=== PATIENT | female | born 1955 | race Caucasian/White ===

== ENCOUNTER → 2020-06-06 09:02 | Outpatient (BNVA) | payer MEDICAID, SELFPAY | PROVIDERS: PCP Internal Medicine; Referring Provider Internal Medicine; Visit Provider Physician Assistant | DX: Z76.89 Persons encountering health services in other specified circumstances (principal) ==

== ENCOUNTER 2020-06-24 12:29 | Outpatient (REF) | payer MEDICAID, SELFPAY | END 2020-06-24 12:30 | disposition home or self-care (01) | LOC: HO.LAB 12:29 | PROVIDERS: PCP Internal Medicine; Visit Provider Internal Medicine | DX: Z20.828 Contact with and (suspected) exposure to other viral communicable diseases (principal) | CPT/HCPCS: C9803; U0003 ==

== ENCOUNTER 2020-08-02 10:04 | Day surgery (SDC) | payer MEDICAID, SELFPAY ==
--- NOTE | 2020-08-01 10:48 | HO.ANESPROP2 ---
Documented by User: Asia Chacon 08/01/20 10:49 HPI - Anesthesia Eval Consult details Narrative: 65yo F for Colonoscopy [facility] Past Medical History Medical History Chronic back pain Dyslipidemia HTN (hypertension) Sleep apnea in adult Surgical History Surgical History H/O colonoscopy History of bunionectomy Social History Social History Alcohol intake: current Smoking Status: Never smoker Use of substances other than those prescribed or required for medical reasons: No Have you been hit, kicked, punched, or otherwise hurt by someone within the past year? If so, by whom?: No Advance Directives: No Advance Directives Information Provided: No Current occupational status: unemployed Meds Allergies Allergy/AdvReac Type Severity Reaction Status Date / Time tetanus immune globulin AdvReac Intermediate LOCALIZED Verified 08/02/20 10:30 [TETANUS IMMUNE GLOBULIN] SWELLING Home Medications Medication Instructions Recorded Confirmed Type acetaminophen 325 mg tablet 325 mg PO QID PRN 06/06/20 07/27/20 History albuterol 90 mcg/actuation aerosol 90 mcg INHALATION Q4-6H PRN 06/06/20 07/27/20 History inhaler atorvastatin 20 mg tablet 20 mg PO BEDTIME 06/06/20 07/27/20 History clonazepam 1 mg tablet 1 mg PO DAILY 06/06/20 07/27/20 History lisinopril 10 1 tab PO DAILY 06/06/20 07/27/20 History mg-hydrochlorothiazide 12.5 mg tablet Exam Exam Date and Time: August 01, 2020 1048 Assessment and Plan Assessment Anesthesia Assessment: Chart Reviewed Documented by User: Urszula Ford 08/02/20 11:05 [facility] Past Medical History Medical History Chronic back pain Dyslipidemia HTN (hypertension) Sleep apnea in adult Surgical History Surgical History H/O colonoscopy History of bunionectomy Social History Social History Alcohol intake: current Smoking Status: Never smoker Use of substances other than those prescribed or required for medical reasons: No Have you been hit, kicked, punched, or otherwise hurt by someone within the past year? If so, by whom?: No Advance Directives: No Advance Directives Information Provided: No Current occupational status: unemployed Meds Allergies Allergy/AdvReac Type Severity Reaction Status Date / Time tetanus immune globulin AdvReac Intermediate LOCALIZED Verified 08/02/20 10:30 [TETANUS IMMUNE GLOBULIN] SWELLING Home Medications Medication Instructions Recorded Confirmed Type acetaminophen 325 mg tablet 325 mg PO QID PRN 06/06/20 07/27/20 History albuterol 90 mcg/actuation aerosol 90 mcg INHALATION Q4-6H PRN 06/06/20 07/27/20 History inhaler atorvastatin 20 mg tablet 20 mg PO BEDTIME 06/06/20 07/27/20 History clonazepam 1 mg tablet 1 mg PO DAILY 06/06/20 07/27/20 History lisinopril 10 1 tab PO DAILY 06/06/20 07/27/20 History mg-hydrochlorothiazide 12.5 mg tablet Exam Airway Mallampati Class: III TM Dist: >3cm Neck ROM: Full Heart: RRR Lungs: CTA
[2020-08-01 16:21] VITALS: BMI 32.3
[2020-08-02 10:43] VITALS: BP 130/73; PULSE 47; RESP 16; TEMP 36.7; O2SAT 98
[2020-08-02] MEDS: Lactated Ringers 1,000 ML 100 ML IVCONT (10:53)
--- NOTE | 2020-08-02 10:57 | W.PM.OPN ---
Operative Note Operative Note Date of Service: 08/02/20 Narrative: Pre-op diagnosis: Colon cancer screening, history of colon polyps, positive stool Hemoccult Post-op diagnosis: other (Cecal AVM, colon polyps, diverticulosis) Procedure: COLONOSCOPY TILL CECUM WITH BIOPSIES, SNARE POLYPECTOMY AND CAUTERY OF CECAL AVM Consent: Indications for the procedure and potential complications of bleeding, perforation, reaction to medications and missed diagnosis were discussed with the patient and informed consent was obtained. Instrument: Olympus PCF H 190 L variable stiffness pediatric colonoscope Monitoring: Vital signs and clinical assessment, intermittent blood pressure monitoring, continuous EKG monitoring, Pulse oximetry and Carbon Dioxide monitoring were done throughout the procedure. Colon withdrawl time was 22 minutes. Procedure: The patient was placed in the left lateral decubitis position and pre-procedure medications were administered. After a digital rectal examination of the ano-rectum, the video colonoscope was inserted into the rectum and advanced through the colon to the cecum. The colonoscope was slowly withdrawn in a retrograde panoramic fashion and the colon mucosa was carefully examined including a retroflexed view of the rectum. Findings and interventions are described below. Procedure Difficulty: Without difficulty Findings: Terminal Ileum: Not evaluated Cecum: A 1.5 cms AVM ablated with a Gold probe (APC was not available) Prominent ICV with ? 5-6 mm polyp - biopsies were obtained Ascending Colon: Normal Transverse Colon: Normal Descending Colon: Moderate diverticulosis Sigmoid Colon: A 7-8 mm sessile polyp removed with a cold snare. Moderate diverticulosis Rectum: Normal Ano-rectum: Normal Colon preparation: Excellent Impression and Post Procedure Diagnosis: Colonoscopy Findings: One polyps removed A 1.5 cms AVM ablated with a Gold probe (APC was not available) Prominent ICV with ? 5-6 mm polyp - biopsies were obtained Moderate diverticulosis seen in the left colon Plan: Await pathology results Patient has an appointment on []in the GI Clinic with [OPAL Young] [Janae Nunn NP] [Aparna Townsend FNP-] [Travis Werner M.D.]. Repeat Colonoscopy interval based on path results - in 3-5 years if polyps are adenomatous and 10 years if polyps are hyperplastic. Above findings were reviewed with the patient and [colon polyps] and [diverticulosis] handouts were given in the discharge area Surgeon: Travis Werner MD Anesthesia: MAC (Dr Smith) Estimated blood loss (mL): 0 Pathology: other (A. ICV, B. SC polyp x1) Condition: stable Disposition: PACU
--- NOTE | 2020-08-02 10:57 | MHC.SHP ---
Pre-Procedural Eval Section A The patient is an INPATIENT: No The History & Physical has been completed within 30 days and I have reviewed it.: No Section B Chief Complaint: Occult Blood Positive Stool Details of Present Illness: Colon cancer screening, positive occult blood in stool Relevant Social History: Tobacco Use (past smoker) Present Medications: see Short Stay Collaborative assessment Medical History: Significant History (Chronic back pain Dyslipidemia HTN (hypertension) Sleep apnea in adult) Allergies: Allergies Allergy/AdvReac Type Severity Reaction Status Date / Time tetanus immune globulin AdvReac Intermediate LOCALIZED Verified 08/02/20 10:30 [TETANUS IMMUNE GLOBULIN] SWELLING Review of Systems Sugical H&P ROS: Negative: Constitution, Cardiovascular, Respiratory and Gastrointestinal Exam Surgical H&P Exam: Normal: Heart, Normal: Lungs, Normal: Extremities and Normal: Abdomen Plan Diagnosis/Plan: Unchanged I have reviewed the history and physical and performed a pertinent physical examination on my patient. No changes have occurred unless specified.
[2020-08-02 12:15] VITALS: BP 113/71; PULSE 84; RESP 16; TEMP 36.5; O2SAT 97
[2020-08-02 12:30] VITALS: BP 129/84; PULSE 76; RESP 18; TEMP 36.5; O2SAT 97
== END 2020-08-02 13:13 | disposition home or self-care (01) ==
PROVIDERS: PCP Internal Medicine; Visit Provider Internal Medicine Gastroenterology
PROC: 0DJD8ZZ Inspection of Lower Intestinal Tract, Via Natural or Artificial Opening Endoscopic (ICD-10-PCS; CPT 45378; principal; 2020-08-02 11:00)
DX: R19.5 Other fecal abnormalities (principal); D12.5 Benign neoplasm of sigmoid colon; K55.20 Angiodysplasia of colon without hemorrhage; K57.30 Diverticulosis of large intestine without perforation or abscess without bleeding; I10 Essential (primary) hypertension; G47.33 Obstructive sleep apnea (adult) (pediatric); E78.5 Hyperlipidemia, unspecified; Z86.010 Personal history of colon polyps; Z79.899 Other long term (current) drug therapy; Z88.7 Allergy status to serum and vaccine
CPT/HCPCS: 45385; 45380; 88305; J0461

== ENCOUNTER 2020-12-08 08:52 | Outpatient (REF) | payer MEDICAID, SELFPAY ==
--- NOTE | ~2020-12-08 | US_ITS ---
EXAMINATION: ULTRASOUND ABDOMINAL AORTIC ANEURYSM CLINICAL INFORMATION: History of AAA, evaluate status. COMPARISON: CT scan of the abdomen and pelvis dated 01/21/2011. TECHNIQUE: Multiple 2-D grayscale and duplex Doppler ultrasound images of the abdominal aorta were obtained. FINDINGS: The abdominal aorta demonstrates mild echogenic atherosclerosis. Limited Doppler interrogation showed normal arterial waveforms. Abdominal arterial maximum diameters are as follows: 1. Proximal: 2.4 cm. 2. Mid: 2.1 cm. 3. Distal: 2.7 cm. In transverse dimension (Previously 2.0 cm) 4. Right common iliac artery: 1.1 cm. 5. Left common iliac artery: 1.0 cm. The visualized inferior vena cava is unremarkable. US/US abdominal aortic aneurysm IMPRESSION:. Infrarenal abdominal aortic aneurysm measuring up to 2.7 cm. Current guidelines for imaging follow-up is every 5 years.
== END 2020-12-08 08:53 | disposition home or self-care (01) ==
LOC: HO.US 08:52
PROVIDERS: Visit Provider Internal Medicine
DX: I71.4 Abdominal aortic aneurysm, without rupture (principal)
CPT/HCPCS: 76706

== ENCOUNTER 2021-01-02 11:07 | Emergency (ER) | payer MEDICAID, SELFPAY ==
--- NOTE | ~2021-01-02 | XR_ITS ---
EXAMINATION: XR SACRUM AND COCCYX CLINICAL INFORMATION: Status post fall. Pain COMPARISON: None TECHNIQUE: 2 views of the sacrum and 2 views of the coccyx were obtained. FINDINGS: There are no fractures. No bone, joint or soft tissue abnormality is demonstrated. XR/XR sacrum coccyx min 2V IMPRESSION: Unremarkable sacrum and coccygeal examination.
[2021-01-02 11:51] VITALS: BP 132/72; PULSE 55; RESP 18; TEMP 36.6; O2SAT 99; BMI 34.3
--- NOTE | 2021-01-02 13:59 | ED.FALL ---
HPI - Fall General Chief Complaint: Fall Stated Complaint: fell back pain Time Seen by Provider: 01/02/21 12:58 Source: patient Mode of arrival: ambulatory Limitations: no limitations History of Present Illness HPI Narrative: 65 y/o female presenting with ongoing buttocks pain after she slipped and fell 2 weeks ago. She reports pain in her coccyx and pelvis. She has a hard time walking and finding a comfortable position to sleep in at night. She has not been taking any medication for the pain. She denies weakness, numbness, tingling or incontinence. She is not on anticoagulation. MD complaint: fall Onset (ago): week(s) (2) Fall from: standing Fall witnessed: yes, by family Place fall occurred: home Loss of consciousness: none Prolonged down time: no Symptoms prior to fall: none Context: tripped/slipped Location of injury: pelvis Severity: moderate Quality: aching Associated symptoms (after fall): denies Related Data Home Medications Medication Instructions Recorded Confirmed acetaminophen 325 mg tablet 325 mg PO QID PRN 06/06/20 07/27/20 albuterol 90 mcg/actuation aerosol 90 mcg INHALATION Q4-6H PRN 06/06/20 07/27/20 inhaler atorvastatin 20 mg tablet 20 mg PO BEDTIME 06/06/20 07/27/20 clonazepam 1 mg tablet 1 mg PO DAILY 06/06/20 07/27/20 lisinopril 10 1 tab PO DAILY 06/06/20 07/27/20 mg-hydrochlorothiazide 12.5 mg tablet Previous Rx's Medication Instructions Recorded cyclobenzaprine 10 mg PO TID PRN #8 tab 01/02/21 ibuprofen 600 mg PO Q8H PRN #5 tab 01/02/21 lidocaine [Lidoderm] 1 patch TOPICAL DAILY #15 ea 01/02/21 Allergies Allergy/AdvReac Type Severity Reaction Status Date / Time tetanus immune globulin AdvReac Intermediate LOCALIZED Verified 01/02/21 11:51 [TETANUS IMMUNE GLOBULIN] SWELLING Review of Systems Review of Systems: Constitutional: No Fever, No Chills Cardiovascular: No Chest Pain, No SOB Respiratory: No Cough, No Sputum, No Wheezing, No dyspnea Gastrointestinal: No Nausea, No Vomiting, No Diarrhea, No abdominal Pain Genitourinary: No Dysuria, No Urinary Frequency, No Hematuria Musculoskeletal: + joint pain, + Myalgias Skin: No Skin Lesions, No rash Neuro: No Weakness, No Numbness, No Dizziness, No Headache Psych: No Anxiety/Panic, No Depression Heme/Lymph: + Bruising, No Lymphadenopathy PMFSH Past Medical History Attestation statement: The following information was validated with the patient. Medical History Chronic back pain Dyslipidemia HTN (hypertension) Sleep apnea in adult Surgical History H/O colonoscopy History of bunionectomy Social History Social History Household Members Other:: alone Alcohol intake: current Advance Directives: No Advance Directives Information Provided: No Patient : No Current occupational status: unemployed Physical Exam Vital Signs: Vital Signs: Last Vital Signs Temp 98 F 01/02/21 11:51 Pulse 55 01/02/21 11:51 Resp 18 01/02/21 11:51 BP 132/72 01/02/21 11:51 Pulse Ox 99 01/02/21 11:51 Body Mass Index 34.3 Appearance: Alert. Oriented X3. No acute distress. HEENT: normal inspection CVS: Normal heart rate and rhythm. Pulses normal. Respiratory: No respiratory distress. Skin: Skin warm and dry. Normal skin color. Normal skin turgor. No rashes. Back: normal appearing lower back, gluteal cleft with mild yellowing ecchymosis and tenderness. no abrasions or open areas. Extremities: atraumatic, no LE edema Neuro: Oriented X 3. No motor deficit. No sensory deficit. Ambulates with slow but steady gait Course Course Course Narrative: 65 y/o female presenting with coccyx and pelvic pain s/p fall 2 weeks ago. Ambulatory, not taking meds at home. Neurologically intact without red flag signs of LBP. Coccyx x-ray is negative. Pain likley contusion and muscle strain of lumbar region. Will treat symptomatically and encourage her to f/u with PCP. Stable for d/c home. Critical Care Time Critical Care Time Critical Care Time: No Discharge Plan Discharge Clinical Impression: Injury of coccyx Qualifiers: Encounter type: initial encounter Qualified Code(s): S39.92XA - Unspecified injury of lower back, initial encounter Patient Disposition: Home, Self-Care Instructions: Coccyx Injury (ED) Additional Instructions: You x-ray was normal. No bending, lifting or twisting. Use ice several times per day for 20 minutes at a time for the next 48 hours and then change to heat. Take medications as prescribed to help with pain and discomfort. Follow up with your Primary Care Doctor this week. If your pain worsens, if you develop new numbness, tingling, weakness, loss of function or incontinence call 911 or come back to the ER right away for evaluation. Prescriptions: New cyclobenzaprine 10 mg tablet 10 mg PO TID PRN (Reason: muscle spasm) Qty: 8 RF: 0 lidocaine [Lidoderm] 5 % adhesive patch,medicated 1 patch topical DAILY Qty: 15 RF: 0 ibuprofen 600 mg tablet 600 mg PO Q8H PRN (Reason: pain) Qty: 5 RF: 0 No Action acetaminophen [Tylenol] 325 mg tablet 325 mg PO QID PRN (Reason: Pain) RF: 0 atorvastatin 20 mg tablet 20 mg PO BEDTIME RF: 0 clonazepam 1 mg tablet 1 mg PO DAILY RF: 0 lisinopril-hydrochlorothiazide 10-12.5 mg tablet 1 tab PO DAILY RF: 0 albuterol 90 mcg/actuation aerosol 90 mcg inhalation Q4-6H PRN (Reason: Shortness Of Breath) RF: 0 Interventions: ED Discharge Assessment Last Done: 01/02/21 14:17 Discharge Date/Time: 01/02/21 14:22 Print Language: [place]
== END 2021-01-02 14:22 | disposition home or self-care (01) ==
PROVIDERS: Emergency Provider Emergency Medicine Emergency Medical Services; PCP Internal Medicine
DX: S39.92XA Unspecified injury of lower back, initial encounter (principal); I10 Essential (primary) hypertension; Z79.899 Other long term (current) drug therapy; W01.0XXA Fall on same level from slipping, tripping and stumbling without subsequent striking against object, initial encounter; Y93.9 Activity, unspecified; Y92.009 Unspecified place in unspecified non-institutional (private) residence as the place of occurrence of the external cause; Y99.9 Unspecified external cause status
CPT/HCPCS: 72220; 99283

== ENCOUNTER 2021-10-20 16:50 | Outpatient (REF) | payer MEDICAID, SELFPAY ==
--- NOTE | ~2021-10-20 | XR_ITS ---
EXAMINATION: XR SHOULDER-LEFT XR CERVICAL SPINE CLINICAL INFORMATION: Cervicalgia. Left shoulder pain. COMPARISON: None TECHNIQUE: 5 views of the cervical spine and 4 views of the left shoulder were obtained. FINDINGS: Left shoulder: The bony alignments are intact. The cortices are intact. Mild diffuse osteopenia is noted. The soft tissues are unremarkable. Cervical spine: Limited evaluation only up to C5 vertebral body is well-visualized on the lateral projection. The lower cervical spine is not optimally included and accordingly not evaluated. The visualized part of the cervical spine shows normal height and alignment of the vertebral bodies and intact posterior appendages. The C1-C2 alignment is intact. No significant foraminal narrowing is noted on either side. The prespinal soft tissues are unremarkable. Both lung apices are clear. Incidental note is made of bilateral cervical atherosclerotic carotid arterial disease. XR/XR shoulder LT min 2V IMPRESSION: 1. Unremarkable radiographic appearance of the left shoulder except for mild diffuse osteopenia. 2. The cervical spine radiographs is technically limited since the C6 and C7 vertebral bodies and the adjacent intervertebral disc are not included within the [id number], accordingly not evaluated. The included upper part of the cervical spine appears unremarkable.
--- NOTE | ~2021-10-20 | XR_ITS ---
EXAMINATION: XR SHOULDER-LEFT XR CERVICAL SPINE CLINICAL INFORMATION: Cervicalgia. Left shoulder pain. COMPARISON: None TECHNIQUE: 5 views of the cervical spine and 4 views of the left shoulder were obtained. FINDINGS: Left shoulder: The bony alignments are intact. The cortices are intact. Mild diffuse osteopenia is noted. The soft tissues are unremarkable. Cervical spine: Limited evaluation only up to C5 vertebral body is well-visualized on the lateral projection. The lower cervical spine is not optimally included and accordingly not evaluated. The visualized part of the cervical spine shows normal height and alignment of the vertebral bodies and intact posterior appendages. The C1-C2 alignment is intact. No significant foraminal narrowing is noted on either side. The prespinal soft tissues are unremarkable. Both lung apices are clear. Incidental note is made of bilateral cervical atherosclerotic carotid arterial disease. XR/XR cervical spine 4V IMPRESSION: 1. Unremarkable radiographic appearance of the left shoulder except for mild diffuse osteopenia. 2. The cervical spine radiographs is technically limited since the C6 and C7 vertebral bodies and the adjacent intervertebral disc are not included within the [id number], accordingly not evaluated. The included upper part of the cervical spine appears unremarkable.
== END 2021-10-20 16:51 | disposition home or self-care (01) ==
LOC: HO.XRAY 16:50
PROVIDERS: PCP Internal Medicine; Visit Provider Internal Medicine
DX: G89.29 Other chronic pain (principal); M25.512 Pain in left shoulder; M54.2 Cervicalgia
CPT/HCPCS: 72050; 73030

== ENCOUNTER 2022-02-15 18:25 | Emergency (ER) | payer MEDICARE, MEDICAID, SELFPAY ==
[2022-02-15 18:56] VITALS: BP 122/66; PULSE 56; RESP 16; TEMP 37.1; O2SAT 98; BMI 35.2
[2022-02-15 19:16] LABS: MANUAL DIFF FLAG NO
[2022-02-15 19:27] LABS: Basophils Absolute Auto 0.1 X10*3/uL (0.0-0.2); Basophils Percent Auto 0.6 % (0-2); Eosinophils Absolute Auto 0.2 X10*3/uL (0.0-0.4); Eosinophils Percent Auto 2.5 % (0-4); Hematocrit 40.4 % (37.0-47.0); Hemoglobin 13.4 g/dl (12.0-16.0); Imm Gran Abs Auto 0.04 X10*3/uL (0.00-0.03); Imm Gran Pct Auto 0.5 % (0.0-0.4); Lymphocytes Absolute Auto 2.9 X10*3/uL (1.2-4.9); Lymphocytes Percent Auto 34.3 % (20-40); Mean Corpuscular HGB Conc 33.2 g/dl (31.0-35.0); Mean Corpuscular Hemoglobin 30.3 pg (27.0-33.0); Mean Corpuscular Volume 91.4 fL (80.0-98.0); Mean Platelet Volume 10.3 fL (9.4-12.3); Monocytes Absolute Auto 0.7 X10*3/uL (0.1-1.2); Monocytes Percent Auto 8.6 % (2-11); Neutrophils Absolute Auto 4.6 x10*3/uL (2.0-8.3); Neutrophils Percent Auto 53.5 % (45-73); Platelet Count 268 X10*3/uL (160-400); Red Blood Count 4.42 X10*6/uL (4.20-5.50); Red Cell Distribution Width 13.1 % (11.0-16.0); White Blood Count 8.6 X10*3/uL (4.8-10.8)
[2022-02-15 19:28] LABS: Appearance Urine CLEAR; Color Urine YELLOW; Glucose Urine UA NEG (NEG); Leukocyte Esterase Urine NEG (NEG); Nitrite Urine NEG (NEG); PH 6.5 (5.0-8.0); Specific Gravity - Urine <= 1.005 (1.005-1.025); Urine Blood NEG (NEG); Urine Ketones NEG (NEG); Urine Protein NEG (NEG-TRACE)
[2022-02-15 19:31] LABS: Anion Gap 14 (12-20); Blood Urea Nitrogen 21 mg/dL (9-16); Carbon Dioxide 29 mmol/L (22-29); Chloride 99 mmol/L (96-108); Creatinine Clr Calc Pharmacy 75.8; Estimated Glomerular Filt Rate > 60; Glucose Random 110 mg/dL (60-115); Potassium 4.4 mmol/L (3.3-5.1); Sodium 138 mmol/L (135-145)
== END 2022-02-15 21:00 | disposition left against medical advice (07) ==
PROVIDERS: Emergency Provider Emergency Medicine
DX: R10.9 Unspecified abdominal pain (principal)
CPT/HCPCS: 36415; 80048; 81003; 85025; 87086; 99282; 99283

== ENCOUNTER → 2022-03-14 12:59 | Outpatient (REF) | payer MEDICARE, MEDICAID, SELFPAY ==
--- NOTE | 2022-03-14 13:04 | ECG_ITS ---
Hook-up date: 2022-03-14 12:18:00 Duration: 26:04:00 Test Indications: BRADYCARDIA Medications: 80716 QRS complexes 6 Ventricular ectopics which represent <1 % of total QRS comp. 56 Supraventricular ectopics which represent <1 % of total QRS comp. * Paced QRS complexs which represent % of total QRS comp. VENTRICULAR ECTOPY 6 Isolated 0 Bigeminal Cycles 0 Couplets 0 Runs 0 Beats in Runs * Beats LONGEST at * BPM at :: -- * Beats FASTEST at * BPM at :: -- SUPRAVENTRICULAR ECTOPY 35 Isolated 4 Couplets 3 Runs 13 Beats in Runs 6 Beats LONGEST at 84 BPM at 02:35:47 2022-03-15 4 Beats FASTEST at 98 BPM at 17:50:47 2022-03-14 HEART RATES 35 MIN at 00:48:17 2022-03-15 56 AVG 107 MAX at 13:25:07 2022-03-14 LONGEST RR 1.7360 secs at 00:48:13 2022-03-15 S-T LEVELS Channel 1 - 128 mm at 12:18:00 2022-03-14 - 128 mm at 12:18:00 2022-03-14 Channel 2 - 128 mm at 12:18:00 2022-03-14 - 128 mm at 12:18:00 2022-03-14 Channel 3 - 128 mm at 03:13:71 -- - 128 mm at 03:13:71 Underlying rhythm is sinus; Average ventricular rate 56/min; range 35-107/min; About 75% of the time, rate <60/min; Rare supraventricular and ventricular ectopy; No sustained arrhythmias; Patient did not report any symptoms in the diary Referred By: Jenn Gonzalez Overread By: SANJIV MANZANARES
== END ==
LOC: HO.CARD 12:59
PROVIDERS: Visit Provider Internal Medicine
DX: R00.1 Bradycardia, unspecified (principal)
CPT/HCPCS: 93225; 93226

== ENCOUNTER 2022-05-28 17:00 | Outpatient (REF) | payer MEDICARE, MEDICAID, SELFPAY ==
[2022-05-30 13:41] LABS: H Pylori Breath Test Positive (Negative)
== END 2022-05-28 17:01 | disposition home or self-care (01) ==
LOC: HO.LNP 17:00
PROVIDERS: Visit Provider Physician Assistant
DX: A04.8 Other specified bacterial intestinal infections (principal)
CPT/HCPCS: 83013; 99202

== ENCOUNTER → 2022-06-11 10:41 | Outpatient (BNVA) | payer MEDICARE, MEDICAID, SELFPAY | PROVIDERS: PCP Internal Medicine; Visit Provider Internal Medicine Cardiovascular Disease ==

== ENCOUNTER 2022-09-25 18:59 | Emergency (ER) | payer MEDICARE, SELFPAY ==
--- NOTE | ~2022-09-25 | CT_ITS ---
EXAMINATION: CT ABDOMEN AND PELVIS WITH CONTRAST CLINICAL INFORMATION: Flank pain and abdominal pain. COMPARISON: 01/21/2011 TECHNIQUE: Multidetector volumetric images were obtained from the superior aspect of the liver through the pubic symphysis following administration 85 mL of Omnipaque 350 intravenous contrast. Sagittal and coronal reformatted images were obtained on the technologist's workstation. Oral contrast: No This CT examination was performed using dose optimization techniques as appropriate, variously including the following: *Automated exposure control *Adjustment of mA and/or kV according to patient size (this includes techniques or standardized protocols for targeted exams where dose is matched to indication/reason for exam; i.e. extremities or head) *Use of iterative reconstruction technique DLP: 713 mGy-cm FINDINGS: LUNG BASES: The lung bases are clear. Coronary artery calcifications. LIVER, GALLBLADDER, AND BILIARY TREE: The liver is normal in size, shape, and attenuation. No focal hepatic lesion or biliary ductal dilatation is present. Cholecystectomy. PANCREAS: Unremarkable. SPLEEN: Unremarkable. ADRENAL GLANDS: Unremarkable. KIDNEYS AND URETERS: The kidneys are normal in size, shape, and attenuation. No hydronephrosis, hydroureter, or calculi seen. No perinephric stranding. Simple cyst at the midpole of the left kidney. No specific follow-up recommended. BLADDER: Unremarkable. GASTROINTESTINAL TRACT: The stomach is unremarkable. Normal caliber small bowel. No obstruction. Normal appendix. No colonic wall thickening or inflammation. Colonic diverticulosis at the sigmoid colon without diverticulitis. No free air or free fluid. ABDOMINAL WALL: No significant hernia is appreciated. LYMPH NODES: Normal. VASCULAR: Infrarenal abdominal aortic aneurysm measures 3.3 cm . This is increased from previous imaging. PELVIC VISCERA: Uterus not seen. No adnexal mass. OSSEOUS STRUCTURES: No acute or suspicious osseous abnormality. Degenerative changes throughout the spine. Mild degenerative changes in the hips. CT/CT abdomen pelvis w IV con IMPRESSION: 1. No acute findings in the abdomen or pelvis. No hydronephrosis or nephrolithiasis. No inflammatory changes. 2. Infrarenal abdominal aortic aneurysm measures 3.3 cm, increased from previous imaging. Recommend follow-up imaging every 3 years. Fleischner guidelines were followed.
[2022-09-25 19:37] VITALS: BP 143/78; PULSE 60; RESP 19; TEMP 36.6; O2SAT 98; BMI 35.2
[2022-09-25 20:40] LABS: MANUAL DIFF FLAG NO
[2022-09-25 20:42] LABS: Basophils Absolute Auto 0.1 X10*3/uL (0.0-0.2); Basophils Percent Auto 0.7 % (0-2); Eosinophils Absolute Auto 0.3 X10*3/uL (0.0-0.4); Eosinophils Percent Auto 2.9 % (0-4); Hematocrit 38.8 % (37.0-47.0); Hemoglobin 13.2 g/dl (12.0-16.0); Imm Gran Abs Auto 0.02 X10*3/uL (0.00-0.03); Imm Gran Pct Auto 0.2 % (0.0-0.4); Lymphocytes Absolute Auto 3.4 X10*3/uL (1.2-4.9); Lymphocytes Percent Auto 38.6 % (20-40); Mean Corpuscular Volume 91.1 fL (80.0-98.0); Monocytes Absolute Auto 0.6 X10*3/uL (0.1-1.2); Monocytes Percent Auto 6.7 % (2-11); Neutrophils Absolute Auto 4.5 x10*3/uL (2.0-8.3); Neutrophils Percent Auto 50.9 % (45-73); Platelet Count 265 X10*3/uL (160-400); Red Blood Count 4.26 X10*6/uL (4.20-5.50); Red Cell Distribution Width 13.2 % (11.0-16.0); White Blood Count 8.9 X10*3/uL (4.8-10.8)
[2022-09-25 20:43] LABS: Appearance Urine Clear; Color Urine Yellow; Glucose Urine UA Negative (Negative); Leukocyte Esterase Urine Trace (Negative); Nitrite Urine Negative (Negative); UMIC TRIGGER UACC YES; Urine Blood Negative (Negative); Urine Ketones Negative (Negative); Urine Protein Negative (Neg-Trace)
[2022-09-25 20:48] LABS: Bacteria Urine None Seen (None Seen); Hyaline Casts Urine 0-2 /LPF (0-2); RBC Urine 0-2 /HPF (0-2); Squamous Epithelial Cell Urine 0-2 /HPF (0-2); WBC Urine 0-5 /HPF (0-5)
[2022-09-25 21:00] LABS: COVID-19 Test Negative (Negative); IDNOW Serial# 08D9AD1C
[2022-09-25 21:04] LABS: Alanine Aminotransferase 20 U/L (0-31); Albumin Level 4.3 g/dL (3.5-5.0); Alkaline Phosphatase 92 U/L (39-117); Anion Gap 13 (12-20); Aspartate Amino Transferase 17 U/L (5-31); Bilirubin Total 0.6 mg/dL (0.0-1.0); Blood Urea Nitrogen 16 mg/dL (9-16); Calcium 9.3 mg/dL (8.4-10.2); Carbon Dioxide 29 mmol/L (22-29); Chloride 103 mmol/L (96-108); Creatinine Clr Calc Pharmacy 74.7; Estimated Glomerular Filt Rate > 60; Glucose Random 109 mg/dL (60-115); Lipase 12 U/L (8-78); Magnesium 1.8 mg/dL (1.6-2.6); Potassium 3.8 mmol/L (3.3-5.1); Sodium 141 mmol/L (135-145); Total Protein 6.8 g/dL (6.5-8.0)
[2022-09-25] MEDS: iohexoL 350 MG/ML 100 ML INFUS..BTL IV (22:08)
[2022-09-25 22:21] VITALS: BP 128/66; PULSE 55; RESP 16; TEMP 36.6; O2SAT 98
--- NOTE | 2022-09-25 22:51 | ED.ABDPAIN ---
HPI - Abdominal Pain General Chief Complaint: Abdominal Pain Stated Complaint: Lower abdominal pain/Nausea Time Seen by Provider: 09/25/22 22:46 Source: patient Mode of arrival: ambulatory Limitations: no limitations History of Present Illness HPI narrative: Patient history of diverticulitis complaining of pain in the back and the lower abdomen for last 3 days associated l with nausea and headache no vomiting no fever no chills no urinary complaint no diarrhea no blood in the stool patient denied any hematuria patient does have history of arthritis Related Data Home Medications Medication Instructions Recorded Confirmed acetaminophen 325 mg tablet 325 mg PO QID PRN Pain 06/06/20 07/27/20 (Tylenol) albuterol 90 mcg/actuation aerosol 90 mcg inhalation Q4-6H PRN 06/06/20 07/27/20 inhaler Shortness Of Breath atorvastatin 20 mg tablet 20 mg PO BEDTIME 06/06/20 07/27/20 clonazepam 1 mg tablet 1 mg PO DAILY 06/06/20 07/27/20 lisinopril 10 1 tab PO DAILY 06/06/20 07/27/20 mg-hydrochlorothiazide 12.5 mg tablet Previous Rx's Medication Instructions Recorded cyclobenzaprine 10 mg tablet 10 mg PO TID PRN muscle spasm #8 01/02/21 tabs ibuprofen 600 mg tablet 600 mg PO Q8H PRN pain #5 tabs 01/02/21 lidocaine 5 % topical patch 1 patch topical DAILY #15 ea 01/02/21 (Lidoderm) methylcellulose (laxative) 2 g PO DAILY PRN constipation #479 05/28/22 (Citrucel Sugar Free oral powder) grams omeprazole 20 mg capsule,delayed 20 mg PO DAILY #30 caps 05/28/22 release simethicone 125 mg chewable tablet 125 mg PO TID-QID PRN abdominal 05/28/22 (Gas Relief (simethicone)) distention #90 tabs cyclobenzaprine 10 mg tablet 10 mg PO Q8H #20 tabs 09/25/22 tramadol 50 mg tablet 50 mg PO Q6H PRN pain #20 tabs 09/25/22 Allergies Allergy/AdvReac Type Severity Reaction Status Date / Time tetanus immune globulin AdvReac Intermediate LOCALIZED Verified 05/28/22 12:01 [TETANUS IMMUNE GLOBULIN] SWELLING Review of Systems Review of Systems Constitutional : No Weight loss, No Fever, No Chills ENT/Mouth : No sore throat, No Rhinorrhea Eyes: No Eye Pain, No Swelling Cardiovascular : No Chest Pain, no palpitations Respiratory : No Cough, No Sputum, no shortness of breath Gastrointestinal : + Nausea, No Vomiting, No Diarrhea,+ abdominal Pain, no black stools Genitourinary : No Dysuria, No Urinary Frequency Musculoskeletal : No joint pain, No Myalgias, No Joint Swelling Skin : No Skin Lesions, No rash Neuro : No Weakness, No Numbness, No Dizziness, + Headache Psych : No Anxiety/Panic, No Depression Heme/Lymph: No Bruising, No Lymphadenopathy Endocrine : No Polyuria, No Polydipsia All other systems reviewed and are negative Yes all other systems are reviewed and are negative [facility] Past Medical History Medical History Chronic back pain Dyslipidemia HTN (hypertension) Sleep apnea in adult Surgical History H/O colonoscopy History of bunionectomy Social History Social History Household Members Other:: alone Alcohol intake: current Patient Tobacco Use Status: Former Tobacco user Substance Use Type: Marijuana Advance Directives: No Advance Directives Information Provided: No Current occupational status: unemployed Physical Exam ED Vital Signs: Vital Signs - 24 hr 09/25/22 19:37 09/25/22 22:21 Temperature 97.9 F 98 F Pulse Rate 60 55 Respiratory Rate 19 16 Blood Pressure 143/78 H 128/66 Pulse Oximetry 98 98 Oxygen Delivery Method Room Air Room Air BMI result Body Mass Index 35.2 Appearance: Alert. Oriented X3. No acute distress. Eyes: No pallor or icterus ENT: Pharynx normal. Oral Mucosa moist Neck: Normal inspection. Neck supple. CVS: Normal heart rate and rhythm. Pulses normal. Respiratory: No respiratory distress. Equal air entry bilateral, no wheezing/rales/rhonchi Abdomen: Soft mild discomfort on deep palpation suprapubic area Bowel sounds are present, no mass palpable, no CVA tenderness Skin: Skin warm and dry. Normal skin color. Normal skin turgor. Extremities: No lower extremity edema. No calf tenderness back: Diffuse lumbar tenderness no focal bony deformity or tenderness bilateral paraspinal spasm Neuro: Oriented X 3. No motor deficit. No sensory deficit.No cerebellar signs , cranial nerves II-XII intact Medical Decision Making Medical Decision Making [facility] Narrative: Patient's CT scan of abdomen is negative for acute pathology had aortic aneurysm 3.3 cm up 2 years ago was 2.9 cm which patient is aware of likely cause of pain is arthritis of the back will discharge patient home on tramadol and Flexeril Differential Diagnosis Differential Diagnoses: The differential diagnosis associated with the presentation includes Diverticulitis/kidney stone/UTI/back pain Lab Data [facility] Lab Attestation statement: I reviewed the patient's lab results. 09/25/22 20:34 09/25/22 20:34 Labs: Lab Results 09/25/22 09/25/22 09/25/22 Range/Units 20:34 20:34 20:34 WBC 8.9 (4.8-10.8) X10*3/uL RBC 4.26 (4.20-5.50) X10*6/uL Hgb 13.2 (12.0-16.0) g/dl Hct 38.8 (37.0-47.0) % MCV 91.1 (80.0-98.0) fL MCH 31.0 (27.0-33.0) pg MCHC 34.0 (31.0-35.0) g/dl RDW 13.2 (11.0-16.0) % Plt Count 265 (160-400) X10*3/uL MPV 10.0 (9.4-12.3) fL Immature Gran % (Auto) 0.2 (0.0-0.4) % Neut % (Auto) 50.9 (45-73) % Lymph % (Auto) 38.6 (20-40) % Hardeman % (Auto) 6.7 (2-11) % Eos % (Auto) 2.9 (0-4) % Baso % (Auto) 0.7 (0-2) % Lymph # (Auto) 3.4 (1.2-4.9) X10*3/uL Hardeman # (Auto) 0.6 (0.1-1.2) X10*3/uL Eos # (Auto) 0.3 (0.0-0.4) X10*3/uL Baso # (Auto) 0.1 (0.0-0.2) X10*3/uL Abs Immat Gran (auto) 0.02 (0.00-0.03) X10*3/uL Absolute Neuts (auto) 4.5 (2.0-8.3) x10*3/uL Absolute Nucleated RBC 0.000 (0.0-0.012) X10*3/uL Nucleated RBC % (auto) 0.0 (0.0-0.2) /100WBC Sodium 141 (135-145) mmol/L Potassium 3.8 (3.3-5.1) mmol/L Chloride 103 (96-108) mmol/L Carbon Dioxide 29 (22-29) mmol/L Anion Gap 13 (12-20) BUN 16 (9-16) mg/dL Creatinine 0.71 (0.5-1.4) mg/dL Estim Creat Clear Calc 74.7 Estimated GFR > 60 Random Glucose 109 (60-115) mg/dL Calcium 9.3 (8.4-10.2) mg/dL Magnesium 1.8 (1.6-2.6) mg/dL Total Bilirubin 0.6 (0.0-1.0) mg/dL AST 17 (5-31) U/L ALT 20 (0-31) U/L Alkaline Phosphatase 92 (39-117) U/L Total Protein 6.8 (6.5-8.0) g/dL Albumin 4.3 (3.5-5.0) g/dL Lipase 12 (8-78) U/L Urine Color Urine Appearance Urine pH (5.0-9.0) Ur Specific Sebastian (1.005-1.025) Urine Protein (Neg-Trace) mg/dL Urine Glucose (UA) (Negative) mg/dL Urine Ketones (Negative) mg/dL Urine Blood (Negative) Urine Nitrite (Negative) Ur Leukocyte Esterase (Negative) Urine RBC (0-2) /HPF Urine WBC (0-5) /HPF Ur Squamous Epith Cells (0-2) /HPF Urine Bacteria (None Seen) Hyaline Casts (0-2) /LPF COVID-19 (NADYA) Negative (Negative) COVID-19 Clin Com See Note 09/25/22 Range/Units 20:34 WBC (4.8-10.8) X10*3/uL RBC (4.20-5.50) X10*6/uL Hgb (12.0-16.0) g/dl Hct (37.0-47.0) % MCV (80.0-98.0) fL MCH (27.0-33.0) pg MCHC (31.0-35.0) g/dl RDW (11.0-16.0) % Plt Count (160-400) X10*3/uL MPV (9.4-12.3) fL Immature Gran % (Auto) (0.0-0.4) % Neut % (Auto) (45-73) % Lymph % (Auto) (20-40) % Hardeman % (Auto) (2-11) % Eos % (Auto) (0-4) % Baso % (Auto) (0-2) % Lymph # (Auto) (1.2-4.9) X10*3/uL Hardeman # (Auto) (0.1-1.2) X10*3/uL Eos # (Auto) (0.0-0.4) X10*3/uL Baso # (Auto) (0.0-0.2) X10*3/uL Abs Immat Gran (auto) (0.00-0.03) X10*3/uL Absolute Neuts (auto) (2.0-8.3) x10*3/uL Absolute Nucleated RBC (0.0-0.012) X10*3/uL Nucleated RBC % (auto) (0.0-0.2) /100WBC Sodium (135-145) mmol/L Potassium (3.3-5.1) mmol/L Chloride (96-108) mmol/L Carbon Dioxide (22-29) mmol/L Anion Gap (12-20) BUN (9-16) mg/dL Creatinine (0.5-1.4) mg/dL Estim Creat Clear Calc Estimated GFR Random Glucose (60-115) mg/dL Calcium (8.4-10.2) mg/dL Magnesium (1.6-2.6) mg/dL Total Bilirubin (0.0-1.0) mg/dL AST (5-31) U/L ALT (0-31) U/L Alkaline Phosphatase (39-117) U/L Total Protein (6.5-8.0) g/dL Albumin (3.5-5.0) g/dL Lipase (8-78) U/L Urine Color Yellow Urine Appearance Clear Urine pH 6.0 (5.0-9.0) Ur Specific Sebastian 1.010 (1.005-1.025) Urine Protein Negative (Neg-Trace) mg/dL Urine Glucose (UA) Negative (Negative) mg/dL Urine Ketones Negative (Negative) mg/dL Urine Blood Negative (Negative) Urine Nitrite Negative (Negative) Ur Leukocyte Esterase Trace H (Negative) Urine RBC 0-2 (0-2) /HPF Urine WBC 0-5 (0-5) /HPF Ur Squamous Epith Cells 0-2 (0-2) /HPF Urine Bacteria None Seen (None Seen) Hyaline Casts 0-2 (0-2) /LPF COVID-19 (NADYA) (Negative) COVID-19 Clin Com Medications Administered Discontinued Medications Generic Name Dose Route Start Last Admin Trade Name Freq PRN Reason Stop Dose Admin Cyclobenzaprine HCl 10 mg 09/25/22 22:56 09/25/22 23:24 Cyclobenzaprine Hcl 10 Mg Tablet PO 09/25/22 22:57 10 mg ONCE ONE Administration Iohexol 100 ml 09/25/22 22:08 09/25/22 22:08 Iohexol 350 Mg/Ml 100 Ml Infus..Btl IV 09/25/22 22:09 85 ml ONCE ONE Administration Ketorolac Tromethamine 30 mg 09/25/22 22:56 09/25/22 23:27 Ketorolac Tromethamine 30 Mg/Ml Vial IVPUSH 09/25/22 22:57 Not Given ONCE ONE Discharge Plan Discharge Clinical Impression: Low back pain Patient Disposition: Home, Self-Care Additional Instructions: Take pain medication as prescribed Follow with PCP as needed Prescriptions: New cyclobenzaprine 10 mg tablet 10 mg PO Q8H Qty: 20 0RF tramadol 50 mg tablet 50 mg PO Q6H PRN (Reason: pain) Qty: 20 0RF No Action cyclobenzaprine 10 mg tablet 10 mg PO TID PRN (Reason: muscle spasm) Qty: 8 0RF Rx Instructions: supervising MD Calros Browne lidocaine [Lidoderm] 5 % adhesive patch,medicated 1 patch topical DAILY Qty: 15 0RF Rx Instructions: leave on most painful area for up to 12 hrs ibuprofen 600 mg tablet 600 mg PO Q8H PRN (Reason: pain) Qty: 5 0RF Rx Instructions: supervising MD Carlos Browne acetaminophen [Tylenol] 325 mg tablet 325 mg PO QID PRN (Reason: Pain) atorvastatin 20 mg tablet 20 mg PO BEDTIME clonazepam 1 mg tablet 1 mg PO DAILY lisinopril-hydrochlorothiazide 10-12.5 mg tablet 1 tab PO DAILY albuterol 90 mcg/actuation aerosol 90 mcg inhalation Q4-6H PRN (Reason: Shortness Of Breath) omeprazole 20 mg capsule,delayed release(DR/EC) 20 mg PO DAILY Qty: 30 5RF simethicone [Gas Relief (simethicone)] 125 mg tablet,chewable 125 mg PO TID-QID PRN (Reason: abdominal distention) Qty: 90 2RF Citrucel Sugar Free Powder 2 g PO DAILY PRN (Reason: constipation) Qty: 479 2RF Interventions: ED Discharge Assessment Last Done: 09/25/22 23:28 Discharge Date/Time: 09/25/22 23:32
[2022-09-25] MEDS: Cyclobenzaprine HCl 10 MG TABLET PO (23:24)
== END 2022-09-25 23:32 | disposition home or self-care (01) ==
PROVIDERS: Physician Assistant; Emergency Provider Internal Medicine; PCP Internal Medicine
DX: R10.32 Left lower quadrant pain (principal); R11.0 Nausea; R51.9 Headache, unspecified; M54.50 Low back pain, unspecified; Z20.822 Contact with and (suspected) exposure to COVID-19; Z20.828 Contact with and (suspected) exposure to other viral communicable diseases; Z79.899 Other long term (current) drug therapy
CPT/HCPCS: 74177; 80053; 81001; 83690; 83735; 85025; 87635; 99283; 99284; Q9967

== ENCOUNTER 2023-02-12 15:16 | Outpatient (REF) | payer MEDICARE, SELFPAY ==
[2023-02-12 18:49] LABS: Alanine Aminotransferase 22 U/L (0-31); Albumin Level 4.2 g/dL (3.5-5.0); Alkaline Phosphatase 76 U/L (39-117); Anion Gap 14 (12-20); Aspartate Amino Transferase 19 U/L (5-31); Bilirubin Direct 0.2 mg/dL (0.0-0.5); Bilirubin Total 0.4 mg/dL (0.0-1.0); Blood Urea Nitrogen 11 mg/dL (9-16); Calcium 9.3 mg/dL (8.4-10.2); Carbon Dioxide 27 mmol/L (22-29); Chloride 103 mmol/L (96-108); Cholesterol 182 mg/dL; Estimated Glomerular Filt Rate > 60; Glucose Random 86 mg/dL (60-115); HDL Cholesterol 43 mg/dL; LDL Cholesterol Calculated 106 mg/dl; Potassium 3.8 mmol/L (3.3-5.1); Sodium 140 mmol/L (135-145); Total Protein 7.1 g/dL (6.5-8.0); Triglycerides 169 mg/dL
[2023-02-12 19:05] LABS: Vitamin D 25-OH Total 50.8 ng/mL (>30)
== END 2023-02-12 15:17 | disposition home or self-care (01) ==
LOC: HO.CHCLDS 15:16
PROVIDERS: Visit Provider Internal Medicine
DX: I10 Essential (primary) hypertension (principal); E78.00 Pure hypercholesterolemia, unspecified; R73.01 Impaired fasting glucose; E55.9 Vitamin D deficiency, unspecified
CPT/HCPCS: 36415; 80048; 80061; 80076; 82306

== ENCOUNTER 2023-05-23 14:47 | Outpatient (REF) | payer MEDICARE, SELFPAY ==
[2023-05-27 08:52] LABS: Alphahydroxymidazolam,GCMS Ur NEGATIVE; Alphahydroxytriazolam, GCMS Ur NEGATIVE; Alprazolam, GCMS Urine NEGATIVE; Flurazepam Metabolite,GCMS Ur NEGATIVE; Lorazepam GCMS Urine NEGATIVE; Nordiazepam, GCMS Urine NEGATIVE; Oxazepam, GCMS Urine NEGATIVE; Temazepam, GCMS Urine NEGATIVE
== END 2023-05-23 14:48 | disposition home or self-care (01) ==
LOC: HO.HHCLNP 14:47
PROVIDERS: Visit Provider Internal Medicine
DX: F41.9 Anxiety disorder, unspecified (principal); F13.20 Sedative, hypnotic or anxiolytic dependence, uncomplicated
CPT/HCPCS: 80346

== ENCOUNTER 2023-07-18 11:55 | Outpatient (REF) | payer MEDICARE, SELFPAY ==
[2023-07-18 14:46] LABS: MANUAL DIFF FLAG NO
[2023-07-18 14:56] LABS: Basophils Absolute Auto 0.1 X10*3/uL (0.0-0.2); Basophils Percent Auto 0.7 % (0-2); Eosinophils Absolute Auto 0.2 X10*3/uL (0.0-0.4); Eosinophils Percent Auto 2.6 % (0-4); Hematocrit 41.2 % (37.0-47.0); Hemoglobin 13.3 g/dl (12.0-16.0); Imm Gran Abs Auto 0.04 X10*3/uL (0.00-0.03); Imm Gran Pct Auto 0.5 % (0.0-0.4); Lymphocytes Absolute Auto 2.2 X10*3/uL (1.2-4.9); Lymphocytes Percent Auto 29.5 % (20-40); Mean Corpuscular HGB Conc 32.3 g/dl (31.0-35.0); Mean Corpuscular Hemoglobin 30.4 pg (27.0-33.0); Mean Corpuscular Volume 94.1 fL (80.0-98.0); Mean Platelet Volume 10.6 fL (9.4-12.3); Monocytes Absolute Auto 0.6 X10*3/uL (0.1-1.2); Monocytes Percent Auto 7.5 % (2-11); Neutrophils Absolute Auto 4.3 x10*3/uL (2.0-8.3); Neutrophils Percent Auto 59.2 % (45-73); Platelet Count 270 X10*3/uL (160-400); Red Blood Count 4.38 X10*6/uL (4.20-5.50); Red Cell Distribution Width 13.5 % (11.0-16.0); White Blood Count 7.3 X10*3/uL (4.8-10.8)
[2023-07-18 15:20] LABS: C Reactive Protein 0.78 mg/dL (< or = 0.50)
[2023-07-18 16:05] LABS: Erythrocyte Sedimentation Rate 14 MM/HR (0-20)
== END 2023-07-18 11:56 | disposition home or self-care (01) ==
LOC: HO.CHCLDS 11:55
PROVIDERS: Visit Provider Internal Medicine
DX: M79.641 Pain in right hand (principal)
CPT/HCPCS: 36415; 85025; 85652; 86140

== ENCOUNTER 2023-09-11 09:54 | Outpatient (AMB) | payer MEDICARE, SELFPAY ==
[2023-09-11 10:12] VITALS: BP 128/76; PULSE 51; BMI 36.6
--- NOTE | 2023-09-11 10:12 | MHC.OFFVIS ---
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 Intake Note: NPV w/ EKG Matchbook Maker Required: Yes Matchbook Maker Language: [place] Zealander Accompanied by: Self / Same As Patient Allergies tetanus immune globulin [TETANUS IMMUNE GLOBULIN] Adverse Reaction (Intermediate, Verified 09/11/23 10:13) LOCALIZED SWELLING Medication List - Last Reconciled 09/11/23 by Flip Mandujano MD acetaminophen (Tylenol) 325 mg PO QID PRN albuterol 90 mcg/actuation 90 mcg inhalation Q4-6H PRN atorvastatin 20 mg PO BEDTIME cholecalciferol (vitamin D3) 50 mcg PO DAILY clonazepam 1 mg PO DAILY cyclobenzaprine 10 mg PO TID PRN ibuprofen 600 mg PO Q8H PRN lidocaine 5% (Lidoderm) 1 patch topical DAILY lisinopril-hydrochlorothiazide 10-12.5 mg 1 tab PO DAILY methylcellulose (laxative) (Citrucel Sugar Free oral powder) 2 grams PO DAILY PRN omeprazole 20 mg PO DAILY simethicone (Gas Relief (simethicone)) 125 mg PO TID-QID PRN tramadol 50 mg PO Q6H PRN HPI HPI Comments History of Present Illness Details This is a cardiology consultation regarding bradycardia. It seems that she has had slow heart rates for quite some time. Otherwise, no clear-cut cardiac history including coronary disease or myocardial infarction or cardiomyopathy. She states that she does not do much at baseline. She gets short of breath with activity. Random episodes of dizziness and that can happen any time. No angina. She also has a history of obstructive sleep apnea but does not use CPAP mask. [facility] Medical History Chronic back pain Dyslipidemia HTN (hypertension) Sleep apnea in adult Surgical History History of bunionectomy H/O colonoscopy Family History (Updated 09/11/23 @ 10:15 by Mira Manjarrez) Brother Heart problem Social History (Updated 09/11/23 @ 10:15 by Mira Manjarrez) Household Members Other:: alone Alcohol intake: current Alcohol intake frequency: holidays/special occasions only Patient Tobacco Use Status: Former Tobacco user Substance Use Type: Marijuana Current occupational status: unemployed Review of Systems Const Denies chills, Denies daytime sleepiness, Denies fatigue, Denies fever(s), Denies frequent falls, Denies night sweats, Denies snoring, Denies weakness, Denies weight gain and Denies weight loss Eyes Denies loss of vision ENT Denies dizziness and Denies hearing loss Card Denies chest pain, Denies chest pain with activity, Denies syncope, Denies edema, Denies claudication, Denies leg edema, Denies dyspnea, Denies dyspnea on exertion and Denies orthopnea Resp Denies cough, Denies excessive phlegm production, Denies dyspnea, Denies dyspnea on exertion, Denies snoring and Denies wheezing GI Denies abdominal pain, Denies hematochezia, Denies change in bowel habits, Denies change in stool character, Denies heartburn, Denies nausea and Denies vomiting Denies hematuria, Denies urinary frequency and Denies dysuria Musc Denies arthralgias, Denies muscle weakness, Denies numbness and Denies tingling Skin/Breast Denies nail changes and Denies rash Neuro Denies Abnormal speech present, Denies dizziness, Denies syncope, Denies frequent falls, Denies loss of vision, Denies memory loss, Denies numbness, Denies tingling and Denies weakness Psych Denies depression and Denies memory loss Endo Denies fatigue Aller/Immun Denies wheezing Physical Exam Vital Signs: Last Vital Signs Pulse 51 09/11/23 10:12 BP 128/76 09/11/23 10:12 BMI result Body Mass Index 36.6 Const General: comfortable and no acute distress Orientation/consciousness: patient oriented x3 HEENT Other: Unremarkable Head: Yes normal to inspection Neck Neck: Yes normal visual inspection Chest Chest palpation & inspection: normal inspection of the chest Resp Auscultation: clear to auscultation bilaterally Cardio Palpation: normal PMI Heart sounds: S1 normal heart sound present, S2 normal heart sound present, no gallops, no murmurs and no rubs GI Palpation (GI): Soft to palpation Back/Spine/Pelvis Other: unremarkable Skin General skin exam: no rashes or lesions noted Neuro General: patient oriented x3 Speech: No Abnormal speech present Extrem General: Yes normal to inspection Psych Mental Status: mental status grossly normal Office Procedures EKG Details: EKG today shows sinus bradycardia 51/Min; nonspecific ST-T changes in anterior leads. EKG similar to a prior study from 2009. [id number], Complete Assessment & Plan Assessment & Plan (1) Bradycardia: Code(s): R00.1 - Bradycardia, unspecified Plan: Bradycardia seems chronic. Even in 2009, EKG showed heart rate of 43/Min. We will check another Holter monitor. Also, she has got untreated sleep apnea and that can lead to bradycardia/conduction system disease. Needs to get CPAP. Discussed. (2) Abnormal EKG: Code(s): R94.31 - Abnormal electrocardiogram [ECG] [EKG] Plan: She does have subtle T inversions in anterior leads, but that again is a chronic finding. She has no overt angina, but minimal activity at baseline. In a prior exercise stress test, she could not even walk 1 minute. We can try pharmacological stress with Lexiscan. (3) Shortness of breath: Code(s): R06.02 - Shortness of breath Plan: Check echocardiogram for any LV dysfunction. Suspect deconditioning to be the main reason. Orders: Orders CA lexiscan stress w marco Today I20.9 - Angina pectoris, unspecified ECG 3 day holter monitor Today R00.1 - Bradycardia, unspecified CA echo transthoracic complete Today I25.10 - Atherosclerotic heart disease of [place] coronary artery without angina pectoris NM cardiolite stress test Today R07.2 - Precordial pain Coding Level of Care Code New Pt Level 4 (50280) Diagnoses Bradycardia R00.1 Abnormal EKG R94.31 Shortness of breath R06.02 CPT Codes EKG - CPT: 95650-[id number], Complete ([id number])
== END 2023-09-11 10:38 | disposition home or self-care (01) ==
PROVIDERS: PCP Internal Medicine; Visit Provider Internal Medicine
DX: R00.1 Bradycardia, unspecified (principal); R94.31 Abnormal electrocardiogram [ECG] [EKG]; R06.02 Shortness of breath
CPT/HCPCS: 93010; 99214

== ENCOUNTER → 2023-09-11 09:54 | Outpatient (BNVA) | payer MEDICARE, SELFPAY | PROVIDERS: PCP Internal Medicine; Visit Provider Internal Medicine | DX: R94.31 Abnormal electrocardiogram [ECG] [EKG] (principal); R00.1 Bradycardia, unspecified; R06.02 Shortness of breath | CPT/HCPCS: 93005; 99212 ==

== ENCOUNTER 2023-09-30 13:42 | Outpatient (AMB) | payer MEDICARE, SELFPAY ==
--- NOTE | 2023-09-30 13:56 | A.OFFVIS_ITS ---
Intake Vital Signs 09/30/23 13:57 Height 5 ft Weight 183 lb 13.848 oz BMI 35.9 BP 136/90 H Blood Pressure Location Rt brachial Position Sitting Pulse 65 Intake Visit Reasons: Abdominal bloating Intake Note: Patient in office today in follow up for abdominal pain. CC: Patient c/o occasional nausea, abdominal bloating, abdominal pain, diarrhea sometimes, and constipation sometimes. Jukebox Route Driver Required: Yes Jukebox Route Driver Name: daughter Accompanied by: Daughter Allergies tetanus immune globulin [TETANUS IMMUNE GLOBULIN] Adverse Reaction (Intermediate, Verified 09/30/23 14:04) LOCALIZED SWELLING Medication List - Last Reconciled 09/30/23 by Karen Koch PA-C atorvastatin 20 mg PO BEDTIME cholecalciferol (vitamin D3) 50 mcg PO DAILY clonazepam 1 mg PO DAILY cyclobenzaprine 10 mg PO TID PRN ibuprofen 600 mg PO Q8H PRN lidocaine 5% (Lidoderm) 1 patch topical DAILY lisinopril-hydrochlorothiazide 10-12.5 mg 1 tab PO DAILY methylcellulose (laxative) (Citrucel Sugar Free oral powder) 2 grams PO DAILY PRN omeprazole 20 mg PO DAILY simethicone (Gas Relief (simethicone)) 125 mg PO TID-QID PRN tramadol 50 mg PO Q6H PRN vitamin B complex 1 tab PO DAILY HPI HPI Comments History of Present Illness Details A 68 y/o female here with her daughter- hx colon polyps- she was unsure if due for repeat-colonoscopy She has abdominal bloating and gas-she has just given up beans-she was taking simethicone however had run out not taking it dietary modifications she has noticed some improvement Bowels are typically alternates, this is typical for her She has very good appetite Vague occasional epigastric discussed-she is unable to associate with anything specific seems to come and go Occasional nausea No vomiting, fever chills PFSH Medical History Sleep apnea in adult Chronic back pain Dyslipidemia HTN (hypertension) Surgical History History of bunionectomy H/O colonoscopy Family History Brother Heart problem Social History Household Members Other:: alone Alcohol intake: current Alcohol intake frequency: holidays/special occasions only Patient Tobacco Use Status: Former Tobacco user Substance Use Type: Marijuana Current occupational status: unemployed Review of Systems Const All systems reviewed & are unremarkable except as noted in HPI and below Card Denies chest pain and Denies dyspnea Resp Denies dyspnea GI Reports abdominal pain, Reports bloating and Reports nausea Physical Exam Vital Signs: Last Vital Signs Pulse 65 09/30/23 13:57 BP 136/90 H 09/30/23 13:57 BMI result Body Mass Index 35.9 Const General: cooperative, comfortable, no acute distress and alert Nutritional Appearance: overweight Orientation/consciousness: patient oriented x3 Limitations: language barrier Eyes Sclerae: sclerae normal Resp Effort & Inspection: normal respiratory effort and able to speak in complete se ntences Auscultation: clear to auscultation bilaterally, no rales, no rhonchi and no wheezes Cardio Rate: regular rate Rhythm: regular rhythm Heart sounds: S1 normal heart sound present and S2 normal heart sound present GI Inspection: Yes obesity Palpation (GI): Soft to palpation and nontender Auscultation: normal bowel sounds Neuro General: patient oriented x3 Extrem General: Yes full ROM Psych Speech and movement: Clear speech present Affect: Labile affect present Attitude: cooperative Thought content: Normal thought content present Results Reviewed Results Reviewed: gemma: America Brooke Age/Sex: 65/F Attending: Travis Werner MD : 1955 Submitted by: Travis Werner MD Copies to: MR #: [id number] Status: [facility] [place] Collected: 08/02/20 Location: [facility] Received: 08/02/20 Diagnosis A. Ileocecal valve, biopsy: Clinically polypoid colonic mucosa within normal limits. B. Colon, sigmoid, polypectomy: Tubular adenoma; no high grade dysplasia or carcinoma seen. Clinical History Pre-Op Dx: Occult blood, positive stool Post-Op Dx: Colon polyp, diverticulosis Microscopic Description A, B. Microscopic sections reviewed. Material Received A. Ileocecal valve B. Sigmoid polyp Gross Description Received in two parts. Part A: Received in formalin labeled Ileocecal valve are two glistening, semitranslucent, soft, chandler-pink, irregular tissue fragments, measuring 0.15 and 0.2 cm. in greatest dimension, which are submitted in toto in a single cassette labeled A. Part B: Received in formalin labeled Sigmoid polyp is a 0.4 cm. in greatest dimension, glistening, semitranslucent, soft, chandler, papular tissue fragment, which is submitted in toto in a single cassette labeled B. CEDS NOTE: Some or all of the immunohistochemical tests reported herein may have been developed and their performance characteristics determined by [facility]. They have not been cleared or approved by the U.S. Food and Drug Administration (FDA). However, the FDA has determined that such clearance or approval is not necessary. This laboratory is certified under the Clinical Laboratory Improvement Amendments of 1988 (CLIA) as qualified to perform high complexity clinical laboratory testing. Electronically Signed By: Jose D Sheikh MD 08/03/20 1431 Patient: America Brooke Age/Sex: 65/F MR#: [id number] Page 1 of 1 09/25/22 CT/CT abdomen pelvis w IV con IMPRESSION: 1. No acute findings in the abdomen or pelvis. No hydronephrosis or nephrolithiasis. No inflammatory changes. 2. Infrarenal abdominal aortic aneurysm measures 3.3 cm, increased from previous imaging. Recommend follow-up imaging every 3 years. Fleischner guidelines were followed. Assessment & Plan Assessment & Plan (1) Bloating: Comment: Central obesity-constricting wasteband- Reviewed diet-opportunity for improvement -low FODMAP Simethicone Code(s): R14.0 - Abdominal distension (gaseous) Plan: Low FODMAP H pylori stool antigen (2) History of adenomatous polyp of colon: Code(s): Z86.010 - Personal history of colonic polyps Plan: Hold off on colonoscopy-for now Assess other sx (3) Acid reflux: Comment: HP UBT- if positive will tx Begin omeprazole today FODMAP -discussed culprits Gasx Code(s): K21.9 - Gastro-esophageal reflux disease without esophagitis Plan: Discontinue PPI for 2 weeks she will take Carafate Then test for H pylori Plan See back for progress prior to further testing Encouraged to call Orders: Orders H Pylori Breath Test 2 Weeks A04.8 - Other specified bacterial intestinal infections Medications: New sucralfate 1 g (10 mL) PO QIDACHS PRN 420 mL 0RF acid reflux 4 weeks Patient Instructions: Discontinue PPIx 2 wks Carafate in the interim H pylori stool antigen in 2 weeks-if positive will treat Having blood tests tomorrow for PCP will await findings, check CBC CMP Encouraged to call with any questions or concerns Daughter present interpreted-supportive Appreciate the opportunity assist in the care the patient Coding Level of Care Code New Pt Level 4 (07609) Diagnoses Bloating R14.0 History of adenomatous polyp of colon Z86.010 Acid reflux K21.9 Time Spent (min) 30 Comment Daughter nib adjuster
[2023-09-30 13:57] VITALS: BP 136/90; PULSE 65; BMI 35.9
== END 2023-09-30 14:59 | disposition home or self-care (01) ==
PROVIDERS: PCP Internal Medicine; Visit Provider Physician Assistant
DX: R14.0 Abdominal distension (gaseous) (principal); Z86.010 Personal history of colon polyps; K21.9 Gastro-esophageal reflux disease without esophagitis
CPT/HCPCS: 99214

== ENCOUNTER → 2023-09-30 13:42 | Outpatient (BNVA) | payer MEDICARE, SELFPAY | PROVIDERS: PCP Internal Medicine; Visit Provider Physician Assistant | DX: R14.0 Abdominal distension (gaseous) (principal); K21.9 Gastro-esophageal reflux disease without esophagitis; Z86.010 Personal history of colon polyps | CPT/HCPCS: 99212 ==

== ENCOUNTER 2023-09-30 15:27 | Outpatient (REF) | payer MEDICARE, SELFPAY ==
[2023-09-30 17:49] LABS: MANUAL DIFF FLAG NO
[2023-09-30 17:53] LABS: Basophils Absolute Auto 0.1 X10*3/uL (0.0-0.2); Basophils Percent Auto 0.7 % (0-2); Eosinophils Absolute Auto 0.3 X10*3/uL (0.0-0.4); Hemoglobin 13.2 g/dl (12.0-16.0); Imm Gran Abs Auto 0.04 X10*3/uL (0.00-0.03); Imm Gran Pct Auto 0.5 % (0.0-0.4); Lymphocytes Absolute Auto 3.1 X10*3/uL (1.2-4.9); Lymphocytes Percent Auto 40.9 % (20-40); Mean Corpuscular Hemoglobin 31.4 pg (27.0-33.0); Mean Platelet Volume 10.9 fL (9.4-12.3); Monocytes Absolute Auto 0.5 X10*3/uL (0.1-1.2); Monocytes Percent Auto 6.9 % (2-11); Neutrophils Absolute Auto 3.5 x10*3/uL (2.0-8.3); Platelet Count 287 X10*3/uL (160-400); Red Blood Count 4.21 X10*6/uL (4.20-5.50); Red Cell Distribution Width 13.2 % (11.0-16.0); White Blood Count 7.5 X10*3/uL (4.8-10.8)
[2023-09-30 18:00] LABS: C Reactive Protein 0.51 mg/dL (< or = 0.50)
[2023-09-30 18:18] LABS: Rheumatoid Factor < 13.0 IU/mL (<15.0)
[2023-10-02 13:09] LABS: Anti Nuclear Antibody Screen NEGATIVE (NEGATIVE)
== END 2023-09-30 15:28 | disposition home or self-care (01) ==
LOC: HO.CHCLDS 15:27
PROVIDERS: Visit Provider Internal Medicine
DX: M25.50 Pain in unspecified joint (principal)
CPT/HCPCS: 36415; 85025; 86038; 86140; 86431

== ENCOUNTER 2023-10-22 08:50 | Outpatient (REF) | payer MEDICARE, SELFPAY ==
[2023-10-24 10:29] LABS: H Pylori Breath Test Positive (Negative)
== END 2023-10-22 08:51 | disposition home or self-care (01) ==
LOC: HO.LNP 08:50
PROVIDERS: PCP Internal Medicine; Visit Provider Physician Assistant
DX: A04.8 Other specified bacterial intestinal infections (principal); K21.9 Gastro-esophageal reflux disease without esophagitis
CPT/HCPCS: 83013; 99211

== ENCOUNTER 2023-10-22 08:50 | Outpatient (AMB) | payer MEDICARE, SELFPAY ==
--- NOTE | 2023-10-22 09:00 | AM.OFFVISNUR ---
Intake Intake Visit Reasons: H pylori Allergies tetanus immune globulin [TETANUS IMMUNE GLOBULIN] Adverse Reaction (Intermediate, Verified 09/30/23 14:04) LOCALIZED SWELLING Nursing Note Patient presents for collection of?H?Pylori?breath test. Patient has been fasting for 1 hour (nothing to eat, drink, no chewing gum or smoking) has not taken any antacid medication for at least 2 weeks and has no allergies to artificial sweeteners.?? Coding Level of Care Code Established Pt Est Pt Level 1 (25303) Patient Type Established Medical Decision Making Straight Forward Diagnoses Acid reflux K21.9 Assessment & Plan Assessment & Plan (1) Acid reflux: Comment: HP UBT- if positive will tx Begin omeprazole today FODMAP -discussed culprits Gasx Code(s): K21.9 - Gastro-esophageal reflux disease without esophagitis Category: Medical Plan Patient presents for collection of?H?Pylori?breath test. Patient has been fasting for 1 hour (nothing to eat, drink, no chewing gum or smoking) has not taken any antacid medication for at least 2 weeks and has no allergies to artificial sweeteners.???This test checks for an overgrowth of bacteria in your stomach. We all have bacteria but some may have more than others. It is treatable. if the test comes back negative there is nothing else to do. If the test result is positive we will treat you with 2 antibiotics and a medication to decrease the acid in your stomach (PPI) for 2 weeks. Two weeks after you have completed the treatment we will retest you to make sure the overgrowth has resolved. Patient Instructions: Process for specimen collection and reason for testing was explained to the patient. Specimen collection. Patient instructed to take a deep breath and then exhale into the blue bag, filling it up as much as possible. Patient instructed to drink a mixture of water and the artificial sweetener with a straw. A 15 minute wait period was observed. Patient instructed to take a deep breath and then exhale into the pink bag, filling it up as much as possible.??
== END 2023-10-22 09:01 | disposition home or self-care (01) ==
PROVIDERS: PCP Internal Medicine; Visit Provider Physician Assistant
DX: K21.9 Gastro-esophageal reflux disease without esophagitis (principal)

== ENCOUNTER → 2023-10-24 07:43 | Outpatient (REF) | payer OTHER, SELFPAY ==
--- NOTE | ~2023-10-24 | NM_ITS ---
Lexiscan Myocardial perfusion study Indication: Abnormal EKG, assess for coronary disease and ischemia Technique: The patient was brought in for a Lexiscan perfusion study on 10/24/2023 and was injected 0.4 mg of Lexiscan intravenously. Within a minute of this injection 30 mCi of sestamibi was given intravenously. Images were obtained using the SPECT gamma camera interlaced with the gating device. Images were obtained in supine position. Resting perfusion study was performed on 10/30/2023. Patient was administered 30 mCi of sestamibi intravenously at rest. Images were then obtained in supine position. Images were processed with the software and compared side to side in short axis, horizontal long axis and vertical long axis views. Total DLP 155mGy-cm. Findings: Raw acquisition reviewed. Stress arms by her side. The stress perfusion study showed diminished tracer uptake in the lateral wall towards the distal part. There is also apical perfusion defect. There is improvement with CT attenuation correction and hence could be components of soft tissue attenuation artifact. However, the defect does not resolve completely. The gated study shows low normal LV systolic function with calculated LVEF of 53%. LV cavity is normal in size. The gated study shows normal wall thickening and contraction of segments. Resting study shows no significant perfusion defects. Gating at rest reveals normal wall motion with ejection fraction at 53%. The findings are consistent with reversible perfusion defect in the distal part of lateral wall as well as the apex. NM/NM cardiolite stress test Impression: 1. Myocardial perfusion imaging study shows possible ischemia in the distal part of lateral wall and apex. 2. Gated LVEF is 53% during stress and rest. 3. Transient ischemic dilatation not present. EKG component of the test reported separately.
--- NOTE | 2023-10-24 07:46 | CA_ITS ---
Acquisition Time: 2023-10-24 09:16:01 Total Exercise Time: 00:02:00 Test Indications: Abnormal ECG Medications: Protocol: LEXISCAN Max HR: 089 BPM 57% of Pred: 154 BPM Max BP: 146/080 mmHG Max Work Load: 1.0 METS Pharmacolgical stress test with Lexiscan injection whille sitting and kicking her legs, without anginal symptoms, without arrhytmias, with normotensive response to injection, with nondiagnostic EKGs. Aminophylline 75mg IVP given to reverse Lexiscan. Nuclear images pending. Test reviewed with Dr. Mandujano. Referred By: Flip Mandujano Overread By: Latia Moeller
--- NOTE | 2023-10-24 07:46 | HM_ITS ---
* Total monitoring time 3 days. * Underlying rhythm is sinus with an average rate of 57/Min. About 75% of the time, rate < 60/Min. * Rare supraventricular ectopy. * No significant pauses or AV blocks. * No patient markers or diary events. MTDD
--- NOTE | 2023-10-24 07:46 | CA_ITS ---
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 Study Quality: Fair ECG Rhythm: Bradycardia Conclusions: - The left ventricular systolic function is hyperdynamic. The visually estimated ejection fraction is >70%. - No obvious valvular pathology seen on this study. Findings Procedure Information Contrast agent, definity, is being given per protocol without apparent complications. The quality of the study was technically difficult. The study quality is limited by patients body habitus. Left Ventricle Normal left ventricular cavity size. The left ventricular systolic function is hyperdynamic. The visually estimated ejection fraction is >70%. There is no evidence of regional wall motion abnormalities. Diastolic function is normal for age. There is mild septal asymmetric hypertrophy. Right Ventricle Normal right ventricular cavity size. There is low normal right ventricular systolic function. Atria Both atria are normal in size. Aortic Valve There is a normal trileaflet aortic valve. There is no aortic valve stenosis. There is no aortic valve regurgitation. Mitral Valve Likely normal mitral valve structure and function. There is no mitral valve regurgitation. There is no mitral valve stenosis. Pulmonic Valve The pulmonic valve is likely normal. Tricuspid Valve There is no tricuspid valve regurgitation. Tricuspid regurgitation envelope is inadequate for calculation of right ventricular systolic pressure. Great Vessels The asc aorta is normal in size. Venous The inferior vena cava is normal in size and collapses greater than 50% with inspiration. Pericardium/Pleural There is no evidence of pericardial effusion. Prior Study Comparison No significant change compared to prior study dated: 12/09/2018. Recommendations, Care & Conclusions No obvious valvular pathology seen on this study. Measurements 2D Linear Measurements IVSd: 1.20 0.6-0.9/0.6-1.0 cm LVIDd: 5.24 3.9-5.3/4.2-5.9 cm LVIDd Index: 2.91 2.4-3.2/2.2-3.1 cm/m2 LVIDs: 3.43 2.0-3.6 cm LVPWd: 0.95 0.7-1.1 cm LA Diam: 4.10 2.7-3.8/3.0-4.0 cm LAIDs Index: 2.28 1.5-2.3 cm/m2 LV Mass: 269.75 67-162/88-224 g LV Mass Index: 149.86 43-95/49-115 g/m2 LVOT Diam: 2.10 3.0+(-)1.3 cm 2D Systolic Function EF 4C: 61.40 >55% EF 2C: 78.20 >55% EF BiP: 70.80 >55% Mitral Valve MV Pk E: 0.80 MV PK A: 0.66 MV Decel Time: 165.00 E/A: 1.20 E'Lateral: 9.90 E'Medial: 7.94 E/E' Med: 10.00 E/E' Lat: 8.10 PHT: 48.00 MVA PHT: 4.58 Decel Pierce: 4.84 Aortic Valve AoV Pk Vick: 1.19 AoV Pk Grad: 6.00 GARRETT: 2.97 LVOT LVOT Pk Vick: 1.02 LVOT Mn Vick: 0.71 LVOT VTI: 0.23 LVOT Pk Grad: 4.00 LVOT Mn Grad: 2.00 LVOT Diam: 2.10 LVOT Area: 3.46 Diastolic Function MV Pk E: 0.80 MV Pk A: 0.66 E/A: 1.20 E'Medial: 7.94 E/E' Med: 10.00 E' Laterial: 9.90 E/E' Lat: 8.10 Right Ventricle TAPSE (mm): 16.90 TVS' Vick: 10.90 Tricuspid Valve RA Press: 3.00 Great Vessels Aorta Sinus of Valsalva: 2.60 2.0-3.5 cm Ao Asc: 3.70 2.1-3.4 cm Pulmonary Veins Pulm Vein S/D 1.60 Pulmonary Valve PV Pk Vick: 0.77 Peak PV Grad: 2.00 WI Pk Vick: 1.57 Updated in Other Vendor System with Status of Final Flip Mandujano MD electronically signed on 10/25/2023 2:51:17 PM with status of Final
== END ==
LOC: HO.CARD 07:43
PROVIDERS: PCP Internal Medicine; Visit Provider Internal Medicine
DX: R07.2 Precordial pain (principal); R00.1 Bradycardia, unspecified; I25.119 Atherosclerotic heart disease of native coronary artery with unspecified angina pectoris
CPT/HCPCS: 78452; 93017; 93242; 93306; A9500; J0280; J2785; Q9957

== ENCOUNTER → 2023-10-24 07:46 | Outpatient (BNV) | payer OTHER, SELFPAY | PROVIDERS: PCP Internal Medicine; Visit Provider Internal Medicine | DX: R94.31 Abnormal electrocardiogram [ECG] [EKG] (principal); R00.1 Bradycardia, unspecified | CPT/HCPCS: 78452; 93016; 93018; 93244; 93350; 93352 ==

== ENCOUNTER 2023-12-12 14:04 | Outpatient (REF) | payer OTHER, SELFPAY ==
[2023-12-16 11:40] LABS: Alphahydroxymidazolam,GCMS Ur NEGATIVE; Alphahydroxytriazolam, GCMS Ur NEGATIVE; Alprazolam, GCMS Urine NEGATIVE; Flurazepam Metabolite,GCMS Ur NEGATIVE; Lorazepam GCMS Urine NEGATIVE; Nordiazepam, GCMS Urine NEGATIVE; Oxazepam, GCMS Urine NEGATIVE; Temazepam, GCMS Urine NEGATIVE
== END 2023-12-12 14:05 | disposition home or self-care (01) ==
LOC: HO.HHCLNP 14:04
PROVIDERS: Visit Provider Internal Medicine
DX: F41.9 Anxiety disorder, unspecified (principal)
CPT/HCPCS: 80346

== ENCOUNTER 2024-01-01 09:48 | Outpatient (AMB) | payer OTHER, SELFPAY ==
--- NOTE | 2024-01-01 10:02 | AM.OFFVISNUR ---
Intake Intake Visit Reasons: H Pylori Allergies tetanus immune globulin [TETANUS IMMUNE GLOBULIN] Adverse Reaction (Intermediate, Verified 09/30/23 14:04) LOCALIZED SWELLING Nursing Note Patient presents for collection of?H?Pylori?breath test. Patient has been fasting for 1 hour (nothing to eat, drink, no chewing gum or smoking) has not taken any antacid medication for at least 2 weeks and has no allergies to artificial sweeteners.?? Coding Level of Care Code Established Pt Est Pt Level 1 (38204) Patient Type Established Medical Decision Making Straight Forward Diagnoses Bloating R14.0 Assessment & Plan Assessment & Plan (1) Bloating: Comment: Central obesity-constricting wasteband- Reviewed diet-opportunity for improvement -low FODMAP Simethicone Code(s): R14.0 - Abdominal distension (gaseous) Category: Medical Plan Patient presents for collection of?H?Pylori?breath test. Patient has been fasting for 1 hour (nothing to eat, drink, no chewing gum or smoking) has not taken any antacid medication for at least 2 weeks and has no allergies to artificial sweeteners.???This test checks for an overgrowth of bacteria in your stomach. We all have bacteria but some may have more than others. It is treatable. if the test comes back negative there is nothing else to do. If the test result is positive we will treat you with 2 antibiotics and a medication to decrease the acid in your stomach (PPI) for 2 weeks. Two weeks after you have completed the treatment we will retest you to make sure the overgrowth has resolved. Orders: Orders H Pylori Breath Test Today R14.0 - Abdominal distension (gaseous) Patient Instructions: Process for specimen collection and reason for testing was explained to the patient. Specimen collection. Patient instructed to take a deep breath and then exhale into the blue bag, filling it up as much as possible. Patient instructed to drink a mixture of water and the artificial sweetener with a straw. A 15 minute wait period was observed. Patient instructed to take a deep breath and then exhale into the pink bag, filling it up as much as possible.??
== END 2024-01-01 10:17 | disposition home or self-care (01) ==
PROVIDERS: PCP Internal Medicine; Visit Provider Physician Assistant
DX: R14.0 Abdominal distension (gaseous) (principal)

== ENCOUNTER → 2024-01-01 09:48 | Outpatient (BNVA) | payer OTHER, SELFPAY | PROVIDERS: PCP Internal Medicine; Visit Provider Physician Assistant | DX: R14.0 Abdominal distension (gaseous) (principal) | CPT/HCPCS: 99211 ==

== ENCOUNTER 2024-01-01 10:23 | Outpatient (REF) | payer OTHER, SELFPAY ==
--- NOTE | ~2024-01-01 | XR_ITS ---
EXAMINATION: XR HAND, RIGHT CLINICAL INFORMATION: Right middle finger pain, pain third digit, swollen for 5 to 6 months. COMPARISON: None available. TECHNIQUE: PA, lateral, and oblique views of the right hand. FINDINGS: Diffuse demineralization. Ulnar minus variance. Moderate degenerative changes in the first carpometacarpal and metacarpophalangeal joints with joint space narrowing and hypertrophic change. Severe degenerative changes with abundant hypertrophic change, joint space narrowing and subluxation at the third digit proximal and distal interphalangeal joints with associated soft tissue swelling. Severe degenerative changes in the second digit distal interphalangeal joint with soft tissue swelling. Moderate degenerative changes in the third digit distal interphalangeal joint. XR/XR hand RT min 3V IMPRESSION: 1. Severe degenerative changes in the third digit proximal and distal interphalangeal joints with soft tissue swelling. 2. Advanced degenerative changes in the remainder of the hand as detailed above.
[2024-01-02 09:04] LABS: H Pylori Breath Test Negative (Negative)
== END 2024-01-01 10:24 | disposition home or self-care (01) ==
LOC: HO.XRAY 10:23
PROVIDERS: Physician Assistant; PCP Internal Medicine; Visit Provider Internal Medicine
DX: M79.644 Pain in right finger(s) (principal); R14.0 Abdominal distension (gaseous)
CPT/HCPCS: 73130; 83013; 99211

== ENCOUNTER 2024-02-05 11:03 | Outpatient (REF) | payer OTHER, SELFPAY ==
[2024-02-05 12:31] LABS: Anion Gap 13 (12-20); Blood Urea Nitrogen 12 mg/dL (9-16); Calcium 9.5 mg/dL (8.4-10.2); Carbon Dioxide 28 mmol/L (22-29); Chloride 101 mmol/L (96-108); Estimated Glomerular Filt Rate > 60; Glucose Random 105 mg/dL (60-115); Potassium 4.7 mmol/L (3.3-5.1); Sodium 137 mmol/L (135-145)
== END 2024-02-05 11:04 | disposition home or self-care (01) ==
LOC: HO.LAB 11:03
PROVIDERS: Internal Medicine; PCP Internal Medicine; Visit Provider Physician Assistant
DX: R94.31 Abnormal electrocardiogram [ECG] [EKG] (principal); R06.02 Shortness of breath
CPT/HCPCS: 36415; 80048

== ENCOUNTER 2024-02-26 10:38 | Outpatient (AMB) | payer OTHER, SELFPAY ==
[2024-02-26 10:43] VITALS: BP 116/74; PULSE 72; BMI 35.3
--- NOTE | 2024-02-26 10:43 | A.OFFVIS_ITS ---
Vital Signs 02/26/24 10:43 Height 5 ft Weight 180 lb 12.465 oz BMI 35.3 BP 116/74 Blood Pressure Location Lt brachial Position Sitting Pulse 72 Pulse Source Pulse Oximeter Intake Visit Reasons: f/up after/testing and CTA Accounts Payable Specialist Required: Yes Accounts Payable Specialist Services: Accounts Payable Specialist Present Accounts Payable Specialist Name: [id number]/[email or web address]/swedish Accompanied by: Self / Same As Patient Allergies tetanus immune globulin [TETANUS IMMUNE GLOBULIN] Adverse Reaction (Intermediate, Verified 09/30/23 14:04) LOCALIZED SWELLING Medication List - Last Reconciled 02/26/24 by Flip Mandujano MD atorvastatin 20 mg PO BEDTIME bismuth subsalicylate (Bismuth) 2 tabs PO QID 14 days cholecalciferol (vitamin D3) 50 mcg PO DAILY clonazepam 1 mg PO DAILY cyclobenzaprine 10 mg PO TID PRN ibuprofen 600 mg PO Q8H PRN lidocaine 5% (Lidoderm) 1 patch topical DAILY lisinopril-hydrochlorothiazide 10-12.5 mg 1 tab PO DAILY methylcellulose (laxative) (Citrucel Sugar Free oral powder) 2 grams PO DAILY PRN metronidazole 250 mg PO QID 14 days omeprazole 20 mg PO BID PRN 14 days simethicone (Gas Relief (simethicone)) 125 mg PO TID-QID PRN vitamin B complex 1 tab PO DAILY HPI Comments Details: America returns for follow-up. In the past, she was seen regarding bradycardia. She has had slow heart rates going back quite some time. However, no cardiac issues like coronary disease or myocardial infarction or cardiomyopathy. Fairly sedentary at baseline. Some shortness of breath activity. No clear angina. Also has history of ELAINE but no CPAP yet. [facility] Medical History Sleep apnea in adult Chronic back pain Dyslipidemia HTN (hypertension) Surgical History History of bunionectomy H/O colonoscopy Family History Brother Heart problem Social History Household Members Other:: alone Alcohol intake: current Alcohol intake frequency: holidays/special occasions only Patient Tobacco Use Status: Former Tobacco user Substance Use Type: Marijuana Current occupational status: unemployed Review of Systems Const Denies chills, Denies fatigue, Denies fever(s), Denies weight gain and Denies weight loss ENT Denies dizziness Card Denies chest pain, Denies leg edema, Denies lightheadedness, Denies palpitations, Reports dyspnea on exertion, Denies orthopnea and Denies other Resp Denies cough and Reports dyspnea on exertion GI Denies hematochezia and Denies change in stool character Musc Denies abnormal gait, Denies muscle weakness, Denies numbness, Denies radiating pain into limb and Denies tingling Neuro Denies abnormal gait, Denies dizziness, Denies numbness and Denies tingling Endo Denies fatigue and Denies palpitations Physical Exam Vital Signs: Last Vital Signs Pulse 72 02/26/24 10:43 BP 116/74 02/26/24 10:43 BMI result Body Mass Index 35.3 Const General: comfortable and no acute distress Orientation/consciousness: patient oriented x3 HEENT Other: Unremarkable Head: Yes normal to inspection Neck Neck: Yes normal visual inspection Chest Chest palpation & inspection: normal inspection of the chest Resp Auscultation: clear to auscultation bilaterally Cardio Palpation: normal PMI Heart sounds: S1 normal heart sound present, S2 normal heart sound present, no gallops, no murmurs and no rubs GI Palpation (GI): Soft to palpation Back/Spine/Pelvis Other: unremarkable Skin General skin exam: no rashes or lesions noted Neuro General: patient oriented x3 Extrem General: Yes normal to inspection Psych Mental Status: mental status grossly normal Assessment & Plan Assessment & Plan (1) Bradycardia: Code(s): R00.1 - Bradycardia, unspecified Category: Medical Plan: Bradycardia seems chronic. Even in 2009, EKG showed heart rate of 43/Min. Holter shows underlying sinus rhythm with an average rate of 57/Min. Frequent sinus bradycardia. Overall, no specific management at this time. Treat ELAINE with CPAP. We discussed about this. (2) Abnormal EKG: Code(s): R94.31 - Abnormal electrocardiogram [ECG] [EKG] Category: Medical Plan: She does have subtle T inversions in anterior leads, but that again is a chronic finding going back a long time. She has no overt angina. Echocardiogram with hyperdynamic LVEF and otherwise unremarkable. In the perfusion imaging, possible ischemia in the distal part of lateral wall/apex. Coronary CTA still pending. Coding Level of Care Code Est Pt Level 3 (11330) Diagnoses Bradycardia R00.1 Abnormal EKG R94.31
== END 2024-02-26 11:06 | disposition home or self-care (01) ==
PROVIDERS: PCP Internal Medicine; Visit Provider Internal Medicine
DX: R00.1 Bradycardia, unspecified (principal); R94.31 Abnormal electrocardiogram [ECG] [EKG]
CPT/HCPCS: 99213

== ENCOUNTER → 2024-02-26 10:38 | Outpatient (BNVA) | payer OTHER, SELFPAY | PROVIDERS: PCP Internal Medicine; Visit Provider Internal Medicine | DX: R00.1 Bradycardia, unspecified (principal); R94.31 Abnormal electrocardiogram [ECG] [EKG]; G47.33 Obstructive sleep apnea (adult) (pediatric) | CPT/HCPCS: 99212 ==

== ENCOUNTER 2024-03-31 08:23 | Outpatient (AMB) | payer OTHER, SELFPAY ==
--- NOTE | 2024-03-31 08:31 | MHC.OFFVIS ---
Vital Signs 03/31/24 08:34 Height 5 ft Weight 179 lb 7.3 oz BMI 35.0 BP 134/70 Blood Pressure Location Lt brachial Position Sitting Pulse 56 Pulse Source Pulse Oximeter Pulse Oximetry (%) 94 Oxygen Delivery Method Room Air Intake Visit Reasons: Abdominal complaints Intake Note: America presents in office today for a scheduled FUV to discuss new concerns. CC: Pt typically sees Karen Koch but needs to be seen sooner to discuss these new concerns. Pt reports having epigastric pain, nausea, distention, intermittent constipation and diarrhea. Pt reports approximate onset of 2-3 months ago. Pt denies any at home treatments to this point. Pt reports that she has had some mild to moderate hematochezia. Pt believed that it could be related to hemorrhoids. Pt states that the bleeding has stopped and has not come back since. This took place approximately 1 mos ago. Pt states that she had previously been treated for H Pylori. Pt reports that they would be interested in possible colo. Adapted Physical Education Teacher Required: Yes Adapted Physical Education Teacher Services: Adapted Physical Education Teacher Present Adapted Physical Education Teacher Name: Mikal [id number] Information Interpreted: non-clinical & clinical Accompanied by: Self / Same As Patient Allergies tetanus immune globulin [TETANUS IMMUNE GLOBULIN] Adverse Reaction (Intermediate, Verified 03/31/24 08:32) LOCALIZED SWELLING HPI HPI Abdominal complaints: Details: LAST VISIT WITH KATIE KOCH Discontinue PPIx 2 wks Carafate in the interim H pylori stool antigen in 2 weeks-if positive will treat Having blood tests tomorrow for PCP will await findings, check CBC CMP Encouraged to call with any questions or concerns Daughter present interpreted-supportive Appreciate the opportunity assist in the care the patient TODAY'S VISIT: Patient previously seen by Katie Koch and is requesting to be seen by provider as her GI specialist used is on medical leave. Patient reports epigastric pain and nausea. Taking omeprazole, however feels like her symptoms are worse. Treated in the past for H pylori with repeated breath test that came back negative. Test was done while patient was off of PPI. Patient reports constipation, however occasional loose stools. Episode about a month ago where patient had diarrhea and had rectal bleed since that episode patient no longer has any hematochezia. Patient denies any melena, unintentional weight loss or ribbon like stools. Had colonoscopy in 2020 and recommendation was made for 3-5 year follow-up due to tubular adenoma found. Patient reports abdominal bloating, feels bloated almost all the time. [facility] Medical History Sleep apnea in adult Chronic back pain Dyslipidemia HTN (hypertension) Surgical History History of bunionectomy H/O colonoscopy Family History Brother Heart problem Social History Household Members Other:: alone Alcohol intake: current Alcohol intake frequency: holidays/special occasions only Patient Tobacco Use Status: Former Tobacco user Substance Use Type: Marijuana Current occupational status: unemployed Review of Systems Const Denies weight gain and Denies weight loss ENT Reports no additional complaints, Denies dysphagia and Denies odynophagia Card Reports no additional complaints Resp Reports no additional complaints GI Reports abdominal pain (LLQ, epigastric), Denies belching, Denies melena, Reports bloating, Denies change in bowel habits, Denies dysphagia, Denies excessive flatus, Denies dyspepsia, Reports heartburn, Denies diarrhea, Reports loose stools, Reports nausea, Denies odynophagia and Denies vomiting Reports no additional complaints Musc Reports no additional complaints Neuro Reports no additional complaints Psych Reports no additional complaints Endo Reports no additional complaints Physical Exam Vital Signs: Last Vital Signs Pulse 56 03/31/24 08:34 BP 134/70 03/31/24 08:34 Pulse Ox 94 03/31/24 08:34 Oxygen Delivery Method Room Air 03/31/24 08:34 BMI result Body Mass Index 35.0 Const General: healthy appearing, no acute distress and well developed Nutritional Appearance: well nourished Orientation/consciousness: patient oriented x3 Resp Effort & Inspection: normal respiratory effort, able to speak in complete sentences, no tracheal deviation and symmetric chest movement Auscultation: clear to auscultation bilaterally Cardio Rate: regular rate GI Inspection: Yes normal to inspection and No distended Palpation (GI): Soft to palpation, not firm, nontender and No hepatosplenomegaly present Auscultation: normal bowel sounds General: Yes no CVA tenderness Back/Spine/Pelvis Back: no CVA tenderness Skin General skin exam: elasticity normal, turgor normal and dry skin Neuro General: patient oriented x3 Psych Appearance: grossly normal Mental Status: mental status grossly normal Assessment & Plan Assessment & Plan (1) Acid reflux: Code(s): K21.9 - Gastro-esophageal reflux disease without esophagitis Category: Medical Qualifiers: Esophagitis presence: esophagitis presence not specified Qualified Code(s): K21.9 - Gastro-esophageal reflux disease without esophagitis (2) Postprandial abdominal bloating: Code(s): R14.0 - Abdominal distension (gaseous) (3) Postprandial epigastric pain: Code(s): R10.13 - Epigastric pain (4) Constipation: Code(s): K59.00 - Constipation, unspecified Qualifiers: Constipation type: slow transit constipation Qualified Code(s): K59.01 - Slow transit constipation Plan Patient was encouraged to avoid dietary triggers and late night snacking. Staying upright for minimum 3 hours after meals discussed with patient. Patient postop omeprazole and will start her on Nexium. Patient will take Citrucel daily with full glass of water and Senokot in the evening. Increase fluid intake and activity to promote better bowel motility. Patient will follow-up in the office in 2-3 months, sooner on as needed basis. She is agreeable to this plan and verbalizes understanding of instructions. She was given the opportunity to ask questions and all questions answered. Thank you for allowing me to participate in her care Medications: New methylcellulose (laxative) (Citrucel) take it with full glass of water 500 mg PO DAILY 30 tabs 2RF K59.00 - Constipation, unspecified esomeprazole magnesium (Nexium) 40 mg PO DAILY 30 caps 5RF K21.9 - Gastro-esophageal reflux disease without esophagitis sennosides (Natural Senna Laxative) 17.2 mg (2 x 8.6 mg) PO BEDTIME 60 tabs 3RF constipation K59.00 - Constipation, unspecified Discontinued cyclobenzaprine supervising MD Carlos Browne Discontinued Reason: Patient no longer taking 10 mg PO TID PRN 8 tabs 0RF muscle spasm ibuprofen supervising MD Carlos Browne Discontinued Reason: Patient no longer taking 600 mg PO Q8H PRN 5 tabs 0RF pain methylcellulose (laxative) (Citrucel Sugar Free oral powder) Discontinued Reason: Patient no longer taking 2 grams PO DAILY PRN 479 grams 2RF constipation omeprazole Discontinued Reason: Doctor's Order 20 mg PO BID 14 days PRN 28 caps 0RF h.pylori bismuth subsalicylate (Bismuth) Discontinued Reason: Patient no longer taking 2 tabs PO QID 14 days 112 tabs 0RF metronidazole Discontinued Reason: Patient no longer taking 250 mg PO QID 14 days 56 tabs 0RF Coding Level of Care Code Est Pt Level 4 (27326) Diagnoses Gastroesophageal reflux disease, unspecified whether esophagitis present K21.9 Esophagitis presence: esophagitis presence not specified Postprandial abdominal bloating R14.0 Postprandial epigastric pain R10.13 Slow transit constipation K59.01 Constipation type: slow transit constipation Time Spent (min) 40 Comment 25 minutes spent with patient and additional 15 minutes spent reviewing her records
[2024-03-31 08:34] VITALS: BP 134/70; PULSE 56; O2SAT 94; BMI 35.0
== END 2024-03-31 09:43 | disposition home or self-care (01) ==
PROVIDERS: PCP Internal Medicine; Visit Provider Nurse Practitioner Family
DX: K21.9 Gastro-esophageal reflux disease without esophagitis (principal); R14.0 Abdominal distension (gaseous); R10.13 Epigastric pain; K59.01 Slow transit constipation
CPT/HCPCS: 99214

== ENCOUNTER → 2024-03-31 08:23 | Outpatient (BNVA) | payer OTHER, SELFPAY | PROVIDERS: PCP Internal Medicine; Visit Provider Nurse Practitioner Family | DX: K21.9 Gastro-esophageal reflux disease without esophagitis (principal); R10.13 Epigastric pain; R14.0 Abdominal distension (gaseous); K59.01 Slow transit constipation | CPT/HCPCS: 99212 ==

== ENCOUNTER 2024-04-07 10:34 | Outpatient (REF) | payer OTHER, SELFPAY | END 2024-04-07 10:35 | disposition home or self-care (01) | LOC: HO.LAB 10:34 | PROVIDERS: PCP Internal Medicine; Visit Provider Physician Assistant | DX: Z13.89 Encounter for screening for other disorder (principal) ==

== ENCOUNTER 2024-04-21 10:51 | Outpatient (REF) | payer OTHER, SELFPAY ==
[2024-04-21 12:16] LABS: Anion Gap 9 (12-20); Blood Urea Nitrogen 14 mg/dL (9-16); Carbon Dioxide 29 mmol/L (22-29); Chloride 106 mmol/L (96-108); Estimated Glomerular Filt Rate > 60; Glucose Random 97 mg/dL (60-115); Potassium 4.3 mmol/L (3.3-5.1); Sodium 140 mmol/L (135-145)
== END 2024-04-21 10:52 | disposition home or self-care (01) ==
LOC: HO.LAB 10:51
PROVIDERS: PCP Internal Medicine; Visit Provider Internal Medicine
DX: Z13.89 Encounter for screening for other disorder (principal)
CPT/HCPCS: 36415; 80048

== ENCOUNTER 2024-04-21 11:37 | Outpatient (REF) | payer OTHER, SELFPAY | END 2024-04-21 11:38 | disposition home or self-care (01) | LOC: HO.LNP 11:37 | PROVIDERS: Visit Provider Physician Assistant | DX: A04.8 Other specified bacterial intestinal infections (principal) | CPT/HCPCS: 36415; 80048; 87338 ==

== ENCOUNTER 2024-06-09 10:32 | Outpatient (AMB) | payer OTHER, SELFPAY ==
[2024-06-09 10:49] VITALS: BP 144/70; PULSE 60; O2SAT 98; BMI 35.9
--- NOTE | 2024-06-09 10:49 | A.OFFVIS_ITS ---
Vital Signs 06/09/24 10:49 Height 5 ft Weight 183 lb 13.848 oz BMI 35.9 BP 144/70 H Blood Pressure Location Rt brachial Position Sitting Pulse 60 Pulse Source Pulse Oximeter Pulse Oximetry (%) 98 Oxygen Delivery Method Room Air Intake Visit Reasons: 2 mo f/u GERD, IBS Intake Note: Relevant Flags or Indicators ? Requires Occupational Therapy Asst? Pia Cross presents in office today for a scheduled 2 mos FUV. CC; Labs performed since last visit. ? Relevant GI Sx or signficant changes since last visit? No significant changes. ? Hx of any recent surgeries? None Occupational Therapy Asst Required: Yes Occupational Therapy Asst Services: Occupational Therapy Asst Offered & Declined Occupational Therapy Asst Name: Friend/Other Information Interpreted: clinical only Allergies tetanus immune globulin [TETANUS IMMUNE GLOBULIN] Adverse Reaction (Intermediate, Verified 06/09/24 10:50) LOCALIZED SWELLING HPI HPI 2 mo f/u GERD, IBS: Details: LAST VISIT: Acid reflux Postprandial abdominal bloating Postprandial epigastric pain Constipation Plan Patient was encouraged to avoid dietary triggers and late night snacking. Staying upright for minimum 3 hours after meals discussed with patient. Patient postop omeprazole and will start her on Nexium. Patient will take Citrucel daily with full glass of water and Senokot in the evening. Increase fluid intake and activity to promote better bowel motility. Patient will follow-up in the office in 2-3 months, sooner on as needed basis. She is agreeable to this plan and verbalizes understanding of instructions. She was given the opportunity to ask questions and all questions answered. ? Thank you for allowing me to participate in her care Medications New methylcellulose (laxative) (Citrucel) take it with full glass of water 500 mg PO DAILY 30 tabs 2RF K59.00 esomeprazole magnesium (Nexium) 40 mg PO DAILY 30 caps 5RF K21.9 sennosides (Natural Senna Laxative) 17.2 mg (2 x 8.6 mg) PO BEDTIME 60 tabs 3RF constipation K59.00 Discontinued cyclobenzaprine supervising MD Carlos Browne Discontinued Reason: Patient no longer taking 10 mg PO TID PRN 8 tabs 0RF muscle spasm ibuprofen supervising MD Carlos Browne Discontinued Reason: Patient no longer taking 600 mg PO Q8H PRN 5 tabs 0RF pain methylcellulose (laxative) (Citrucel Sugar Free oral powder) Discontinued Reason: Patient no longer taking 2 grams PO DAILY PRN 479 grams 2RF constipation omeprazole Discontinued Reason: Doctor's Order 20 mg PO BID 14 days PRN 28 caps 0RF h.pylori bismuth subsalicylate (Bismuth) Discontinued Reason: Patient no longer taking 2 tabs PO QID 14 days 112 tabs 0RF metronidazole Discontinued Reason: Patient no longer taking 250 mg PO QID 14 days 56 tabs 0RF TODAY'S VISIT Patient reports postprandial abdominal bloating. States that she is able to go to the bathroom after starting senna, however she is unable to empty her bowels good and she still is having feeling like she has to go to the bathroom. Last colonoscopy in 2020 and patient was supposed to return in 3 years. Recent H pylori testing negative. Patient is taking Nexium and is reporting that it is working. Patient denies any dyspepsia, dysphagia or odynophagia. Denies melena, hematochezia, unintentional weight loss or ribbon like stools. [facility] Medical History Sleep apnea in adult Chronic back pain Dyslipidemia HTN (hypertension) Surgical History History of bunionectomy H/O colonoscopy Family History Brother Heart problem Social History Household Members Other:: alone Alcohol intake: current Alcohol intake frequency: holidays/special occasions only Patient Tobacco Use Status: Former Tobacco user Substance Use Type: Marijuana Current occupational status: unemployed Review of Systems Const Denies weight gain and Denies weight loss ENT Reports no additional complaints, Denies dysphagia and Denies odynophagia Card Reports no additional complaints Resp Reports no additional complaints GI Denies abdominal pain, Denies belching, Denies melena, Reports bloating, Denies change in bowel habits, Reports constipation, Denies dysphagia, Denies excessive flatus, Denies dyspepsia, Denies heartburn, Denies diarrhea, Denies loose stools, Denies nausea, Denies odynophagia and Denies vomiting Musc Reports no additional complaints Neuro Reports no additional complaints Psych Reports no additional complaints Endo Reports no additional complaints Physical Exam Vital Signs: Last Vital Signs Pulse 60 06/09/24 10:49 BP 144/70 H 06/09/24 10:49 Pulse Ox 98 06/09/24 10:49 Oxygen Delivery Method Room Air 06/09/24 10:49 BMI result Body Mass Index 35.9 Const General: healthy appearing and no acute distress Nutritional Appearance: obese Orientation/consciousness: patient oriented x3 Resp Effort & Inspection: normal respiratory effort, able to speak in complete sentences, no tracheal deviation and symmetric chest movement Auscultation: clear to auscultation bilaterally Cardio Rate: regular rate GI Inspection: Yes normal to inspection, No distended and Yes obesity Palpation (GI): Soft to palpation, not firm, nontender and No hepatosplenomegaly present Auscultation: normal bowel sounds General: Yes no CVA tenderness Back/Spine/Pelvis Back: no CVA tenderness Skin General skin exam: elasticity normal, turgor normal and dry skin Neuro General: patient oriented x3 Psych Appearance: grossly normal Mental Status: mental status grossly normal Assessment & Plan Assessment & Plan (1) Acid reflux: Code(s): K21.9 - Gastro-esophageal reflux disease without esophagitis Category: Medical Qualifiers: Esophagitis presence: esophagitis presence not specified Qualified Code(s): K21.9 - Gastro-esophageal reflux disease without esophagitis (2) Postprandial abdominal bloating: Code(s): R14.0 - Abdominal distension (gaseous) (3) Postprandial epigastric pain: Code(s): R10.13 - Epigastric pain (4) Constipation: Code(s): K59.00 - Constipation, unspecified Qualifiers: Constipation type: slow transit constipation Qualified Code(s): K59.01 - Slow transit constipation Plan Continue Nexium. Continue avoiding dietary triggers and late night snacking. Staying upright for minimum 3 hours after meals discussed with patient. Patient will stop senna and start Dulcolax. Patient is due to go for colonoscopy, will return in 3 months to discuss upper endoscopy and colonoscopy. Message sent to surgical schedulers to book procedure for patient. In the meantime patient will need to make sure that she is able to move her bowels so she can have a good prep. Patient is agreeable to current plan of care and verbalizes understanding of instructions. She was given the opportunity to ask questions and all questions answered. Thank you for allowing me to participate in her care Medications: New bisacodyl (Dulcolax (bisacodyl)) 10 mg (2 x 5 mg) PO BEDTIME 180 tabs 4RF Discontinued sennosides Discontinued Reason: Doctor's Order 17.2 mg (2 x 8.6 mg) PO BEDTIME 60 tabs 3RF constipation K59.00 - Constipation, unspecified Coding Level of Care Code Est Pt Level 3 (96846) Diagnoses Gastroesophageal reflux disease, unspecified whether esophagitis present K21.9 Esophagitis presence: esophagitis presence not specified Postprandial abdominal bloating R14.0 Postprandial epigastric pain R10.13 Slow transit constipation K59.01 Constipation type: slow transit constipation Time Spent (min) 30 Comment 20 minutes spent with patient and additional 10 minutes spent reviewing her records
== END 2024-06-09 11:26 | disposition home or self-care (01) ==
PROVIDERS: PCP Internal Medicine; Visit Provider Nurse Practitioner Family
DX: K21.9 Gastro-esophageal reflux disease without esophagitis (principal); R14.0 Abdominal distension (gaseous); R10.13 Epigastric pain; K59.01 Slow transit constipation
CPT/HCPCS: 99213

== ENCOUNTER → 2024-06-09 10:32 | Outpatient (BNVA) | payer OTHER, SELFPAY | PROVIDERS: PCP Internal Medicine; Visit Provider Nurse Practitioner Family | DX: K21.9 Gastro-esophageal reflux disease without esophagitis (principal); K58.1 Irritable bowel syndrome with constipation; K59.01 Slow transit constipation; R10.13 Epigastric pain; R14.0 Abdominal distension (gaseous) | CPT/HCPCS: 99212 ==

== ENCOUNTER 2024-06-10 08:47 | Outpatient (AMB) | payer OTHER, SELFPAY ==
[2024-06-10 08:53] VITALS: BP 100/70; PULSE 63; BMI 36.2
--- NOTE | 2024-06-10 08:53 | MHC.OFFVIS ---
Vital Signs 06/10/24 08:53 Height 5 ft Weight 185 lb 3.013 oz BMI 36.2 BP 100/70 Blood Pressure Location Lt brachial Position Sitting Pulse 63 Pulse Source Pulse Oximeter Intake Visit Reasons: follow up CTA Mobile Engineer Required: No Mobile Engineer Name: margaret/turkish Accompanied by: Self / Same As Patient Allergies tetanus immune globulin [TETANUS IMMUNE GLOBULIN] Adverse Reaction (Intermediate, Verified 06/09/24 10:50) LOCALIZED SWELLING Medication List - Last Reconciled 06/10/24 by Flip Mandujano MD atorvastatin 20 mg PO BEDTIME bisacodyl (Dulcolax (bisacodyl)) 10 mg (2 x 5 mg) PO BEDTIME blood pressure test kit-large As directed calcium polycarbophil (Fiber (calcium polycarbophil)) mg PO cholecalciferol (vitamin D3) 50 mcg PO DAILY clonazepam 1 mg PO DAILY esomeprazole magnesium (Nexium) 40 mg PO DAILY lidocaine 5% (Lidoderm) 1 patch topical DAILY lisinopril-hydrochlorothiazide 10-12.5 mg 1 tab PO DAILY methylcellulose (laxative) (Citrucel) 500 mg PO DAILY simethicone (Gas Relief (simethicone)) 125 mg PO TID-QID PRN vitamin B complex 1 tab PO DAILY HPI Comments Details: America returns for follow-up. In the past, she was seen regarding bradycardia. She has had slow heart rates going back quite some time. However, no cardiac issues like coronary disease or myocardial infarction or cardiomyopathy. Fairly sedentary at baseline. Some shortness of breath activity. She complains of nonspecific fatigue with activity. Difficult to assess for angina, but no overt symptoms. Also has history of ELAINE but no CPAP yet. Since last seen, she has completed a coronary CTA. Feels just about the same as before. [facility] Medical History Sleep apnea in adult Chronic back pain Dyslipidemia HTN (hypertension) Surgical History History of bunionectomy H/O colonoscopy Family History Brother Heart problem Social History Household Members Other:: alone Alcohol intake: current Alcohol intake frequency: holidays/special occasions only Patient Tobacco Use Status: Former Tobacco user Substance Use Type: Marijuana Current occupational status: unemployed Review of Systems Const Denies chills, Denies fatigue, Denies fever(s), Denies frequent falls, Denies weakness, Denies weight gain and Denies weight loss ENT Denies dizziness Card Denies chest pain, Denies leg edema, Denies lightheadedness, Denies palpitations, Denies dyspnea and Denies dyspnea on exertion Resp Denies cough, Denies dyspnea and Denies dyspnea on exertion GI Denies hematochezia Musc Denies abnormal gait, Denies muscle weakness, Denies numbness, Denies radiating pain into limb and Denies tingling Neuro Denies abnormal gait, Denies dizziness, Denies frequent falls, Denies numbness, Denies tingling and Denies weakness Endo Denies fatigue and Denies palpitations Physical Exam Vital Signs: Last Vital Signs Pulse 63 06/10/24 08:53 BP 100/70 06/10/24 08:53 BMI result Body Mass Index 36.2 Const General: comfortable and no acute distress Orientation/consciousness: patient oriented x3 HEENT Other: Unremarkable Head: Yes normal to inspection Neck Neck: Yes normal visual inspection Chest Chest palpation & inspection: normal inspection of the chest Resp Auscultation: clear to auscultation bilaterally Cardio Palpation: normal PMI Heart sounds: S1 normal heart sound present, S2 normal heart sound present, no gallops, no murmurs and no rubs GI Palpation (GI): Soft to palpation Back/Spine/Pelvis Other: unremarkable Skin General skin exam: no rashes or lesions noted Neuro General: patient oriented x3 Extrem General: Yes normal to inspection Psych Mental Status: mental status grossly normal Assessment & Plan Assessment & Plan (1) Atherosclerotic cardiovascular disease: Code(s): I25.10 - Atherosclerotic heart disease of [place] coronary artery without angina pectoris Category: Medical Plan: Cardiac studies reviewed. Chronic T inversions in anterior leads. Echocardiogram with hyperdynamic LVEF and otherwise unremarkable. In the perfusion imaging, possible ischemia in the distal part of lateral wall/apex. In the coronary CTA, moderate stenosis of the proximal LAD with a long calcific plaque. Degree of stenosis difficult to evaluate due to lack of normal reference segment as well as blooming artifact from calcification. In the body of report, reported moderate, 50-69% stenosis. Otherwise, seems mostly mild disease. Possible remote infarct/inflammation in the apex. FFR significant in the distal LAD, mid circumflex and mid RCA. Overall, limited study quality because of extensive calcification/blooming artifact. We will pursue a diagnostic catheterization for further evaluation. Discussed with patient and she agrees. COKE DRAWER HAND acted as dogman/woman. Start low-dose aspirin. Increased statins. Check labs. (2) Bradycardia: Code(s): R00.1 - Bradycardia, unspecified Category: Medical Plan: Bradycardia seems chronic. Even in 2009, EKG showed heart rate of 43/Min. Holter shows underlying sinus rhythm with an average rate of 57/Min. Frequent sinus bradycardia. Overall, no specific management at this time. Continue CPAP. Orders: Orders Complete Blood Count no Diff Today I25.10 - Atherosclerotic heart disease of [place] coronary artery without angina pectoris Prothrombin Time INR Today I25.10 - Atherosclerotic heart disease of [place] coronary artery without angina pectoris Cardiac Cath LT Diagnostic Today Comprehensive [place]. Panel Fast Today I25.10 - Atherosclerotic heart disease of [place] coronary artery without angina pectoris Lipid Panel Today I25.10 - Atherosclerotic heart disease of [place] coronary artery without angina pectoris Medications: New atorvastatin 80 mg PO BEDTIME 90 tabs 1RF aspirin (Adult Low Dose Aspirin) 81 mg PO DAILY 90 tabs 3RF Coding Level of Care Code Est Pt Level 4 (79442) Diagnoses Atherosclerotic cardiovascular disease I25.10 Bradycardia R00.1
== END 2024-06-10 09:22 | disposition home or self-care (01) ==
PROVIDERS: PCP Internal Medicine; Visit Provider Internal Medicine
DX: I25.10 Atherosclerotic heart disease of native coronary artery without angina pectoris (principal); R00.1 Bradycardia, unspecified
CPT/HCPCS: 99214

== ENCOUNTER 2024-06-10 08:47 | Outpatient (REF) | payer OTHER, SELFPAY ==
[2024-06-10 10:49] LABS: Hematocrit 38.7 % (37.0-47.0); Hemoglobin 13.1 g/dl (12.0-16.0); Mean Corpuscular HGB Conc 33.9 g/dl (31.0-35.0); Mean Corpuscular Hemoglobin 31.2 pg (27.0-33.0); Mean Corpuscular Volume 92.1 fL (80.0-98.0); Mean Platelet Volume 10.6 fL (9.4-12.3); Platelet Count 275 X10*3/uL (160-400); White Blood Count 7.8 X10*3/uL (4.8-10.8)
[2024-06-10 10:51] LABS: INTERNATIONAL NORM RATIO 0.9 (0.9-1.1); Prothrombin Time 10.8 SEC (10.9-12.4)
[2024-06-10 11:57] LABS: Alanine Aminotransferase 23 U/L (0-31); Albumin Level 4.2 g/dL (3.5-5.0); Alkaline Phosphatase 72 U/L (39-117); Anion Gap 13 (12-20); Aspartate Amino Transferase 20 U/L (5-31); Bilirubin Total 0.7 mg/dL (0.0-1.0); Blood Urea Nitrogen 17 mg/dL (9-16); Calcium 9.6 mg/dL (8.4-10.2); Carbon Dioxide 28 mmol/L (22-29); Chloride 105 mmol/L (96-108); Cholesterol 149 mg/dL (<200); Estimated Glomerular Filt Rate > 60; Glucose Fasting 106 mg/dL (60-99); HDL Cholesterol 49 mg/dL (>40); LDL Cholesterol Calculated 76 mg/dL (<100); Potassium 4.2 mmol/L (3.3-5.1); Sodium 142 mmol/L (135-145); Triglycerides 122 mg/dL (<150)
== END 2024-06-10 08:48 | disposition home or self-care (01) ==
LOC: HO.LAB 08:47
PROVIDERS: PCP Internal Medicine; Visit Provider Internal Medicine
DX: I25.10 Atherosclerotic heart disease of native coronary artery without angina pectoris (principal); R00.1 Bradycardia, unspecified
CPT/HCPCS: 36415; 80053; 80061; 85027; 85610; 99212

== ENCOUNTER → 2024-06-23 23:59 | Outpatient (BNV) | payer OTHER, SELFPAY | PROVIDERS: PCP Internal Medicine; Visit Provider Internal Medicine Cardiovascular Disease | DX: I20.89 Other forms of angina pectoris (principal) | CPT/HCPCS: 92928; 92978; 93458; 93571; 93572; 99152 ==

== ENCOUNTER 2024-08-17 09:27 | Outpatient (AMB) ==
[2024-08-17 09:29] VITALS: BP 136/92; PULSE 68; BMI 36.2
--- NOTE | 2024-08-17 09:29 | MHC.OFFVIS ---
Vital Signs 08/17/24 09:29 Height 5 ft Weight 185 lb 10.067 oz BMI 36.2 BP 136/92 H Blood Pressure Location Lt brachial Position Sitting Pulse 68 Pulse Source Pulse Oximeter Intake Visit Reasons: 2wk f/p cath Patient Clerical Assistant Required: Yes Patient Clerical Assistant Language: Boat Person Name: voice santiago [phone] Redrawer: Redrawer Present Allergies tetanus immune globulin [TETANUS IMMUNE GLOBULIN] Adverse Reaction (Intermediate, Verified 08/17/24 09:33) LOCALIZED SWELLING Medication List - Last Reconciled 08/17/24 by PITO Owusu aspirin (Adult Low Dose Aspirin) 81 mg PO DAILY atorvastatin 80 mg PO BEDTIME bisacodyl (Dulcolax (bisacodyl)) 10 mg (2 x 5 mg) PO BEDTIME blood pressure test kit-large As directed cholecalciferol (vitamin D3) 50 mcg PO DAILY clonazepam 1 mg PO DAILY esomeprazole magnesium (Nexium) 40 mg PO DAILY lidocaine 5% (Lidoderm) 1 patch topical DAILY lisinopril-hydrochlorothiazide 10-12.5 mg 1 tab PO DAILY methylcellulose (laxative) (Citrucel) 500 mg PO DAILY simethicone (Gas Relief (simethicone)) 125 mg PO TID-QID PRN ticagrelor 90 mg PO BID HPI HPI 2wk f/p cath: Details: America is a 69-year-old female with past medical history of hypertension, hyperlipidemia, bradycardia, sleep apnea, abnormal EKG with chronic T-wave inversions anteriorly, who underwent cardiac evaluation and eventual cardiac catheterization leading to SURJIT to the mid LAD. She now presents for follow-up Today she reports that she has been experiencing discomfort in her right arm and shoulder for the last week. This discomfort radiates up to her neck. Her arm is painful to move. Her right radial catheterization site is well healed. She tells me she was using the arm cycle at cardiac rehab which is most likely the cause of her symptoms. She tells me her breathing has been better since the catheterization procedure. Prior to that she was noticing some mild shortness of breath with activity. No PND, orthopnea or edema. She does not wear a CPAP mask. No chest discomfort at rest or with activity. No heart palpitations, lightheadedness, presyncope, syncope. She has been compliant with her medications. No bleeding issues. INSURANCE UNDERWRITING ASSISTANT is present. [facility] Medical History (Updated 08/17/24 @ 10:43 by PITO Owusu) Sleep apnea in adult Chronic back pain Dyslipidemia HTN (hypertension) Surgical History (Updated 08/17/24 @ 10:43 by PITO Owusu) History of cardiac cath History of bunionectomy H/O colonoscopy Family History Brother Heart problem Social History Household Members Other:: alone Alcohol intake: current Alcohol intake frequency: holidays/special occasions only Patient Tobacco Use Status: Former Tobacco user Substance Use Type: Marijuana Current occupational status: unemployed Review of Systems Const All systems reviewed & are unremarkable except as noted in HPI and below ENT Denies dizziness Card Denies chest pain, Denies chest pain at rest, Denies chest pain with activity, Denies rapid heart rate, Denies pedal edema, Denies edema, Denies leg edema, Denies lightheadedness, Denies palpitations, Denies dyspnea, Denies dyspnea on exertion and Denies orthopnea Resp Denies cough, Denies dyspnea and Denies dyspnea on exertion GI Denies hematochezia and Denies change in stool character Musc Details: right arm, shoulder and neck discomfort Denies abnormal gait, Reports limited range of motion, Denies muscle cramps, Denies muscle weakness, Denies numbness, Denies radiating pain into limb, Denies stiffness and Denies tingling Neuro Denies abnormal gait, Denies dizziness, Denies numbness and Denies tingling Endo Denies palpitations Physical Exam Vital Signs: Last Vital Signs Pulse 68 08/17/24 09:29 BP 136/92 H 08/17/24 09:29 BMI result Body Mass Index 36.2 Const General: cooperative, healthy appearing, comfortable and no acute distress Orientation/consciousness: patient oriented x3 Neck Neck: Yes normal visual inspection and Yes no JVD Resp Effort & Inspection: normal respiratory effort Auscultation: clear to auscultation bilaterally, no rales, no rhonchi and no wheezes Cardio Rate: regular rate Rhythm: regular rhythm Heart sounds: S1 normal heart sound present, S2 normal heart sound present, no murmurs and no rubs Neuro General: patient oriented x3 Extrem Other: right radial cath site well healed, easily palpable right radial pulse. right arm visably normal. Has muscle tenderness on forearm and shoulder - grimaces with ROM General: Yes normal to inspection, No no pedal edema and No calf tenderness Psych Appearance: grossly normal Mental Status: mental status grossly normal Speech and movement: Normal speech and movement present Assessment & Plan Assessment & Plan (1) CAD (coronary artery disease): Code(s): I25.10 - Atherosclerotic heart disease of [place] coronary artery without angina pectoris Category: Medical Plan: Her EKG shows sinus rhythm with chronic T-wave inversions anteriorly. She underwent cardiac evaluation with an echocardiogram on 10/24/2023 showing hyperdynamic EF greater than 70% with no valve abnormalities. Nuclear stress test was done 10/30/2023 showing possible ischemia in the distal lateral wall and apex. She had no clear anginal symptoms at that time. She eventually had a CTA of the coronary arteries on 04/29/2024 which did show moderate stenosis of the proximal LAD with long calcific plaque, 50-69% stenosis otherwise mostly mild disease, FFR significant in the distal LAD, mid circumflex and mid RCA, overall limited study due to extensive calcification and blooming artifact. This led to cardiac catheterization on 06/23/2024 which showed mid LAD 70% stenosis and SURJIT was placed, mid left circumflex 50% stenosis, RCA moderate diffuse disease. At this time she tells me that she is noticing less shortness of breath. She never had chest discomfort. She is attending cardiac rehab and has discomfort in her right arm today which is likely as a result of using the arm cycle. Informed her to discuss with her PCP if discomfort persists. Catheterization report reviewed with her in detail. Continue aspirin indefinitely. Continue Brilinta uninterrupted for at least 1 year, continue high-dose atorvastatin with ideal LDL goal less than 70. She is not on beta-tyrone due to a history of bradycardia. Continue lisinopril/hydrochlorothiazide for good blood pressure control. Cardiology follow-up in 3 months, sooner if needed (2) History of cardiac cath: Comment: 06/23/24 Mid LAD 70% stenosis, SURJIT placed, Mid LCx 50% stenosis, RCA moderate diffuse disease Code(s): Z98.890 - Other specified postprocedural states Category: Surgical Plan: Right radial catheterization site well healed (3) Stented coronary artery: Comment: Mid LAD 06/23/24 Code(s): Z95.5 - Presence of coronary angioplasty implant and graft Category: Surgical (4) Bradycardia: Code(s): R00.1 - Bradycardia, unspecified Category: Medical Plan: History of bradycardia. She is not on beta-blockers for this reason. Pulse rate today 68. (5) Abnormal EKG: Code(s): R94.31 - Abnormal electrocardiogram [ECG] [EKG] Category: Medical Plan: As above (6) HTN (hypertension): Code(s): I10 - Essential (primary) hypertension Category: Medical Plan: Initial blood pressure 136/92, recheck done by me 132/82. Continue on lisinopril/hydrochlorothiazide. Low-salt diet and weight loss reviewed. Continue cardiac rehab (7) Dyslipidemia: Code(s): E78.5 - Hyperlipidemia, unspecified Category: Medical Plan: [place] LDL goal less than 70 in patient with CAD. Labs done 06/10/2024 showing LDL 76. Continue exercise and low-fat diet reviewed. Continue high-dose atorvastatin. (8) Right arm pain: Code(s): M79.601 - Pain in right arm Category: Medical Plan: Musculoskeletal discomfort as described above. Most likely related to the exercise she has done at cardiac rehab. Reviewed conservative measures and avoidance of hand cycle at rehab. Further discuss with PCP if warranted Plan Time spent on chart review, documentation, interview and assessment Coding Level of Care Code Est Pt Level 4 (09728) Complex EM visit Add On G2211 Diagnoses CAD (coronary artery disease) I25.10 History of cardiac cath Z98.890 Stented coronary artery Z95.5 Bradycardia R00.1 Abnormal EKG R94.31 HTN (hypertension) I10 Dyslipidemia E78.5 Right arm pain M79.601 Time Spent (min) 36
== END 2024-08-17 09:55 | disposition home or self-care (01) ==
DX: I25.10 Atherosclerotic heart disease of native coronary artery without angina pectoris (principal); Z98.890 Other specified postprocedural states; Z95.5 Presence of coronary angioplasty implant and graft; R00.1 Bradycardia, unspecified; R94.31 Abnormal electrocardiogram [ECG] [EKG]; I10 Essential (primary) hypertension; E78.5 Hyperlipidemia, unspecified; M79.601 Pain in right arm
CPT/HCPCS: 99214; G2211

== ENCOUNTER → 2024-08-17 09:27 | Outpatient (BNVA) | payer OTHER, SELFPAY | PROVIDERS: PCP Internal Medicine; Visit Provider Nurse Practitioner Family | DX: I25.10 Atherosclerotic heart disease of native coronary artery without angina pectoris (principal); I10 Essential (primary) hypertension; R00.1 Bradycardia, unspecified; M79.601 Pain in right arm; E78.5 Hyperlipidemia, unspecified; R94.31 Abnormal electrocardiogram [ECG] [EKG]; Z95.5 Presence of coronary angioplasty implant and graft; Z98.890 Other specified postprocedural states | CPT/HCPCS: 99212 ==

== ENCOUNTER 2024-11-24 09:03 | Outpatient (AMB) | payer OTHER, SELFPAY ==
--- NOTE | 2024-11-24 09:31 | MHC.OFFVIS ---
Vital Signs 11/24/24 09:32 Height 5 ft Weight 184 lb 11.958 oz BMI 36.1 BP 132/80 Blood Pressure Location Lt brachial Position Sitting Pulse 53 Pulse Source Monitor Intake Visit Reasons: 3m follow up Marketing/Sales Person Required: Yes Marketing/Sales Person Language: Sustainable Systems Analyst Name: voice Wilkins [id number] Allergies tetanus immune globulin [TETANUS IMMUNE GLOBULIN] Adverse Reaction (Intermediate, Verified 11/24/24 09:34) LOCALIZED SWELLING Medication List - Last Reconciled 11/24/24 by Milena Collier NP-C aspirin (Adult Low Dose Aspirin) 81 mg PO DAILY atorvastatin 80 mg PO BEDTIME bisacodyl (Dulcolax (bisacodyl)) 10 mg (2 x 5 mg) PO BEDTIME blood pressure test kit-large As directed cholecalciferol (vitamin D3) 50 mcg PO DAILY clonazepam 1 mg PO DAILY esomeprazole magnesium (Nexium) 40 mg PO DAILY lidocaine 5% (Lidoderm) 1 patch topical DAILY lisinopril-hydrochlorothiazide 10-12.5 mg 1 tab PO DAILY methylcellulose (laxative) (Citrucel) 500 mg PO DAILY simethicone (Gas Relief (simethicone)) 125 mg PO TID-QID PRN ticagrelor 90 mg PO BID HPI HPI 3m follow up: Details: America is a 69-year-old female with past medical history of hypertension, hyperlipidemia, bradycardia, sleep apnea, abnormal EKG with chronic T-wave inversions anteriorly, who underwent cardiac evaluation and eventual cardiac catheterization leading to SURJIT to the mid LAD. She now presents for follow-up Today she reports that she has been doing well since her last visit. She will feel some quick stabbing pains in the left chest that last a 2nd and go away. She no longer has left arm discomfort. She has completed cardiac rehab and walks routinely for exercise. No shortness of breath, PND, orthopnea or edema. No heart palpitations, lightheadedness, presyncope, syncope. She does not wear a CPAP mask. She tells me she bruises easily. She has been compliant with her medications. YACHT CAPTAIN is present. Certified oracle financials consultant used [facility] Medical History Sleep apnea in adult Chronic back pain Dyslipidemia HTN (hypertension) Surgical History History of cardiac cath History of bunionectomy H/O colonoscopy Family History Brother Heart problem Social History Household Members Other:: alone Alcohol intake: current Alcohol intake frequency: holidays/special occasions only Patient Tobacco Use Status: Former Tobacco user Substance Use Type: Marijuana Current occupational status: unemployed Review of Systems Const All systems reviewed & are unremarkable except as noted in HPI and below ENT Denies dizziness Card Denies chest pain, Denies chest pain at rest, Denies chest pain with activity, Denies rapid heart rate, Denies pedal edema, Denies edema, Denies leg edema, Denies lightheadedness, Denies palpitations, Denies dyspnea, Denies dyspnea on exertion and Denies orthopnea Resp Denies cough, Denies dyspnea and Denies dyspnea on exertion GI Denies hematochezia and Denies change in stool character Musc Denies abnormal gait, Denies limited range of motion, Denies muscle cramps, Denies muscle weakness, Denies numbness, Denies radiating pain into limb, Denies stiffness and Denies tingling Neuro Denies abnormal gait, Denies dizziness, Denies numbness and Denies tingling Endo Denies palpitations Physical Exam Vital Signs: Last Vital Signs Pulse 53 11/24/24 09:32 BP 132/80 11/24/24 09:32 BMI result Body Mass Index 36.1 Const General: cooperative, healthy appearing, comfortable and no acute distress Orientation/consciousness: patient oriented x3 Neck Neck: Yes normal visual inspection and Yes no JVD Resp Effort & Inspection: normal respiratory effort Auscultation: clear to auscultation bilaterally, no crackles, no rales, no rhonchi and no wheezes Cardio Rate: regular rate Rhythm: regular rhythm Heart sounds: S1 normal heart sound present, S2 normal heart sound present, no gallops, no murmurs and no rubs Neuro General: patient oriented x3 Extrem General: Yes normal to inspection, No no pedal edema and No calf tenderness Psych Appearance: grossly normal Mental Status: mental status grossly normal Speech and movement: Normal speech and movement present Office Procedures EKG Details: Today, read by me, sinus bradycardia, low-voltage QRS, rate 53, QTC 410 milliseconds [id number], Complete Assessment & Plan Assessment & Plan (1) CAD (coronary artery disease): Code(s): I25.10 - Atherosclerotic heart disease of [place] coronary artery without angina pectoris Category: Medical Plan: Her EKG shows sinus rhythm with chronic T-wave inversions anteriorly. She underwent cardiac evaluation with an echocardiogram on 10/24/2023 showing hyperdynamic EF greater than 70% with no valve abnormalities. Nuclear stress test was done 10/30/2023 showing possible ischemia in the distal lateral wall and apex. She had no clear anginal symptoms at that time. She eventually had a CTA of the coronary arteries on 04/29/2024 which did show moderate stenosis of the proximal LAD with long calcific plaque, 50-69% stenosis otherwise mostly mild disease, FFR significant in the distal LAD, mid circumflex and mid RCA, overall limited study due to extensive calcification and blooming artifact. This led to cardiac catheterization on 06/23/2024 which showed mid LAD 70% stenosis and SURJIT was placed, mid left circumflex 50% stenosis, RCA moderate diffuse disease. She was having some shortness of breath with activity that resolved following LAD stenting. She is currently asymptomatic. She completed cardiac rehab. EKG today showing sinus bradycardia, T-wave inversion V2, rate 53. Continue aspirin indefinitely. Continue Brilinta uninterrupted for at least 1 year, continue high-dose atorvastatin with ideal LDL goal less than 70. She is not on beta-tyrone due to a history of bradycardia. Continue lisinopril/hydrochlorothiazide for good blood pressure control. Signs and symptoms of angina reviewed. Cardiology follow-up in 4 months, sooner if needed (2) History of cardiac cath: Comment: 06/23/24 Mid LAD 70% stenosis, SURJIT placed, Mid LCx 50% stenosis, RCA moderate diffuse disease Code(s): Z98.890 - Other specified postprocedural states Category: Surgical (3) Stented coronary artery: Comment: Mid LAD 06/23/24 Code(s): Z95.5 - Presence of coronary angioplasty implant and graft Category: Surgical (4) Bradycardia: Code(s): R00.1 - Bradycardia, unspecified Category: Medical Plan: History of bradycardia. She is not on beta-blockers for this reason. Pulse rate today 53. (5) Abnormal EKG: Code(s): R94.31 - Abnormal electrocardiogram [ECG] [EKG] Category: Medical Plan: As above (6) HTN (hypertension): Code(s): I10 - Essential (primary) hypertension Category: Medical Plan: Blood pressure goal less than 130/80. Currently 132/80, acceptable. Continue on lisinopril/hydrochlorothiazide. Low-salt diet and weight loss reviewed. (7) Dyslipidemia: Code(s): E78.5 - Hyperlipidemia, unspecified Category: Medical Plan: [place] LDL goal less than 70 in patient with CAD. Labs done 06/10/2024 showing LDL 76. Continue exercise and low-fat diet reviewed. Continue high-dose atorvastatin. Recheck lipids before next visit Plan Time spent on chart review, documentation, interview and assessment During our discussion, I explained the differentiation between her chest wall pain and previously concerning cardiac-related symptoms, assuring that the pain described does not align with cardiac etiology. We reviewed the significance of maintaining her current medication regimen, particularly the use of Aspirin and Brilinta, due to their critical role in post-stent care. I thoroughly discussed the bleeding risks associated with these medications, underscoring the need to minimize activities that could lead to injury. I instructed the patient to monitor her dyspnea for any changes and to promptly report any significant alterations that could indicate recurrence of pre-stent conditions. The importance of obtaining a cholesterol check was highlighted, clarifying the fasting requirement. The patient was advised to ensure periodic assessments to sustain her cardiovascular health. Patient Instructions: - Continue taking prescribed medications, Aspirin and Brilinta - Monitor for any change in breathing difficulties - Obtain cholesterol recheck on a fasting day - Report any new or severe chest pain or pressure immediately - Stay active with regular walking and light exercises Patient was informed and verbally consented to the use of an ambient scribe for clinic note documentation during this visit. Coding Level of Care Code Est Pt Level 4 (41407) Complex EM visit Add On G2211 Diagnoses CAD (coronary artery disease) I25.10 History of cardiac cath Z98.890 Stented coronary artery Z95.5 Bradycardia R00.1 Abnormal EKG R94.31 HTN (hypertension) I10 Dyslipidemia E78.5 CPT Codes EKG - CPT: [id number], Complete ([id number]) Time Spent (min) 30
[2024-11-24 09:32] VITALS: BP 132/80; PULSE 53; BMI 36.1
--- OUTSIDE RECORDS SUMMARY | 2024-11-24 09:40 | XMS_ITS | Encounter Summary ---
Author Organization [employer] Address [address] [place] [address] Care Team Providers Care Engineering Lecturer Name Role Phone Jenn Gonzalez MD Primary Care Provider [phone] Reason for Visit * Reason Onset Date Comments Appointment Request 09/28/2024 Encounter Details Date Type Department Care Team ([facility] Contact Info) Description 09/28/[address] [facility] MED[facility] [address] [place], [place] [phone] Jenn Gonzalez MD [address] [place], [place] [phone] Appointment Request Social History Tobacco Use Types Packs/Day Years Used Date Smoking Tobacco: Former Cigarettes Q uit: 2018 Smokeless Tobacco: Never Depression Answer Date Recorded Patient Health Questionnaire-9 Score 14 04/28/2024 Patient Health Questionnaire-9 Score 14 04/28/2024 Last PHQ-9: Questionnaire Data Not on file 1 Housing Stability Answer Date Recorded What is your housing situation today? I have trinity villanueva 07/11/[address] you li ve. Do you have problems with any of the following? None of the above 07/11/2023 Food Insecurity Answer Date Recorded Within the past 12 months, y ou worried that your food would run out before you got money to buy more: Never True 07/11/2023 Within the past 12 months,th e food you bought just didn't last and you didn't have enough money to get more: Never True 10/2023 Transportation Answer Date Recorded In the past 12 months, has l ack of transportation kept you from medical appts, meetings, work or from getting things needed for daily living? No 07/11/2023 Utilities Answer Date Recorded In the past 12 months, has t he electric, gas, oil or water company threatened to shut off services in your home? No 07/11/2023 Depression Answer Date Recorded Patient Health Questionnaire-2 Score 6 04/28/2024 Comments Unknown Sex and Gender Information Value Date Recorded Sex Assigned at Female 05/07/2022 10:19 AM EDT Legal Sex Female 10:19 AM EDT Gender Identity Female 05/07/2022 10:19 AM EDT Sexual Orientation Straight 05/07/2022 10 :19 AM EDT documented as of this encounter Miscellaneous Notes * Telephone Encounter - Chidi Maier - 09/28/2024 11:13 AM EDT Tc from pt requesting a call back to R/s Appt from 09/02/24. Contact pt at [phone] documented in this encounter Plan of Treatment Upcoming Encounters Date Type Department Care Team (Late st Contact Info) Description 11/26/2024 10:00 AM EDT Clinical Support [facility] MED & PEDS [address] [place] [address] Anastasia Molina RN [address] [place] [address] 02/02/2025 9:00 AM EDT Office Visit [facility] [address] [place] [address] Jenn Gonzalez MD [address] [place] [address] documented as of this encounter Visit Diagnoses Not on filedocumented in this encounter Additional Health Concerns Assessment Noted Time PHQ-9 Depression Total Score: 14 024 9:24 AM EDT documented as of this encounter Care Teams Engineering Lecturer Relationship Specialty Start Date End Date Jenn Gonzalez MD [address] [place] [address] PCP - General Internal Medicine 12/29/14 documented as of this encounter
--- OUTSIDE RECORDS SUMMARY | 2024-11-24 09:40 | XMS_ITS | Encounter Summary ---
Author Organization [employer] Address [address] [place] [address] Care Team Providers Care Brush Fabrication Supervisor Name Role Phone Jenn Gonzalez MD Primary Care Provider [phone] Encounter Details Date Type Department Care Team ([facility] Contact Info) Description 10/04/2023 Orders Only [facility] PEDS [address] [place], [place] [phone] Jenn Gonzalez MD [address] [place], [place] [phone] Multiple joint pain (Primary Dx) Social History Tobacco Use Types Packs/Day Years Used Date Smoking Tobacco: Former Cigarettes Q uit: 2018 Smokeless Tobacco: Never Housing Stability Answer Date Recorded What is [...] off services in your home? No 07/11/2023 Comments Unknown Sex and Gender Information Value Date Recorded Sex Assigned at Female 05/07/2022 10:19 AM EDT Legal Sex Female 10:19 AM EDT Gender Identity Female 05/07/2022 10:19 AM EDT Sexual Orientation Straight 05/07/2022 10 :19 AM EDT documented as of this encounter Plan of Treatment Upcoming Encounters Date Type Department Care Team ([facility] st Contact Info) Description 11/26/2024 10:00 AM EDT Clinical Support [facility] MED [facility] PED[facility] [address] [place] [address] Anastasia Molina, RN [address] [place] [address] 02/02/2025 9:00 AM EDT Office Visit [facility] [address] [place] [address] Jenn Gonzalez MD [address] [place] [address] documented as of this encounter Visit Diagnoses Diagnosis Multiple joint pain- Primary Pain in joint, multiple sites documented in this encounter Care Teams Brush Fabrication Supervisor Relationship Specialty Start Date End Date Jenn Gonzalez MD [address] [place] [address] PCP - General Internal Medicine 12/29/14 documented as of this encounter
--- OUTSIDE RECORDS SUMMARY | 2024-11-24 09:40 | XMS_ITS | Encounter Summary ---
Author Organization [employer] Address [address] [place] [address] Care Team Providers Care Hotel Superintendent Name Role Phone Jenn Gonzalez MD Primary Care Provider [phone] Reason for Visit * Reason Comments Med Refill Encounter Details Date Type Department Care Team ([facility] Contact Info) Description 09/30/2023 Refill [facility] PEDS [address] [place], [place] [phone] Jenn Gonzalez MD [address] [place], [place] [phone] Social History Tobacco Use Types Packs/Day Years [...] encounter Miscellaneous Notes * Telephone Encounter - Anastasia Molina RN - 10/04/2023 3:26 PM EDT TC to pt regarding message below. Pt states she would like to try Naproxen. * Telephone Encounter - Jenn Gonzalez MD - 10/04/2023 2:07 PM EDT Already on Clonazepam. The combination of Tramadol and Clonazepam increase risk of fall and dizziness. I recommend Naproxen for pain control instead. documented in this encounter Plan of Treatment Upcoming Encounters Date Type Department Care Team (Late st Contact Info) Description 11/26/2024 10:00 AM EDT Clinical Support [facility] MED & PEDS [address] [place] [address] Anastasia Molina RN [address] [place] [address] 02/02/2025 9:00 AM EDT Office Visit [facility] MED [facility] PED[facility] [address] [place] [address] Jenn Gonzalez MD [address] [place] [address] documented as of this encounter Visit Diagnoses Not on filedocumented in this encounter Care Teams Hotel Superintendent Relationship Specialty Start Date End Date Jenn Gonzalez MD [address] [place] [address] PCP - General Internal Medicine 12/29/14 documented as of this encounter
--- OUTSIDE RECORDS SUMMARY | 2024-11-24 09:40 | XMS_ITS | Encounter Summary ---
Author Organization [employer] Address [address] [facility] [address] [place] [address] Care Team Providers Care [employer] Name Role Phone Jenn Gonzalez MD Primary Care Provider [phone] Encounter Details Date Type Department Care Team ([facility] Contact Info) Description 10/24/2023 Orders Only [facility] PEDS [address], [place] [phone] Jenn Gonzalez MD [address] [place] [address] Social History Tobacco Use Types Packs/Day Years [...] Description 11/26/2024 10:00 AM EDT Clinical Support [facility] MED & PEDS [address] [place] [address] Anastasia Molina, GRICELDA [address] [place] [address] 02/02/2025 9:00 AM EDT Office Visit [facility] MED & PEDS [address] [place] [address] Jenn Gonzalez MD [address] [place] [address] documented as of this encounter Procedures Procedure Name Priority Date/Time Associated Diagnosis Comments STRESS TEST WITH MYOCARDIAL PERFUSION Routine 10/30/2023 2:15 PM EDT documented in this encounter Results * Stress test with myocardial perfusion (10/30/2023 2:15 PM EDT) 10/30/2023 2:15 PM EDT Narrative [facility] - 10/30/2023 3:24 PM EDT ? [facility] ?[address] ?[place] [address] ?Nuclear Medicine Report ? Signed ? Patient: Edwardo,America ?MR#: [id number] ?? 52 ? : 1955 ?Acct:[id number] ? Age/Sex: 68 / F ?ADM Date: 04/18/24 ? Loc: HO.CARD ? Attending : Flip Mandujano MD ? Ordering Physician: Flip Mandujano MD ?? Date of Service: 10/24/23 ?? Procedure(s): NM cardiolite stress test ?? Accession Number(s): [id number] ? cc: Jenn Gonzalez MD; Flip Mandujano MD ? Lexiscan Myocardial perfusion study ? Indication: ?? Abnormal EKG, assess for coronary disease and ischemia ? Technique: ? The patient was brought in for a Lexiscan perfusion study on 10/24/2023 ?? and was injected 0.4 mg of Lexiscan intravenously. Within a minute of ?? this injection 30 mCi of sestamibi was given intravenously. Images were ?? obtained using the SPECT gamma camera interlaced with the gating ?? device. Images were obtained in supine position. ? Resting perfusion study was performed on 10/30/2023. Patient was ?? administered 30 mCi of sestamibi intravenously at rest. Images were ?? then obtained in supine position. ? Images were processed with the software and compared side to side in ?? short axis, horizontal long axis and vertical long axis views. Total ?? DLP 155mGy-cm. ? Findings: ? Raw acquisition reviewed. Stress arms by her side. ? The stress perfusion study showed ??diminished tracer uptake in the ?? lateral wall towards the distal part. There is also apical perfusion ?? defect. There is improvement with CT attenuation correction and hence ?? could be components of soft tissue attenuation artifact. However, the ?? defect does not resolve completely. The gated study shows low normal LV ?? systolic function with calculated LVEF of 53%. LV cavity is normal in ?? size. The gated study shows normal ??wall thickening and contraction of ?? segments. ? Resting study shows no significant perfusion defects. Gating at rest ?? reveals normal wall motion with ejection fraction at 53%. ? The findings are consistent with reversible perfusion defect in the ?? distal part of lateral wall as well as the apex. ? NM/NM cardiolite stress test ?? Impression: ?? 1. ??Myocardial perfusion imaging study shows possible ischemia in the ?? distal part of lateral wall and apex. ?? 2. ??Gated LVEF is 53% during stress and rest. ?? 3. Transient ischemic dilatation not present. ? EKG component of the test reported separately. ? Dictated By: ?Flip Mandujano MD ? Signed By: ?<Electronically signed by Flip Mandujano MD in OV> ?10/30/23 1521 ? DD/ 1415 ? TD/TT: ? Waste Recycler: ? Procedure Note Donotuseinterpreter, Image - 10/30/[address] [address] Nuclear Medicine Report Signed Patient: Chinyere Brooke#: [id number] [birth year] : 7Acct:[id number] Age/Sex: 68 / FADM Date: 10/24/23 Loc: [facility] Attending Dr: Flip Mandujano MD Ordering Physician: Flip Mandujano MD Date of Service: 10/24/23 Procedure(s): NM cardiolite stress test Accession Number(s): [id number] cc: Jenn Gonzalez MD; Flip Mandujano MD Lexiscan Myocardial perfusion study Indication: Abnormal EKG, assess for coronary disease and ischemia Technique: The patient was brought in for a Lexiscan perfusion study on 10/24/2023 and was injected 0.4 mg of Lexiscan intravenously. Within a minute of this injection 30 mCi of sestamibi was given intravenously. Images were obtained using the SPECT gamma camera interlaced with the gating device. Images were obtained in supine position. Resting perfusion study was performed on 10/30/2023. Patient was administered 30 mCi of sestamibi intravenously at rest. Images were then obtained in supine position. Images were processed with the software and compared side to side in short axis, horizontal long axis and vertical long axis views. Total DLP 155mGy-cm. Findings: Raw acquisition reviewed. Stress arms by her side. The stress perfusion study showed diminished tracer uptake in the lateral wall towards the distal part. There is also apical perfusion defect. There is improvement with CT attenuation correction and hence could be components of soft tissue attenuation artifact. However, the defect does not resolve completely. The gated study shows low normal LV systolic function with calculated LVEF of 53%. LV cavity is normal in size. The gated study shows normal wall thickening and contraction of segments. Resting study shows no significant perfusion defects. Gating at rest reveals normal wall motion with ejection fraction at 53%. The findings are consistent with reversible perfusion defect in the distal part of lateral wall as well as the apex. NM/NM cardiolite stress test Impression: 1. Myocardial perfusion imaging study shows possible ischemia in the distal part of lateral wall and apex. 2. Gated LVEF is 53% during stress and rest. 3. Transient ischemic dilatation not present. EKG component of the test reported separately. Dictated By: Flip Mandujano MD Signed By: <Electronically signed by Flip Mandujano MD inOV> 10/30/23 1521 DD/ 1415 TD/TT: Waste Recycler: us [facility] External Provider CV STRE SS PROCEDURES Final Result [facility] [address] [place] [address] documented in this encounter Visit Diagnoses Not on filedocumented in this encounter Care Teams [employer] Relationship Specialty Start Date End Date Jenn Gonzalez MD [address] [place] [id number] PCP - General Internal Medicine 12/29/14 documented as of this encounter
--- OUTSIDE RECORDS SUMMARY | 2024-11-24 09:40 | XMS_ITS | Encounter Summary ---
Author Organization [employer] Address [address] [facility] [address] [place] [address] Care Team Providers Care Graphic Editor Name Role Phone Jenn Gonzalez MD Primary Care Provider [phone] Reason for Visit * Reason Onset Date Comments Durable Medical Equipment 06/12/2024 Encounter Details Date Type Department Care Team ([facility] Contact Info) Description 06/12/2024 Telephone [facility] MEDICINE [address] [place] [address] Jenn Gonzalez MD [address] [place], [place] [phone] Durable Medical Equipment Social History Tobacco Use Types Packs/Day Years [...] * Telephone Encounter - Chidi Maier - 06/25/2024 2:30 PM EST Tc from Pt Daughter stating that she was called and got told to call back later and ask to speak toa Nurse. Pt states would like to speak to nurse regarding prior message. She sates that she would like it a soon as possible. She states that Pt is scared to take a shower because she dosent feel like she has enough strength to hold on. Contact pt Daughter at [phone] * Telephone Encounter - Uzma Manjarrez LPN - 06/15/2024 3:14 PM EST Please review pt requested below. Sampler And Test Preparer did review pt however didn't notice any documentation mentioning the need for this DME nor surgery. Thank you. Tc from pt requesting a shower chair as pt informs she will be getting surgery done soon. * Telephone Encounter - Robert Perea - 06/12/2024 2:55 PM EST Tc from pt requesting a shower chair as pt informs she will be getting surgery done soon. documented in this encounter Plan of Treatment Upcoming Encounters Date Type Department Care Team (Late st Contact Info) Description 11/26/2024 10:00 AM EDT Clinical Support [facility] MED & PEDS [address] [place] [address] Anastasia Molina, GRICELDA [address] [place] [address] 02/02/2025 9:00 AM EDT Office Visit [facility] MED & PEDS [address] [place] [address] Jenn Gonzalez MD [address] [place] [address] documented as of this encounter Visit Diagnoses Not on filedocumented in this encounter Additional Health Concerns Assessment Noted Time PHQ-9 Depression Total Score: 14 024 9:24 AM EDT documented as of this encounter Care Teams Graphic Editor Relationship Specialty Start Date End Date Jenn Gonzalez MD [address] [place] [address] PCP - General Internal Medicine 12/29/14 documented as of this encounter
--- OUTSIDE RECORDS SUMMARY | 2024-11-24 09:40 | XMS_ITS | Clinical Summary ---
Author Organization [employer] Address [address] [facility] [address] [place] [address] Care Team Providers Care Byproducts Pump Operator Name Role Phone Jenn Gonzalez MD Primary Care Provider [phone] Allergies Active Allergy Reactions Criticality Noted Date Comments Haemophilus B Polysacc Tetan us Toxoid Conj Vaccine 07/18/2022 Medications * This document contains information received from the source organization and may not represent a complete record from that organization. acetaminophen-co deine (Tylenol #3) 300-30 MG tabletIndication s:Chronic pain syndrome TAKE ONE TABLET EVERY 8 HOURS 20 tablet 07/27/19 23 Active cholecalciferol (Vitamin D-3) 50 MCG (2000 UT) capsule TAKE ONE CAPSULE BY MOUTH EVERY DAY 09/03/19 23 Active Blood Pressure kitIndications:E ssential hypertension To use once a day 1 kit 02/13/20 23 Active atorvastatin (Lipitor) 20 MG tabletIndication s:Hypercholester olemia TAKE ONE TABLET EVERY DAY 90 tablet 3 06/17/20 23 Active fluticasone (Flonase) 50 MCG/ACT nasal sprayIndications :Acute sinusitis with symptoms greater than 10 days Administer 1-2 sprays into each nostril in the morning. Shake gently. Before first use, prime pump. After use, clean tip and replace cap. 16 g 11 09/12/19 24 Active naproxen (Naprosyn) 500 MG tabletIndication s:Multiple joint pain Take 1 tablet (500 mg) by mouth 2 times daily. 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 30 patch 10/23/19 25 Active lisinopril-hydro CHLOROthiazide 10-12.5 MG tablet TAKE ONE TABLET EVERY DAY 30 tablet 5 10/28/19 25 Active clonazePAM (KlonoPIN) 1 MG tabletIndication s:Generalized anxiety disorder Take 1 tablet (1 mg) by mouth at bedtime for 28 days. 28 tablet 11/04/19 25 025 Active lisinopril-hydro CHLOROthiazide 10-12.5 MG tablet TAKE ONE TABLET EVERY DAY 30 tablet 5 04/27/20 24 025 Discontinued clonazePAM (KlonoPIN) 1 MG tabletIndication s:Generalized anxiety disorder Take 1 tablet (1 mg) by mouth at bedtime. 24 tablet 09/29/19 25 025 Discontinued ondansetron (Zofran) 4 MG tabletIndication s:Nausea Take 1 tablet (4 mg) by mouth every 12 (twelve) hours if needed for nausea or vomiting for up to 7 days. 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 America Brooke to inform her that the Cologuard came back positive. Please find out if she has any gastrointestinal bleed and/or if she had a recent colonoscopy. She will be referred to gastroenterology for colonoscopy/) 10/29/2024 Refill [facility] [address] [place] [address] Jenn Gonzalez MD Generalized anxiety disorder 10/24/2024 Refill [facility] [address] [place] [address] Jenn Gonzalez MD 10/23/2024 Telephone [facility] [address] [place] [address] Anastasia Molina RN 10/23/2024 Travel 10/23/2024 Telephone [facility] [address] [place] [address] Anastasia Molina, GRICELDA director vaccine 10/22/2024 10:30 AM EDT Office Visit [facility] [address] [place] [address] Jenn Gonzalez MD 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 (CMS/HCC) (Primary Dx); Smoking addiction; Screening for colon cancer; Nausea 10/22/2024 Travel 10/21/2024 Telephone [facility] [address] [place] [address] Jenn Gonzalez MD Appointment Request 10/19/2024 Telephone [facility] [address] [place] [address] Anastasia Molina, GRICELDA 10/14/2024 Telephone [facility] [address] [place] [address] Anastasia Molina, GRICELDA 10/14/2024 Patient Outreach [facility] [address] [place] [address] Jenn Gonzalez MD Pre-visit Planning (SDOH screening negative and Tobacco screening negative) 09/28/2024 Travel 09/28/2024 Telephone [facility] [address] [place] [address] Anastasia Molina, RN director vaccine 09/28/2024 Telephone [facility] [address] [place] [address] Jenn Gonzalez MD Appointment Request 09/15/2024 Refill [facility] [address] [place] [address] Jenn Gonzalez MD Generalized anxiety disorder 09/01/2024 Telephone [facility] [address] [place] [address] Anastasia Molina RN director vaccine appt 09/01/2024 Telephone [facility] [address] [place] [address] Jenn Gonzalez MD Appointment Request from Last 3 Months Social History Tobacco Use Types Packs/Day Years Used Date Smoking Tobacco: Former Cigarettes Q uit: 2018 Smokeless Tobacco: Never Tobacco Cessation:Counseling Given: Not Answered Depression Answer Date Recorded Patient Health Questionnaire-9 Score 0 10/22/2024 Patient Health Questionnaire-9 Score 0 10/22/2024 Last PHQ-9: Questionnaire Data Not on file 0 10/22/2024 Housing Stability Answer Date Recorded What is your housing situation today? I have trinity villanueva 10/14/[address] you li ve. Do you have problems with any of the following? None of the above 10/14/2024 Food Insecurity Answer Date Recorded Within the past 12 months, y ou worried that your food would run out before you got money to buy more: Never True 10/14/2024 Within the past 12 months,th e food you bought just didn't last and you didn't have enough money to get more: Never True 03/2025 Transportation Answer Date Recorded In the past 12 months, has l ack of transportation kept you from medical appts, meetings, work or from getting things needed for daily living? No 10/14/2024 Utilities Answer Date Recorded In the past 12 months, has t he electric, gas, oil or water company threatened to shut off services in your home? No 10/14/2024 Depression Answer Date Recorded Patient Health Questionnaire-2 Score 0 10/22/2024 Internet Access Answer Date Recorded Internet Access Q1 Yes 10/14/2024 Internet Access Q2 Not on file 10/14/2024 Comments Unknown Sex and Gender Information Value Date Recorded Sex Assigned at Female 05/07/2022 10:19 AM EDT Legal Sex Female 10:19 AM EDT Gender Identity Female 05/07/2022 10:19 AM EDT Sexual Orientation Straight 05/07/2022 10 :19 AM EDT Last Filed Vital Signs Vital Sign Reading Time Taken Comments Blood Pressure 138/84 10/22/2024 10:20 AM EDT Pulse 80 10/22/2024 10:20 AM EDT Temperature 36.8 ??C (98.2 ??F) 10/22/2024 10:20 AM E DT Respiratory Rate 20 10/22/2024 10:20 AM EDT Oxygen Saturation 98% 10/22/2024 10:20 AM EDT Inhaled Oxygen Concentration - - Weight 83.3 kg (183 lb 9.6 oz) 10/22/2024 10:20 AM EDT Height 154.9 cm (5' 1 ) 10/22/2024 10:20 AM EDT Body Mass Index 34.69 10/22/2024 10:20 AM EDT Plan of Treatment Upcoming Encounters Date Type Department Care Team (Late st Contact Info) Description 11/26/2024 10:00 AM EDT Clinical Support [facility] [address] [place] [address] Anastasia Molina, GRICELDA [address] [place] [address] 02/02/2025 9:00 AM EDT Office Visit [facility] [address] [place] [address] Jenn Gonzalez MD [address] [place] [address] Health Maintenance Due Date Last Done Comments CT Colonography 1957 Colonoscopy 1957 FIT 1957 FOBT 1957 Sigmoidoscopy 1957 Hepatitis C Screening 1975 DTaP/Tdap/Td Vaccines (1 - Tdap) 01/17/1976 RSV Patients and Patients Aged 60 years or older (1 - Risk 60-74 years 1-dose series) 2017 Zoster Vaccines (2 of 3) 06/14/2017 04/19/2017 Pneumococcal Vaccine: 50+ Years (2 of 2 - PCV) 03/16/2018 03/16/2017 Mammogram 05/26/2021 05/26/2019 COVID-19 Vaccine (4 - season) 2024 04/20/2021, 08/11/2020, 07/21/2020 SDOH Screening 10/14/2025 10/14/2024 Alcohol/Substance Use Screening 10/22/2025 10/22/2024 Depression Screening 10/22/2025 10/22/2024, 10/23/19 Tobacco Screening 10/22/2025 10/22/2024 Colorectal Cancer Screening 11/03/2027 FIT DNA/Cologuard 11/03/2027 11/02/2024 Lipid Panel 06/10/2029 06/10/2024, 08/0 02/2023, 04/27/2021, Additional history exists Influenza Vaccine Completed 04/14/2024, , 04/26/2021, Additional history exists HIB Vaccines Aged Out No longer eligi ble based on patient's age to complete this topic HPV Vaccines Aged Out No longer eligi ble based on patient's age to complete this topic Hepatitis A Vaccines Aged Out No long er eligible based on patient's age to complete this topic Hepatitis B Vaccines Aged Out No long er eligible based on patient's age to complete this topic IPV Vaccines Aged Out No longer eligi ble based on patient's age to complete this topic Meningococcal B Vaccine Aged Out No l onger eligible based on patient's age to complete this topic Meningococcal Vaccine Aged Out No tamanna herbert eligible based on patient's age to complete this topic RSV under 20 months Aged Out No longe r eligible based on patient's age to complete this topic Rotavirus Vaccines Aged Out No longer eligible based on patient's age to complete this topic Procedures Procedure Name Priority Date/Time Associated Diagnosis Comments LAB COLOGUARD?? COLON CANCER SCREEN Routine 11/02/2024 7:55 AM EDT Screening for colon cancer LIPID PANEL, STANDARD Routine 06/10/2024 9:57 AM EST BI MAMMOGRAM SCREENING BILATERAL Routine 05/26/2019 8:05 AM EST from Last 3 Months or Most Recently Relevant to Health Maintenance Results * (ABNORMAL) Cologuard?? colon cancer screening (11/02/2024 7:55 AM EDT) Cologuard Result Positive( A) Negative 11/06/2024 1:52 PM EDT [facility] (CLIA #:[id number]) Comment: The Cologuard (TM) test was performed on this specimen. POSITIVE TEST RESULT. A positive Cologuard result should be followed with a colonoscopy or visual examination of the colon. The normal value (reference range) for this assay is negative. TEST DESCRIPTION: Composite algorithmic analysis of stool DNA-biomarkers with hemoglobin immunoassay. ?? Quantitative values of individual biomarkers are not reportable and are not associated with individual biomarker result reference ranges. Cologuard is intended for colorectal cancer screening of adults of either sex, 45 years or older, who are at average-risk for colorectal cancer (CRC). Cologuard has been approved for use by the U.S. FDA. The performance of Cologuard was established in a cross sectional study of average-risk adults aged 50-84. Cologuard performance in patients ages 45 to 49 years was estimated by sub-group analysis of near-age groups. Colonoscopies performed for a positive result may find as the most clinically significant lesion: colorectal cancer [4.0%], advanced adenoma (including sessile serrated polyps greater than or equal to 1cm diameter) [20%] or non- advanced adenoma [31%]; or no colorectal neoplasia [45%]. These estimates are derived from a prospective cross-sectional screening study of 10,000 individuals at average risk for colorectal cancer who were screened with both Cologuard and colonoscopy. (Miguel Arora al, N Engl J Med 2014;370(14):0279-4415.) Cologuard may produce a false negative or false positive result (no colorectal cancer or precancerous polyp present at colonoscopy follow up). A negative Cologuard test result does not guarantee the absence of CRC or advanced adenoma (pre-cancer). The current Cologuard screening interval is every 3 years. ([place] Cancer Society and U.S. Multi-Society Task Force). Cologuard performance data in a 10,000 patient pivotal study using colonoscopy as the reference method can be accessed at the following location: www.[employer]/results. Additional description of the Cologuard test process, warnings and precautions can be found at [email or web address]. Stool specimen (specimen) 11/02/2024 7:55 AM EDT 11/03/2024 12:47 PM EDT us Jenn Gonzalez MD LAB MOLECULAR DIAGNOSTICS O RDERABLES Final Result [facility] (CLIA #:[id number]) [address] [place] [address], * Lipid Panel, Standard (06/10/2024 9:57 AM EST) Triglycerides 122 <150 mg/dL [facility] Comment:Desirable Triglyceri de: less than 150 mg/dLBorderline High Triglyceride 150-199 mg/dLHigh Triglyceride: 200-499 mg/dLVery High Triglyceride: greater than or equal to 5OO mg/dL Cholesterol 149 <200 mg/dL [facility] Comment:Desirable Cholestero l: less than 200 mg/dLBorderline High Cholesterol: 200-239 mg/dLHigh Cholesterol: greater than 239 mg/dL LDL Cholesterol Calculated 76 <100 mg/dL [facility] Comment:Desirable LDL: less than 100 mg/dLNear Optimal/Above Optimal LDL: 110- 129 mg/dLBorderline High LDL: 130-159 mg/dLHigh LDL: 160-189 mg/dLVery High LDL: greater than or equal to 190 mg/dL HDL Cholesterol 49 >40 mg/dL [facility] Comment:Desirable HDL: great er than 40 mg/dL Note: This HDL assay may give artificially low results in patients with liver disease. 06/10/2024 9:57 AM EST 06/10/2024 9:57 AM EST us Generic External Data Provider LAB BLOOD ORDERAB LES Final Result [facility] [address] [place] [address] [phone] * 3D DIGITAL ARAVIND SCR MAMMO 1 (05/26/2019 8:05 AM EST) Anatomical Region Laterality Modality Breast Bilateral Mammography 05/26/2019 8:05 AM EST Narrative 05/26/2019 8:07 AM EST Refer to the Notes tab for result details Legacy Procedure: 3D DIGITAL ARAVIND SCR MAMMO 1 Procedure Note Provider, MD Parveen - 09/29/2022 Refer to the Notes tab for result details Legacy Procedure: 3D DIGITAL ARAVIND SCR MAMMO 1 us Jenn Gonzalez MD IMG BI PROCEDURES Final Res ult from Last 3 Months or Most Recently Relevant to Health Maintenance Insurance [facility] OPT[facility] (O D-SNP) [facility] [employer] (O D-SNP) Care Teams Byproducts Pump Operator Relationship Specialty Start Date End Date Jenn Gonzalez MD [address] [place] [id number] PCP - General Internal Medicine 12/29/14
--- OUTSIDE RECORDS SUMMARY | 2024-11-24 09:41 | XMS_ITS | Encounter Summary ---
Author Organization [employer] Address [address] [facility] [address] [place] [address] Care Team Providers Care Note Teller Name Role Phone Jenn Gonzalez MD Primary Care Provider [phone] Reason for Visit * Reason Comments Med Refill Encounter Details Date Type Department Care Team ([facility] Contact Info) Description 03/25/2024 Refill [facility] [address] [place], [place] [phone] Jenn Gonzalez MD [address] [place], [place] [phone] Generalized anxiety disorder Social History Tobacco Use Types Packs/Day Years [...] Description 11/26/2024 10:00 AM EDT Clinical Support [facility] [address] [place] [address] Anastasia Molina, GRICELDA [address] [place] [address] 02/02/2025 9:00 AM EDT Office Visit [facility] [address] [place] [address] Jenn Gonzalez MD [address] [place] [address] documented as of this encounter Visit Diagnoses Diagnosis Generalized anxiety disorder documented in this encounter Care Teams Note Teller Relationship Specialty Start Date End Date Jenn Gonzalez MD [address] [place] [address] PCP - General Internal Medicine 12/29/14 documented as of this encounter
--- OUTSIDE RECORDS SUMMARY | 2024-11-24 09:41 | XMS_ITS | Encounter Summary ---
Author Organization [employer] Address [address] [place] [address] [address] [place] [address] Care Team Providers Care Steam Boiler Fireman Name Role Phone Jenn Gonzalez MD Primary Care Provider [phone] Reason for Visit * Reason Comments Med Refill Encounter Details Date Type Department Care Team ([facility] Contact Info) Description 06/18/2022 Refill [facility] [address] [place], [place] [phone] Jenn Gonzalez MD [address] [place], [place] [phone] Anxiety disorder, unspecified Social History Tobacco Use Types Packs/Day Years Used Date Smoking Tobacco: Never Assessed Comments Unknown Sex and Gender Information Value Date Recorded Sex Assigned at Female 05/07/2022 10:19 AM EDT Legal Sex Female 10:19 AM EDT Gender Identity Female 05/07/2022 10:19 AM EDT Sexual Orientation Straight 05/07/2022 10 :19 AM EDT documented as of this encounter Plan of Treatment Upcoming Encounters Date Type Department Care Team ([facility] Contact Info) Description 11/26/2024 10:00 AM EDT Clinical Support [facility] [address] [place] [address] Anastasia Molina, GRICELDA [address] [place], [place] [phone] 02/02/2025 9:00 AM EDT Office Visit [facility] [address] [place] [address] Jenn Gonzalez MD [address] [place], [place] [phone] documented as of this encounter Visit Diagnoses Diagnosis Anxiety disorder, unspecified documented in this encounter Care Teams Steam Boiler Fireman Relationship Specialty Start Date End Date Jenn Gonzalez MD [address] [place] [id number] PCP - General Internal Medicine 12/29/14 documented as of this encounter
--- OUTSIDE RECORDS SUMMARY | 2024-11-24 09:41 | XMS_ITS | Clinical Summary ---
Author Organization [employer] [facility] ity Address [address] [place] [address] Care Team Providers Care Travel Ticketing Reviewer Name Role Phone Unavailable Primary Care Provider Unavailabl e Social History Tobacco Use Types Packs/Day Years Used Date Smoking Tobacco: Never Assessed Comments Unknown Sex and Gender Information Value Date Recorded Sex Assigned at Not on file Legal Sex Female 11:36 PM EST Gender Identity Not on file Sexual Orientation Not on file Plan of Treatment Health Maintenance Due Date Last Done Comments Breast Cancer Screening 1955 DTaP,Tdap,and Td Vaccines (1 - Tdap) 01/17/1976 Pneumococcal Vaccine: 50+ Ye ars (1 of 1 - PCV) 2007 Zoster Vaccines (1 of 2) 2007 Colorectal Cancer Screening: Colonoscopy 06/10/2022 Depression Screening 06/10/2022 Falls Risk Assessment 06/10/2022 Hepatitis C Screening 06/10/2022 Osteoporosis Screening (Bone Density Screening) 06/10/2022 Social Influencers of Health Screening 06/10/2022 COVID-19 Vaccine ( - 2023-2 5 season) 2024 Influenza Vaccine (Season Ended) 2025 RSV Immunization Adult Patie nts (1 - 1-dose 75+ series) 01/17/2032 HIB Vaccines Aged Out No longer eligi [...] on patient's age to complete this topic MMR Vaccines Aged Out No longer eligi ble based on patient's age to complete this topic Meningococcal ACWY Vaccine Aged Out N o longer eligible based on patient's age to complete this topic Meningococcal B Vaccine Aged Out No l onger eligible based on patient's age to complete this topic RSV Immunization Patients Un jose manuel 20 months Aged Out No longer eligible b ased on patient's age to complete this topic Varicella Vaccines Aged Out No longer eligible based on patient's age to complete this topic
--- OUTSIDE RECORDS SUMMARY | 2024-11-24 09:41 | XMS_ITS | Encounter Summary ---
Author Organization [employer] Address [address] [place] [address] [address] [place] [address] Care Team Providers Care Tag Writer Name Role Phone Jenn Gonzalez MD Primary Care Provider [phone] Encounter Details Date Type Department Care Team (Late st Contact Info) Description 11/27/2022 Orders Only [facility] [address] [place] [address] Evangelina Santana LPN Social History Tobacco Use Types Packs/Day Years [...] Description 11/26/2024 10:00 AM EDT Clinical Support [facility] [address] [place] [address] Anastasia Molina RN [address] [place] [address] 02/02/2025 9:00 AM EDT Office Visit [facility] [address] [place] [address] Jenn Gonzalez MD [address] [place] [address] documented as of this encounter Visit Diagnoses Not on filedocumented in this encounter Care Teams Tag Writer Relationship Specialty Start Date End Date Jenn Gonzalez MD [address] [place] [id number] PCP - General Internal Medicine 12/29/14 documented as of this encounter
--- OUTSIDE RECORDS SUMMARY | 2024-11-24 09:41 | XMS_ITS | Encounter Summary ---
Author Organization [employer] Address [address] [facility] [address] [place] [address] Care Team Providers Care Cyanide Case Hardener Name Role Phone Jenn Gonzalez MD Primary Care Provider [phone] Reason for Visit * Reason Onset Date Comments Appointment Request 03/25/2024 Encounter Details Date Type Department Care Team ([facility] Contact Info) Description 03/25/2024 Telephone [facility] [address] [place], [place] [phone] Jenn Gonzalez MD [address] [place], [place] [phone] Appointment Request Social History Tobacco Use Types [...] encounter Miscellaneous Notes * Telephone Encounter - Aleks Hoskins - 03/25/2024 3:02 PM EDT Tc from patient calling to reschedule appt from 02/18 documented in this encounter Plan of Treatment Upcoming Encounters Date Type Department Care Team ([facility] st Contact Info) Description 11/26/2024 10:00 AM EDT Clinical Support [facility] [address] [place] [address] Anastasia Molina RN [address] [place] [address] 02/02/2025 9:00 AM EDT Office Visit [facility] [address] [place] [address] Jenn Gonzalez MD [address] [place] [address] documented as of this encounter Visit Diagnoses Not on filedocumented in this encounter Care Teams Cyanide Case Hardener Relationship Specialty Start Date End Date Jenn Gonzalez MD [address] [place] [address] PCP - General Internal Medicine 12/29/14 documented as of this encounter
--- OUTSIDE RECORDS SUMMARY | 2024-11-24 09:41 | XMS_ITS | Encounter Summary ---
Author Organization [email or web address] Address [address] [facility] 7 [place] [address] Care Team Providers Care Assistant Professor Of Communication Name Role Phone Jenn Gonzalez MD Primary Care Provider [phone] Reason for Referral * Consultation (Routine) - Closed Specialty Diagnoses / Procedures Referred By Deshawn jones Referred To Contact Behavioral Health Diagnoses Anxiety Jenn Gonzalez MD [address] [place] [address] Phone: tel: fax: Referral ID Status Reason Start Date Expiration Date V isits Requested Visits Authorized [id number] Closed Specialty Services Required 04/17/2024 04/17/2025 1 1 Encounter Details Date Type Department Care Team (Late st Contact Info) Description 04/17/2024 Orders Only [facility] CHC MED & PEDS [address] [place], [place] [phone] Jenn Gonzalez MD [address] [place], [place] [phone] Anxiety (Primary Dx) Social History Tobacco Use Types [...] 10:00 AM EDT Clinical Support [facility] MED & PEDS [address] [place] [address] Anastasia Molina, GRICELDA [address] [place] [address] 02/02/2025 9:00 AM EDT Office Visit [facility] MED & PEDS [address] [place] [address] Jenn Gonzalez MD [address] [place] [address] Scheduled Referrals Name Type Priority Associated Diagnoses Order Schedule Referral to Behavioral Health Outpatient Referral Routine Anxiety Expected: 04/17/2024 (Approximate), Expires: 04/17/2025 documented as of this encounter Visit Diagnoses Diagnosis Anxiety- Primary Anxiety state, unspecified documented in this encounter Care Teams Assistant Professor Of Communication Relationship Specialty Start Date End Date Jenn Gonzalez MD [address] [place] [address] PCP - General Internal Medicine 12/29/14 documented as of this encounter
--- OUTSIDE RECORDS SUMMARY | 2024-11-24 09:41 | XMS_ITS | Encounter Summary ---
Author Organization [employer] Address 75 [facility] 7t [place] [address] Care Team Providers Care Technology Training Associate Name Role Phone Jenn Gonzalez MD Primary Care Provider [phone] Encounter Details Date Type Department Care Team ([facility] Contact Info) Description 06/19/2024 Orders Only [facility] CHC MED & PEDS [address] [place], [place] [phone] Jenn Gonzalez MD [address] [place] [address] Social History Tobacco Use Types Packs/Day Years Used Date Smoking Tobacco: Former Cigarettes Q uit: 2018 Smokeless Tobacco: Never Depression Answer Date Recorded Patient Health Questionnaire-9 Score 14 04/28/2024 Patient Health Questionnaire-9 Score 14 04/28/2024 Last PHQ-9: Questionnaire Data Not on file 1 Housing Stability Answer Date Recorded What is your housing situation today? I have trinityvicki villanueva 07/11/[address] you [...] 10:00 AM EDT Clinical Support [facility] MED & PEDS [address] [place] [address] Anastasia Molina, GRICELDA [address] [place] [address] 02/02/2025 9:00 AM EDT Office Visit [facility] MED & PEDS [address] [place] [address] Jenn Gonzalez MD [address] [place] [address] documented as of this encounter Visit Diagnoses Not on filedocumented in this encounter Additional Health Concerns Assessment Noted Time PHQ-9 Depression Total Score: 14 024 9:24 AM EDT documented as of this encounter Care Teams Technology Training Associate Relationship Specialty Start Date End Date Jnen Gonzalez MD [address] [place] [address] PCP - General Internal Medicine 12/29/14 documented as of this encounter
--- OUTSIDE RECORDS SUMMARY | 2024-11-24 09:41 | XMS_ITS | Encounter Summary ---
Author Organization [employer] Address 75 [facility] 7t [place] [address] Care Team Providers Care Gre Instructor Name Role Phone Jenn Gonzalez MD Primary Care Provider [phone] Reason for Visit * Reason Onset Date Comments Appointment Request 09/01/2024 Encounter Details Date Type Department Care Team ([facility] Contact Info) Description 09/01/2024 Telephone [facility] MEDICINE [address] [place], [place] [phone] Jenn Gonzalez MD [address] [place], [place] [phone] Appointment Request Social History Tobacco Use Types [...] encounter Miscellaneous Notes * Telephone Encounter - Robert Perea - 09/01/2024 2:31 PM EST Tc from pt requesting appointment as appointment was cancelled for 09/02 documented in this encounter Plan of Treatment Upcoming Encounters Date Type Department Care Team (Late st Contact Info) Description 11/26/2024 10:00 AM EDT Clinical Support [facility] MED & PEDS [address] [place] [address] Anastasia Molina, GRICELDA [address] [place] [address] 02/02/2025 9:00 AM EDT Office Visit [facility] MED & PEDS [address] [place] [address] Jenn Gonzalez MD [address] [place] [address] documented as of this encounter Visit Diagnoses Not on filedocumented in this encounter Additional Health Concerns Assessment Noted Time PHQ-9 Depression Total Score: 14 024 9:24 AM EDT documented as of this encounter Care Teams Gre Instructor Relationship Specialty Start Date End Date Jenn Gonzalez MD [address] [place] [address] PCP - General Internal Medicine 12/29/14 documented as of this encounter
--- OUTSIDE RECORDS SUMMARY | 2024-11-24 09:41 | XMS_ITS | Encounter Summary ---
Author Organization [employer] Address 75 [facility] 7t [place] [address] Care Team Providers Care Dials Inspector Name Role Phone Jenn Gonzalez MD Primary Care Provider [phone] Encounter Details Date Type Department Care Team ([facility] Contact Info) Description 01/30/2024 Orders Only [facility] CHC MED & PEDS [address] [place], [place] [phone] Jenn Gonzalez MD [address] [place], [place] [phone] Right hand pain (Primary Dx) Social History Tobacco Use [...] Upcoming Encounters Date Type Department Care Team ([facility] st Contact Info) Description 11/26/2024 10:00 AM EDT Clinical Support [facility] MED & PEDS [address] [place] [address] Anastasia Molina, GRICELDA [address] [place] [address] 02/02/2025 9:00 AM EDT Office Visit [facility] MED & PEDS [address] [place] [address] Jenn Gonzalez MD [address] [place] [address] documented as of this encounter Visit Diagnoses Diagnosis Right hand pain- Primary Pain in soft tissues of limb documented in this encounter Care Teams Dials Inspector Relationship Specialty Start Date End Date Jenn Gonzalez MD [address] [place] [address] PCP - General Internal Medicine 12/29/14 documented as of this encounter
== END 2024-11-24 10:01 | disposition home or self-care (01) ==
LOC: HO.HCS 09:04
PROVIDERS: PCP Internal Medicine; Visit Provider Nurse Practitioner Family
DX: I25.10 Atherosclerotic heart disease of native coronary artery without angina pectoris (principal); Z98.890 Other specified postprocedural states; Z95.5 Presence of coronary angioplasty implant and graft; R00.1 Bradycardia, unspecified; R94.31 Abnormal electrocardiogram [ECG] [EKG]; I10 Essential (primary) hypertension; E78.5 Hyperlipidemia, unspecified
CPT/HCPCS: 93010; 99214; G2211

== ENCOUNTER → 2024-11-24 09:03 | Outpatient (BNVA) | payer OTHER, SELFPAY | PROVIDERS: PCP Internal Medicine; Visit Provider Nurse Practitioner Family | DX: I10 Essential (primary) hypertension (principal); I25.10 Atherosclerotic heart disease of native coronary artery without angina pectoris; R07.9 Chest pain, unspecified; R00.1 Bradycardia, unspecified; R94.31 Abnormal electrocardiogram [ECG] [EKG]; E78.5 Hyperlipidemia, unspecified; Z95.5 Presence of coronary angioplasty implant and graft; Z98.890 Other specified postprocedural states | CPT/HCPCS: 93005; 99212 ==

== ENCOUNTER 2024-11-25 09:14 | Outpatient (AMB) | payer OTHER, SELFPAY ==
--- NOTE | 2024-11-25 09:21 | A.OFFVIS_ITS ---
Vital Signs 11/25/24 09:23 Height 5 ft Weight 184 lb BMI 35.9 BP 124/76 Blood Pressure Location Rt brachial Position Sitting Pulse 58 Pulse Source Pulse Oximeter Pulse Oximetry (%) 97 Oxygen Delivery Method Room Air Intake Visit Reasons: discuss colo and endo Intake Note: ESTABLISHED PATIENT for mgmt of GERD + IBS. Prev colo w/ Dr. Werner 2020. CC; C.O. persistence of constipation and diarrhea, GERD w/ epigastric pain, nausea w/o vomiting, and small amounts of BRB per rectum. Pt reports that her sx have become progressively worse again since last visit. No additional concerns at this time. Outsole Flexer Required: Yes Outsole Flexer Services: Outsole Flexer Present Outsole Flexer Name: VERONIQUE ([id number]) Information Interpreted: clinical only Accompanied by: Self / Same As Patient Allergies tetanus immune globulin [TETANUS IMMUNE GLOBULIN] Adverse Reaction (Intermediate, Verified 11/25/24 09:48) LOCALIZED SWELLING HPI HPI discuss colo and endo: Details: LAST VISIT: Acid reflux Postprandial abdominal bloating Postprandial epigastric pain Constipation Plan Continue Nexium. Continue avoiding dietary triggers and late night snacking. Staying upright for minimum 3 hours after meals discussed with patient. Patient will stop senna and start Dulcolax. Patient is due to go for colonoscopy, will return in 3 months to discuss upper endoscopy and colonoscopy. Message sent to surgical schedulers to book procedure for patient. In the meantime patient will need to make sure that she is able to move her bowels so she can have a good prep. Patient is agreeable to current plan of care and verbalizes understanding of instructions. She was given the opportunity to ask questions and all questions answered. ? Thank you for allowing me to participate in her care Medications New bisacodyl (Dulcolax (bisacodyl)) 10 mg (2 x 5 mg) PO BEDTIME 180 tabs 4RF Discontinued sennosides Discontinued Reason: Doctor's Order 17.2 mg (2 x 8.6 mg) PO BEDTIME 60 tabs 3RF constipation K59.00 TODAY'S VISIT Patient is here today for follow-up. Patient reports that she continues to be constipated sometimes but if she takes to collapse she will have diarrhea. Patient is taking usually 1 Dulcolax daily and sometimes as needed takes to. Patient reports occasional bleeding after having bowel movements and straining or after having diarrhea. Patient reports occasional rectal hernia but no pain. Patient denies any acid reflux. Currently is taking esomeprazole and is having no symptoms. Patient denies dyspepsia, dysphagia or odynophagia. Patient had abnormal nuclear stress test and ended up with drug-eluting stent in June. Patient is on Brilinta and was seen by Cardiology yesterday that recommended 1 year on interrupted therapy. Patient will have to hold left to go for colonoscopy till June. She has appointment with Cardiology in March will send a message to have her clear. [facility] Medical History Sleep apnea in adult Chronic back pain Dyslipidemia HTN (hypertension) Surgical History History of cardiac cath History of bunionectomy H/O colonoscopy Family History Brother Heart problem Social History Household Members Other:: alone Alcohol intake: current Alcohol intake frequency: holidays/special occasions only Patient Tobacco Use Status: Former Tobacco user Substance Use Type: Marijuana Current occupational status: unemployed Review of Systems Const Denies weight gain and Denies weight loss ENT Reports no additional complaints, Denies dysphagia and Denies odynophagia Card Reports no additional complaints Resp Reports no additional complaints GI Denies abdominal pain, Denies belching, Denies melena, Reports bloating, Denies change in bowel habits, Reports constipation, Denies dysphagia, Denies excessive flatus, Denies dyspepsia, Denies heartburn, Denies diarrhea, Denies loose stools, Denies nausea, Denies odynophagia and Denies vomiting Reports no additional complaints Musc Reports no additional complaints Neuro Reports no additional complaints Psych Reports no additional complaints Endo Reports no additional complaints Physical Exam Vital Signs: Last Vital Signs Pulse 58 11/25/24 09:23 BP 124/76 11/25/24 09:23 Pulse Ox 97 11/25/24 09:23 Oxygen Delivery Method Room Air 11/25/24 09:23 BMI result Body Mass Index 35.9 Const General: healthy appearing and no acute distress Nutritional Appearance: obese Orientation/consciousness: patient oriented x3 Resp Effort & Inspection: normal respiratory effort, able to speak in complete sentences, no tracheal deviation and symmetric chest movement Auscultation: clear to auscultation bilaterally Cardio Rate: regular rate GI Inspection: Yes normal to inspection, No distended and Yes obesity Palpation (GI): Soft to palpation, not firm, nontender and No hepatosplenomegaly present Auscultation: normal bowel sounds General: Yes no CVA tenderness Back/Spine/Pelvis Back: no CVA tenderness Skin General skin exam: elasticity normal, turgor normal and dry skin Neuro General: patient oriented x3 Psych Appearance: grossly normal Mental Status: mental status grossly normal Assessment & Plan Assessment & Plan (1) Acid reflux: Code(s): K21.9 - Gastro-esophageal reflux disease without esophagitis Category: Medical Qualifiers: Esophagitis presence: esophagitis presence not specified Qualified Code(s): K21.9 - Gastro-esophageal reflux disease without esophagitis (2) Postprandial abdominal bloating: Code(s): R14.0 - Abdominal distension (gaseous) (3) Postprandial epigastric pain: Code(s): R10.13 - Epigastric pain (4) Constipation: Code(s): K59.00 - Constipation, unspecified Qualifiers: Constipation type: slow transit constipation Qualified Code(s): K59.01 - Slow transit constipation Plan Patient will start taking fiber again. Increase fluid intake and activity to promote better bowel motility. Patient will continue taking Dulcolax as needed to help with bowel movement. Proctosol is needed for hemorrhoids. Patient was encouraged to avoid straining. May do Sitz baths with Epsom salts. Patient will continue taking Nexium daily. Avoid dietary triggers in late night snacking. Staying upright for minimal 3 hours after meals discussed with patient. Patient will follow-up in 2 3-4 months to discuss going for colonoscopy. Patient will need to be cleared by Cardiology. Has appointment with manual lathe operator in March, we will ask for risk stratification before sending her for procedure. Patient is agreeable to current plan and verbalizes understanding of instructions. She was given the opportunity to ask questions and all questions answered. Thank you for allowing me to participate in her care Medications: New hydrocortisone 2.5% (Proctosol HC) 1 appl OR BID-QID PRN 30 grams 2RF hemorrhoids K64.9 - Unspecified hemorrhoids polyethylene glycol 3350 (Miralax) As directed by gastro[facility]ology department at [facility] 238 grams PO ONCE 238 grams 0RF Z12.11 - Encounter for screening for malignant neoplasm of colon Refilled bisacodyl (Dulcolax (bisacodyl)) 10 mg (2 x 5 mg) PO BEDTIME 180 tabs 4RF esomeprazole magnesium (Nexium) 40 mg PO DAILY 90 caps 3RF K21.9 - Gastro- esophageal reflux disease without esophagitis methylcellulose (laxative) (Citrucel) take it with full glass of water 500 mg PO DAILY 90 tabs 2RF K59.00 - Constipation, unspecified Coding Level of Care Code Est Pt Level 4 (54249) Complex EM visit Add On G2211 Diagnoses Gastroesophageal reflux disease, unspecified whether esophagitis present K21.9 Esophagitis presence: esophagitis presence not specified Postprandial abdominal bloating R14.0 Postprandial epigastric pain R10.13 Slow transit constipation K59.01 Constipation type: slow transit constipation Time Spent (min) 35 Comment 25 minutes spent with patient and additional 10 minutes spent reviewing her records
[2024-11-25 09:23] VITALS: BP 124/76; PULSE 58; O2SAT 97; BMI 35.9
--- OUTSIDE RECORDS SUMMARY | 2024-11-25 10:32 | XMS_ITS | Encounter Summary ---
Author Organization [employer] Address [address] [facility] 7t [place] [address] Care Team Providers Care Audio Visual Engineer Name Role Phone Jenn Gonzalez MD Primary Care Provider [phone] Encounter Details Date Type Department Care Team ([facility] Contact Info) Description 01/30/2024 Orders Only [facility] CHC MED & PEDS [address] [place], [place] [phone] Jenn Gonzalez MD [address] [place], [place] [phone] Right hand pain (Primary Dx) Social History [...] Upcoming Encounters Date Type Department Care Team ([facility] st Contact Info) Description 02/02/2025 9:00 AM EDT Office Visit [facility] CHC MED & PEDS [address] [place] [address] Jenn Gonzalez MD [address] [place] [address] documented as of this encounter Visit Diagnoses Diagnosis Right hand pain- Primary Pain in soft tissues of limb documented in this encounter Care Teams Audio Visual Engineer Relationship Specialty Start Date End Date Jenn oGnzalez MD [address] [place] [address] PCP - General Internal Medicine 12/29/14 documented as of this encounter
--- OUTSIDE RECORDS SUMMARY | 2024-11-25 10:32 | XMS_ITS | Encounter Summary ---
Author Organization [employer] Address [address] [facility] 7t [place] [address] Care Team Providers Care Superintendent Name Role Phone Jenn Gonzalez MD Primary Care Provider [phone] Reason for Visit * Reason Onset Date Comments Appointment Request 09/01/2024 Encounter Details Date Type Department Care Team ([facility] Contact Info) Description 09/01/2024 Telephone [facility] MEDICINE [address] [place], [place] [phone] Jenn Gonzalez MD [address] [place], [place] [phone] Appointment Request Social History Tobacco Use Types [...] Care Team (Late st Contact Info) Description 02/02/2025 9:00 AM EDT Office Visit [facility] MED & PEDS [address] [place] [address] Jenn Gonzalez MD [address] [place] [address] documented as of this encounter Visit Diagnoses Not on filedocumented in this encounter Additional Health Concerns Assessment Noted Time PHQ-9 Depression Total Score: 14 024 9:24 AM EDT documented as of this encounter Care Teams Superintendent Relationship Specialty Start Date End Date Jenn Gonzalez MD [address] [place] [address] PCP - General Internal Medicine 12/29/14 documented as of this encounter
--- OUTSIDE RECORDS SUMMARY | 2024-11-25 10:32 | XMS_ITS | Encounter Summary ---
Author Organization [employer] Address [address] [facility] 7t [place] [address] Care Team Providers Care Die Operator Name Role Phone Jenn Gonzalez MD Primary Care Provider [phone] Reason for Visit * Reason Comments Med Refill Encounter Details Date Type Department Care Team ([facility] Contact Info) Description 09/30/2023 Refill [facility] CHC MED & PEDS [address] [place], [place] [phone] Jenn Gonzalez MD [address] [place], [place] [phone] Social History Tobacco Use Types Packs/Day Years [...] try Naproxen. * Telephone Encounter - Jenn oGnzalez MD - 10/04/2023 2:07 PM EDT Already on Clonazepam. The combination of Tramadol and Clonazepam increase risk of fall and dizziness. I recommend Naproxen for pain control instead. documented in this encounter Plan of Treatment Upcoming Encounters Date Type Department Care Team (Late st Contact Info) Description 02/02/2025 9:00 AM EDT Office Visit [facility] MED & PEDS [address] [place] [address] Jenn Gonzalez MD [address] [place] [address] documented as of this encounter Visit Diagnoses Not on filedocumented in this encounter Care Teams Die Operator Relationship Specialty Start Date End Date Jenn Gonzalez MD [address] [place] [address] PCP - General Internal Medicine 12/29/14 documented as of this encounter
--- OUTSIDE RECORDS SUMMARY | 2024-11-25 10:32 | XMS_ITS | Encounter Summary ---
Author Organization [employer] Address [address] [place] [address] 7 [place] [address] Care Team Providers Care Ferryboat Pilot Name Role Phone Jenn Gonzalez MD Primary Care Provider [phone] Reason for Visit * Reason Comments Med Refill Encounter Details Date Type Department Care Team ([facility] Contact Info) Description 06/18/2022 Refill [facility] MEDICINE [address] [place], [place] [phone] Jenn Gonzalez MD [address] [place], [place] [phone] Anxiety disorder, unspecified Social History Tobacco Use [...] Upcoming Encounters Date Type Department Care Team ([facility] Contact Info) Description 02/02/2025 9:00 AM EDT Office Visit [facility] CHC MED & PEDS [address] [place] [address] Jenn Gonzalez MD [address] [place], [place] [phone] documented as of this encounter Visit Diagnoses Diagnosis Anxiety disorder, unspecified documented in this encounter Care Teams Ferryboat Pilot Relationship Specialty Start Date End Date Jenn Gonzalez MD [address] [place] [address] PCP - General Internal Medicine 12/29/14 documented as of this encounter
--- OUTSIDE RECORDS SUMMARY | 2024-11-25 10:32 | XMS_ITS | Encounter Summary ---
Author Organization [employer] Address [address] [place] [address] 7 [place] [address] Care Team Providers Care Oyster Fisherman Name Role Phone Jenn Gonzalez MD Primary Care Provider [phone] Reason for Referral * Consultation (Routine) - Closed Specialty Diagnoses / Procedures Referred By Deshawn jones Referred To Contact Behavioral Health Diagnoses Anxiety Jenn Gonzalez MD [address] [place] [address] Phone: tel: fax: Referral ID Status Reason Start Date Expiration Date V isits Requested Visits Authorized [id number] Closed Specialty Services Required 04/17/2024 04/17/2025 1 1 Encounter Details Date Type Department Care Team ([facility] st Contact Info) Description 04/17/2024 Orders Only [facility] CHC MED & PEDS [address] [place] [address] Jenn Gonzalez MD [address] [place], [place] [phone] Anxiety (Primary Dx) Social History Tobacco Use [...] Description 02/02/2025 9:00 AM EDT Office Visit [facility] MED & PEDS [address] [place] [address] Jenn Gonzalez MD [address] [place] [address] Scheduled Referrals Name Type Priority Associated Diagnoses Order Schedule Referral to Behavioral Health Outpatient Referral Routine Anxiety Expected: 04/17/2024 (Approximate), Expires: 04/17/2025 documented as of this encounter Visit Diagnoses Diagnosis Anxiety- Primary Anxiety state, unspecified documented in this encounter Care Teams Oyster Fisherman Relationship Specialty Start Date End Date Jenn Gonzalez MD [address] [place] [address] PCP - General Internal Medicine 12/29/14 documented as of this encounter
--- OUTSIDE RECORDS SUMMARY | 2024-11-25 10:32 | XMS_ITS | Encounter Summary ---
Author Organization [employer] Address 75 [facility] 7t [place] [address] Care Team Providers Care Baggage Clerk Name Role Phone Jenn Gonzalez MD Primary Care Provider [phone] Reason for Visit * Reason Onset Date Comments Durable Medical Equipment 06/12/2024 Encounter Details Date Type Department Care Team ([facility] Contact Info) Description 06/12/2024 Telephone [facility] MEDICINE [address] [place] [address] Jenn Gonzalez MD [address] [place], [place] [phone] Durable Medical Equipment Social History Tobacco Use [...] to hold on. Contact pt Daughter at [phone] * Telephone Encounter - Uzma Manjarrez LPN - 06/15/2024 3:14 PM EST Please review pt requested below. Physics Tutor did review pt however didn't notice any [...] Description 02/02/2025 9:00 AM EDT Office Visit [facility] CHC MED & PEDS [address] [place] [address] Jenn Gonzalez MD [address] [place] [address] documented as of this encounter Visit Diagnoses Not on filedocumented in this encounter Additional Health Concerns Assessment Noted Time PHQ-9 Depression Total Score: 14 024 9:24 AM EDT documented as of this encounter Care Teams Baggage Clerk Relationship Specialty Start Date End Date Jenn Gonzalez MD [address] [place] [address] PCP - General Internal Medicine 12/29/14 documented as of this encounter
--- OUTSIDE RECORDS SUMMARY | 2024-11-25 10:32 | XMS_ITS | Encounter Summary ---
Author Organization [employer] Address 75 [facility] 7t [place] [address] Care Team Providers Care Densitometer Reader Name Role Phone Jenn Gonzalez MD Primary Care Provider [phone] Encounter Details Date Type Department Care Team ([facility] Contact Info) Description 06/19/2024 Orders Only [facility] CHC MED & PEDS [address] [place], [place] [phone] Jenn Gonzalez MD [address] [place] [address] Social History Tobacco Use Types Packs/Day Years [...] Description 02/02/2025 9:00 AM EDT Office Visit [facility] MED & PEDS [address] [place] [address] Jenn Gonzalez MD [address] [place] [address] documented as of this encounter Visit Diagnoses Not on filedocumented in this encounter Additional Health Concerns Assessment Noted Time PHQ-9 Depression Total Score: 14 024 9:24 AM EDT documented as of this encounter Care Teams Densitometer Reader Relationship Specialty Start Date End Date Jenn Gonzalez MD [address] [place] [address] PCP - General Internal Medicine 12/29/14 documented as of this encounter
--- OUTSIDE RECORDS SUMMARY | 2024-11-25 10:32 | XMS_ITS | Encounter Summary ---
Author Organization [employer] Address [address] [facility] 7t [place] [address] Care Team Providers Care Stereotyper Apprentice Name Role Phone Jenn Gonzalez MD Primary Care Provider [phone] Encounter Details Date Type Department Care Team ([facility] [address] Contact Info) Description 10/04/2023 Orders Only [facility] CH[facility] MED & PEDS [address] [place], [place] [phone] Jenn Gonzalez MD [address] [place], [place] [phone] Multiple joint pain (Primary Dx) Social History [...] Upcoming Encounters Date Type Department Care Team ([facility] st Contact Info) Description 02/02/2025 9:00 AM EDT Office Visit [facility] CHC MED & PEDS [address] [place] [address] Jenn Gonzalez MD [address] [place] [address] documented as of this encounter Visit Diagnoses Diagnosis Multiple joint pain- Primary Pain in joint, multiple sites documented in this encounter Care Teams Stereotyper Apprentice Relationship Specialty Start Date End Date Jenn Gonzalez MD [address] [place] [address] PCP - General Internal Medicine 12/29/14 documented as of this encounter
--- OUTSIDE RECORDS SUMMARY | 2024-11-25 10:32 | XMS_ITS | Encounter Summary ---
Author Organization [employer] Address [address] [facility] 7t [place] [address] Care Team Providers Care Boat Diesel Motor Mechanic Name Role Phone Jenn Gonzalez MD Primary Care Provider [phone] Reason for Visit * Reason Onset Date Comments Appointment Request 09/28/2024 Encounter Details Date Type Department Care Team ([facility] Contact Info) Description 09/28/2024 Telephone [facility] MEDICINE [address] [place], [place] [phone] Jenn Gonzalez MD [address] [place], [place] [phone] Appointment Request Social History Tobacco Use Types [...] R/s Appt from 09/02/24. Contact pt at [phone] documented in this encounter Plan of Treatment Upcoming Encounters Date Type Department Care Team (Late st Contact Info) Description 02/02/2025 9:00 AM EDT Office Visit [facility] CHC MED & PEDS [address] [place] [address] Jenn Gonzalez MD 505 [place] [address] documented as of this encounter Visit Diagnoses Not on filedocumented in this encounter Additional Health Concerns Assessment Noted Time PHQ-9 Depression Total Score: 14 024 9:24 AM EDT documented as of this encounter Care Teams Boat Diesel Motor Mechanic Relationship Specialty Start Date End Date Jenn Gonzalez MD [address] [place] [address] PCP - General Internal Medicine 12/29/14 documented as of this encounter
--- OUTSIDE RECORDS SUMMARY | 2024-11-25 10:32 | XMS_ITS | Clinical Summary ---
Author Organization [employer] [facility] ity Address [address] [place] [address] Care Team Providers Care Sales Special Agent Name Role Phone Unavailable Primary Care Provider [...]
--- OUTSIDE RECORDS SUMMARY | 2024-11-25 10:32 | XMS_ITS | Clinical Summary ---
Author Organization [employer] Address [address] [facility] 7t [place] [address] Care Team Providers Care Watermaster Name Role Phone Jenn Gonzalez MD Primary Care Provider [phone] Allergies Active Allergy Reactions Criticality Noted Date [...] 7 MG/24HR patchIndications :Coronary artery disease of [place] artery of [place] heart with stable angina pectoris (CMS/HCC),Smokin g [...] artery disease of n ative artery of [place] heart with stable angina pectoris 10/22/2024 Smoking addiction 10/22/2024 SARATH (generalized anxiety disorder) 04/28/2024 Impaired fasting glucose 10/20/2021 Backache 10/26/2011 Depressive disorder 10/26/2011 Essential hypertension 10/26/2011 Pure hypercholesterolemia 10/26/2011 Vitamin D deficiency 10/26/2011 Encounters Date Type Department Care Team Description 11/09/2024 Telephone [facility] MED & PEDS [address] [place] [address] Jenn Gonzalez MD Results (Jenn Gonzalez MD [facility] Med & Peds Nurses/Please call Mrs. America Brooke to inform her that the Cologuard came back positive. Please find out if she has any gastrointestinal bleed and/or if she had a recent colonoscopy. She will be referred to gastroenterology for colonoscopy/) 10/29/2024 Refill [facility] MED & PEDS [address] [facility] [place] [address] Jenn Gonzalez MD Generalized anxiety disorder 10/24/2024 Refill [facility] MED & PEDS 505 [place] [address] Jenn Gonzalez MD 10/23/2024 Telephone [facility] MED & PEDS [address] [place] [address] Anastasia Molina RN 10/23/2024 Travel 10/23/2024 Telephone [facility] MED & PEDS [address] [place] [address] Anastasia Molina, GRICELDA software development analyst 10/22/2024 10:30 AM EDT Office Visit [facility] MED & PEDS [address] [place] [address] Jenn Gonzalez MD Coronary artery disease of [place] artery of [place] heart with stable angina pectoris (CMS/HCC) (Primary Dx); Smoking addiction; Screening for colon cancer; Nausea 10/22/2024 Travel 10/21/2024 Telephone [facility] MED & PEDS [address] [place] [address] Jenn Gonzalez MD Appointment Request 10/19/2024 Telephone [facility] MED & PEDS [address] [place] [address] Anastasia Molina, GRICELDA 10/14/2024 Telephone [facility] MED & PEDS [address] [place] [address] Anastasia Molina, GRICELDA 10/14/2024 Patient Outreach [facility] MEDICINE [address] [place] [address] Jenn Gonzalez MD Pre-visit Planning (SDOH screening negative and Tobacco screening negative) 09/28/2024 Travel 09/28/2024 Telephone [facility] MED & PEDS [address] [place] [address] Anastasia [place]ina, RN software development analyst 09/28/2024 Telephone [facility] MEDICINE [address] [place] [address] Jenn Gonzalez MD Appointment Request 09/15/2024 Refill [facility] MED & PEDS [address] [place] [address] Jenn Gonzalez MD Generalized anxiety disorder 09/01/2024 Telephone [facility] MED & PEDS [address] [place] [address] Anastasia Molina RN software development analyst appt 09/01/2024 Telephone [facility] MEDICINE [address] [place] [address] Jenn Gonzalez MD Appointment Request from Last [...] 02/02/2025 9:00 AM EDT Office Visit [facility] MED & PEDS [address] [place] [address] Jenn Gonzalez MD [address] [place] [address] Health Maintenance Due Date Last Done Comments [...] Positive( A) Negative 11/06/2024 1:52 PM EDT [facility] (CLIA #:[id number]) Comment: The Cologuard (TM) test was performed [...] (Miguel Arora al, N Engl J Med 2014;370(14):9061-3042.) Cologuard may produce a false negative or false positive result (no colorectal cancer or precancerous polyp present at colonoscopy follow up). A negative Cologuard test result does not guarantee the absence of CRC or advanced adenoma (pre-cancer). The current Cologuard screening interval is every 3 years. ([place] [employer] Society and U.S. Multi-Society Task Force). Cologuard performance data in a 10,000 patient pivotal study using colonoscopy as the reference method can be accessed at the following location: www.[employer]/results. Additional description of the Cologuard test process, warnings and precautions can be found at www.cologuard.com. Stool specimen (specimen) 11/02/2024 7:55 AM EDT 11/03/2024 12:47 PM EDT us Jenn Gonzalez MD LAB MOLECULAR DIAGNOSTICS O RDERABLES Final Result Performing Organization Address [facility]/ZIP Co de Phone Number [facility] (CLIA #:[id number]) [address] [place] [address], * Lipid Panel, Standard (06/10/2024 9:57 AM EST) Triglycerides 122 <150 mg/dL [facility] Comment:Desirable Triglyceri de: less than 150 mg/dLBorderline High Triglyceride 150-199 mg/dLHigh Triglyceride: 200-499 mg/dLVery High Triglyceride: greater than or equal to 5OO mg/dL Cholesterol 149 <200 mg/dL [facility] Comment:Desirable Cholestero l: less than 200 mg/dLBorderline High Cholesterol: 200-239 mg/dLHigh Cholesterol: greater than 239 mg/dL LDL Cholesterol Calculated 76 <100 mg/dL [facility] Comment:Desirable LDL: less than 100 mg/dLNear Optimal/Above Optimal LDL: 110- 129 mg/dLBorderline High LDL: 130-159 mg/dLHigh LDL: 160-189 mg/dLVery High LDL: greater than or equal to 190 mg/dL HDL Cholesterol 49 >40 mg/dL [facility] Comment:Desirable HDL: great er than 40 mg/dL Note: This HDL assay may give artificially low results in patients with liver disease. 06/10/2024 9:57 AM EST 06/10/2024 9:57 AM EST us Generic External Data Provider LAB BLOOD ORDERAB LES Final Result Performing Organization Address City/[facility]/ZIP Co de Phone Number [facility] [address] [place] [address] [phone] * 3D DIGITAL ARAVIND SCR MAMMO [...] Most Recently Relevant to Health Maintenance Insurance [facility] DETENTION OPT[employer] ([facility] D[facility]SNP) [facility] [employer] ([facility] D-SNP) Care Teams Watermaster Relationship Specialty Start Date End Date Jenn Gonzalez MD [address] [place] [address] PCP - General Internal Medicine 12/29/14
--- OUTSIDE RECORDS SUMMARY | 2024-11-25 10:32 | XMS_ITS | Encounter Summary ---
Author Organization [employer] Address [address] [facility] 7t [place] [address] Care Team Providers Care Clinic Receptionist Name Role Phone Jenn Gonzalez MD Primary Care Provider [phone] Reason for Visit * Reason Comments Med Refill Encounter Details Date Type Department Care Team ([facility] Contact Info) Description 03/25/2024 Refill [facility] CHC MED & PEDS [address] [place], [place] [phone] Jenn Gonzalez MD [address] [place], [place] [phone] Generalized anxiety disorder Social History Tobacco Use [...] Description 02/02/2025 9:00 AM EDT Office Visit [facility] MED & PEDS [address] [place] [address] Jenn Gonzalez MD [address] [place] [address] documented as of this encounter Visit Diagnoses Diagnosis Generalized anxiety disorder documented in this encounter Care Teams Clinic Receptionist Relationship Specialty Start Date End Date Jenn Gonzalez MD [address] [place] [address] PCP - General Internal Medicine 12/29/14 documented as of this encounter
--- OUTSIDE RECORDS SUMMARY | 2024-11-25 10:32 | XMS_ITS | Encounter Summary ---
Author Organization [employer] Address [address] [facility] 7t [place] [address] Care Team Providers Care Casting Associate Name Role Phone Jenn Gonzalez MD Primary Care Provider [phone] Encounter Details Date Type Department Care Team ([facility] Contact Info) Description 10/24/2023 Orders Only [facility] CHC MED & PEDS [address] [place], [place] [phone] Jenn Gonzalez MD [address] [place] [address] Social History Tobacco Use Types Packs/Day Years [...] Description 02/02/2025 9:00 AM EDT Office Visit [facility] CHC MED & PEDS [address] [place] [address] Jenn Gonzalez MD 505 [place] [address] documented as of this encounter Procedures Procedure Name Priority Date/Time Associated Diagnosis Comments STRESS TEST WITH MYOCARDIAL PERFUSION Routine 10/30/2023 2:15 PM EDT documented in this encounter Results * Stress test with myocardial perfusion (10/30/2023 2:15 PM EDT) 10/30/2023 2:15 PM EDT [facility] IMAGING - 10/30/2023 3:24 PM EDT ? [facility] ?[address] ?[place] [address] ?Nuclear Medicine Report ? Signed ? Patient: America Brooke ?MR#: [id number] ?? 52 ? : 1955 ?Acct:[id number] ? Age/Sex: 68 / F ?ADM Date: 10/24/23 ? Loc: HO.CARD ? Attending Dr: Flip Mandujano MD ? Ordering Physician: Flip Mandujano MD ?? Date of Service: 10/24/23 ?? Procedure(s): NM cardiolite stress test ?? Accession Number(s): [id number] ? cc: Jenn Gonzalez MD; Flip Mandujano [...] 1521 ? DD/ 1415 ? TD/TT: ? Mincemeat Maker: ? Procedure Note Reza Snyder - 10/30/2023 [place] [address] [facility] [place] [address] Nuclear Medicine Report Signed Patient: EdwardoJustinJun#: [id number] 52 : 7Acct:[id number] Age/Sex: 68 / FADM Date: 10/24/23 Loc: .[facility] Attending Dr: Flip Mandujano MD Ordering Physician: Flip Mandujano MD Date of Service: 10/24/23 Procedure(s): NM cardiolite stress test Accession Number(s): [id number] cc: Jenn Gonzalez MD; Flip Mandujano MD [...] lateral wall as well as the apex. NM/TX cardiolite stress test Impression: 1. Myocardial perfusion imaging study shows possible ischemia in the distal part of lateral wall and apex. 2. Gated LVEF is 53% during stress and rest. 3. Transient ischemic dilatation not present. EKG component of the test reported separately. Dictated By: Flip Mandujano MD Signed By: <Electronically signed by Flip Mandujano MD inOV> 10/30/23 1521 DD/ 1415 TD/TT: Mincemeat Maker: us [facility] External Provider CV STRE SS PROCEDURES Final Result Performing Organization Address City/State/[facility] Co de Phone Number IMAGING [address] [place] [address] documented in this encounter Visit Diagnoses Not on filedocumented in this encounter Care Teams Casting Associate Relationship Specialty Start Date End Date Jenn Gonzalez MD [address] [place] [address] PCP - General Internal Medicine 12/29/14 documented as of this encounter
--- OUTSIDE RECORDS SUMMARY | 2024-11-25 10:32 | XMS_ITS | Encounter Summary ---
Author Organization [employer] Address [address] [place] [address] 7 [place] [address] Care Team Providers Care Manager Of Selection And Assessment Name Role Phone Jenn Gonzalez MD Primary Care Provider [phone] Encounter Details Date Type Department Care Team (Late st Contact Info) Description 11/27/2022 Orders Only [facility] MED & PEDS [address] [place] [address] Evangelina Santana LPN Social History Tobacco Use [...] Description 02/02/2025 9:00 AM EDT Office Visit [facility] MED & PEDS [address] [place] [address] Jenn Gonzalez MD [address] [place] [address] documented as of this encounter Visit Diagnoses Not on filedocumented in this encounter Care Teams Manager Of Selection And Assessment Relationship Specialty Start Date End Date Jenn Gonzalez MD [address] [place] [address] PCP - General Internal Medicine 12/29/14 documented as of this encounter
--- OUTSIDE RECORDS SUMMARY | 2024-11-25 10:32 | XMS_ITS | Encounter Summary ---
Author Organization [employer] Address [address] [facility] 7t [place] [address] Care Team Providers Care Telemedicine Physician Name Role Phone Jenn Gonzalez MD Primary Care Provider [phone] Reason for Visit * Reason Onset Date Comments Appointment Request 03/25/2024 Encounter Details Date Type Department Care Team ([facility] Contact Info) Description 03/25/2024 Telephone [facility] MEDICINE [address] [place], [place] [phone] Jenn Gonzalez MD [address] [place], [place] [phone] Appointment Request Social History Tobacco Use Types [...] Upcoming Encounters Date Type Department Care Team ([facility] st Contact Info) Description 02/02/2025 9:00 AM EDT Office Visit [facility] CHC MED & PEDS [address] [place] [address] Jenn Gonzalez MD [address] [place] [address] documented as of this encounter Visit Diagnoses Not on filedocumented in this encounter Care Teams Telemedicine Physician Relationship Specialty Start Date End Date Jenn Gonzalez MD [address] [place] [address] PCP - General Internal Medicine 12/29/14 documented as of this encounter
== END 2024-11-25 10:14 | disposition home or self-care (01) ==
LOC: HO.HGI 09:15
PROVIDERS: PCP Internal Medicine; Visit Provider Nurse Practitioner Family
DX: K21.9 Gastro-esophageal reflux disease without esophagitis (principal); R14.0 Abdominal distension (gaseous); R10.13 Epigastric pain; K59.01 Slow transit constipation
CPT/HCPCS: 99214; G2211

== ENCOUNTER → 2024-11-25 09:14 | Outpatient (BNVA) | payer OTHER, SELFPAY | PROVIDERS: PCP Internal Medicine; Visit Provider Nurse Practitioner Family | DX: K21.9 Gastro-esophageal reflux disease without esophagitis (principal); K59.01 Slow transit constipation; R14.0 Abdominal distension (gaseous); R10.13 Epigastric pain | CPT/HCPCS: 99212 ==

== ENCOUNTER 2025-02-02 09:33 | Outpatient (REF) | payer OTHER, SELFPAY ==
--- OUTSIDE RECORDS SUMMARY | 2025-02-02 10:07 | XMS_ITS | Clinical Summary ---
Author Organization [facility] ity Address [address] [place] [address] Care Team Providers Care Roofing Apprentice Name Role Phone Unavailable Primary Care Provider [...] 2) 2007 Colorectal Cancer Screening: Colonoscopy 06/10/2022 Falls Risk Assessment 06/10/2022 Hepatitis C Screening 06/10/2022 Osteoporosis Screening (Bone Density Screening) 06/10/2022 Social Influencers of Health Screening 06/10/2022 COVID-19 Vaccine (1 - 2023-2 5 season) 2024 Depression Screening 07/08/2024 Influenza Vaccine (#1) 2025 RSV Immunization Adult Patie nts (1 [...]
--- OUTSIDE RECORDS SUMMARY | 2025-02-02 10:07 | XMS_ITS | Encounter Summary ---
Author Organization [employer] Address 75 [facility] 7t [place] [address] Care Team Providers Care Burn Table Operator Name Role Phone Jenn Gonzalez MD Primary Care Provider [phone] Reason for Visit * Reason Onset Date Comments Appointment Request 09/28/2024 Encounter Details Date Type Department Care Team ([facility] Contact Info) Description 09/28/[address] [facility] MEDICINE [address] [place], [place] [phone] Jenn Gonzalez MD [address] [place], [place] [phone] Appointment Request Social History Tobacco Use Types [...] R/s Appt from 09/02/24. Contact pt at [phone] documented in this encounter Plan of Treatment Upcoming Encounters Date Type Department Care Team (Late st Contact Info) Description 03/25/2025 9:30 AM EDT Office Visit [facility] CHC MED & PEDS [address] [place] [address] Jenn Gonzalez MD [address] [place] [address] documented as of this encounter Visit Diagnoses Not on filedocumented in this encounter Additional Health Concerns Assessment Noted Time PHQ-9 Depression Total Score: 14 024 9:24 AM EDT documented as of this encounter Care Teams Burn Table Operator Relationship Specialty Start Date End Date Jenn Gonzalez MD [address] [place] [address] PCP - General Internal Medicine 12/29/14 documented as of this encounter
--- OUTSIDE RECORDS SUMMARY | 2025-02-02 10:07 | XMS_ITS | Clinical Summary ---
Author Organization [facility] Address [address] [place] [address] Phone Care Team Providers Care Lifestyle Director Name Role Phone Jenn Gonzalez MD Primary Care Pr ovider Social History Tobacco Use Types Packs/Day Years Used Date Smoking Tobacco: Never Assessed Education Answer Date Recorded Are you interested in more education? Not on bennett e 11/02/2022 Are you concerned about learning? Not on file 11/02/2022 No 11/02/2022 No 11/02/2022 Digital Access Answer Date Recorded No 12/03/2022 No 12/03/2022 Reliable internet access at home? Not on file 12/03/2022 Device with a working camera? Not on file Comments Unknown Sex and Gender Information Value Date Recorded Sex Assigned at Not on file Legal Sex Female 10:35 PM EDT Gender Identity Not on file Sexual Orientation Not on file Plan of Treatment Not on file Medical Devices Not on file Insurance [facility] C3 ACO C3 ACO C3 ACO C3 ACO C3 ACO [place] [place] [address] [place] [address] [place] [address] [place] [address] [facility] C3 ACO Care Teams Lifestyle Director Relationship Specialty Start Date End Date Jenn Gonzalez MD PCP - General 04/23/17 Additional Source Comments The information contained in this document represents components of the legal health record. It is not the complete legal health record.[facility]
[2025-02-02 14:03] LABS: MANUAL DIFF FLAG NO
[2025-02-02 14:12] LABS: Hematocrit 38.7 % (37.0-47.0); Hemoglobin 12.5 g/dl (12.0-16.0); Imm Gran Abs Auto 0.03 X10*3/uL (0.00-0.03); Imm Gran Pct Auto 0.5 % (0.0-0.4); Lymphocytes Absolute Auto 1.7 X10*3/uL (1.2-4.9); Mean Corpuscular HGB Conc 32.3 g/dl (31.0-35.0); Mean Corpuscular Hemoglobin 30.6 pg (27.0-33.0); Mean Corpuscular Volume 94.6 fL (80.0-98.0); NRBC Abs Auto 0.000 X10*3/uL (0.0-0.012); NRBC Pct Auto 0.0 /100WBC (0.0-0.2); Platelet Count 279 X10*3/uL (160-400); Red Blood Count 4.09 X10*6/uL (4.20-5.50); White Blood Count 6.7 X10*3/uL (4.8-10.8)
[2025-02-02 14:40] LABS: Alanine Aminotransferase 21 U/L (0-31); Albumin Level 4.6 g/dL (3.5-5.0); Alkaline Phosphatase 90 U/L (39-117); Anion Gap 11 (12-20); Aspartate Amino Transferase 29 U/L (5-31); Blood Urea Nitrogen 10 mg/dL (9-16); Calcium 9.4 mg/dL (8.4-10.2); Carbon Dioxide 26 mmol/L (22-29); Chloride 104 mmol/L (96-108); Cholesterol 131 mg/dL (<200); Estimated Glomerular Filt Rate > 60; HDL Cholesterol 46 mg/dL (>40); Potassium 4.2 mmol/L (3.3-5.1); Sodium 137 mmol/L (135-145); Total Protein 7.3 g/dL (6.5-8.0); Triglycerides 78 mg/dL (<150)
[2025-02-03 03:53] LABS: ~HepC Num1 0.07 S/CO (0.00-0.79); ~Hepatitis C Antibody Nonreactive (Nonreactive)
== END 2025-02-02 09:34 | disposition home or self-care (01) ==
LOC: HO.CHCLDS 09:33
PROVIDERS: Visit Provider Internal Medicine
DX: Z11.59 Encounter for screening for other viral diseases (principal); I10 Essential (primary) hypertension; E78.00 Pure hypercholesterolemia, unspecified
CPT/HCPCS: 36415; 80053; 80061; 84443; 85025; 86803

== ENCOUNTER 2025-03-23 09:20 | Outpatient (AMB) | payer OTHER, SELFPAY ==
[2025-03-23 09:38] VITALS: BP 100/72; PULSE 49; BMI 36.4
--- NOTE | 2025-03-23 09:38 | A.OFFVIS_ITS ---
Vital Signs 03/23/25 09:38 Height 5 ft Weight 186 lb 8.177 oz BMI 36.4 BP 100/72 Blood Pressure Location Rt brachial Position Sitting Pulse 49 L Pulse Source Monitor Intake Visit Reasons: 4 month f/u/clear for colonoscopy Commercial Attache Required: Yes Commercial Attache Services: Commercial Attache Present Commercial Attache Name: judit maharaj [id number] Accompanied by: Self / Same As Patient Allergies tetanus immune globulin (TETANUS IMMUNE GLOBULIN) Adverse Reaction (Intermediate, Verified 03/23/25 09:41) LOCALIZED SWELLING Medication List - Last Reconciled 03/23/25 by Milena Collier NP-C aspirin (Adult Low Dose Aspirin) 81 mg PO DAILY atorvastatin 80 mg PO BEDTIME bisacodyl (Dulcolax (bisacodyl)) 10 mg (2 x 5 mg) PO BEDTIME blood pressure test kit-large As directed cholecalciferol (vitamin D3) 50 mcg PO DAILY clonazepam 1 mg PO DAILY esomeprazole magnesium (Nexium) 40 mg PO DAILY hydrocortisone 2.5% (Proctosol HC) 1 appl SC BID-QID PRN lidocaine 5% (Lidoderm) 1 patch topical DAILY lisinopril-hydrochlorothiazide 20-12.5 mg 1 tab PO DAILY methylcellulose (laxative) (Citrucel) 500 mg PO DAILY polyethylene glycol 3350 (Miralax) 238 grams PO ONCE simethicone (Gas Relief (simethicone)) 125 mg PO TID-QID PRN ticagrelor 90 mg PO BID 90 days HPI HPI 4 month f/u/clear for colonoscopy: Details: America is a 70-year-old female with past medical history of hypertension, hyperlipidemia, sinus bradycardia, sleep apnea, abnormal EKG with chronic T-wave inversions anteriorly, CAD, lad stent who presents for follow-up. Today she reports that she has been having issues with lightheadedness and dizziness in the last few months. She tells me that her blood pressure medicine was increased about 1 month ago but she was having symptoms prior to that. She has not had any presyncope, syncope, falls. She will notice symptoms with quick position changes. No chest discomfort at rest or with activity. No concerning shortness of breath, PND, orthopnea or edema. She does feel brief heart palpitations lasting sec and resolving. She is not wearing CPAP. No bleeding issues reported beyond easy bruising. Her upcoming colonoscopy is for routine evaluation. She is mostly sedentary. Certified cargo checker used [facility] Medical History Sleep apnea in adult Chronic back pain Dyslipidemia HTN (hypertension) Surgical History History of cardiac cath History of bunionectomy H/O colonoscopy Family History Brother Heart problem Social History Household Members Other:: alone Alcohol intake: current Alcohol intake frequency: holidays/special occasions only Patient Tobacco Use Status: Former Tobacco user Substance Use Type: Marijuana Current occupational status: unemployed Review of Systems Const All systems reviewed & are unremarkable except as noted in HPI and below Reports fatigue, Denies weight gain and Denies weight loss ENT Reports no additional complaints, Denies dysphagia, Reports dizziness and Denies odynophagia Card Reports no additional complaints and Reports lightheadedness Resp Reports no additional complaints GI Denies abdominal pain, Denies belching, Denies melena, Reports bloating, Denies change in bowel habits, Reports constipation, Denies dysphagia, Denies excessive flatus, Denies dyspepsia, Denies heartburn, Denies diarrhea, Denies loose stools, Denies nausea, Denies odynophagia and Denies vomiting Reports no additional complaints Musc Reports no additional complaints Neuro Reports no additional complaints and Reports dizziness Psych Reports no additional complaints Endo Reports no additional complaints and Reports fatigue Physical Exam Vital Signs: BMI result Body Mass Index 36.4 Const General: healthy appearing and no acute distress Nutritional Appearance: obese Orientation/consciousness: patient oriented x3 Resp Effort & Inspection: normal respiratory effort, able to speak in complete sentences and symmetric chest movement Auscultation: clear to auscultation bilaterally, no rales, no rhonchi and no wheezes Cardio Rate: regular rate GI Inspection: Yes normal to inspection, No distended and Yes obesity Palpation (GI): Soft to palpation, not firm, nontender and No hepatosplenomegaly present Auscultation: normal bowel sounds General: Yes no CVA tenderness Back/Spine/Pelvis Back: no CVA tenderness Skin General skin exam: elasticity normal, turgor normal and dry skin Neuro General: patient oriented x3 Psych Appearance: grossly normal Mental Status: mental status grossly normal Office Procedures EKG Details: Today, read by me, sinus bradycardia, nonspecific T-wave abnormality, rate 49, QTC 397 milliseconds 83250-[id number], Complete Assessment & Plan Assessment & Plan (1) CAD (coronary artery disease): Code(s): I25.10 - Atherosclerotic heart disease of [place] coronary artery without angina pectoris Category: Medical Plan: History of abnormal EKG with chronic T-wave inversions anteriorly. For cardiac evaluation she had echocardiogram on 10/24/2023 showing hyperdynamic EF greater than 70% with no valve abnormalities. Nuclear stress test 10/30/2023 showing possible ischemia in the distal lateral wall and apex. CTA of the coronary arteries on 04/29/2024 which did show moderate stenosis of the proximal LAD with long calcific plaque, 50-69% stenosis otherwise mostly mild disease, FFR significant in the distal LAD, mid circumflex and mid RCA, overall limited study due to extensive calcification and blooming artifact. This led to cardiac catheterization on 06/23/2024 which showed mid LAD 70% stenosis and SURJIT was placed, mid left circumflex 50% stenosis, RCA moderate diffuse disease. She did have shortness of breath which resolved following LAD stenting. Currently no anginal symptoms. EKG today showing sinus bradycardia, nonspecific T-wave abnormality, rate 49. Continue aspirin indefinitely. Continue Brilinta uninterrupted for at least 1 year (until 06/23/2025), continue high-dose atorvastatin with ideal LDL goal less than 70. She is not on beta-tyrone due to a history of bradycardia. Continue lisinopril/hydrochlorothiazide for good blood pressure control. Signs and symptoms of angina reviewed. Cardiology follow-up in 6 months, sooner if needed (2) History of cardiac cath: Comment: 06/23/24 Mid LAD 70% stenosis, SURJIT placed, Mid LCx 50% stenosis, RCA moderate diffuse disease Code(s): Z98.890 - Other specified postprocedural states Category: Surgical (3) Stented coronary artery: Comment: Mid LAD 06/23/24 Code(s): Z95.5 - Presence of coronary angioplasty implant and graft Category: Surgical (4) Bradycardia: Code(s): R00.1 - Bradycardia, unspecified Category: Medical Plan: History of sinus bradycardia. She is not on beta-blockers for this reason. EKG today showing sinus bradycardia, rate 49. I ambulated her in the hallway using sat monitor and heart rate quickly thien to 71. She is reporting issues with lightheadedness, dizziness, fatigue. Will check Holter monitor to assess for any significant bradycardia or pauses. (5) Abnormal EKG: Code(s): R94.31 - Abnormal electrocardiogram [ECG] [EKG] Category: Medical Plan: As above (6) HTN (hypertension): Code(s): I10 - Essential (primary) hypertension Category: Medical Plan: Blood pressure goal less than 130/80. Initially 100/72 when checked by medical case manager. I did have her ambulate in the villarreal for pulse check. Then she had blood pressure recheck done by me 130/78 sitting and 152/82 standing. She tells me that her blood pressure medication was recently increased by her PCP. She does have PCP follow-up later this week. No med changes made at this time. (7) Dyslipidemia: Code(s): E78.5 - Hyperlipidemia, unspecified Category: Medical Plan: [place] LDL goal less than 70 in patient with CAD. Labs done 02/02/2025 showing LDL 70. Increase physical activity and follow low-fat diet reviewed. Continue high-dose atorvastatin. (8) Preop cardiovascular exam: Code(s): Z01.810 - Encounter for preprocedural cardiovascular examination Category: Medical Plan: Preop for colonoscopy. She is currently on Brilinta and aspirin uninterrupted for at least 1 year following coronary stent. After 06/23/2025 her Brilinta may be stopped and aspirin can be held for colonoscopy. Reviewed this with her. She will be low to intermediate cardiac risk for the procedure. Call/consult Cardiology if needed. Plan I discussed with the patient the plan to order a heart monitor to evaluate her heart rate and ensure it is not too slow. We reviewed her blood pressure management, noting the recent medication adjustment and current stability. I advised her to continue her anticoagulation therapy and delay her colonoscopy for a few months to ensure safety. A follow-up cardiology appointment is scheduled for six months, with the possibility of an earlier review if the heart monitor indicates any concerns. Orders: Orders ECG 3 day holter monitor Today R00.1 - Bradycardia, unspecified Patient Instructions: - Wear the heart monitor as instructed to track heart rate. - Continue taking blood pressure medication as prescribed. - Follow up with primary care doctor on for further evaluation. - Delay colonoscopy for a few months and continue anticoagulation therapy. Patient was informed and verbally consented to the use of an ambient scribe for clinic note documentation during this visit. Visit time spent on chart review, interview, assessment, orders, documentation. Coding Level of Care Code Est Pt Level 4 (81988) Complex EM visit Add On G2211 Diagnoses CAD (coronary artery disease) I25.10 History of cardiac cath Z98.890 Stented coronary artery Z95.5 Bradycardia R00.1 Abnormal EKG R94.31 HTN (hypertension) I10 Dyslipidemia E78.5 Preop cardiovascular exam Z01.810 CPT Codes EKG - CPT: 32584-Heldtpyiqefnmaumw, Complete ([id number]) Time Spent (min) 32
--- OUTSIDE RECORDS SUMMARY | 2025-03-23 11:47 | XMS_ITS | Encounter Summary ---
Author Organization [employer] Address [address] [facility] 7t [place] [address] Care Team Providers Care Vendor Management Associate Name Role Phone Jenn Gonzalez MD Primary Care Provider [phone] Reason for Visit * Reason Onset Date Comments Appointment Request 03/25/2024 Encounter Details Date Type Department Care Team ([facility] Contact Info) Description 03/25/2024 Telephone [facility] MEDICINE [address] [place], [place] [phone] Jenn Gonzalez MD [address] [place], [place] [phone] Appointment Request Social History Tobacco Use Types [...] Upcoming Encounters Date Type Department Care Team ([facility] st Contact Info) Description 03/25/2025 9:30 AM EDT Office Visit [facility] CHC MED & PEDS [address] [place] [address] Jenn Gonzalez MD [address] [place] [address] documented as of this encounter Visit Diagnoses Not on filedocumented in this encounter Care Teams Vendor Management Associate Relationship Specialty Start Date End Date Jenn Gonzalez MD [address] [place] [address] PCP - General Internal Medicine 12/29/14 documented as of this encounter
--- OUTSIDE RECORDS SUMMARY | 2025-03-23 11:47 | XMS_ITS | Encounter Summary ---
Author Organization [employer] Address [address] [facility] 7t [place] [address] Care Team Providers Care Public Transit Trolley Driver Name Role Phone Jenn Gonzalez MD Primary Care Provider [phone] Encounter Details Date Type Department Care Team ([facility] Contact Info) Description 10/24/2023 Orders Only [facility] CHC MED & PEDS [address] [place], [place] [phone] Jenn Gonzalez MD [address] [place] [address] Social History Tobacco Use Types Packs/Day Years [...] Description 03/25/2025 9:30 AM EDT Office Visit [facility] MED & PEDS [address] [place] [address] Jenn Gonzalez MD [address] [place] [address] documented as of this encounter Procedures Procedure Name Priority Date/Time Associated Diagnosis Comments STRESS TEST WITH MYOCARDIAL PERFUSION Routine 10/30/2023 2:15 PM EDT documented in this encounter Results * Stress test with myocardial perfusion (10/30/2023 2:15 PM EDT) 10/30/2023 2:15 PM EDT Narrative [facility] - 10/30/2023 3:24 PM EDT [address] [address] Nuclear Medicine Report Signed Patient: America Brooke MR#: [id number] 50 : 1955 Acct:[id number] Age/Sex: 68 / F ADM Date: 10/24/23 Loc: .CARD Attending Dr: Flip Mandujano MD Ordering Physician: Flip Mandujano MD Date of Service: 10/24/23 Procedure(s): NM cardiolite stress test Accession Number(s): [id number] cc: Jenn Gonzalez MD; Flip Mandujano MD [...] By: <Electronically signed by Flip Mandujano MD in OV> 10/30/23 1521 DD/ 1415 TD/TT: Sample Steamer: Procedure Note Donotuseinterpreter, Image - 10/30/[address] [address] Nuclear Medicine Report Signed Patient: Chinyere Brooke#: [id number] 52 : 7Acct:[id number] Age/Sex: 68 / FADM Date: 10/24/23 Loc: .[facility] Attending Dr: Flip Mandujano MD Ordering Physician: Flip Mandujano MD Date of Service: 10/24/23 Procedure(s): TX cardiolite stress test Accession Number(s): [id number] cc: Jenn Gonzalez MD; Flip Mandujano MD [facility] Myocardial perfusion study Indication: Abnormal EKG, assess [...] MD inOV> 10/30/23 1521 DD/ 1415 TD/TT: Sample Steamer: us [facility] External Provider CV STRE SS PROCEDURES Final Result [facility] [address] [place] [address] documented in this encounter Visit Diagnoses Not on filedocumented in this encounter Care Teams Public Transit Trolley Driver Relationship Specialty Start Date End Date Jenn Gonzalez MD [address] [place] [address] PCP - General Internal Medicine 12/29/14 documented as of this encounter
--- OUTSIDE RECORDS SUMMARY | 2025-03-23 11:47 | XMS_ITS | Encounter Summary ---
Author Organization [employer] Address [address] [place] [address] 7 [place] [address] Care Team Providers Care Automation Developer Name Role Phone Jenn Gonzalez MD Primary Care Provider [phone] Reason for Visit * Reason Comments Med Refill Encounter Details Date Type Department Care Team ([facility] Contact Info) Description 06/18/2022 Refill [facility] MEDICINE [address] [place], [place] [phone] Jenn Gonzalez MD [address] [place], [place] [phone] Anxiety disorder, unspecified Social History Tobacco Use [...] Upcoming Encounters Date Type Department Care Team ([facility] Contact Info) Description 03/25/2025 9:30 AM EDT Office Visit [facility] CHC MED & PEDS [address] [place] [address] Jenn Gonzalez MD [address] [place], [place] [phone] documented as of this encounter Visit Diagnoses Diagnosis Anxiety disorder, unspecified documented in this encounter Care Teams Automation Developer Relationship Specialty Start Date End Date Jenn Gonzalez MD [address] [place], [place] [phone] PCP - General Internal Medicine 12/29/14 documented as of this encounter
--- OUTSIDE RECORDS SUMMARY | 2025-03-23 11:47 | XMS_ITS | Encounter Summary ---
Author Organization [employer] Address [address] [place] [address] 7 [place] [address] Care Team Providers Care K [employer] Principal Name Role Phone Jenn Gonzalez MD Primary Care Provider [phone] Reason for Referral * Consultation (Routine) - Closed Specialty Diagnoses / Procedures Referred By Deshawn jones Referred To Contact Behavioral Health Diagnoses Anxiety Jenn Gonzalez MD [address] [place] [address] Phone: tel: fax: Referral ID Status Reason Start Date Expiration Date V isits Requested Visits Authorized [id number] Closed Specialty Services Required 04/17/2024 04/17/2025 1 1 Encounter Details Date Type Department Care Team (Late st Contact Info) Description 04/17/2024 Orders Only [facility] CHC MED & PEDS [address] [place] [address] Jenn Gonzalez MD [address] [place], [place] [phone] Anxiety (Primary Dx) Social History Tobacco Use [...] Description 03/25/2025 9:30 AM EDT Office Visit [facility] MED & PEDS [address] [place] [address] Jenn Gonzalez MD [address] [place] [address] Scheduled Referrals Name Type Priority Associated Diagnoses Order Schedule Referral to Behavioral Health Outpatient Referral Routine Anxiety Expected: 04/17/2024 (Approximate), Expires: 04/17/2025 documented as of this encounter Visit Diagnoses Diagnosis Anxiety- Primary Anxiety state, unspecified documented in this encounter Care Teams K [employer] Principal Relationship Specialty Start Date End Date Jenn Gonzalez MD [address] [place] [address] PCP - General Internal Medicine 12/29/14 documented as of this encounter
--- OUTSIDE RECORDS SUMMARY | 2025-03-23 11:47 | XMS_ITS | Encounter Summary ---
Author Organization [employer] Address [address] [facility] 7t [place] [address] Care Team Providers Care Photoengraving Proofer Apprentice Name Role Phone Jenn Gonzalez MD Primary Care Provider [phone] Reason for Visit * Reason Onset Date Comments Appointment Request 09/01/2024 Encounter Details Date Type Department Care Team ([facility] Contact Info) Description 09/01/2024 Telephone [facility] MEDICINE [address] [place], [place] [phone] Jenn Gonzalez MD [address] [place], [place] [phone] Appointment Request Social History Tobacco Use Types [...] Description 03/25/2025 9:30 AM EDT Office Visit [facility] MED & PEDS [address] [place] [address] Jenn Gonzalez MD [address] [place] [address] documented as of this encounter Visit Diagnoses Not on filedocumented in this encounter Additional Health Concerns Assessment Noted Time PHQ-9 Depression Total Score: 14 024 9:24 AM EDT documented as of this encounter Care Teams Photoengraving Proofer Apprentice Relationship Specialty Start Date End Date Jenn Gonzalez MD [address] [place] [address] PCP - General Internal Medicine 12/29/14 documented as of this encounter
--- OUTSIDE RECORDS SUMMARY | 2025-03-23 11:47 | XMS_ITS | Encounter Summary ---
Author Organization [employer] Address [address] [facility] 7t [place] [address] Care Team Providers Care Solar Photovoltaic Installer Name Role Phone Jenn Gonzalez MD Primary Care Provider [phone] Encounter Details Date Type Department Care Team ([facility] Contact Info) Description 10/04/2023 Orders Only [facility] CHC MED & PEDS [address] [place], [place] [phone] Jenn Gonzalez MD [address] [place], [place] [phone] Multiple joint pain (Primary Dx) Social History [...] Upcoming Encounters Date Type Department Care Team ([facility] st Contact Info) Description 03/25/2025 9:30 AM EDT Office Visit [facility] CHC MED & PEDS [address] [place] [address] Jenn Gonzalez MD [address] [place] [address] documented as of this encounter Visit Diagnoses Diagnosis Multiple joint pain- Primary Pain in joint, multiple sites documented in this encounter Care Teams Solar Photovoltaic Installer Relationship Specialty Start Date End Date Jenn Gonzalez MD [address] [place] [address] PCP - General Internal Medicine 12/29/14 documented as of this encounter
--- OUTSIDE RECORDS SUMMARY | 2025-03-23 11:47 | XMS_ITS | Encounter Summary ---
Author Organization [email or web address] Address [address] [facility] 7t [place] [address] Care Team Providers Care Supervisor Fitting Name Role Phone Jenn Gonzalez MD Primary Care Provider [phone] Reason for Visit * Reason Comments Med Refill Encounter Details Date Type Department Care Team ([facility] Contact Info) Description 03/25/2024 Refill [facility] CHC MED & PEDS [address] [place], [place] [phone] Jenn Gonzalez MD [address] [place], [place] [phone] Generalized anxiety disorder Social History Tobacco Use [...] Description 03/25/2025 9:30 AM EDT Office Visit [facility] MED & PEDS [address] [place] [address] Jenn Gonzalez MD [address] [place] [address] documented as of this encounter Visit Diagnoses Diagnosis Generalized anxiety disorder documented in this encounter Care Teams Supervisor Fitting Relationship Specialty Start Date End Date Jenn Gonzalez MD [address] [place] [address] PCP - General Internal Medicine 12/29/14 documented as of this encounter
--- OUTSIDE RECORDS SUMMARY | 2025-03-23 11:47 | XMS_ITS | Encounter Summary ---
Author Organization [employer] Address [address] [facility] 7t [place] [address] Care Team Providers Care Police Justice Name Role Phone Jenn Gonzalez MD Primary Care Provider [phone] Encounter Details Date Type Department Care Team ([facility] Contact Info) Description 06/19/2024 Orders Only [facility] CHC MED & PEDS [address] [place], [place] [phone] Jenn Gonzalez MD [address] [place] [address] Social History Tobacco Use Types Packs/Day Years [...] Description 03/25/2025 9:30 AM EDT Office Visit [facility] MED & PEDS [address] [place] [address] Jenn Gonzalez MD [address] [place] [address] documented as of this encounter Visit Diagnoses Not on filedocumented in this encounter Additional Health Concerns Assessment Noted Time PHQ-9 Depression Total Score: 14 024 9:24 AM EDT documented as of this encounter Care Teams Police Justice Relationship Specialty Start Date End Date Jenn Gonzalez MD [address] [place] [address] PCP - General Internal Medicine 12/29/14 documented as of this encounter
--- OUTSIDE RECORDS SUMMARY | 2025-03-23 11:47 | XMS_ITS | Encounter Summary ---
Author Organization [employer] Address [address] [facility] 7t [place] [address] Care Team Providers Care Spinning Supervisor Name Role Phone Jenn Gonzalez MD Primary Care Provider [phone] Encounter Details Date Type Department Care Team (Latest Contact Info) Description 02/02/2025 Results Follow-Up [facility] CHC MED & PEDS [address] [place], [place] [phone] Jenn Gonzalez MD [address] [place] [address] CBC auto differential, Comprehensive Metabolic Panel, Lipid Panel, Standard, Additional followed-up results: 2 Social History Tobacco Use Types Packs/Day Years [...] Upcoming Encounters Date Type Department Care Team ([facility] st Contact Info) Description 03/25/2025 9:30 AM EDT Office Visit [facility] MED & PEDS [address] [place] [address] Jenn Gonzalez MD [address] [place] [address] documented as of this encounter Visit Diagnoses Not on filedocumented in this encounter Additional Health Concerns Assessment Noted Time PHQ-9 Depression Total Score: 0 10/23/19 25 10:21 AM EDT documented as of this encounter Care Teams Spinning Supervisor Relationship Specialty Start Date End Date Jenn Gonzalez MD [address] [place] [address] PCP - General Internal Medicine 12/29/14 documented as of this encounter
--- OUTSIDE RECORDS SUMMARY | 2025-03-23 11:47 | XMS_ITS | Encounter Summary ---
Author Organization [facility] Address [address] [place] [address] Phone Care Team Providers Care Service Sprinkler Helper Name Role Phone Jenn Gonzalez MD Primary Care Pr ovider Encounter Details Date Type Department Care Team (Late st Contact Info) Description 01/07/2019 Ancillary Orders [facility] [address] [place] [address] [place] [address] Troy Young DO [address] [place] [address] Bradycardia Social History Tobacco Use Types Packs/Day Years Used Date Smoking Tobacco: Never Assessed Comments Unknown Sex and Gender Information Value Date Recorded Sex Assigned at Not on file Legal Sex Female 10:35 PM EDT Gender Identity Not on file Sexual Orientation Not on file documented as of this encounter Plan of Treatment Not on file documented as of this encounter Results * Holter Monitor 24 Hours (01/07/2019 11:52 AM EDT) Anatomical Region Laterality Modality Heart Other Narrative 01/07/2019 4:57 PM EDT 24-hour monitor: Baseline rhythm is sinus with a minimum heart rate of 37, maximum 145, average 67 bpm. Occasional atrial ectopy present. 36 PVCs present. There was no diary returned by the patient. There were several patient event markers which occurred during sinus rhythm. Impression: Normal 24-hour monitor. Patient event markers during sinus rhythm. Procedure Note Jone Ocasio MD - 01/07/2019 24-hour monitor: Baseline rhythm is sinus with a minimum heart rate of 37,maximum 145, average 67 bpm. Occasional atrial ectopy present. 36 PVCspresent. There was no diary returned by the patient. There were severalpatient event markers which occurred during sinus rhythm. Impression: Normal 24-hour monitor. Patient event markers during sinusrhythm. [place] Young DO [facility] ORDERABLE S Final Result documented in this encounter Visit Diagnoses Diagnosis Bradycardia Other specified cardiac dysrhythmias Bradycardia Other specified cardiac dysrhythmias documented in this encounter Care Teams Service Sprinkler Helper Relationship Specialty Start Date End Date Jenn Gonzalez MD PCP - General 04/23/17 documented as of this encounter Additional Source Comments The information contained in this document represents components of the legal health record. It is not the complete legal health record.[facility]
--- OUTSIDE RECORDS SUMMARY | 2025-03-23 11:47 | XMS_ITS | Clinical Summary ---
Author Organization [employer] [facility] ity Address [address] [place] [address] Care Team Providers Care Land Economist Name Role Phone Unavailable Primary Care Provider [...] 06/10/2022 Social Influencers of Health Screening 06/10/2022 Depression Screening 07/08/2024 COVID-19 Vaccine ( - 2023-2 5 season) 2025 Influenza Vaccine (#1) 2025 RSV Immunization Adult [...]
--- OUTSIDE RECORDS SUMMARY | 2025-03-23 11:47 | XMS_ITS | Encounter Summary ---
Author Organization [employer] Address [address] 7[address] [place] [address] Care Team Providers Care Workforce Specialist Name Role Phone Jenn Gonzalez MD Primary Care Provider [phone] Reason for Visit * Reason Onset Date Comments Nurse Triage 12/14/2024 Encounter Details Date Type Department Care Team ([facility] st Contact Info) Description 12/14/2024 Telephone [facility] [address] [place], [place] [phone] Jenn Gonzalez MD [address] [place], [place] [phone] Nurse Triage Social History Tobacco Use Types Packs/Day Years [...] encounter Miscellaneous Notes * Telephone Encounter - Alta Rebolledo RN - 12/14/2024 12:00 PM EDT Triage call with [facility] director [place] [id number] Pt reports right foot/ankle swelling which started 3 days ago. Pt reports some discoloring of the foot as well. Pt denies injury. Pt is having difficulty walking and can only wear sandal, shoe doesn't fit. Pt is taking tylenol for discomfort without effect. Pt is offered to come to [facility] today but, will come tomorrow morning when MEDIUM CYCLE SALESPERSON is there. Pt is advised there is a wait time at [facility] at [facility] and declines [facility] requests apt be made in [facility]. ASK apt with [employer] APPRAISER [place] 12/16/24 @ 200pm. Pt agrees withdisposition and insurance is verified as active prior to booking. Pt is advised to keep right foot up when sitting and apply ice/heat if needed. Protocol Used: Leg Swelling and Edema (Adult) Protocol-Based Disposition: See in Office or Video Visit Today Override (Final) Disposition: See in Office or Video Visit within 3 Days Override Reason: No appointments available Override Notes: declines [facility] Video visit not offered Positive Triage Question: * Patient wants to be seen * All higher-acuity triage questions were negative Care Advice Discussed: * Reasons To Call Back - Swelling becomes worse - Swelling becomes red or painful to the touch - Calf pain occurs and becomes constant - You become worse * Telephone Encounter - Colton Bennett - 12/14/2024 11:14 AM EDT Symptom: Foot or Ankle Swelling Outcome: Schedule an urgent appointment (within 1 hour) or talk to a nurse or provider soon Reason: Trouble walking The caller accepted this outcome. Duration 3 days Barbadian Speaking documented in this encounter Plan of Treatment Upcoming Encounters Date Type Department Care Team (Late st Contact Info) Description 03/25/2025 9:30 AM EDT Office Visit [facility] [address] [place] [address] Jenn Gonzalez MD [address] [place] [address] documented as of this encounter Visit Diagnoses Not on filedocumented in this encounter Additional Health Concerns Assessment Noted Time PHQ-9 Depression Total Score: 0 10/23/19 25 10:21 AM EDT documented as of this encounter Care Teams Workforce Specialist Relationship Specialty Start Date End Date Jenn Gonzalez MD [address] [place] [address] PCP - General Internal Medicine 12/29/14 documented as of this encounter
--- OUTSIDE RECORDS SUMMARY | 2025-03-23 11:47 | XMS_ITS | Clinical Summary ---
Author Organization [employer] Address [address] [place] [address] Care Team Providers Care Cord Tire Builder Name Role Phone Jenn Gonzalez MD Primary Care Provider [phone] Allergies Active Allergy Reactions Criticality Noted Date Comments Haemophilus B Polysacc Tetan us Toxoid Conj Vaccine 07/18/2022 Medications * This document contains information received from the source organization and may not represent a complete record from that organization. acetaminophen-code ine (Tylenol #3) 300-30 MG tabletIndications: Chronic pain syndrome TAKE ONE TABLET EVERY 8 HOURS 20 tablet 3 Active cholecalciferol (Vitamin D-3) 50 MCG (1999 UT) capsule TAKE ONE CAPSULE BY MOUTH EVERY DAY 3 Active Blood Pressure kitIndications:Ess ential hypertension To use once a day 1 kit 3 Active atorvastatin (Lipitor) 20 MG tabletIndications: Hypercholesterolem ia TAKE ONE TABLET EVERY DAY 90 tablet 3 3 Active fluticasone (Flonase) 50 MCG/ACT nasal sprayIndications:A cute sinusitis with symptoms greater than 10 days Administer 1-2 sprays into each nostril in the morning. Shake gently. Before first use, prime pump. After use, clean tip and replace cap. 16 g 11 4 Active naproxen (Naprosyn) 500 MG tabletIndications: Multiple joint pain Take 1 tablet (500 mg) by mouth 2 times daily. 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 30 patch 5 Active clonazePAM (KlonoPIN) 1 MG tabletIndications: Generalized anxiety disorder Take 1 tablet (1 mg) by mouth at bedtime for 28 days. 28 tablet 5 Active cholecalciferol VITAMIN D (Vitamin D-3) 50 MCG (1999 UT) capsule TAKE ONE CAPSULE EVERY DAY 30 capsule 5 5 Active lisinopril-hydroCH LOROthiazide 20-12.5 MG tabletIndications: Essential hypertension Take 1 tablet by mouth Once per day. 30 tablet 11 5 Active lidocaine (LMX 4) 4 % creamIndications:O steochondritis dissecans of ankle, right,Other secondary osteoarthritis of right ankle Apply topically if needed in the morning, at noon, in the evening, and at bedtime for mild pain. 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 10/22/2024 Smoking addiction 10/22/2024 SARATH (generalized anxiety disorder) 04/28/2024 Impaired fasting glucose 10/20/2021 Backache 10/26/2011 Depressive disorder 10/26/2011 Essential hypertension 10/26/2011 Pure hypercholesterolemia 10/26/2011 Vitamin D deficiency 10/26/2011 Encounters Date Type Department Care Team Description 02/02/2025 9:00 AM EDT Office Visit [facility] [address] [place] [address] Jenn Gonzalez MD Essential hypertension (Primary Dx); Depressive disorder; Pure hypercholesterolemia; Screening for osteoporosis; Encounter for immunization; Dietary counseling; Exercise counseling; Class 2 severe obesity due to excess calories with serious comorbidity and body mass index (BMI) of 35.0 to 35.9 in adult (CMS/HCC); Osteochondritis dissecans of ankle, right; Other secondary osteoarthritis of right ankle 02/02/2025 Results Follow-Up [facility] [address] [place] [address] Jenn Gonzalez MD CBC auto differential, Comprehensive Metabolic Panel, Lipid Panel, Standard, Additional followed-up results: 2 02/02/2025 Travel 12/23/2024 Refill [facility] [address] [place] [address] Jenn Gonzalez MD from Last 3 Months Immunizations Immunization Administration Dates Next Due Influenza injectable quadriv alent IIV4 with preservative 04/10/2018 Influenza injectable quadriv alent preservative free 04/02/2022,04/26/2021,05/02/2020,04/09,04/19/2017,09/22/2015 Influenza, IIV3, injectable 05/21/2014 Influenza, Split (incl. mohinder fied surface antigen) 03/16/2013,03/12/2012 Influenza, trivalent, adjuvanted 04/14/2024 Pneumococcal Conjugate PCV 20 02/02/2025 Pneumococcal Polysaccharide PPSV23 03/16/2017 Zoster, live 04/19/2017 Social History Tobacco Use Types Packs/Day Years [...] Sign Reading Time Taken Comments Blood Pressure 146/85 02/02/2025 9:10 AM EDT Pulse 64 02/02/2025 9:10 AM EDT Temperature 36.8 C (98.2 F) 02/02/2025 8:59 AM EDT Respiratory Rate 20 02/02/2025 8:59 AM EDT Oxygen Saturation 98% 02/02/2025 8:59 AM EDT Inhaled Oxygen Concentration - - Weight 84.8 kg (187 lb) 02/02/2025 8:59 AM EDT Height 154.9 cm (5' 1 ) 02/02/2025 8:59 AM EDT Body Mass Index 35.33 02/02/2025 8:59 AM EDT Plan of Treatment Upcoming Encounters Date Type Department Care Team ([facility] st Contact Info) Description 03/25/2025 9:30 AM EDT Office Visit [facility] [address] [place] [address] Jenn Gonzalez MD [address] [place] [address] Health Maintenance Due Date Last Done Comments CT Colonography 1957 Colonoscopy 1957 FIT 1957 Sigmoidoscopy 1957 RSV Patients and Patients Aged 60 years or older (1 - Risk 60-74 years 1-dose series) 2017 Zoster Vaccines (2 of 3) 06/14/2017 04/19/2017 Mammogram 05/26/2021 05/26/2019 COVID-19 Vaccine ( season) 2025 04/20/2021, 08/11/2020, 07/21/2020 Influenza Vaccine (#1) 2025 , 04/02/2022, 04/26/2021, Additional history exists SDOH Screening 10/14/2025 10/14/2024 Alcohol/Substance Use Screening 10/22/2025 10/22/2024 Depression Screening 10/22/2025 10/22/2024, 10/23/19 FOBT 11/02/2025 11/02/2024 DTaP/Tdap/Td Vaccines (1 - Tdap) 02/02/2026 Postponed from 01/17/1976 (Patient Refused) Tobacco Screening 02/02/2026 02/02/2025 Colorectal Cancer Screening 11/03/2027 FIT DNA/Cologuard 11/03/2027 11/02/2024 Lipid Panel 02/02/2030 02/02/2025, 12/0 10/2023, 02/12/2023, Additional history exists Hepatitis C Screening Completed 02/02/2025 Pneumococcal Vaccine: 50+ Years Completed 02/02/2025, 03/16/2017 HIB Vaccines Aged Out No longer eligi [...] Procedure Name Priority Date/Time Associated Diagnosis Comments HEPATITIS C AB W/REFL TO HCV RNA, QN, PCR Routine 02/02/2025 9:40 AM EDT Essential hypertension Pure hypercholesterolemia TSH W/REFLEX TO FT4 Routine 02/02/2025 9 :40 AM EDT Essential hypertension Pure hypercholesterolemia LIPID PANEL, STANDARD Routine 02/02/2025 9:40 AM EDT Essential hypertension Pure hypercholesterolemia COMPREHENSIVE METABOLIC PANEL Routine 02/02/2025 9:40 AM EDT Essential hypertension Pure hypercholesterolemia CBC WITH AUTO DIFFERENTIAL Routine 02/02/2025 9:40 AM EDT Essential hypertension Pure hypercholesterolemia LAB COLOGUARD COLON CANCER SCREEN Routine 11/02/2024 7:55 AM EDT Screening for colon cancer BI MAMMOGRAM SCREENING BILATERAL Routine 05/26/2019 8:05 AM EST from Last 3 Months or Most Recently Relevant to Health Maintenance Results * TSH W/Reflex to FT4 (02/02/2025 9:40 AM EDT) TSH reflex Free T4 1.45 0.32 - 4.0 uIU/mL [facility] Blood Venous blood specimen / Unknown 02/02/2025 9:40 AM EDT 02/02/2025 2:04 PM EDT Jenn Gonzalez MD LAB BLOOD ORDERABLES Final Result [facility] [address] [place] [phone] * (ABNORMAL) CBC auto differential (02/02/2025 9:40 AM EDT) White Blood Count 6.7 4.8 - 10.8 X10*3/uL [facility] Red Blood Count 4.09(L) 4.20 - 5.50 X10*6/uL [facility] Hemoglobin 12.5 12.0 - 16.0 g/dl [facility] Hematocrit 38.7 37.0 - 47.0 % [facility] Mean Corpuscular Volume 94.6 80.0 - 98.0 fL [facility] Mean Corpuscular Hemoglobin 30.6 27.0 - 33.0 pg [facility] Mean Corpuscular HGB Conc 32.3 31.0 - 35.0 g/dl [facility] Red Cell Distribution Width 14.2 11.0 - 16.0 % [facility] Platelet Count 279 160 - 400 X10*3/uL [facility] Mean Platelet Volume 11.2 9.4 - 12.3 fL [facility] Neutrophils Percent Auto 59.8 45 - 73 % [facility] Imm Gran Pct Auto 0.5(H) 0.0 - 0.4 % [facility] Lymphocytes Percent Auto 26.1 20 - 40 % [facility] Monocytes Percent Auto 8.0 2 - 11 % [facility] Eosinophils Percent Auto 4.5(H) 0 - 4 % [facility] Basophils Percent Auto 1.1 0 - 2 % [facility] NRBC Pct Auto 0.0 0.0 - 0.2 /100WBC [facility] Neutrophils Absolute Auto 4.0 2.0 - 8.3 x10*3/uL [facility] Imm Gran Abs Auto 0.03 0.00 - 0.03 X10*3/uL [facility] Lymphocytes Absolute Auto 1.7 1.2 - 4.9 X10*3/uL [facility] Monocytes Absolute Auto 0.5 0.1 - 1.2 X10*3/uL [facility] Eosinophils Absolute Auto 0.3 0.0 - 0.4 X10*3/uL [facility] Basophils Absolute Auto 0.1 0.0 - 0.2 X10*3/uL [facility] NRBC Abs Auto 0.000 0.0 - 0.012 X10*3/uL [facility] Blood Venous blood specimen / Unknown 02/02/2025 9:40 AM EDT 02/02/2025 2:01 PM EDT us Jenn Gonzalez MD LAB BLOOD ORDERABLES Final Result Performing Organization Address [facility] Co de Phone Number [facility] [address] [place] [phone] * Hepatitis C Antibody with Reflex to HCV, RNA, Quantitative, Real-Time PCR (02/02/2025 9:40 AM EDT) Hepatitis C Antibody Nonreactive Nonreactive [facility] Comment:Antibodies to HCV no t detected; does not exclude early acuteHCV infection. Blood Venous blood specimen / Unknown 02/02/2025 9:40 AM EDT 02/02/2025 2:01 PM EDT Jenn Gonzalez MD LAB BLOOD ORDERABLES Final Result Performing Organization Address [facility] de Phone Number [facility] [address] [place] [phone] * Lipid Panel, Standard (02/02/2025 9:40 AM EDT) Triglycerides 78 <150 mg/dL [facility] Comment:Slight Lipemia.Darryl able Triglyceride: less than 150 mg/dLBorderline High Triglyceride 150-199 mg/dLHigh Triglyceride: 200-499 mg/dLVery High Triglyceride: greater than or equal to 5OO mg/dL Cholesterol 131 <200 mg/dL [facility] Comment:Desirable Cholestero l: less than 200 mg/dLBorderline High Cholesterol: 200-239 mg/dLHigh Cholesterol: greater than 239 mg/dL LDL Cholesterol Calculated 70 <100 mg/dL [facility] Comment:Desirable LDL: less than 100 mg/dLNear Optimal/Above Optimal LDL: 110- 129 mg/dLBorderline High LDL: 130-159 mg/dLHigh LDL: 160-189 mg/dLVery High LDL: greater than or equal to 190 mg/dL HDL Cholesterol 46 >40 mg/dL [facility] Comment:Desirable HDL: great er than 40 mg/dL Note: This HDL assay may give artificially low results in patients with liver disease. Blood Venous blood specimen / Unknown 02/02/2025 9:40 AM EDT 02/02/2025 2:04 PM EDT us Jenn Gonzalez MD LAB BLOOD ORDERABLES Final Result [facility] [address] [place] [phone] [phone] * (ABNORMAL) Comprehensive Metabolic Panel (02/02/2025 9:40 AM EDT) Sodium 137 135 - 145 mmol/L [facility] Potassium 4.2 3.3 - 5.1 mmol/L [facility] Chloride 104 96 - 108 mmol/L [facility] Carbon Dioxide 26 22 - 29 mmol/L [facility] Anion Gap 11(L) 12 - 20 [facility] Urea Nitrogen (BUN) 10 9 - 16 mg/dL [facility] Creatinine, Serum 0.73 0.5 - 1.4 mg/dL [facility] Estimated Glomerular Filt Rate >60 [facility] Comment:Chronic Kidney Disea se: Estimated GFR < 60 mL/min/1.68z3Ppxrjt Kidney Disease: Estimated GFR < 15 mL/min/1.73m2 Glucose 106 60 - 115 mg/dL [facility] Calcium 9.4 8.4 - 10.2 mg/dL [facility] Bilirubin, Total 0.5 0.0 - 1.0 mg/dL [facility] Aspartate Amino Transferase 29 5 - 31 U/L [facility] Alanine Aminotransferase 21 0 - 31 U/L [facility] Total Protein 7.3 6.5 - 8.0 g/dL [facility] Albumin Level 4.6 3.5 - 5.0 g/dL [facility] Alkaline Phosphatase 90 39 - 117 U/L [facility] Blood Venous blood specimen / Unknown 02/02/2025 9:40 AM EDT 02/02/2025 2:04 PM EDT us Jenn Gonzalez MD LAB BLOOD ORDERABLES Final Result [facility] [address] [place] [phone] * (ABNORMAL) Cologuard?? colon cancer screening (11/02/2024 7:55 AM EDT) Cologuard Result Positive( A) Negative 11/06/2024 1:52 PM EDT [employer] (CLIA #:[id number]) Comment: The Cologuard (TM) test was performed on this specimen. POSITIVE TEST RESULT. A positive Cologuard result should be followed with a colonoscopy or visual examination of the colon. The normal value (reference range) for this assay is negative. TEST DESCRIPTION: Composite algorithmic analysis of stool DNA-biomarkers with hemoglobin immunoassay. Quantitative values of individual biomarkers are not [...] (Miguel Arora al, N Engl J Med 2014;370(14):2069-1227.) Cologuard may produce a false negative or false positive result (no colorectal cancer or precancerous polyp present at colonoscopy follow up). A negative Cologuard test result does not guarantee the absence of CRC or advanced adenoma (pre-cancer). The current Cologuard screening interval is every 3 years. ([place] [employer] Society and U.S. Multi-Society Task Force). Cologuard performance data in a 10,000 patient pivotal study using colonoscopy as the reference method can be accessed at the following location: [email or web address]/results. Additional description of the Cologuard test process, warnings and precautions can be found at www.cologuard.com. Stool specimen (specimen) 11/02/2024 7:55 AM EDT 11/03/2024 12:47 PM EDT us Jenn Gonzalez MD LAB MOLECULAR DIAGNOSTICS O RDERABLES Final Result [employer] (CLIA #:[id number]) [address] [place] [address], * 3D DIGITAL ARAVIND SCR MAMMO 1 [...] Most Recently Relevant to Health Maintenance Insurance [facility] [employer] (O D-SNP) [place] [id number] Care Teams Cord Tire Builder Relationship Specialty Start Date End Date Jenn Gonzalez MD [address] [place] [phone] PCP - General Internal Medicine 12/29/14
--- OUTSIDE RECORDS SUMMARY | 2025-03-23 11:47 | XMS_ITS | Encounter Summary ---
Author Organization [employer] Address [address] [facility] [facility] [address] [place] [address] Care Team Providers Care Legislative Advocate Name Role Phone Jenn Gonzalez MD Primary Care Provider [phone] Reason for Visit * Reason Comments Med Refill Encounter Details Date Type Department Care Team ([facility] Contact Info) Description 09/30/2023 Refill [facility] [address] [place], [place] [phone] Jenn Gonzalez MD [address] [place], [place] [phone] Social History Tobacco Use Types Packs/Day Years [...] Description 03/25/2025 9:30 AM EDT Office Visit [facility] [address] [place] [address] Jenn Gonzalez MD [address] [place] [address] documented as of this encounter Visit Diagnoses Not on filedocumented in this encounter Care Teams Legislative Advocate Relationship Specialty Start Date End Date Jenn Gonzalez MD [address] [place] [address] PCP - General Internal Medicine 12/29/14 documented as of this encounter
--- OUTSIDE RECORDS SUMMARY | 2025-03-23 11:47 | XMS_ITS | Encounter Summary ---
Author Organization [employer] Address [address] [facility] [address] [place] [address] Care Team Providers Care Construction Rep Name Role Phone Jenn Gonzalez MD Primary Care Provider [phone] Reason for Visit * Reason Onset Date Comments Durable Medical Equipment 06/12/2024 Encounter Details Date Type Department Care Team ([facility] Contact Info) Description 06/12/2024 Telephone [facility] [address] [place] [address] Jenn Gonzalez MD [address] [place], [place] [phone] Durable Medical Equipment Social History Tobacco Use [...] to hold on. Contact pt Daughter at [phone] * Telephone Encounter - Uzma Manjarrez LPN - 06/15/2024 3:14 PM EST Please review pt requested below. Posting Machine Operator did review pt however didn't notice any [...] Description 03/25/2025 9:30 AM EDT Office Visit [facility] [address] [place] [address] Jenn Gonzalez MD [address] [place] [address] documented as of this encounter Visit Diagnoses Not on filedocumented in this encounter Additional Health Concerns Assessment Noted Time PHQ-9 Depression Total Score: 14 024 9:24 AM EDT documented as of this encounter Care Teams Construction Rep Relationship Specialty Start Date End Date Jenn Gonzalez MD [address] [place] [address] PCP - General Internal Medicine 12/29/14 documented as of this encounter
--- OUTSIDE RECORDS SUMMARY | 2025-03-23 11:47 | XMS_ITS | Encounter Summary ---
Author Organization [employer] Address 75 [facility] 7t [place] [address] Care Team Providers Care Stucco Plasterer Name Role Phone Jenn Gonzalez MD Primary Care Provider [phone] Reason for Visit * Reason Onset Date Comments Appointment Request 09/28/2024 Encounter Details Date Type Department Care Team ([facility] Contact Info) Description 09/28/2024 Telephone [facility] MEDICINE [address] [place], [place] [phone] Jenn Gonzalez MD [address] [place], [place] [phone] Appointment Request Social History Tobacco Use Types [...] R/s Appt from 09/02/24. Contact pt at [phone] documented in this encounter Plan of Treatment Upcoming Encounters Date Type Department Care Team (Late st Contact Info) Description 03/25/2025 9:30 AM EDT Office Visit [facility] CH[facility] MED & PEDS [address] [place] [address] Jenn Gonzalez MD [address] [place] [address] documented as of this encounter Visit Diagnoses Not on filedocumented in this encounter Additional Health Concerns Assessment Noted Time PHQ-9 Depression Total Score: 14 024 9:24 AM EDT documented as of this encounter Care Teams Stucco Plasterer Relationship Specialty Start Date End Date Jenn Gonzalez MD [address] [place] [address] PCP - General Internal Medicine 12/29/14 documented as of this encounter
--- OUTSIDE RECORDS SUMMARY | 2025-03-23 11:47 | XMS_ITS | Encounter Summary ---
Author Organization [employer] Address 75 [facility] 7t [place] [address] Care Team Providers Care Head Bucker Name Role Phone Jenn Gonzalez MD Primary Care Provider [phone] Encounter Details Date Type Department Care Team ([facility] Contact Info) Description 01/30/[address] [facility] CHC MED & PEDS [address] [place], [place] [phone] Jenn Gonzalez MD 505 [place], [place] [phone] Right hand pain (Primary Dx) Social History [...] Upcoming Encounters Date Type Department Care Team ([facility] st Contact Info) Description 03/25/2025 9:30 AM EDT Office Visit [facility] CHC MED & PEDS 505 [place] [address] Jenn Gonzalez MD 505 [place] [address] documented as of this encounter Visit Diagnoses Diagnosis Right hand pain- Primary Pain in soft tissues of limb documented in this encounter Care Teams Head Bucker Relationship Specialty Start Date End Date Jenn Gonzalez MD [address] [place] [address] PCP - General Internal Medicine 12/29/14 documented as of this encounter
--- OUTSIDE RECORDS SUMMARY | 2025-03-23 11:47 | XMS_ITS | Encounter Summary ---
Author Organization [employer] Address [address] [place] [address] 7 [place] [address] Care Team Providers Care Writer Technical Publications Name Role Phone Jenn Gonzalez MD Primary Care Provider [phone] Encounter Details Date Type Department Care Team (Late st Contact Info) Description 11/27/[address] [facility] MED & PEDS 505 [place] [address] Evangelina Santana LPN Social History Tobacco Use [...] 03/25/2025 9:30 AM EDT Office Visit [facility] MED & PEDS 505 [place] [address] Jenn Gonzalez MD 505 [place] [address] documented as of this encounter Visit Diagnoses Not on filedocumented in this encounter Care Teams Writer Technical Publications Relationship Specialty Start Date End Date Jenn Gonzalez MD 505 [place] [address] PCP - General Internal Medicine 12/29/14 documented as of this encounter
--- OUTSIDE RECORDS SUMMARY | 2025-03-23 11:47 | XMS_ITS | Clinical Summary ---
Author Organization [facility] Address [address] [place] [address] Phone Care Team Providers Care Fur Trapper Name Role Phone Jenn Gonzalez MD Primary [...] file Medical Devices Not on file Insurance [facility] C3 ACO C3 ACO C3 ACO C3 ACO C3 ACO [address] [place] [address] [place] [address] [place] [address] [place] [address] C3 ACO [facility] C3 ACO Care Teams Fur Trapper Relationship Specialty Start Date End Date Jenn Gonzalez MD PCP - General 04/23/17 Additional Source Comments The information contained in this document represents components of the legal health record. It is not the complete legal health record.[facility]
== END 2025-03-23 10:07 | disposition home or self-care (01) ==
LOC: HO.HCS 09:21
PROVIDERS: PCP Internal Medicine; Visit Provider Nurse Practitioner Family
DX: I25.10 Atherosclerotic heart disease of native coronary artery without angina pectoris (principal); Z98.890 Other specified postprocedural states; Z95.5 Presence of coronary angioplasty implant and graft; R00.1 Bradycardia, unspecified; R94.31 Abnormal electrocardiogram [ECG] [EKG]; I10 Essential (primary) hypertension; E78.5 Hyperlipidemia, unspecified; Z01.810 Encounter for preprocedural cardiovascular examination
CPT/HCPCS: 93010; 99214; G2211

== ENCOUNTER → 2025-03-23 09:20 | Outpatient (BNVA) | payer OTHER, SELFPAY | PROVIDERS: PCP Internal Medicine; Visit Provider Nurse Practitioner Family | DX: Z01.810 Encounter for preprocedural cardiovascular examination (principal); I25.10 Atherosclerotic heart disease of native coronary artery without angina pectoris; R00.1 Bradycardia, unspecified; Z95.5 Presence of coronary angioplasty implant and graft; R94.31 Abnormal electrocardiogram [ECG] [EKG]; I10 Essential (primary) hypertension; E78.5 Hyperlipidemia, unspecified | CPT/HCPCS: 93005; 99212 ==

== ENCOUNTER → 2025-03-26 09:59 | Outpatient (REF) | payer OTHER, SELFPAY ==
--- OUTSIDE RECORDS SUMMARY | 2025-03-25 09:30 | XMS_ITS | Encounter Summary ---
Author Organization [employer] Address 75 [facility] 7 [place] [address] Care Team Providers Care X Ray Developing Machine Operator Name Role Phone Jenn Gonzalez MD Primary Care Provider [phone] Reason for Referral * Imaging (Routine) - Authorized Specialty Diagnoses / Procedures Referred By Deshawn t Referred To Contact Radiology Diagnoses Encounter for screening mammogram for malignant neoplasm of breast Procedures BI Mammogram Screening Tomosynthesis Bilateral Jenn Gonzalez MD [address] [place] [address] Phone: tel: fax: [address] Phone: tel: fax: Referral ID Status Reason Start Date Expiration Date V isits Requested Visits Authorized [id number] Authorized 03/25/2025 03/25/2026 1 1 Reason for Visit * Reason Comments Hypertension Encounter Details Date Type Department Care Team (Late st Contact Info) Description 03/25/2025 9:30 AM EDT Office Visit [facility] CHC MED & PEDS [address] [place] [address] Jenn Gonzalez MD [address] [place] [address] Essential hypertension (Primary Dx); Encounter for screening mammogram for malignant neoplasm of breast Social History Tobacco Use Types Packs/Day Years [...] AM EDT documented as of this encounter Last Filed Vital Signs Vital Sign Reading Time Taken Comments Blood Pressure 134/74 03/25/2025 9:43 AM EDT Pulse 52 03/25/2025 9:43 AM EDT Temperature 36.6 C (97.9 F) 03/25/2025 9:43 AM EDT Respiratory Rate 19 03/25/2025 9:43 AM EDT Oxygen Saturation 98% 03/25/2025 9:43 AM EDT Inhaled Oxygen Concentration - - Weight 84.4 kg (186 lb) 03/25/2025 9:43 AM EDT Height 154.9 cm (5' 1 ) 03/25/2025 9:43 AM EDT Body Mass Index 35.14 03/25/2025 9:43 AM EDT documented in this encounter Progress Notes * Jenn Gonzalez MD - 03/25/2025 9:30 AM EDT SUBJECTIVE America Brooke is a 70 y.o. female who presents for Hypertension. Hypertension This is a chronic problem. The problem is controlled. Associated symptoms include anxiety. Pertinent negatives include no blurred vision, chest pain, malaise/fatigue, neck pain, orthopnea, peripheraledema, PND or shortness of breath. Evaluation by [facility] on 03/23. Pt was c/o dizziness ( lightheadedness) on Lisinopril 20-12.5 mg . Will be scheduled for a holter monitor. Pt has resumed 10-12.5 mg lisinopril-hydrochlorothiazide w/ improvement since yesterday. No lightheadedness reported today during the evaluation. Problem List[1] Allergies[2] Medications Ordered Prior to Encounter[3] Review of Systems Constitutional: Negative for chills, diaphoresis and malaise/fatigue. Eyes: Negative for blurred vision. Respiratory: Negative for shortness of breath. Cardiovascular: Negative for chest pain, orthopnea and PND. Genitourinary: Negative for decreased urine volume, flank pain, frequency, genital sores and vaginal bleeding. Musculoskeletal: Negative for neck pain. OBJECTIVE Vitals: 03/25/25 0943 BP: 134/74 BP Location: Left arm Patient Position: Sitting BP Cuff Size: Adult Pulse: 52 Resp: 19 Temp: 97.9 ??F (36.6 ??C) TempSrc: Oral SpO2: 98% Weight: 186 lb (84.4 kg) Height: 5' 1 (1.549 m) Physical Exam Constitutional: General: She is not in acute distress. Appearance: Normal appearance. She is not ill-appearing, toxic-appearing or diaphoretic. Cardiovascular: Rate and Rhythm: Normal rate and regular rhythm. Pulmonary: Effort: Pulmonary effort is normal. Neurological: Mental Status: She is alert. Assessment/Plan Assessment/Plan Diagnoses and all orders for this visit: Essential hypertension Comments: Resume lisinopril-HCTZ 10-12.5 mg call the office if BP at home is below 90/70 mm/Hg or if having dizziness. Orders: - lisinopril-hydroCHLOROthiazide 10-12.5 MG tablet; Take 1 tablet by mouth Once per day. 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 (CMS/HCC) Smoking addiction Osteochondritis dissecans of ankle, right Osteoarthritis of right ankle [2] Allergies Allergen Reactions Haemophilus B Polysacc Tetanus Toxoid Conj Vaccine [3] Current Outpatient Medications on File Prior to Visit Medication Sig Dispense Refill acetaminophen-codeine (Tylenol #3) 300-30 MG tablet TAKE ONE TABLET EVERY 8 HOURS 20 tablet 0 atorvastatin (Lipitor) 20 MG tablet TAKE ONE TABLET EVERY DAY 90 tablet 3 Blood Pressure kit To use once a day 1 kit 0 cholecalciferol (Vitamin D-3) 50 MCG (2000 UT) capsule TAKE ONE CAPSULE BY MOUTH EVERY DAY cholecalciferol VITAMIN D (Vitamin D-3) 50 MCG (2000 UT) capsule TAKE ONE CAPSULE EVERY DAY 30 capsule 5 clonazePAM (KlonoPIN) 1 MG tablet Take 1 tablet (1 mg) by mouth at bedtime for 28 days. 28 tablet 0 Diclofenac Sodium 1 % gel To apply to the affected area 3 times a day 100 g 0 fluticasone (Flonase) 50 MCG/ACT nasal spray Administer 1-2 sprays into each nostril in the morning. Shake gently. Before first use, prime pump. After use, clean tip and replace cap. 16 g 11 lidocaine (LMX 4) 4 % cream Apply topically if needed in the morning, at noon, in the evening, and at bedtime for mild pain. 60 g 2 naproxen (Naprosyn) 500 MG tablet Take 1 tablet (500 mg) by mouth 2 times daily. 60 tablet 0 nicotine (Nicoderm CQ) 7 MG/24HR patch Place 1 patch on the skin 1 (one) time each day at the same time. 30 patch 0 [DISCONTINUED] lisinopril-hydroCHLOROthiazide 20-12.5 MG tablet Take 1 tablet by mouth Once per day. 30 tablet 11 No current facility-administered medications on file prior to visit. documented in this encounter Plan of Treatment Scheduled Orders Name Type Priority Associated Diagnoses Orde r Schedule BI Mammogram Screening Tomosynthesis Bilateral Imaging Routine Encounter for screening mammogram for malignant neoplasm of breast Expected: 03/25/2025, Expires: 05/25/2026 documented as of this encounter Visit Diagnoses Diagnosis Essential hypertension- Primary Unspecified essential hypertension Encounter for screening mammogram for malignant neoplasm of breast documented in this encounter Additional Health Concerns Assessment Noted Time PHQ-9 Depression Total Score: 0 10/23/19 25 10:21 AM EDT documented as of this encounter Care Teams X Ray Developing Machine Operator Relationship Specialty Start Date End Date Jenn Gonzalez MD [address] [place] [address] PCP - General Internal Medicine 12/29/14 documented as of this encounter
--- NOTE | 2025-03-26 10:01 | HM_ITS ---
* Total monitoring time 3 days. * Underlying rhythm is sinus with an average rate of 59/Min. About 41% of the time, rate < 60/Min. * Rare supraventricular ectopy. * Rare ventricular ectopy. * Some strips have a lot of artifact and cannot assess the underlying rhythm. * No significant pauses or high-grade AV blocks. * No patient markers or diary events. MTDD
--- OUTSIDE RECORDS SUMMARY | 2025-03-26 10:31 | XMS_ITS | Encounter Summary ---
Author Organization [employer] Address 75 [facility] 7t [place] [address] Care Team Providers Care Band Tier Name Role Phone Jenn Gonzalez MD Primary Care Provider [phone] Reason for Visit * Reason Comments Med Refill Encounter Details Date Type Department Care Team ([facility] Contact Info) Description 03/25/2024 Refill [facility] CHC MED & PEDS [address] [place], [place] [phone] Jenn Gonzalez MD 505 [place], [place] [phone] Generalized anxiety disorder Social History Tobacco Use [...] on file documented as of this encounter Visit Diagnoses Diagnosis Generalized anxiety disorder documented in this encounter Care Teams Band Tier Relationship Specialty Start Date End Date Jenn Gonzalez MD [address] [place] [address] PCP - General Internal Medicine 12/29/14 documented as of this encounter
--- OUTSIDE RECORDS SUMMARY | 2025-03-26 10:31 | XMS_ITS | Encounter Summary ---
Author Organization [employer] Address [address] [facility] 7t [place] [address] Care Team Providers Care Ring Attacher Name Role Phone Jenn Gonzalez MD Primary Care Provider [phone] Reason for Visit * Reason Onset Date Comments Appointment Request 09/01/2024 Encounter Details Date Type Department Care Team ([facility] Contact Info) Description 09/01/2024 Telephone [facility] MEDICINE [address] [place], [place] [phone] Jenn Gonzalez MD 505 [place], [place] [phone] Appointment Request Social History Tobacco Use Types [...] documented in this encounter Plan of Treatment Not on file documented as of this encounter Visit Diagnoses Not on filedocumented in this encounter Additional Health Concerns Assessment Noted Time PHQ-9 Depression Total Score: 14 024 9:24 AM EDT documented as of this encounter Care Teams Ring Attacher Relationship Specialty Start Date End Date Jenn Gonzalez MD [address] [place] [address] PCP - General Internal Medicine 12/29/14 documented as of this encounter
--- OUTSIDE RECORDS SUMMARY | 2025-03-26 10:31 | XMS_ITS | Encounter Summary ---
Author Organization [employer] Address 75 [facility] 7 [place] [address] Care Team Providers Care Visitor Services Coordinator Name Role Phone Jenn Gonzalez MD Primary Care Provider [phone] Reason for Visit * Reason Onset Date Comments Chart Prep 03/24/2025 Encounter Details Date Type Department Care Team ([facility] Contact Info) Description 03/24/2025 Telephone [facility] CHC MED & PEDS 505 [place], [place] [phone] Jenn Gonzalez MD [address] [place] [address] Chart Prep Social History Tobacco Use Types Packs/Day Years [...] encounter Miscellaneous Notes * Telephone Encounter - Ivory Muhammad [place] - 03/24/2025 3:05 PM EDT Chart Prep Labs: done Images: done Referrals: complete Vaccines due: due Screenings: mammogram Overdue care gaps: Not applicable documented in this encounter Plan of Treatment Not on file documented as of this encounter Visit Diagnoses Not on filedocumented in this encounter Additional Health Concerns Assessment Noted Time PHQ-9 Depression Total Score: 0 10/23/19 25 10:21 AM EDT documented as of this encounter Care Teams Visitor Services Coordinator Relationship Specialty Start Date End Date Jenn Gonzalez MD [address] [place] [address] PCP - General Internal Medicine 12/29/14 documented as of this encounter
--- OUTSIDE RECORDS SUMMARY | 2025-03-26 10:31 | XMS_ITS | Encounter Summary ---
Author Organization [employer] Address 75 [facility] 7t [place] [address] Care Team Providers Care Material Manager Name Role Phone Jenn Gonzalez MD Primary Care Provider [phone] Encounter Details Date Type Department Care Team ([facility] Contact Info) Description 10/04/2023 Orders Only [facility] CHC MED & PEDS 505 [place], [place] [phone] Jenn Gonzalez MD 505 [place], [place] [phone] Multiple joint pain (Primary Dx) Social History [...] sites documented in this encounter Care Teams Material Manager Relationship Specialty Start Date End Date Jenn Gonzalez MD [address] [place] [address] PCP - General Internal Medicine 12/29/14 documented as of this encounter
--- OUTSIDE RECORDS SUMMARY | 2025-03-26 10:31 | XMS_ITS | Encounter Summary ---
Author Organization [employer] Address 75 [facility] 7t [place] [address] Care Team Providers Care Tool Design Engineer Name Role Phone Jenn Gonzalez MD Primary Care Provider [phone] Reason for Visit * Reason Onset Date Comments Appointment Request 09/28/2024 Encounter Details Date Type Department Care Team ([facility] Contact Info) Description 09/28/2024 Telephone [facility] MEDICINE 230 [place], [place] [phone] Jenn Gonzalez MD 505 [place], [place] [phone] Appointment Request Social History Tobacco Use Types [...] R/s Appt from 09/02/24. Contact pt at [phone] documented in this encounter Plan of Treatment Not on file documented as of this encounter Visit Diagnoses Not on filedocumented in this encounter Additional Health Concerns Assessment Noted Time PHQ-9 Depression Total Score: 14 024 9:24 AM EDT documented as of this encounter Care Teams Tool Design Engineer Relationship Specialty Start Date End Date Jenn Gonzalez MD [address] [place] [address] PCP - General Internal Medicine 12/29/14 documented as of this encounter
--- OUTSIDE RECORDS SUMMARY | 2025-03-26 10:31 | XMS_ITS | Encounter Summary ---
Author Organization [employer] Address 75 [facility] 7t [place] [address] Care Team Providers Care Molding Room Supervisor Name Role Phone Jenn Gonzalez MD Primary Care Provider [phone] Encounter Details Date Type Department Care Team ([facility] Contact Info) Description 10/24/2023 Orders Only [facility] CHC MED & PEDS 505 [place], [place] [phone] Jenn Gonzalez MD 505 [place] [address] Social History Tobacco Use Types Packs/Day Years [...] on file documented as of this encounter Procedures Procedure Name Priority Date/Time Associated Diagnosis Comments STRESS TEST WITH MYOCARDIAL PERFUSION Routine 10/30/2023 2:15 PM EDT documented in this encounter Results * Stress test with myocardial perfusion (10/30/2023 2:15 PM EDT) 10/30/2023 2:15 PM EDT Narrative [facility] - 10/30/2023 3:24 PM EDT [address] [address] Nuclear Medicine Report Signed Patient: America Brooke MR#: [id number] 52 : 1955 Acct:[id number] Age/Sex: 68 / F ADM Date: 10/24/23 Loc: [facility] Attending Dr: Flip Mandujano MD Ordering Physician: Flip Mandujano MD Date of Service: 10/24/23 Procedure(s): NM cardiolite stress test Accession Number(s): [id number] cc: Jenn Gonzalez MD; Flip Mandujano MD [...] in OV> 10/30/23 1521 DD/ 1415 TD/TT: Staff Counselor: Procedure Note Donotuseinterpreter, Image - 10/30/2023 [place] [address] Nuclear Medicine Report Signed Patient: Chinyere Brooke#: [id number] 52 : 7Acct:[id number] Age/Sex: 68 / FADM Date: 10/24/23 Loc: [facility] Attending Dr: Flip Mandujano MD Ordering Physician: Flip Mandujano MD Date of Service: 10/24/23 Procedure(s): NM cardiolite stress test Accession Number(s): [id number] cc: Jenn Gonzalez MD; Flip Mandujano MD [...] MD inOV> 10/30/23 1521 DD/ 1415 TD/TT: Staff Counselor: us [facility] External Provider CV STRE SS PROCEDURES Final Result [facility] [address] [place] [address] documented in this encounter Visit Diagnoses Not on filedocumented in this encounter Care Teams Molding Room Supervisor Relationship Specialty Start Date End Date Jenn Gonzalez MD [address] [place] [address] PCP - General Internal Medicine 12/29/14 documented as of this encounter
--- OUTSIDE RECORDS SUMMARY | 2025-03-26 10:31 | XMS_ITS | Encounter Summary ---
Author Organization [employer] Address 75 [facility] 7t [place] [address] Care Team Providers Care Operations Lead Name Role Phone Jenn Gonzalez MD Primary Care Provider [phone] Encounter Details Date Type Department Care Team (Latest Contact Info) Description 03/25/2025 Travel Social History Tobacco Use Types Packs/Day Years Used Date Smoking Tobacco: Former Cigarettes Q uit: 2018 Smokeless Tobacco: Never Depression Answer Date Recorded Patient Health Questionnaire-9 Score 0 10/22/2024 Patient Health Questionnaire-9 Score 0 10/22/2024 Last PHQ-9: Questionnaire Data Not on file 0 10/22/2024 Housing Stability Answer Date Recorded What is your housing situation today? I have [facility] 10/14/[address] you li [...] documented as of this encounter Care Teams Operations Lead Relationship Specialty Start Date End Date Jenn Gonzalez MD [address] [place] [address] PCP - General Internal Medicine 12/29/14 documented as of this encounter
--- OUTSIDE RECORDS SUMMARY | 2025-03-26 10:31 | XMS_ITS | Encounter Summary ---
Author Organization [employer] Address 75 [facility] 7 [place] [address] Care Team Providers Care Rn Peritoneal Dialysis Name Role Phone Jenn Gonzalez MD Primary Care Provider [phone] Encounter Details Date Type Department Care Team ([facility] Contact Info) Description 11/27/2022 Orders Only [facility] CHC MED & PEDS [address] [place], [place] [phone] Evangelina Santana LPN Social History Tobacco Use [...] on filedocumented in this encounter Care Teams Rn Peritoneal Dialysis Relationship Specialty Start Date End Date Jenn Gonzalez MD [address] [place] [address] PCP - General Internal Medicine 12/29/14 documented as of this encounter
--- OUTSIDE RECORDS SUMMARY | 2025-03-26 10:31 | XMS_ITS | Encounter Summary ---
Author Organization [employer] Address 75 [facility] 7t [place] [address] Care Team Providers Care Wine Merchant Name Role Phone Jenn Gonzalez MD Primary Care Provider [phone] Reason for Visit * Reason Comments Med Refill Encounter Details Date Type Department Care Team ([facility] Contact Info) Description 09/30/2023 Refill [facility] CHC MED & PEDS [address] [place], [place] [phone] Jenn Gonzalez MD 505 [place], [place] [phone] Social History Tobacco Use Types Packs/Day Years [...] on filedocumented in this encounter Care Teams Wine Merchant Relationship Specialty Start Date End Date Jenn Gonzalez MD [address] [place] [address] PCP - General Internal Medicine 12/29/14 documented as of this encounter
--- OUTSIDE RECORDS SUMMARY | 2025-03-26 10:31 | XMS_ITS | Encounter Summary ---
Author Organization [employer] Address [address] [place] [address] 7 [place] [address] Care Team Providers Care Litigation Docket Manager Name Role Phone Jenn Gonzalez MD Primary Care Provider [phone] Reason for Referral * Consultation (Routine) - Closed Specialty Diagnoses / Procedures Referred By Deshawn jones Referred To Contact Behavioral Health Diagnoses Anxiety Jenn Gonzalez MD [address] [place] [address] Phone: tel: fax: Referral ID Status Reason Start Date Expiration Date V isits Requested Visits Authorized [id number] Closed Specialty Services Required 04/17/2024 04/17/2025 1 1 Encounter Details Date Type Department Care Team ([facility] st Contact Info) Description 04/17/2024 Orders Only [facility] CHC MED & PEDS [address] [place] [address] Jenn Gonzalez MD 505 [place], [place] [phone] Anxiety (Primary Dx) Social History Tobacco Use [...] as of this encounter Plan of Treatment Scheduled Referrals Name Type Priority Associated Diagnoses Order Schedule Referral to Behavioral Health Outpatient Referral Routine Anxiety Expected: 04/17/2024 (Approximate), Expires: 04/17/2025 documented as of this encounter Visit Diagnoses Diagnosis Anxiety- Primary Anxiety state, unspecified documented in this encounter Care Teams Litigation Docket Manager Relationship Specialty Start Date End Date Jenn Gonzalez MD [address] [place] [address] PCP - General Internal Medicine 12/29/14 documented as of this encounter
--- OUTSIDE RECORDS SUMMARY | 2025-03-26 10:31 | XMS_ITS | Encounter Summary ---
Author Organization [employer] Address [address] [facility] 7t [place] [address] Care Team Providers Care Driving School Instructor Name Role Phone Jenn Gonzalez MD Primary Care Provider [phone] Reason for Visit * Reason Onset Date Comments Appointment Request 03/25/2024 Encounter Details Date Type Department Care Team ([facility] Contact Info) Description 03/25/2024 Telephone [facility] MEDICINE [address] [employer] [place], [place] [phone] Jenn Gonzalez MD [address] [place], [place] [phone] Appointment Request Social History Tobacco Use Types [...] on filedocumented in this encounter Care Teams Driving School Instructor Relationship Specialty Start Date End Date Jenn Gonzalez MD [address] [place] [phone] PCP - General Internal Medicine 12/29/14 documented as of this encounter
--- OUTSIDE RECORDS SUMMARY | 2025-03-26 10:31 | XMS_ITS | Encounter Summary ---
Author Organization [employer] Address [address] [facility] 7t [place] [address] Care Team Providers Care Alcohol Rubber Name Role Phone Jenn Gonzalez MD Primary Care Provider [phone] Reason for Visit * Reason Onset Date Comments Durable Medical Equipment 06/12/2024 Encounter Details Date Type Department Care Team ([facility] Contact Info) Description 06/12/2024 Telephone [facility] MEDICINE [address] [place] [address] Jenn Gonzalez MD [address] [place], [place] [phone] Durable Medical Equipment Social History Tobacco Use [...] to hold on. Contact pt Daughter at [phone] * Telephone Encounter - Uzma Manjarrez LPN - 06/15/2024 3:14 PM EST Please review pt requested below. Insurance Adjustor did review pt however didn't notice any [...] documented as of this encounter Care Teams Alcohol Rubber Relationship Specialty Start Date End Date Jenn Gonzalez MD [address] [place] [phone] PCP - General Internal Medicine 12/29/14 documented as of this encounter
--- OUTSIDE RECORDS SUMMARY | 2025-03-26 10:31 | XMS_ITS | Clinical Summary ---
Author Organization [facility] Address [address] [place] [phone] Phone Care Team Providers Care Course Instructor Name Role Phone Jenn Gonzalez MD [...] file Medical Devices Not on file Insurance [facility] C3 ACO C3 ACO C3 ACO C3 ACO C3 [employer]CO [place] [place] [address] [place] [address] [place] [address] [place] [address] C3 ACO [facility] C3 ACO Care Teams Course Instructor Relationship Specialty Start Date End Date Jenn Gonzalez MD PCP - General 04/23/17 Additional Source Comments The information contained in this document represents components of the legal health record. It is not the complete legal health record.[facility]
--- OUTSIDE RECORDS SUMMARY | 2025-03-26 10:31 | XMS_ITS | Clinical Summary ---
Author Organization [employer] Address 75 [facility] 7t [place] [address] Care Team Providers Care Benefits Director Name Role Phone Jenn Gonzalez MD Primary Care Provider [phone] Allergies Active Allergy Reactions Criticality Noted Date [...] 23 Active cholecalciferol (Vitamin D-3) 50 MCG (1999 UT) capsule TAKE ONE CAPSULE BY MOUTH EVERY DAY 09/03/19 23 Active Blood Pressure kitIndications:Ess ential hypertension To use once a day 1 kit 02/13/20 23 Active atorvastatin (Lipitor) 20 MG tabletIndications: Hypercholesterolem ia TAKE ONE TABLET EVERY DAY 90 tablet 3 06/17/20 23 Active fluticasone (Flonase) 50 MCG/ACT nasal sprayIndications:A cute sinusitis with symptoms greater than 10 days Administer 1-2 sprays into each nostril in the morning. Shake gently. Before first use, prime pump. After use, clean tip and replace cap. 16 g 11 09/12/19 24 Active naproxen (Naprosyn) 500 MG tabletIndications: Multiple joint pain Take 1 tablet (500 mg) by mouth 2 times daily. 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 30 patch 10/23/19 25 Active clonazePAM (KlonoPIN) 1 MG tabletIndications: Generalized anxiety disorder Take 1 tablet (1 mg) by mouth at bedtime for 28 days. 28 tablet 11/04/19 25 Active cholecalciferol VITAMIN D (Vitamin D-3) 50 MCG (1999 UT) capsule TAKE ONE CAPSULE EVERY DAY 30 capsule 5 12/24/19 25 Active lidocaine (LMX 4) 4 % creamIndications:O steochondritis dissecans of ankle, right,Other secondary osteoarthritis of right ankle Apply topically if needed in the morning, at noon, in the evening, and at bedtime for mild pain. 60 g 2 02/03/20 25 026 Active lisinopril-hydroCH LOROthiazide 10-12.5 MG tabletIndications: Essential hypertension Take 1 tablet by mouth Once per day. 30 tablet 03/25/20 25 026 Active lisinopril-hydroCH LOROthiazide 20-12.5 MG tabletIndications: Essential hypertension Take 1 tablet by mouth Once per day. 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 10/22/2024 Smoking addiction 10/22/2024 SARATH (generalized anxiety disorder) 04/28/2024 Impaired fasting glucose 10/20/2021 Backache 10/26/2011 Depressive disorder 10/26/2011 Essential hypertension 10/26/2011 Pure hypercholesterolemia 10/26/2011 Vitamin D deficiency 10/26/2011 Encounters Date Type Department Care Team Description 03/25/2025 9:30 AM EDT Office Visit [facility] MED & PEDS [address] [place] [address] Jenn Gonzalez MD Essential hypertension (Primary Dx); Encounter for screening mammogram for malignant neoplasm of breast 03/25/2025 Travel 03/24/2025 Telephone [facility] PED[facility] [address] [place] [address] Jenn Gonzalez MD Chart Prep 02/02/2025 9:00 AM EDT Office Visit [facility] [address] [place] [address] Jenn Gonzalez MD Essential hypertension (Primary Dx); Depressive disorder; Pure hypercholesterolemia; Screening for osteoporosis; Encounter for immunization; Dietary counseling; Exercise counseling; Class 2 severe obesity due to excess calories with serious comorbidity and body mass index (BMI) of 35.0 to 35.9 in adult ([facility]); Osteochondritis dissecans of ankle, right; Other secondary osteoarthritis of right ankle 02/02/2025 Results Follow-Up [facility] [address] [place] [address] Jenn Gonzalez MD CBC auto differential, Comprehensive Metabolic Panel, Lipid Panel, Standard, Additional followed-up results: 2 02/02/2025 Travel from Last 3 Months Immunizations Immunization Administration [...] Mass Index 35.14 03/25/2025 9:43 AM EDT Plan of Treatment Health Maintenance Due Date Last Done Comments CT Colonography 1957 Colonoscopy 1957 FIT 1957 Sigmoidoscopy 1957 RSV Patients and Patients Aged 60 years or older (1 - Risk 60-74 years 1-dose series) 2017 Zoster Vaccines (2 of 3) 06/14/2017 04/19/2017 Mammogram 05/26/2021 05/26/2019 COVID-19 Vaccine (4 - season) 2025 04/20/2021, 08/11/2020, 07/21/2020 SDOH Screening 10/14/2025 10/14/2024 Alcohol/Substance Use Screening 10/22/2025 10/22/2024 Depression Screening 10/22/2025 10/22/2024, 10/23/19 25 FOBT 11/02/2025 11/02/2024 DTaP/Tdap/Td Vaccines (1 - Tdap) 02/02/2026 Postponed from 01/17/1976 (Patient Refused) Tobacco Screening 03/25/2026 03/25/2025 Colorectal Cancer Screening 11/03/2027 FIT DNA/Cologuard 11/03/2027 11/02/2024 Lipid Panel 02/02/2030 02/02/2025, 12/0 10/2023, 02/12/2023, Additional history exists Hepatitis C Screening Completed 02/02/2025 Pneumococcal Vaccine: 50+ Years Completed 02/02/2025, 03/16/2017 Influenza Vaccine Completed 02/08/2025, , 04/02/2022, Additional history exists HIB Vaccines Aged Out [...] topic Meningococcal Vaccine Aged Out No tamanna herbetr eligible based on patient's age to complete [...] Free T4 1.45 0.32 - 4.0 uIU/mL [facility] Blood Venous blood specimen / Unknown 02/02/2025 9:40 AM EDT 02/02/2025 2:04 PM EDT us Jenn Gonzalez MD LAB BLOOD ORDERABLES Final Result [facility] [address] [place] [phone] * (ABNORMAL) CBC auto differential (02/02/2025 9:40 AM EDT) White Blood Count 6.7 4.8 - 10.8 X10*3/uL [facility] Red Blood Count 4.09(L) 4.20 - 5.50 X10*6/uL [facility] Hemoglobin 12.5 12.0 - 16.0 g/dl [facility] Hematocrit 38.7 37.0 - 47.0 % [facility] Mean Corpuscular Volume 94.6 80.0 - 98.0 fL [facility] Mean Corpuscular Hemoglobin 30.6 27.0 - 33.0 pg [facility] Mean Corpuscular HGB Conc 32.3 31.0 - 35.0 g/dl [facility] Red Cell Distribution Width 14.2 11.0 - 16.0 % [facility] Platelet Count 279 160 - 400 X10*3/uL [facility] Mean Platelet Volume 11.2 9.4 - 12.3 fL [facility] Neutrophils Percent Auto 59.8 45 - 73 % [facility] Imm Gran Pct Auto 0.5(H) 0.0 - 0.4 % [facility] Lymphocytes Percent Auto 26.1 20 - 40 % [facility] Monocytes Percent Auto 8.0 2 - 11 % [facility] Eosinophils Percent Auto 4.5(H) 0 - 4 % [facility] Basophils Percent Auto 1.1 0 - 2 % [facility] NRBC Pct Auto 0.0 0.0 - 0.2 /100WBC [facility] Neutrophils Absolute Auto 4.0 2.0 - 8.3 x10*3/uL [facility] Imm Gran Abs Auto 0.03 0.00 - 0.03 X10*3/uL [facility] Lymphocytes Absolute Auto 1.7 1.2 - 4.9 X10*3/uL [facility] Monocytes Absolute Auto 0.5 0.1 - 1.2 X10*3/uL [facility] Eosinophils Absolute Auto 0.3 0.0 - 0.4 X10*3/uL [facility] Basophils Absolute Auto 0.1 0.0 - 0.2 X10*3/uL [facility] NRBC Abs Auto 0.000 0.0 - 0.012 X10*3/uL [facility] Blood Venous blood specimen / Unknown 02/02/2025 9:40 AM EDT 02/02/2025 2:01 PM EDT Jenn Gonzalez MD LAB BLOOD ORDERABLES Final Result Performing Organization Address [facility]/State/ZIP Co de Phone Number [facility] [address] [place] [address] [phone] * Hepatitis C Antibody with Reflex to HCV, RNA, Quantitative, Real-Time PCR (02/02/2025 9:40 AM EDT) Hepatitis C Antibody Nonreactive Nonreactive [facility] Comment:Antibodies to HCV no t detected; does not exclude early acuteHCV infection. Blood Venous blood specimen / Unknown 02/02/2025 9:40 AM EDT 02/02/2025 2:01 PM EDT Jenn Gonzalez MD LAB BLOOD ORDERABLES Final Result Performing Organization Address City/[facility]/ZIP Co de Phone Number [facility] [address] [place] [address] [phone] * Lipid Panel, Standard (02/02/2025 9:40 AM EDT) Triglycerides 78 <150 mg/dL [facility] Comment:Slight Lipemia.Darryl able Triglyceride: less than 150 mg/dLBorderline High Triglyceride 150-199 mg/dLHigh Triglyceride: 200-499 mg/dLVery High Triglyceride: greater than or equal to 5OO mg/dL Cholesterol 131 <200 mg/dL [facility] Comment:Desirable Cholestero l: less than 200 mg/dLBorderline High Cholesterol: 200-239 mg/dLHigh Cholesterol: greater than 239 mg/dL LDL Cholesterol Calculated 70 <100 mg/dL [facility] Comment:Desirable LDL: less than 100 mg/dLNear Optimal/Above Optimal LDL: 110- 129 mg/dLBorderline High LDL: 130-159 mg/dLHigh LDL: 160-189 mg/dLVery High LDL: greater than or equal to 190 mg/dL HDL Cholesterol 46 >40 mg/dL [facility] Comment:Desirable HDL: great er than 40 mg/dL Note: This HDL assay may give artificially low results in patients with liver disease. Blood Venous blood specimen / Unknown 02/02/2025 9:40 AM EDT 02/02/2025 2:04 PM EDT us Jenn Gonzalez MD LAB BLOOD ORDERABLES Final Result [facility] [address] [place] [phone] [phone] * (ABNORMAL) Comprehensive Metabolic Panel (02/02/2025 9:40 AM EDT) Sodium 137 135 - 145 mmol/L [facility] Potassium 4.2 3.3 - 5.1 mmol/L [facility] Chloride 104 96 - 108 mmol/L [facility] Carbon Dioxide 26 22 - 29 mmol/L [facility] Anion Gap 11(L) 12 - 20 [facility] Urea Nitrogen (BUN) 10 9 - 16 mg/dL [facility] Creatinine, Serum 0.73 0.5 - 1.4 mg/dL [facility] Estimated Glomerular Filt Rate >60 [facility] Comment:Chronic Kidney Disea se: Estimated GFR < 60 mL/min/1.02b1Vnuhmp Kidney Disease: Estimated GFR < 15 mL/min/1.73m2 Glucose 106 60 - 115 mg/dL [facility] Calcium 9.4 8.4 - 10.2 mg/dL [facility] Bilirubin, Total 0.5 0.0 - 1.0 mg/dL [facility] Aspartate Amino Transferase 29 5 - 31 U/L [facility] Alanine Aminotransferase 21 0 - 31 U/L [facility] Total Protein 7.3 6.5 - 8.0 g/dL [facility] Albumin Level 4.6 3.5 - 5.0 g/dL [facility] Alkaline Phosphatase 90 39 - 117 U/L [facility] Blood Venous blood specimen / Unknown 02/02/2025 9:40 AM EDT 02/02/2025 2:04 PM EDT Jenn Gonzalez MD LAB BLOOD ORDERABLES Final Result [facility] [address] [place] [address] [phone] * (ABNORMAL) Cologuard?? colon cancer screening (11/02/2024 7:55 AM EDT) Cologuard Result Positive( A) Negative 11/06/2024 1:52 PM EDT Results Scorecard (CLIA #:[id number]) Comment: The Cologuard (TM) test was performed [...] (Miguel Arora al, N Engl J Med 2014;370(14):4471-6297.) Cologuard may produce a false negative or false positive result (no colorectal cancer or precancerous polyp present at colonoscopy follow up). A negative Cologuard test result does not guarantee the absence of CRC or advanced adenoma (pre-cancer). The current Cologuard screening interval is every 3 years. ([place] [employer] Society and U.S. Multi-Society Task Force). Cologuard performance data in a 10,000 patient pivotal study using colonoscopy as the reference method can be accessed at the following location: [email or web address]/results. Additional description of the Cologuard test process, warnings and precautions can be found at www.cologuard.com. Stool specimen (specimen) 11/02/2024 7:55 AM EDT 11/03/2024 12:47 PM EDT us Jenn Gonzalez MD LAB MOLECULAR DIAGNOSTICS O RDERABLES Final Result Results Scorecard (CLIA #:[id number]) [address] [place] [address], * 3D DIGITAL ARAVIND SCR MAMMO 1 [...] Recently Relevant to Health Maintenance Insurance [facility] OPTIONS (O D-SNP) [place] [id number] Care Teams Benefits Director Relationship Specialty Start Date End Date Jenn Gonzalez MD [address] [place] [address] [place] [address] PCP - General Internal Medicine 12/29/14
--- OUTSIDE RECORDS SUMMARY | 2025-03-26 10:32 | XMS_ITS | Clinical Summary ---
Author Organization [employer] [facility] ity Address [address] [place] [address] Care Team Providers Care Block Trimmer Name Role Phone Unavailable Primary Care Provider [...]
--- OUTSIDE RECORDS SUMMARY | 2025-03-26 10:32 | XMS_ITS | Encounter Summary ---
Author Organization [employer] Address [address] [place] [address] 7 [place] [address] Care Team Providers Care Pneumatic Tool Repairer Name Role Phone Jenn Gonzalez MD Primary Care Provider [phone] Reason for Visit * Reason Comments Med Refill Encounter Details Date Type Department Care Team ([facility] Contact Info) Description 06/18/2022 Refill [facility] MEDICINE [address] [place], [place] [phone] Jenn Gonzalez MD [address] [place] [address] Anxiety disorder, unspecified Social History Tobacco Use [...] unspecified documented in this encounter Care Teams Pneumatic Tool Repairer Relationship Specialty Start Date End Date Jenn Gonzalez MD [address] [place] [address] PCP - General Internal Medicine 12/29/14 documented as of this encounter
--- OUTSIDE RECORDS SUMMARY | 2025-03-26 10:32 | XMS_ITS | Encounter Summary ---
Author Organization [facility] Address [address] [facility] [address] [place] [address] Phone Care Team Providers Care Charge Coordinator Name Role Phone Jenn Gonzalez MD Primary Care Pr ovider Encounter Details Date Type Department Care Team (Late st Contact Info) Description 01/07/2019 Ancillary Orders [facility] [address] [place] [address] [place] [address] Troy Young DO [address] [place] [address] Bradycardia Social History Tobacco Use Types Packs/Day [...] dysrhythmias documented in this encounter Care Teams Charge Coordinator Relationship Specialty Start Date End Date Jenn Gonzalez MD PCP - General 04/23/17 documented as of this encounter Additional Source Comments The information contained in this document represents components of the legal health record. It is not the complete legal health record.[facility]
--- OUTSIDE RECORDS SUMMARY | 2025-03-26 10:32 | XMS_ITS | Encounter Summary ---
Author Organization [employer] Address [address] [facility] 7t [place] [address] Care Team Providers Care Paper Sample Clerk Name Role Phone Jenn Gonzalez MD Primary Care Provider [phone] Reason for Visit * Reason Onset Date Comments Nurse Triage 12/14/2024 Encounter Details Date Type Department Care Team ([facility] st Contact Info) Description 12/14/2024 Telephone [facility] MEDICINE [address] [place], [place] [phone] Jenn Gonzalez MD [address] [place], [place] [phone] Nurse Triage Social History Tobacco Use Types [...] 12/14/2024 12:00 PM EDT Triage call with [facility] [place] [id number] Pt reports right foot/ankle swelling which started 3 days ago. Pt reports some discoloring of the foot as well. Pt denies injury. Pt is having difficulty walking and can only wear sandal, shoe doesn't fit. Pt is taking tylenol for discomfort without effect. Pt is offered to come to [facility] today but, will come tomorrow morning when LADLE PATCHER is there. Pt is advised there is a wait time at [facility] at [facility] and declines [facility] requests apt be made in [facility]. ASK apt with BOARDING MOTHER [place] 12/16/24 @ 200pm. Pt agrees withdisposition and [...] Reason: No appointments available Override Notes: declines [facility] Video visit not offered Positive Triage Question: [...] caller accepted this outcome. Duration 3 days Gambian Speaking documented in this encounter Plan of Treatment Not on file documented as of this encounter Visit Diagnoses Not on filedocumented in this encounter Additional Health Concerns Assessment Noted Time PHQ-9 Depression Total Score: 0 10/23/19 25 10:21 AM EDT documented as of this encounter Care Teams Paper Sample Clerk Relationship Specialty Start Date End Date Jenn Gonzalez MD [address] [place] [address] PCP - General Internal Medicine 12/29/14 documented as of this encounter
--- OUTSIDE RECORDS SUMMARY | 2025-03-26 10:32 | XMS_ITS | Encounter Summary ---
Author Organization [employer] Address [address] [facility] 7t [place] [address] Care Team Providers Care Order Checker Packer Processer Name Role Phone Jenn Gonzalez MD Primary Care Provider [phone] Encounter Details Date Type Department Care Team ([facility] Contact Info) Description 01/30/2024 Orders Only [facility]EDS [address] [place], [place] [phone] Jenn Gonzalez MD [address] [place], [place] [phone] Right hand pain (Primary Dx) Social History [...] limb documented in this encounter Care Teams Order Checker Packer Processer Relationship Specialty Start Date End Date Jenn Gonzalez MD [address] [place] [address] PCP - General Internal Medicine 12/29/14 documented as of this encounter
--- OUTSIDE RECORDS SUMMARY | 2025-03-26 10:32 | XMS_ITS | Encounter Summary ---
Author Organization [employer] Address [address] [facility] 7t [place] [address] Care Team Providers Care Supervisor Refractory Products Name Role Phone Jenn Gonzalez MD Primary Care Provider [phone] Encounter Details Date Type Department Care Team (Latest Contact Info) Description 02/02/2025 Results Follow-Up [facility]S [address] [place], [place] [phone] Jenn Gonzalez MD [address] [place] [address] CBC auto differential, Comprehensive Metabolic Panel, Lipid [...] documented as of this encounter Care Teams Supervisor Refractory Products Relationship Specialty Start Date End Date Jenn Gonzalez MD [address] [place] [address] PCP - General Internal Medicine 12/29/14 documented as of this encounter
--- OUTSIDE RECORDS SUMMARY | 2025-03-26 10:32 | XMS_ITS | Encounter Summary ---
Author Organization [email or web address] Address [address] [facility] 7t [place] [address] Care Team Providers Care Application Packager Name Role Phone Jenn Gonzalez MD Primary Care Provider [phone] Encounter Details Date Type Department Care Team ([facility] Contact Info) Description 06/19/2024 Orders Only [facility]EDS [address] [place], [place] [phone] Jenn Gonzalez MD [address] [place] [address] Social History Tobacco Use Types Packs/Day Years [...] documented as of this encounter Care Teams Application Packager Relationship Specialty Start Date End Date Jenn Gonzalez MD [address] [place] [address] PCP - General Internal Medicine 12/29/14 documented as of this encounter
== END ==
LOC: HO.CARD 09:59
PROVIDERS: PCP Internal Medicine; Visit Provider Nurse Practitioner Family
DX: R00.1 Bradycardia, unspecified (principal)
CPT/HCPCS: 93242

== ENCOUNTER → 2025-03-26 10:01 | Outpatient (BNV) | payer OTHER, SELFPAY | PROVIDERS: PCP Internal Medicine; Visit Provider Internal Medicine | DX: I49.49 Other premature depolarization (principal); I49.3 Ventricular premature depolarization | CPT/HCPCS: 93244 ==

== ENCOUNTER 2025-04-30 16:04 | Outpatient (REF) | payer OTHER, SELFPAY ==
--- OUTSIDE RECORDS SUMMARY | 2025-04-30 14:00 | XMS_ITS | Encounter Summary ---
Author Organization [employer] Address [address] [facility] [address] [place] [address] Care Team Providers Care Account Director Name Role Phone Jenn Gonzalez MD Primary Care Provider [phone] Reason for Referral * Consultation (Routine) - Pending Review Specialty Diagnoses / Procedures Referred By Deshawn jones Referred To Contact Physical Therapy Diagnoses Lumbar back pain with radiculopathy affecting left lower extremity Amna King MD [address] [place] [address] Phone: tel: fax: Referral ID Status Reason Start Date Expiration Date Visits Requested Visits Authorized [id number] Pending Review Specialty Services Required 5 04/30/2026 1 1 * Medications - Closed Specialty Diagnoses / Procedures Referred By Deshawn jones Referred To Contact Diagnoses Lumbar back pain with radiculopathy affecting left lower extremity Amna King MD [address] [place] [address] Phone: tel: fax: Referral ID Status Reason Start Date Expiration Date Visits Re quested Visits Authorized [id number] Closed 1 1 Reason for Visit * Reason Comments Back Pain Difficulty Urinating Encounter Details Date Type Department Care Team (Latest Contact Info) Description 04/30/2025 2:00 PM EDT Office Visit [facility] [address] [place], [place] [phone] Amna King MD [address] [place] [address] Lumbar back pain with radiculopathy affecting left [...] Urinalysis, Complete, with Reflex to Culture America Brooke presents with left-sided back pain radiating to [...] Description 05/27/2025 9:45 AM EST Office Visit [facility] [address] [place] [address] Jenn Gonzalez MD [address] [place] [address] Scheduled Orders Name Type Priority Associated Diagnoses Orde r Schedule XR Lumbar Spine Complete 4+ Views Imaging Routine Lumbar back pain with radiculopathy affecting left lower extremity Expected: 04/30/2025, Expires: 04/30/2026 XR Hip 2 or 3 Views Left Imaging Routine Lumbar back pain with radiculopathy affecting left lower extremity Expected: 04/30/2025, Expires: 04/30/2026 Urinalysis, Complete, with Reflex to Culture Lab Routine Dysuria Expected: 04/30/2025 (Approximate), Expires: 04/30/2026 Scheduled Referrals Name Type Priority Associated Diagnoses Orde r Schedule Referral to Physical Therapy Outpatient Referral Routine Lumbar back pain with radiculopathy affecting left lower extremity Expected: 04/30/2025 (Approximate), Expires: 04/30/2026 documented as of this encounter Visit Diagnoses Diagnosis Lumbar back pain with radiculopathy affecting left lower extremity- Primary Chronic pain syndrome Dysuria documented in this encounter Additional Health Concerns Assessment Noted Time PHQ-9 Depression Total Score: 0 10/23/19 25 10:21 AM EDT documented as of this encounter Care Teams Account Director Relationship Specialty Start Date End Date Jenn Gonzalez MD [address] [place] [id number] PCP - General Internal Medicine 12/29/14 documented as of this encounter
--- OUTSIDE RECORDS SUMMARY | 2025-04-30 17:12 | XMS_ITS | Encounter Summary ---
Author Organization [employer] Address [address] [facility] 7[address] [place] [address] Care Team Providers Care Wet Pour Supervisor Name Role Phone Jenn Gonzalez MD Primary Care Provider [phone] Reason for Visit * Reason Onset Date Comments Nurse Triage 04/29/2025 Encounter Details Date Type Department Care Team ([facility] st Contact Info) Description 04/29/2025 Telephone [facility] [address] [place] [address] Jenn Gonzalez MD [address] [place], [place] [phone] Nurse Triage Social History Tobacco Use Types [...] encounter Miscellaneous Notes * Telephone Encounter - Rajendra West RN - 04/29/2025 3:30 PM EDT TC placed to patient using BLS #ID [id number]. Patient c/o Left lower ext nerve pain that started a few days ago. Denies any injury to the site. C/O pain when sitting and ambulating. Patient reported taking Tylenol with no good effect. Patient requesting muscle relaxers for the pain. RN advised patient she can come into the Walk in Center or the ED for further evaluation. Patient declined. RN offered same day appt at [facility]. Patient accepted the appt. Patient verbalized understanding. Protocol Used: Hip Pain (Adult) Protocol-Based Disposition: See in Office or Video Visit Today or Tomorrow Video visit not offered Positive Triage Questions: * Patient wants to be seen * Moderate pain (e.g., interferes with normal activities, limping) and present > 3 days * All higher-acuity triage questions were negative Care Advice Discussed: * Reassurance and Education - Hip Pain * Reasons To Call Back - Moderate pain (such as limping) lasts more than 3 days - Mild pain lasts more than 7 days - Signs of infection occur (such as spreading redness, warmth, fever) - You become worse * Reassurance and Education - Overuse * Use a Cold Pack for Pain * Use Heat After 48 Hours for Pain * Rest * Pain Medicines * Telephone Encounter - Mirtha Child - 04/29/2025 2:46 PM EDT Symptom: Hip Pain - Not From Injury Outcome: Schedule an urgent appointment (within 1 hour) or talk to a nurse or provider soon Reason: Trouble walking The caller accepted this outcome. MACEDONIAN SPEAKER documented in this encounter Plan of Treatment Upcoming Encounters Date Type Department Care Team (Late st Contact Info) Description 05/27/2025 9:45 AM EST Office Visit [facility] [address] [place] [address] Jenn Gonzalez MD [address] [place] [address] documented as of this encounter Visit Diagnoses Not on filedocumented in this encounter Additional Health Concerns Assessment Noted Time PHQ-9 Depression Total Score: 0 10/23/19 25 10:21 AM EDT documented as of this encounter Care Teams Wet Pour Supervisor Relationship Specialty Start Date End Date Jenn Gonzalez MD [address] [place] [address] PCP - General Internal Medicine 12/29/14 documented as of this encounter
--- OUTSIDE RECORDS SUMMARY | 2025-04-30 17:12 | XMS_ITS | Encounter Summary ---
Author Organization [employer] Address 75 [facility] 7t [place] [address] Care Team Providers Care Fisheries Technician Name Role Phone Jenn Gonzalez MD Primary Care Provider [phone] Encounter Details Date Type Department Care Team ([facility] Contact Info) Description 10/24/2023 Orders Only [facility] MED & PEDS [address] [place], [place] [phone] Jenn Gonzalez MD 505 [place] [address] Social History Tobacco Use Types Packs/Day Years [...] Description 05/27/2025 9:45 AM EST Office Visit [facility] CH[facility] MED & PEDS [address] [place] [address] Jenn Gonzalez MD 505 [place] [address] documented as of this encounter Procedures Procedure Name Priority Date/Time Associated Diagnosis Comments STRESS TEST WITH MYOCARDIAL PERFUSION Routine 10/30/2023 2:15 PM EDT documented in this encounter Results * Stress test with myocardial perfusion (10/30/2023 2:15 PM EDT) 10/30/2023 2:15 PM EDT Narrative [facility] - 10/30/2023 3:24 PM EDT [address] [address] Nuclear Medicine Report Signed Patient: America Brooke MR#: [id number] 52 : 1955 Acct:[id number] Age/Sex: 68 / F ADM Date: 10/24/23 Loc: HO.CARD Attending Dr: Flip Mandujano MD Ordering Physician: Flip Mandujano MD Date of Service: 10/24/23 Procedure(s): NM cardiolite stress test Accession Number(s): [id number] cc: Jenn Gonzalez MD; Flip Mandujano MD [...] lateral wall as well as the apex. NM/HI cardiolite stress test Impression: 1. Myocardial perfusion imaging study shows possible ischemia in the distal part of lateral wall and apex. 2. Gated LVEF is 53% during stress and rest. 3. Transient ischemic dilatation not present. EKG component of the test reported separately. Dictated By: Flip Mandujano MD Signed By: <Electronically signed by Flip Mandujano MD in OV> 10/30/23 1521 DD/ 1415 TD/TT: Learn To Swim Instructor: Procedure Note Donotuseinterpreter, Image - 10/30/[address] [address] Nuclear Medicine Report Signed Patient: Chinyere Brooke#: [id number] [birth year] : 7Acct:[id number] Age/Sex: 68 / FADM Date: 10/24/23 Loc: .[facility] Attending Dr: Flip Mandujano MD Ordering Physician: Flip Mandujano MD Date of Service: 10/24/23 Procedure(s): HI cardiolite stress test Accession Number(s): [id number] cc: Jenn Gonzalez MD; Flip Mandujano MD [...] MD inOV> 10/30/23 1521 DD/ 1415 TD/TT: Learn To Swim Instructor: us [facility] External Provider CV STRE SS PROCEDURES Final Result [facility] [address] [place] [phone] documented in this encounter Visit Diagnoses Not on filedocumented in this encounter Care Teams Fisheries Technician Relationship Specialty Start Date End Date Jenn Gonzalez MD [address] [place] [phone] PCP - General Internal Medicine 12/29/14 documented as of this encounter
--- OUTSIDE RECORDS SUMMARY | 2025-04-30 17:12 | XMS_ITS | Encounter Summary ---
Author Organization [employer] Address 75 [facility] 7t [place] [address] Care Team Providers Care Public Speaking Professor Name Role Phone Jenn Gonzalez MD Primary Care Provider [phone] Reason for Visit * Reason Onset Date Comments Appointment Request 09/01/2024 Encounter Details Date Type Department Care Team ([facility] Contact Info) Description 09/01/2024 Telephone [facility] MEDICINE [address] [place], [place] [phone] Jenn Gonzalez MD [address] [place], [place] [phone] Appointment Request Social History Tobacco Use Types [...] Description 05/27/2025 9:45 AM EST Office Visit [facility] CHC MED & PEDS 505 [place] [address] Jenn Gonzalez MD 505 [place] [address] documented as of this encounter Visit Diagnoses Not on filedocumented in this encounter Additional Health Concerns Assessment Noted Time PHQ-9 Depression Total Score: 14 024 9:24 AM EDT documented as of this encounter Care Teams Public Speaking Professor Relationship Specialty Start Date End Date Jenn Gonzalez MD [address] [place] [address] PCP - General Internal Medicine 12/29/14 documented as of this encounter
--- OUTSIDE RECORDS SUMMARY | 2025-04-30 17:12 | XMS_ITS | Clinical Summary ---
Author Organization [employer] Address 75 [facility] 7t [place] [address] Care Team Providers Care Spinner Open End Name Role Phone Jenn Gonzalez MD Primary Care Provider [phone] Allergies Active Allergy Reactions Criticality Noted Date [...] 7 MG/24HR patchIndications:C oronary artery disease of karuk artery of karuk heart with stable angina pectoris,Smoking addiction Place 1 patch on the skin [...] EVERY DAY 30 capsule 5 5 Active lidocaine (LMX 4) 4 % creamIndications:O steochondritis dissecans of ankle, right,Other secondary osteoarthritis of right ankle Apply topically if needed in the morning, at noon, in the evening, and at bedtime for mild pain. 60 g 2 5 026 Active lisinopril-hydroCH LOROthiazide 10-12.5 MG tabletIndications: Essential hypertension Take 1 tablet by mouth Once per day. 30 tablet 11 5 026 Active cyclobenzaprine (Flexeril) 10 MG tabletIndications: Lumbar back pain with radiculopathy affecting left lower extremity Take 1 tablet (10 mg) by mouth 3 times daily. 30 tablet 5 Active diclofenac (Cataflam) 50 MG tabletIndications: Lumbar back pain with radiculopathy affecting left lower extremity Take 1 tablet (50 mg) by mouth 3 times daily. 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 10/22/2024 Smoking addiction 10/22/2024 SARATH (generalized anxiety disorder) 04/28/2024 Impaired fasting glucose 10/20/2021 Backache 10/26/2011 Depressive disorder 10/26/2011 Essential hypertension 10/26/2011 Pure hypercholesterolemia 10/26/2011 Vitamin D deficiency 10/26/2011 Encounters Date Type Department Care Team Description 04/30/2025 2:00 PM EDT Office Visit [facility] MED & PEDS [address] [place] [address] Amna King MD Lumbar back pain with radiculopathy affecting left lower extremity (Primary Dx); Chronic pain syndrome; Dysuria 04/30/2025 Travel 04/29/2025 Telephone [facility] MEDICINE [address] [place] [address] Jenn Gonzalez MD Nurse Triage 03/25/2025 9:30 AM EDT Office Visit [facility] MED & PEDS [address] [place] [address] Jenn Gonzalez MD Essential hypertension (Primary Dx); Encounter for screening mammogram for malignant neoplasm of breast 03/25/2025 Travel 03/24/2025 Telephone [facility] MED & PEDS [address] [place] [address] Jenn Gonzalez MD Chart Prep 02/02/2025 9:00 AM EDT Office Visit [facility] MED & PEDS [address] [place] [address] Jenn Gonzalez MD Essential hypertension (Primary Dx); Depressive disorder; Pure hypercholesterolemia; Screening for osteoporosis; Encounter for immunization; Dietary counseling; Exercise counseling; Class 2 severe obesity due to excess calories with serious comorbidity and body mass index (BMI) of 35.0 to 35.9 in adult ([facility]); Osteochondritis dissecans of ankle, right; Other secondary osteoarthritis of right ankle 02/02/2025 Results Follow-Up [facility] MED & PEDS [address] [place] [address] Jenn Gonzalez MD CBC auto differential, Comprehensive [...] Pulse 85 04/30/2025 2:00 PM EDT Temperature 36.6 C (97.9 F) 03/25/2025 9:43 AM EDT Respiratory Rate 20 04/30/2025 2:00 PM EDT Oxygen Saturation 97% 04/30/2025 2:00 PM EDT Inhaled Oxygen Concentration - - Weight 84.4 kg (186 lb) 04/30/2025 2:00 PM EDT Height 154.9 cm (5' 1 ) 04/30/2025 2:00 PM EDT Body Mass Index 35.14 04/30/2025 2:00 PM EDT Plan of Treatment Upcoming Encounters Date Type Department Care Team (Late st Contact Info) Description 05/27/2025 9:45 AM EST Office Visit [facility] MED & PEDS [address] [place], [place] [phone] Jenn Gonzalez MD 505 [place] [address] Health Maintenance Due Date Last Done Comments CT Colonography 1955 Colonoscopy 1955 FIT 1955 Sigmoidoscopy 1955 RSV Patients and Patients Aged 60 years or older (1 - Risk 60-74 years 1-dose series) 2017 Zoster Vaccines (2 of 3) 06/14/2017 04/19/2017 Mammogram 05/26/2021 05/26/2019 COVID-19 Vaccine ( season) 2025 04/20/2021, 08/11/2020, 07/21/2020 SDOH Screening 10/14/2025 10/14/2024 Alcohol/Substance Use Screening 10/22/2025 10/22/2024 Depression Screening 10/22/2025 10/22/2024, 10/23/19 25 FOBT 11/02/2025 11/02/2024 DTaP/Tdap/Td Vaccines (1 - Tdap) 02/02/2026 Postponed from 01/17/1976 (Patient Refused) Tobacco Screening 04/30/2026 04/30/2025 Colorectal Cancer Screening 11/03/2027 FIT DNA/Cologuard 11/03/2027 [...] Free T4 1.45 0.32 - 4.0 uIU/mL [facility] Blood Venous blood specimen / Unknown 02/02/2025 9:40 AM EDT 02/02/2025 2:04 PM EDT us Jenn Gonzalez MD LAB BLOOD ORDERABLES Final Result [facility] [address] [place] [phone] * (ABNORMAL) CBC auto differential (02/02/2025 9:40 AM EDT) Pathologist [facility] White Blood Count 6.7 4.8 - 10.8 X10*3/uL [facility] Red Blood Count 4.09(L) 4.20 - 5.50 X10*6/uL [facility] Hemoglobin 12.5 12.0 - 16.0 g/dl [facility] Hematocrit 38.7 37.0 - 47.0 % [facility] Mean Corpuscular Volume 94.6 80.0 - 98.0 fL [facility] Mean Corpuscular Hemoglobin 30.6 27.0 - 33.0 pg [facility] Mean Corpuscular HGB Conc 32.3 31.0 - 35.0 g/dl [facility] Red Cell Distribution Width 14.2 11.0 - 16.0 % [facility] Platelet Count 279 160 - 400 X10*3/uL [facility] Mean Platelet Volume 11.2 9.4 - 12.3 fL [facility] Neutrophils Percent Auto 59.8 45 - 73 % [facility] Imm Gran Pct Auto 0.5(H) 0.0 - 0.4 % [facility] Lymphocytes Percent Auto 26.1 20 - 40 % [facility] Monocytes Percent Auto 8.0 2 - 11 % [facility] Eosinophils Percent Auto 4.5(H) 0 - 4 % [facility] Basophils Percent Auto 1.1 0 - 2 % [facility] NRBC Pct Auto 0.0 0.0 - 0.2 /100WBC [facility] Neutrophils Absolute Auto 4.0 2.0 - 8.3 x10*3/uL [facility] Imm Gran Abs Auto 0.03 0.00 - 0.03 X10*3/uL [facility] Lymphocytes Absolute Auto 1.7 1.2 - 4.9 X10*3/uL [facility] Monocytes Absolute Auto 0.5 0.1 - 1.2 X10*3/uL [facility] Eosinophils Absolute Auto 0.3 0.0 - 0.4 X10*3/uL [facility] Basophils Absolute Auto 0.1 0.0 - 0.2 X10*3/uL [facility] NRBC Abs Auto 0.000 0.0 - 0.012 X10*3/uL [facility] Blood Venous blood specimen / Unknown 02/02/2025 9:40 AM EDT 02/02/2025 2:01 PM EDT Jenn Gonzalez MD LAB BLOOD ORDERABLES Final Result [facility] [address] [place] [phone] * Hepatitis C Antibody with Reflex to HCV, RNA, Quantitative, Real-Time PCR (02/02/2025 9:40 AM EDT) Hepatitis C Antibody Nonreactive Nonreactive [facility] Comment:Antibodies to HCV no t detected; does not exclude early acuteHCV infection. Blood Venous blood specimen / Unknown 02/02/2025 9:40 AM EDT 02/02/2025 2:01 PM EDT Jenn Gonzalez MD LAB BLOOD ORDERABLES Final Result Performing Organization Address [facility] de Phone Number [facility] [address] [place] [address] [phone] * Lipid Panel, Standard (02/02/2025 9:40 AM EDT) Triglycerides 78 <150 mg/dL [facility] Comment:Slight Lipemia.Darryl able Triglyceride: less than 150 mg/dLBorderline High Triglyceride 150-199 mg/dLHigh Triglyceride: 200-499 mg/dLVery High Triglyceride: greater than or equal to 5OO mg/dL Cholesterol 131 <200 mg/dL [facility] Comment:Desirable Cholestero l: less than 200 mg/dLBorderline High Cholesterol: 200-239 mg/dLHigh Cholesterol: greater than 239 mg/dL LDL Cholesterol Calculated 70 <100 mg/dL [facility] Comment:Desirable LDL: less than 100 mg/dLNear Optimal/Above Optimal LDL: 110- 129 mg/dLBorderline High LDL: 130-159 mg/dLHigh LDL: 160-189 mg/dLVery High LDL: greater than or equal to 190 mg/dL HDL Cholesterol 46 >40 mg/dL [facility] Comment:Desirable HDL: great er than 40 mg/dL Note: This HDL assay may give artificially low results in patients with liver disease. Blood Venous blood specimen / Unknown 02/02/2025 9:40 AM EDT 02/02/2025 2:04 PM EDT Jenn Gonzalez MD LAB BLOOD ORDERABLES Final Result Performing Organization Address [facility] [address]/[facility] Co de Phone Number [facility] [address] [place] [address] [phone] * (ABNORMAL) Comprehensive Metabolic Panel (02/02/2025 9:40 AM EDT) Sodium 137 135 - 145 mmol/L [facility] Potassium 4.2 3.3 - 5.1 mmol/L [facility] Chloride 104 96 - 108 mmol/L [facility] Carbon Dioxide 26 22 - 29 mmol/L [facility] Anion Gap 11(L) 12 - 20 [facility] Urea Nitrogen (BUN) 10 9 - 16 mg/dL [facility] Creatinine, Serum 0.73 0.5 - 1.4 mg/dL [facility] Estimated Glomerular Filt Rate >60 [facility] Comment:Chronic Kidney Disea se: Estimated GFR < 60 mL/min/[id number] Kidney Disease: Estimated GFR < 15 mL/min/1.73m2 Glucose 106 60 - 115 mg/dL [facility] Calcium 9.4 8.4 - 10.2 mg/dL [facility] Bilirubin, Total 0.5 0.0 - 1.0 mg/dL [facility] Aspartate Amino Transferase 29 5 - 31 U/L [facility] Alanine Aminotransferase 21 0 - 31 U/L [facility] Total Protein 7.3 6.5 - 8.0 g/dL [facility] Albumin Level 4.6 3.5 - 5.0 g/dL [facility] Alkaline Phosphatase 90 39 - 117 U/L [facility] Blood Venous blood specimen / Unknown 02/02/2025 9:40 AM EDT 02/02/2025 2:04 PM EDT us Jenn Gonzalez MD LAB BLOOD ORDERABLES Final Result [facility] [address] [place] [phone] * (ABNORMAL) Cologuard?? colon cancer screening (11/02/2024 7:55 AM EDT) Cologuard Result Positive( A) Negative 11/06/2024 1:52 PM EDT [facility] (CLIA #:[id number]) Comment: The Cologuard (TM) test was performed [...] (Miguel Arora al, N Engl J Med 2014;370(14):2885-4324.) Cologuard may produce a false negative or false positive result (no colorectal cancer or precancerous polyp present at colonoscopy follow up). A negative Cologuard test result does not guarantee the absence of CRC or advanced adenoma (pre-cancer). The current Cologuard screening interval is every 3 years. ([employer] [employer] and U.S. Multi-Society Task Force). Cologuard performance data in a 10,000 patient pivotal study using colonoscopy as the reference method can be accessed at the following location: www.[employer]/results. Additional description of the Cologuard test process, warnings and precautions can be found at www.[employer].com. Stool specimen (specimen) 11/02/2024 7:55 AM EDT 11/03/2024 12:47 PM EDT us Jenn Gonzalez MD LAB MOLECULAR DIAGNOSTICS O RDERABLES Final Result [facility] (CLIA #:[id number]) [address] [place] [address], * 3D DIGITAL ARAVIND SCR MAMMO 1 [...] Recently Relevant to Health Maintenance Insurance [facility] DETENTION OPTIONS (O D-SNP) [place] [id number] Care Teams Spinner Open End Relationship Specialty Start Date End Date Jenn Gonzalez MD [address] [place] [address] CATIE Singh [address] PCP - General Internal Medicine 12/29/14
--- OUTSIDE RECORDS SUMMARY | 2025-04-30 17:12 | XMS_ITS | Encounter Summary ---
Author Organization [employer] Address 75 [facility] 7t [place] [address] Care Team Providers Care International Sourcing Manager Name Role Phone Jenn Gonzalez MD Primary Care Provider [phone] Reason for Visit * Reason Onset Date Comments Appointment Request 09/28/2024 Encounter Details Date Type Department Care Team ([facility] Contact Info) Description 09/28/2024 Telephone [facility] MEDICINE [address] [place], [place] [phone] Jenn Gonzalez MD [address] [place], [place] [phone] Appointment Request Social History Tobacco Use Types [...] R/s Appt from 09/02/24. Contact pt at [phone] documented in this encounter Plan of Treatment Upcoming Encounters Date Type Department Care Team (Late st Contact Info) Description 05/27/2025 9:45 AM EST Office Visit [facility] CHC MED & PEDS [address] [place] [address] Jenn Gonzalez MD [address] [place] [address] documented as of this encounter Visit Diagnoses Not on filedocumented in this encounter Additional Health Concerns Assessment Noted Time PHQ-9 Depression Total Score: 14 024 9:24 AM EDT documented as of this encounter Care Teams International Sourcing Manager Relationship Specialty Start Date End Date Jenn Gonzalez MD [address] [place] [address] PCP - General Internal Medicine 12/29/14 documented as of this encounter
--- OUTSIDE RECORDS SUMMARY | 2025-04-30 17:12 | XMS_ITS | Encounter Summary ---
Author Organization [employer] Address 75 [facility] 7t [place] [address] Care Team Providers Care Marine Engineering Consultant Name Role Phone Jenn Gonzalez MD Primary Care Provider [phone] Encounter Details Date Type Department Care Team ([facility] Contact Info) Description 06/19/2024 Orders Only [facility] MED & PEDS [address] [place], [place] [phone] Jenn Gonzalez MD [address] [place] [address] Social History Tobacco Use Types Packs/Day Years [...] 9:45 AM EST Office Visit [facility] MED [facility] PEDS [address] [place] [address] Jenn Gonzalez MD [address] [place] [address] documented as of this encounter Visit Diagnoses Not on filedocumented in this encounter Additional Health Concerns Assessment Noted Time PHQ-9 Depression Total Score: 14 024 9:24 AM EDT documented as of this encounter Care Teams Marine Engineering Consultant Relationship Specialty Start Date End Date Jenn Gonzalez MD [address] [place] [address] PCP - General Internal Medicine 12/29/14 documented as of this encounter
--- OUTSIDE RECORDS SUMMARY | 2025-04-30 17:12 | XMS_ITS | Clinical Summary ---
Author Organization [facility] Address [address] [place] [phone] Phone Care Team Providers Care Percussion Teacher Name Role Phone Jenn Gonzalez MD Primary [...] file Medical Devices Not on file Insurance [facility] C3 ACO C3 ACO C3 ACO C3 ACO C3 [place] [place] [address] [place] [address] [place] [address] [place] [address] [facility] C3 ACO Care Teams Percussion Teacher Relationship Specialty Start Date End Date Jenn Gonzalez MD PCP - General 04/23/17 Additional Source Comments The information contained in this document represents components of the legal health record. It is not the complete legal health record.[facility]
--- OUTSIDE RECORDS SUMMARY | 2025-04-30 17:12 | XMS_ITS | Encounter Summary ---
Author Organization [employer] Address [address] [place] [address] 7 [place] [address] Care Team Providers Care Automotive Fleet Supervisor Name Role Phone Jenn Gonzalez MD Primary Care Provider [phone] Reason for Visit * Reason Comments Med Refill Encounter Details Date Type Department Care Team ([facility] Contact Info) Description 06/18/2022 Refill [facility] MEDICINE [address] [place], [place] [phone] Jenn Gonzalez MD [address] [place], [place] [phone] Anxiety disorder, unspecified Social History Tobacco Use [...] Upcoming Encounters Date Type Department Care Team ([facility] Contact Info) Description 05/27/2025 9:45 AM EST Office Visit [facility]C MED & PEDS [address] [place] [address] Jenn Gonzalez MD [address] [place], [place] [phone] documented as of this encounter Visit Diagnoses Diagnosis Anxiety disorder, unspecified documented in this encounter Care Teams Automotive Fleet Supervisor Relationship Specialty Start Date End Date Jenn Gonzalez MD [address] [place] [address] PCP - General Internal Medicine 12/29/14 documented as of this encounter
--- OUTSIDE RECORDS SUMMARY | 2025-04-30 17:12 | XMS_ITS | Encounter Summary ---
Author Organization [employer] Address 75 [facility] 7t [place] [address] Care Team Providers Care Agriculture Research Director Name Role Phone Jenn Gonzalez MD Primary Care Provider [phone] Encounter Details Date Type Department Care Team (Latest Contact Info) Description 04/30/2025 Travel Social History Tobacco Use Types Packs/Day [...] Upcoming Encounters Date Type Department Care Team ([facility] st Contact Info) Description 05/27/2025 9:45 AM EST Office Visit [facility] MED & PEDS [address] [place] [address] Jenn Gonzalez MD [address] [place] [address] documented as of this encounter Visit Diagnoses Not on filedocumented in this encounter Additional Health Concerns Assessment Noted Time PHQ-9 Depression Total Score: 0 10/23/19 25 10:21 AM EDT documented as of this encounter Care Teams Agriculture Research Director Relationship Specialty Start Date End Date Jenn Gonzalez MD [address] [place] [address] PCP - General Internal Medicine 12/29/14 documented as of this encounter
--- OUTSIDE RECORDS SUMMARY | 2025-04-30 17:12 | XMS_ITS | Clinical Summary ---
Author Organization [facility] Address [address] [place] [phone] Care Team Providers Care Job Press Feeder Name Role Phone Unavailable Primary Care Provider [...] 2007 Zoster Vaccines (1 of 2) 2007 Depression Screening 07/08/2024 COVID-19 Vaccine (1 - 2023-2 5 season) 2025 Influenza Vaccine [...]
--- OUTSIDE RECORDS SUMMARY | 2025-04-30 17:12 | XMS_ITS | Encounter Summary ---
Author Organization [employer] Address 75 [facility] 7t [place] [address] Care Team Providers Care Javascript Software Engineer Name Role Phone Jenn Gonzalez MD Primary Care Provider [phone] Reason for Visit * Reason Onset Date Comments Appointment Request 03/25/2024 Encounter Details Date Type Department Care Team ([facility] Contact Info) Description 03/25/2024 Telephone [facility] MEDICINE [address] [place], [place] [phone] Jenn Gonzalez MD [address] [place], [place] [phone] Appointment Request Social History Tobacco Use Types [...] Upcoming Encounters Date Type Department Care Team ([facility] st Contact Info) Description 05/27/2025 9:45 AM EST Office Visit [facility] CHC MED & PEDS [address] [place] [address] Jenn Gonzalez MD [address] [place] [address] documented as of this encounter Visit Diagnoses Not on filedocumented in this encounter Care Teams Javascript Software Engineer Relationship Specialty Start Date End Date Jenn Gonzalez MD [address] [place] [address] PCP - General Internal Medicine 12/29/14 documented as of this encounter
--- OUTSIDE RECORDS SUMMARY | 2025-04-30 17:12 | XMS_ITS | Encounter Summary ---
Author Organization [employer] Address [address] [facility] 7t [place] [address] Care Team Providers Care Tooth Clerk Name Role Phone Jenn Gonzalez MD Primary Care Provider [phone] Reason for Visit * Reason Onset Date Comments Nurse Triage 12/14/2024 Encounter Details Date Type Department Care Team ([facility] st Contact Info) Description 12/14/2024 Telephone [facility] MEDICINE [address] [place], [place] [phone] Jenn Gonzalez MD [address] [place], [place] [phone] Nurse Triage Social History Tobacco Use Types [...] 12/14/2024 12:00 PM EDT Triage call with [facility] aerial photograph interpreter [place] [id number] Pt reports right foot/ankle swelling which started 3 days ago. Pt reports some discoloring of the foot as well. Pt denies injury. Pt is having difficulty walking and can only wear sandal, shoe doesn't fit. Pt is taking tylenol for discomfort without effect. Pt is offered to come to [facility] today but, will come tomorrow morning when SUPPLIER DIVERSITY DIRECTOR is there. Pt is advised there is a wait time at [facility] at [facility] and declines [facility] requests apt be made in [facility]. ASK apt with CHOCOLATE FINISHER OPERATOR [place] 12/16/24 @ 200pm. Pt agrees withdisposition and [...] Reason: No appointments available Override Notes: declines [facility] Video visit not offered Positive Triage Question: [...] caller accepted this outcome. Duration 3 days Upper Sorbian Speaking documented in this encounter Plan of Treatment Upcoming Encounters Date Type Department Care Team ([facility] st Contact Info) Description 05/27/2025 9:45 AM EST Office Visit [facility] MED & PEDS [address] [place] [address] Jenn Gonzalez MD [address] [place] [address] documented as of this encounter Visit Diagnoses Not on filedocumented in this encounter Additional Health Concerns Assessment Noted Time PHQ-9 Depression Total Score: 0 10/23/19 25 10:21 AM EDT documented as of this encounter Care Teams Tooth Clerk Relationship Specialty Start Date End Date Jenn Gonzalez MD [address] [place] [address] PCP - General Internal Medicine 12/29/14 documented as of this encounter
--- OUTSIDE RECORDS SUMMARY | 2025-04-30 17:12 | XMS_ITS | Encounter Summary ---
Author Organization [employer] Address [address] [facility] 7t [place] [address] Care Team Providers Care Telehealth Coordinator Name Role Phone Jenn Gonzalez MD Primary Care Provider [phone] Encounter Details Date Type Department Care Team ([facility] Contact Info) Description 04/17/2024 Orders Only [facility] MED & PEDS [address] [place], [place] [phone] Jenn Gonzalez MD [address] [place], [place] [phone] Anxiety (Primary Dx) Social History Tobacco Use [...] Encounters Date Type Department Care Team ([facility] st Contact Info) Description 05/27/2025 9:45 AM EST Office Visit [facility] MED & PEDS [address] [place] [address] Jenn Gonzalez MD [address] [place] [address] documented as of this encounter Visit Diagnoses Diagnosis Anxiety- Primary Anxiety state, unspecified documented in this encounter Care Teams Telehealth Coordinator Relationship Specialty Start Date End Date Jenn Gonzalez MD [address] [place] [address] PCP - General Internal Medicine 12/29/14 documented as of this encounter
--- OUTSIDE RECORDS SUMMARY | 2025-04-30 17:12 | XMS_ITS | Encounter Summary ---
Author Organization [facility] Address [address] [place] [address] Phone Care Team Providers Care Laborer Driver Name Role Phone Jenn Gonzalez MD Primary Care Pr ovider Encounter Details Date Type Department Care Team (Late st Contact Info) Description 01/07/2019 Ancillary Orders [facility] [address] [place] [address] [place] [address] Troy Young DO [address] [place] [address] Bradycardia Social History Tobacco Use Types Packs/Day [...] dysrhythmias documented in this encounter Care Teams Laborer Driver Relationship Specialty Start Date End Date Jenn Gonzalez MD PCP - General 04/23/17 documented as of this encounter Additional Source Comments The information contained in this document represents components of the legal health record. It is not the complete legal health record.[facility]
--- OUTSIDE RECORDS SUMMARY | 2025-04-30 17:12 | XMS_ITS | Encounter Summary ---
Author Organization [employer] Address [address] [facility] 7t [place] [address] Care Team Providers Care Industrial Design Engineer Name Role Phone Jenn Gonzalez MD Primary Care Provider [phone] Reason for Visit * Reason Onset Date Comments Durable Medical Equipment 06/12/2024 Encounter Details Date Type Department Care Team ([facility] Contact Info) Description 06/12/2024 Telephone [facility] MEDICINE [address] [place] [address] Jenn Gonzalez MD [address] [place], [place] [phone] Durable Medical Equipment Social History Tobacco Use [...] to hold on. Contact pt Daughter at [phone] * Telephone Encounter - Uzma Manjarrez LPN - 06/15/2024 3:14 PM EST Please review pt requested below. Appraiser did review pt however didn't notice any [...] 05/27/2025 9:45 AM EST Office Visit [facility] MED & PEDS [address] [place] [address] Jenn Gonzalez MD [address] [place] [address] documented as of this encounter Visit Diagnoses Not on filedocumented in this encounter Additional Health Concerns Assessment Noted Time PHQ-9 Depression Total Score: 14 024 9:24 AM EDT documented as of this encounter Care Teams Industrial Design Engineer Relationship Specialty Start Date End Date Jenn Gonzalez MD [address] [place] [address] PCP - General Internal Medicine 12/29/14 documented as of this encounter
--- OUTSIDE RECORDS SUMMARY | 2025-04-30 17:12 | XMS_ITS | Encounter Summary ---
Author Organization [employer] Address [address] [facility] 7t [place] [address] Care Team Providers Care Fitness And Wellness Coordinator Name Role Phone Jenn Gonzalez MD Primary Care Provider [phone] Encounter Details Date Type Department Care Team ([facility] Contact Info) Description 01/30/2024 Orders Only [facility] CH[facility] MED & PEDS [address] [place], [place] [phone] Jenn Gonzalez MD [address] [place], [place] [phone] Right hand pain (Primary Dx) Social History [...] [facility]EDS [address] [place] [address] Jenn Gonzalez MD [address] [place] [address] documented as of this encounter Visit Diagnoses Diagnosis Right hand pain- Primary Pain in soft tissues of limb documented in this encounter Care Teams Fitness And Wellness Coordinator Relationship Specialty Start Date End Date Jenn Gonzalez MD [address] [place] [address] PCP - General Internal Medicine 12/29/14 documented as of this encounter
--- OUTSIDE RECORDS SUMMARY | 2025-04-30 17:12 | XMS_ITS | Encounter Summary ---
Author Organization [employer] Address [address] [facility] 7[address] [place] [address] Care Team Providers Care Bicycle Courier Name Role Phone Jenn Gonzalez MD Primary Care Provider [phone] Encounter Details Date Type Department Care Team ([facility] Contact Info) Description 10/04/2023 Orders Only [facility] CH[facility] MED & PEDS [address] [place], [place] [phone] Jenn Gonzalez MD [address] [place], [place] [phone] Multiple joint pain (Primary Dx) Social History [...] Upcoming Encounters Date Type Department Care Team ([facility] st Contact Info) Description 05/27/2025 9:45 AM EST Office Visit [facility] MED & PEDS [address] [place] [address] Jenn Gonzalez MD [address] [place] [address] documented as of this encounter Visit Diagnoses Diagnosis Multiple joint pain- Primary Pain in joint, multiple sites documented in this encounter Care Teams Bicycle Courier Relationship Specialty Start Date End Date Jenn Gonzalez MD [address] [place] [address] PCP - General Internal Medicine 12/29/14 documented as of this encounter
--- OUTSIDE RECORDS SUMMARY | 2025-04-30 17:12 | XMS_ITS | Encounter Summary ---
Author Organization [employer] Address [address] [facility] 7t [place] [address] Care Team Providers Care Linen Tech Name Role Phone Jenn Gonzalez MD Primary Care Provider [phone] Reason for Visit * Reason Comments Med Refill Encounter Details Date Type Department Care Team ([facility] Contact Info) Description 09/30/2023 Refill [facility] MED & PEDS [address] [place], [place] [phone] Jenn Gonzalez MD [address] [place], [place] [phone] Social History Tobacco Use Types Packs/Day Years [...] Description 05/27/2025 9:45 AM EST Office Visit [facility] MED & PEDS [address] [place] [address] Jenn Gonzalez MD [address] [place] [address] documented as of this encounter Visit Diagnoses Not on filedocumented in this encounter Care Teams Linen Tech Relationship Specialty Start Date End Date Jenn Gonzalez MD [address] [place] [address] PCP - General Internal Medicine 12/29/14 documented as of this encounter
--- OUTSIDE RECORDS SUMMARY | 2025-04-30 17:12 | XMS_ITS | Encounter Summary ---
Author Organization [employer] Address [address] [facility] [address] [place] [address] Care Team Providers Care Options Advisor Name Role Phone Jenn Gonzalez MD Primary Care Provider [phone] Reason for Visit * Reason Comments Med Refill Encounter Details Date Type Department Care Team ([facility] Contact Info) Description 03/25/2024 Refill [facility] CH[facility] MED & PEDS [address] [place], [place] [phone] Jenn Gonzalez MD [address] [place], [place] [phone] Generalized anxiety disorder Social History Tobacco Use [...] Description 05/27/2025 9:45 AM EST Office Visit [facility] MED & PEDS [address] [place] [address] Jenn Gonzalez MD [address] [place] [address] documented as of this encounter Visit Diagnoses Diagnosis Generalized anxiety disorder documented in this encounter Care Teams Options Advisor Relationship Specialty Start Date End Date Jenn Gonzalez MD [address] [place] [address] PCP - General Internal Medicine 12/29/14 documented as of this encounter
--- OUTSIDE RECORDS SUMMARY | 2025-04-30 17:12 | XMS_ITS | Encounter Summary ---
Author Organization [employer] Address [address] [place] [address] 7 [place] [address] Care Team Providers Care Engine Dynamometer Tester Name Role Phone Jenn Gonzalez MD Primary Care Provider [phone] Encounter Details Date Type Department Care Team (Late st Contact Info) Description 11/27/2022 Orders Only [facility] MED & PEDS [address] [place] [address] Evangelina Santana LPN Social History Tobacco Use [...] Description 05/27/2025 9:45 AM EST Office Visit [facility] MED & PEDS [address] [place] [address] eJnn Gonzalez MD [address] [place] [address] documented as of this encounter Visit Diagnoses Not on filedocumented in this encounter Care Teams Engine Dynamometer Tester Relationship Specialty Start Date End Date Jenn Gonzalez MD [address] [place] [address] PCP - General Internal Medicine 12/29/14 documented as of this encounter
== END 2025-04-30 16:05 | disposition home or self-care (01) ==
LOC: HO.CHCLNP 16:04
PROVIDERS: PCP Family Medicine; Visit Provider Family Medicine
DX: Z13.89 Encounter for screening for other disorder (principal)

== ENCOUNTER 2025-05-04 08:56 | Outpatient (REF) | payer OTHER, SELFPAY ==
--- OUTSIDE RECORDS SUMMARY | 2025-04-30 14:00 | XMS_ITS | Encounter Summary ---
Author Organization [employer] Address [address] [facility] 7[address] [place] [address] Care Team Providers Care Felt Cutting Machine Operator Name Role Phone Jenn Gonzalez MD Primary Care Provider [phone] Reason for Referral * Consultation (Routine) - Closed Specialty Diagnoses / Procedures Referred By Deshawn jones Referred To Contact Physical Therapy Diagnoses Lumbar back pain with radiculopathy affecting left lower extremity Amna King MD [address] [place] [address] Phone: tel: fax: [facility] [address] [place] [address] Phone: tel: fax: Referral ID Status Reason Start Date Expiration Date V isits Requested Visits Authorized [id number] Closed Specialty Services Required 04/30/2025 04/30/2026 1 1 * Medications - Closed Specialty Diagnoses / Procedures Referred By Deshawn jones Referred To Contact Diagnoses Lumbar back pain with radiculopathy affecting left lower extremity Amna King MD [address] [place] [address] Phone: tel: fax: Referral ID Status Reason Start Date Expiration Date Visits Re quested Visits Authorized [id number] Closed 1 1 Reason for Visit * Reason Comments Back Pain Difficulty Urinating Encounter Details Date Type Department Care Team (Latest Contact Info) Description 04/30/2025 2:00 PM EDT Office Visit [facility] [address] [place] [address] Amna King MD [address] [place] [address] Lumbar back pain with radiculopathy affecting left lower extremity (Primary Dx); Chronic pain syndrome; Dysuria Social History Tobacco Use Types Packs/Day Years [...] Reading Time Taken Comments Blood Pressure 146/85 04/30/2025 2:00 PM EDT Pulse 85 04/30/2025 2:00 PM EDT Temperature - - Respiratory Rate 20 04/30/2025 2:00 PM EDT Oxygen Saturation 97% 04/30/2025 2:00 PM EDT Inhaled Oxygen Concentration - - Weight 84.4 kg (186 lb) 04/30/2025 2:00 PM EDT Height 154.9 cm (5' 1 ) 04/30/2025 2:00 PM EDT Body Mass Index 35.14 04/30/2025 2:00 PM EDT documented in this encounter Progress Notes * Amna King MD - 04/30/2025 2:00 PM EDT Images from the original note were not included. Subjective Patient ID: America Brooke is a 70 y.o. female who presents for Back Pain and Difficulty Urinating. America Brooke presents with back pain that has been ongoing for approximately one month, with worsening severity recently. The pain originates in the left side of her back and radiates down to her leg, with associated pressure sensation in the front of her ankle. She experiences significant pain when transitioning from sitting to standing, and lying down is uncomfortable when she turns to theaffected side, describing a sensation of something hitting her. The patient reports that the painstarted when she began hitting the floor but notes she had some pain prior to this, though not assevere as currently experienced. The patient has a history of arthritis and kidney stones. She reports numbness in both legs, affecting both the pinky and thumb areas, which preceded the current back pain episode. She also experiences neck pain and notes having one shoulder higher than the other. The patient mentions having urethral problems and reports an episode of unexpected diarrhea that occurred suddenly like a heart attack. She has been trying to avoid using pain medication due to concerns about interactions with her current medications, specifically mentioning clonazepam. The patient expresses that this current pain feels different from her previous arthritis-related discomfort because it significantly limits her movement. Review of Systems Gastrointestinal: Positive for diarrhea. Genitourinary: Positive for urinary problems. Musculoskeletal: Positive for neck pain. Neurological: Positive for numbness in both legs. Review of Systems Constitutional: Negative for appetite change, fatigue and fever. HENT: Negative for congestion, postnasal drip and rhinorrhea. Eyes: Negative for discharge and redness. Respiratory: Negative for apnea, cough, chest tightness and shortness of breath. Cardiovascular: Negative for chest pain. Gastrointestinal: Negative for abdominal pain. Endocrine: Negative for polyphagia. Genitourinary: Negative for difficulty urinating, dysuria and urgency. Musculoskeletal: Negative for arthralgias. Neurological: Negative for dizziness, light-headedness, numbness and headaches. Hematological: Negative for adenopathy. Does not bruise/bleed easily. Objective Visit Vitals BP (!) 146/85 (BP Location: Left arm, Patient Position: Sitting, BP Cuff Size: Adult) Pulse 85 Resp 20 Ht 5' 1 (1.549 m) Wt 186 lb (84.4 kg) SpO2 97% BMI 35.14 kg/m?? Smoking Status Former BSA 1.91 m?? Physical Exam Constitutional: General: She is not in acute distress. Appearance: She is obese. She is not ill-appearing. HENT: Head: Normocephalic and atraumatic. Nose: No congestion. Pulmonary: Effort: Pulmonary effort is normal. No respiratory distress. Breath sounds: Normal breath sounds. Musculoskeletal: Cervical back: Normal range of motion. Left hip: Decreased range of motion. Legs: Comments: Negative SLR, + Fabrick test left Neurological: General: No focal deficit present. Mental Status: She is alert. Psychiatric: Mood and Affect: Mood normal. Assessment/Plan Problem List Items Addressed This Visit Lumbar back pain with radiculopathy affecting left lower extremity - Primary Relevant Medications cyclobenzaprine (Flexeril) 10 MG tablet diclofenac (Cataflam) 50 MG tablet Other Relevant Orders XR Lumbar Spine Complete 4+ Views XR Hip 2 or 3 Views Left Referral to Physical Therapy Other Visit Diagnoses Chronic pain syndrome Dysuria Relevant Orders Urinalysis, Complete, with Reflex to Culture America ChandlerHeather Edwardo presents with left-sided back pain radiating to the leg with numbness in both legs, ongoing for approximately one month but worsening recently. Lumbar back pain with radiculopathy Assessment: Patient presents with left-sided lumbar back pain radiating to the leg, associated withnumbness in both legs, ongoing for approximately one month but significantly worsened recently. Pain is positional, worse when transitioning from sitting to standing and when turning while lying down. Physical examination reveals left greater than right paraspinal spasms, right anterior hip rotation, and limited left SI rotation. Patient has history of arthritis and kidney stones. The clinical presentation and examination findings suggest muscular etiology rather than sciatica, as straight leg raise test was negative. The right hip rotation and elevated right shoulder appear compensatory due to favoring the left side to avoid pain. Plan: - Order lumbar spine X-rays - Prescribe cyclobenzaprine (Flexeril) muscle relaxant - Prescribe diclofenac 30 tablets, take with food, avoid concurrent naproxen use - Refer to physical therapy - Follow-up appointment scheduled for May 27 in 4-6 weeks to reassess pain improvement - If no improvement after therapy, consider advanced imaging studies - Patient advised that clonazepam interaction precludes use of codeine- containing analgesics Urinary symptoms Assessment: Patient reports urethral problems and mentions suprapubic pressure. History of previoussimilar urinary issues. Plan: - Obtain urinalysis - If positive for infection, initiate antibiotic therapy Hypertension Assessment: Patient has known hypertension. Plan: - Continue current management documented in this encounter Plan of Treatment Upcoming Encounters Date Type Department Care Team (Late st Contact Info) Description 05/27/2025 9:45 AM EST Office Visit [facility] [address] [place] [address] Jenn Gonzalez MD [address] [place] [address] Scheduled Orders Name Type Priority Associated Diagnoses Orde r Schedule Urinalysis, Complete, with Reflex to Culture Lab Routine Dysuria Expected: 04/30/2025 (Approximate), Expires: 04/30/2026 Scheduled Referrals Name Type Priority Associated Diagnoses Orde r Schedule Referral to Physical Therapy Outpatient Referral Routine Lumbar back pain with radiculopathy affecting left lower extremity Expected: 04/30/2025 (Approximate), Expires: 04/30/2026 documented as of this encounter Procedures Procedure Name Priority Date/Time Associated Diagnosis Comments XR HIP 2 OR 3 VIEWS LEFT Routine 05/04/2025 9:05 AM EDT Lumbar back pain with radiculopathy affecting left lower extremity XR LUMBAR SPINE COMPLETE 4+ VIEWS Routine 05/04/2025 9:05 AM EDT Lumbar back pain with radiculopathy affecting left lower extremity documented in this encounter Results * XR Hip 2 or 3 Views Left (05/04/2025 9:05 AM EDT) Anatomical Region Laterality Modality Lower Extremities, Hip Left Radiograp hic Imaging 05/04/2025 9:05 AM EDT Narrative 05/04/2025 9:18 AM EDT [address] [address] XRay Report Signed Patient: America Brooke MR#: [id number] 52 : 1955 Acct:[id number] Age/Sex: 70 / F ADM Date: 05/04/25 Loc: HO.XRAY Attending Dr: Amna King MD Ordering Physician: Amna King MD Date of Service: 05/04/25 Procedure(s): XR hip LT min 2V Accession Number(s): [id number] cc: Jenn Gonzalez MD; Amna King MD Reason for Exam: pain EXAMINATION: XR HIP 2 OR MORE VIEWS LEFT HISTORY: pain COMPARISON: Comparison is made with the prior examination dated 11/18/2018. FINDINGS: Two views of the left hip are submitted. Osseous mineralization is normal. There is no fracture or dislocation. There is mild joint space narrowing. The soft tissues are unremarkable. XR/XR hip LT min 2V IMPRESSION: Mild joint space narrowing. Electronically signed by: Earl Lewis MD 05/04/2025 09:15 AM EDT Dictated By: Earl Lewis MD Signed By: <Electronically signed by Earl Lewis MD in OV> 05/04/25914 DD/ 4 TD/TT: 05/04/25909 Direct Sales Professional: Procedure Note Donotuseinterpreter, Image - 05/04/[address] [address] XRay Report Signed Patient: Gwen BrookeR#: [id number] 52 : 1955cct:[id number] Age/Sex: 70 / FADM Date: 05/04/25 Loc: [facility] Attending Dr: Amna King MD Ordering Physician: Amna King MD Date of Service: 05/04/25 Procedure(s): XR hip LT min 2V Accession Number(s): [id number] cc: Jenn Gonzalez MD; Amna King MD Reason for Exam: pain EXAMINATION: XR HIP 2 OR MORE VIEWS LEFT HISTORY: pain COMPARISON: Comparison is made with the prior examination dated 11/18/2018. FINDINGS: Two views of the left hip are submitted. Osseous mineralization is normal. There is no fracture or dislocation. There is mild joint space narrowing. The soft tissues are unremarkable. XR/XR hip LT min 2V IMPRESSION: Mild joint space narrowing. Electronically signed by: Earl Lewis MD 05/04/2025 09:15 AM EDT Dictated By: Earl Lewis MD Signed By: <Electronically signed by Earl Lewis MD in OV> 05/04/25914 DD/ 4 TD/TT: 05/04/25909 Direct Sales Professional: us Amna King MD IMG XR PROCEDURES Final Resul t * XR Lumbar Spine Complete 4+ Views (05/04/2025 9:05 AM EDT) Anatomical Region Laterality Modality Spine, L-spine Radiographic Bijal ging 05/04/2025 9:05 AM EDT Narrative 05/04/2025 9:26 AM EDT [address] [address] XRay Report Signed Patient: America Brooke MR#: [id number] 52 : 1955 Acct:[id number] Age/Sex: 70 / F ADM Date: 05/04/25 Loc: [facility] Attending Dr: Amna King MD Ordering Physician: Amna King MD Date of Service: 05/04/25 Procedure(s): XR lumbar spine 4V min Accession Number(s): [id number] cc: Jenn Gonzalez MD; Amna King MD Reason for Exam: pain EXAMINATION: XR LUMBOSACRAL SPINE WITH OBLIQUES CLINICAL INFORMATION: pain COMPARISON: Previous x-ray April [address] of the abdomen and pelvis September 2022 TECHNIQUE: AP, both oblique, and lateral views of the lumbar spine. Lateral view of the lumbosacral junction. FINDINGS: There is severe atherosclerotic disease. There is a lower abdominal aortic aneurysm. This appears increased from prior lumbar spine x-ray April 2018. This measures 4.6 cm in maximum dimension not accounting for magnification. This measured 3.3 cm in maximum dimension on CT September 2022. Mild grade 1 anterior subluxation of L4 with respect L5 measuring 4 mm. Bone alignment is otherwise normal. No fracture or dislocation. Disc space narrowing at L5-S1. Lower lobar spine facet arthritis Surgical clips in the right upper quadrant probably from cholecystectomy. Small calcification projects over the lower pole of the left kidney questionable for a stone. XR/XR lumbar spine 4V min IMPRESSION: Degenerative changes. Lower abdominal aortic aneurysm. This measures 4.6 cm in maximum dimension not accounting for magnification. This appears increased in size from April 2018 x-ray. Follow-up aortic ultrasound or CT for more accurate sizing recommended. Probable small right lower pole renal stone. Electronically signed by: Carole Aviles MD 05/04/2025 09:23 AM EDT Dictated By: Carole Aviles MD Signed By: <Electronically signed by Carole Aviles MD in OV> 05/04/2523 DD/ 4 TD/TT: 05/04/25909 Direct Sales Professional: ABHIJIT Procedure Note Donotuseinterpreter, Image - 05/04/[address] [address] XRay Report Signed Patient: Chinyere Brooke#: [id number] 52 : 7Acct:[id number] Age/Sex: 70 / FADM Date: 05/04/25 Loc: HO.XRAY Attending Dr: Amna King MD Ordering Physician: Amna King MD Date of Service: 05/04/25 Procedure(s): XR lumbar spine 4V min Accession Number(s): [id number] cc: Jenn Gonzalez MD; Amna King MD Reason for Exam: pain EXAMINATION: XR LUMBOSACRAL SPINE WITH OBLIQUES CLINICAL INFORMATION: pain COMPARISON: Previous x-ray April [address] of the abdomen and pelvis September 2022 TECHNIQUE: AP, both oblique, and lateral views of the lumbar spine. Lateral view of the lumbosacral junction. FINDINGS: There is severe atherosclerotic disease. There is a lower abdominal aortic aneurysm. This appears increased from prior lumbar spine x-ray April 2018. This measures 4.6 cm in maximum dimension not accounting for magnification. This measured 3.3 cm in maximum dimension on CT September 2022. Mild grade 1 anterior subluxation of L4 with respect L5 measuring 4 mm. Bone alignment is otherwise normal. No fracture or dislocation. Disc space narrowing at L5-S1. Lower lobar spine facet arthritis Surgical clips in the right upper quadrant probably from cholecystectomy. Small calcification projects over the lower pole of the left kidney questionable for a stone. XR/XR lumbar spine 4V min IMPRESSION: Degenerative changes. Lower abdominal aortic aneurysm. This measures 4.6 cm in maximum dimension not accounting for magnification. This appears increased in size from April 2018 x-ray. Follow-up aortic ultrasound or CT for more accurate sizing recommended. Probable small right lower pole renal stone. Electronically signed by: Carole Aviles MD 05/04/2025 09:23 AM EDT Dictated By: Carole Aviles MD Signed By: <Electronically signed by Carole Aviles MD in OV> 05/04/25922 DD/ 4 TD/TT: 05/04/25909 Direct Sales Professional: ABHIJIT Amna King MD IMG XR PROCEDURES Final Resul t documented in this encounter Visit Diagnoses Diagnosis Lumbar back pain with radiculopathy affecting left lower extremity- Primary Chronic pain syndrome Dysuria documented in this encounter Additional Health Concerns Assessment Noted Time PHQ-9 Depression Total Score: 0 04/17/20 25 10:21 AM EDT documented as of this encounter Care Teams Felt Cutting Machine Operator Relationship Specialty Start Date End Date Jenn Gonzalez MD [address] [place] [id number] PCP - General Internal Medicine 12/29/14 documented as of this encounter
--- NOTE | ~2025-05-04 | XR_ITS ---
EXAMINATION: XR LUMBOSACRAL SPINE WITH OBLIQUES CLINICAL INFORMATION: pain COMPARISON: Previous x-ray April [address] of the abdomen and pelvis September 2022 TECHNIQUE: AP, both oblique, and lateral views of the lumbar spine. Lateral view of the lumbosacral junction. FINDINGS: There is severe atherosclerotic disease. There is a lower abdominal aortic aneurysm. This appears increased from prior lumbar spine x-ray April 2018. This measures 4.6 cm in maximum dimension not accounting for magnification. This measured 3.3 cm in maximum dimension on CT September 2022. Mild grade 1 anterior subluxation of L4 with respect L5 measuring 4 mm. Bone alignment is otherwise normal. No fracture or dislocation. Disc space narrowing at L5-S1. Lower lobar spine facet arthritis Surgical clips in the right upper quadrant probably from cholecystectomy. Small calcification projects over the lower pole of the left kidney questionable for a stone. XR/XR lumbar spine 4V min IMPRESSION: Degenerative changes. Lower abdominal aortic aneurysm. This measures 4.6 cm in maximum dimension not accounting for magnification. This appears increased in size from April 2018 x-ray. Follow-up aortic ultrasound or CT for more accurate sizing recommended. Probable small right lower pole renal stone. Electronically signed by: Carole Aviles MD 05/04/2025 09:23 AM EDT RP
--- NOTE | ~2025-05-04 | XR_ITS ---
EXAMINATION: XR HIP 2 OR MORE VIEWS LEFT HISTORY: pain COMPARISON: Comparison is made with the prior examination dated 11/18/2018. FINDINGS: Two views of the left hip are submitted. Osseous mineralization is normal. There is no fracture or dislocation. There is mild joint space narrowing. The soft tissues are unremarkable. XR/XR hip LT min 2V IMPRESSION: Mild joint space narrowing. Electronically signed by: Earl Lewis MD 05/04/2025 09:15 AM EDT
--- OUTSIDE RECORDS SUMMARY | 2025-05-04 09:51 | XMS_ITS | Encounter Summary ---
Author Organization [employer] Address [address] [facility] 7t [place] [address] Care Team Providers Care Log Cut Off Sawyer Name Role Phone Jenn Gonzalez MD Primary Care Provider [phone] Reason for Referral * Imaging (Routine) - Authorized Specialty Diagnoses / Procedures Referred By Deshawn jones Referred To Contact Cardiology Diagnoses Abnormality of abdominal aorta Procedures Vascular US abdomen/pelvis duplex complete Amna King MD [address] [place] [address] Phone: tel: fax: [address] Phone: tel: fax: Referral ID Status Reason Start Date Expiration Date Visits Requested Visits Authorized [id number] Authorized Perform Procedure 05/04/2026 1 1 Encounter Details Date Type Department Care Team ([facility] Contact Info) Description 05/04/2025 Results Follow-Up [facility] CH[facility] MED & PEDS [address] [place] [address] Amna King MD [address] [place], [place] [phone] XR Hip 2 or 3 Views Left Social History Tobacco Use Types Packs/Day Years [...] [facility]EDS [address] [place] [address] Jenn Gonzalez MD [address] [place] [address] documented as of this encounter Visit Diagnoses Diagnosis Abnormality of abdominal aorta- Primary documented in this encounter Additional Health Concerns Assessment Noted Time PHQ-9 Depression Total Score: 0 10/23/19 25 10:21 AM EDT documented as of this encounter Care Teams Log Cut Off Sawyer Relationship Specialty Start Date End Date Jenn Gonzalez MD [address] [place] [address] PCP - General Internal Medicine 12/29/14 documented as of this encounter
--- OUTSIDE RECORDS SUMMARY | 2025-05-04 09:51 | XMS_ITS | Encounter Summary ---
Author Organization [employer] Address [address] [facility] 7t [place] [address] Care Team Providers Care Financial Compliance Officer Name Role Phone Jenn Gonzalez MD Primary Care Provider [phone] Encounter Details Date Type Department Care Team ([facility] Contact Info) Description 10/04/2023 Orders Only [facility] CH[facility] MED & PEDS [address] [place], [place] [phone] Jenn Gonzalez MD [address] [place], [place] [phone] Multiple joint pain (Primary Dx) Social History [...] Description 05/27/2025 9:45 AM EST Office Visit [facility] CHC MED & PEDS [address] [place] [address] Jenn Gonzalez MD [address] [place] [address] documented as of this encounter Visit Diagnoses Diagnosis Multiple joint pain- Primary Pain in joint, multiple sites documented in this encounter Care Teams Financial Compliance Officer Relationship Specialty Start Date End Date Jenn Gonzalez MD [address] [place] [address] PCP - General Internal Medicine 12/29/14 documented as of this encounter
--- OUTSIDE RECORDS SUMMARY | 2025-05-04 09:51 | XMS_ITS | Clinical Summary ---
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,Smoking addiction Place [...] artery disease of n ative artery of chilkoot heart with stable angina pectoris 10/22/2024 Smoking addiction 10/22/2024 SARATH (generalized anxiety disorder) 04/28/2024 Impaired fasting glucose 10/20/2021 Backache 10/26/2011 Depressive disorder 10/26/2011 Essential hypertension 10/26/2011 Pure hypercholesterolemia 10/26/2011 Vitamin D deficiency 10/26/2011 Encounters Date Type Department Care Team Description 05/04/2025 Results Follow-Up [facility] [address] [place] [address] Amna King MD XR Hip 2 or 3 Views Left 04/30/2025 2:00 PM EDT Office Visit [facility] [address] [place] [address] Amna King MD Lumbar back pain with radiculopathy affecting left lower extremity (Primary Dx); Chronic pain syndrome; Dysuria 04/30/2025 Travel 04/29/2025 Telephone [facility] [address] [place] [address] Jenn Gonzalez MD Nurse Triage 03/25/2025 9:30 AM EDT Office Visit [facility] [address] [place] [address] Jenn Gonzalez MD Essential hypertension (Primary Dx); Encounter for screening mammogram for malignant neoplasm of breast 03/25/2025 Travel 03/24/2025 Telephone [facility] [address] [place] [address] Jenn Gonzalez MD Chart Prep 02/02/2025 9:00 AM EDT Office Visit [facility] [address] [place] [address] Jenn Gonzalez MD Essential hypertension (Primary Dx); Depressive disorder; Pure hypercholesterolemia; Screening for osteoporosis; Encounter for immunization; Dietary counseling; Exercise counseling; Class 2 severe obesity due to excess calories with serious comorbidity and body mass index (BMI) of 35.0 to 35.9 in adult (CMS/HCC); Osteochondritis dissecans of ankle, right; Other secondary osteoarthritis of right ankle 02/02/2025 Results Follow-Up [facility] [address] [place] [address] Jenn Gonzalez MD CBC auto differential, Comprehensive [...] Upcoming Encounters Date Type Department Care Team ([facility] st Contact Info) Description 05/27/2025 9:45 AM EST Office Visit [facility] [address] [place] [address] Jenn Gonzalez MD [address] [place] [address] Health Maintenance Due Date Last Done Comments [...] pain with radiculopathy affecting left lower extremity HEPATITIS C AB W/REFL TO HCV RNA, [...] Recently Relevant to Health Maintenance Results * XR Hip 2 or 3 Views Left (05/04/2025 9:05 AM EDT) Anatomical Region Laterality Modality Lower Extremities, Hip Left Radiograp hic Imaging 05/04/2025 9:05 AM EDT Narrative 05/04/2025 9:18 AM EDT [place] [address] XRay Report Signed Patient: America Brooke MR#: [id number] 52 : 1955 Acct:[id number] Age/Sex: 70 / F ADM Date: 05/04/25 Loc: HO.ELVA Attending Dr: Amna King MD Ordering Physician: Amna King MD Date of Service: 05/04/25 Procedure(s): XR hip LT min 2V Accession Number(s): [id number] cc: Jenn Gonzalez MD; Amna King MD [...] Earl Lewis MD 05/04/2025 09:15 AM EDT RP Dictated By: Earl Lewis MD Signed By: <Electronically signed by Earl Lewis MD in OV> 05/04/25914 DD/ 4 TD/TT: 05/04/25909 Electrotyper Apprentice: Procedure Note Donotuseinterpreter, Image - 05/04/2025 [place] [address] XRay Report Signed Patient: Chinyere Brooke#: [id number] 52 : 1955cct:[id number] Age/Sex: 70 / FADM Date: 05/04/25 Loc: HO.LUISITOAY Attending Dr: Amna King MD Ordering Physician: Amna King MD Date of Service: 05/04/25 Procedure(s): XR hip LT min 2V Accession Number(s): [id number] cc: Jenn Gonzalez MD; Amna King MD [...] Earl Lewis MD 05/04/2025 09:15 AM EDT RP Dictated By: Earl Lewis MD Signed By: <Electronically signed by Earl Lewis MD in OV> 05/04/25914 DD/ 4 TD/TT: 05/04/25909 Electrotyper Apprentice: us Amna King MD IMG XR PROCEDURES Final Resul t * XR Lumbar Spine Complete 4+ Views (05/04/2025 9:05 AM EDT) Anatomical Region Laterality Modality Spine, L-spine Radiographic Bijal ging 05/04/2025 9:05 AM EDT Narrative 05/04/2025 9:26 AM EDT [address] [address] XRay Report Signed Patient: America Brooke MR#: [id number] 52 : 1955 Acct:[id number] Age/Sex: 70 / F ADM Date: 05/04/25 Loc: HOEDMOND Attending Dr: Amna King MD Ordering Physician: Amna King MD Date of Service: 05/04/25 Procedure(s): XR lumbar spine 4V min Accession Number(s): [id number] cc: Jenn Gonzalez MD; Amna King MD [...] MD in OV> 05/04/25922 DD/ 4 TD/TT: 05/04/25 0910 Electrotyper Apprentice: ABHIJIT Procedure Note Donotuseinterpreter, Image - 05/04/[address] [address] XRay Report Signed Patient: Chinyere Brooke#: [id number] 52 : [birth year]Acct:[id number] Age/Sex: 70 / FADM Date: 05/04/25 Loc: HO.ELVA Attending Dr: Amna King MD Ordering Physician: Amna King MD Date of Service: 05/04/25 Procedure(s): XR lumbar spine 4V min Accession Number(s): [id number] cc: Jenn Gonzalez MD; Amna King MD [...] in OV> 05/04/2523 DD/ 4 TD/TT: 05/04/25909 Electrotyper Apprentice: ABHIJIT us Amna King MD IMG XR PROCEDURES Final Resul t * TSH W/Reflex to FT4 (02/02/2025 9:40 AM EDT) TSH reflex Free T4 1.45 0.32 - 4.0 uIU/mL [facility] Blood Venous blood specimen / Unknown 02/02/2025 9:40 AM EDT 02/02/2025 2:04 PM EDT us Jenn Gonzalez MD LAB BLOOD ORDERABLES Final Result [facility] [address] [place] [phone] * (ABNORMAL) CBC auto differential (02/02/2025 9:40 AM EDT) White Blood Count 6.7 4.8 - 10.8 X10*3/uL [facility] Red Blood Count 4.09(L) 4.20 - 5.50 X10*6/uL [facility] Hemoglobin 12.5 12.0 - 16.0 g/dl [facility] Hematocrit 38.7 37.0 - 47.0 % [facility] Mean Corpuscular Volume 94.6 80.0 - 98.0 fL [facility] Mean Corpuscular Hemoglobin 30.6 27.0 - 33.0 pg [facility] Mean Corpuscular HGB Conc 32.3 31.0 - 35.0 g/dl [facility] Red Cell Distribution Width 14.2 11.0 - 16.0 % [facility] Platelet Count 279 160 - 400 X10*3/uL [facility] Mean Platelet Volume 11.2 9.4 - 12.3 fL [facility] Neutrophils Percent Auto 59.8 45 - 73 % [facility] Imm Gran Pct Auto 0.5(H) 0.0 - 0.4 % [facility] Lymphocytes Percent Auto 26.1 20 - 40 % [facility] Monocytes Percent Auto 8.0 2 - 11 % [facility] Eosinophils Percent Auto 4.5(H) 0 - 4 % [facility] Basophils Percent Auto 1.1 0 - 2 % [facility] NRBC Pct Auto 0.0 0.0 - 0.2 /100WBC [facility] Neutrophils Absolute Auto 4.0 2.0 - 8.3 x10*3/uL [facility] Imm Gran Abs Auto 0.03 0.00 - 0.03 X10*3/uL [facility] Lymphocytes Absolute Auto 1.7 1.2 - 4.9 X10*3/uL [facility] Monocytes Absolute Auto 0.5 0.1 - 1.2 X10*3/uL [facility] Eosinophils Absolute Auto 0.3 0.0 - 0.4 X10*3/uL [facility] Basophils Absolute Auto 0.1 0.0 - 0.2 X10*3/uL [facility] NRBC Abs Auto 0.000 0.0 - 0.012 X10*3/uL [facility] Blood Venous blood specimen / Unknown 02/02/2025 9:40 AM EDT 02/02/2025 2:01 PM EDT Jenn Gonzalez MD LAB BLOOD ORDERABLES Final Result [facility] [address] [place] [address] [phone] * Hepatitis C Antibody with Reflex to HCV, RNA, Quantitative, Real-Time PCR (02/02/2025 9:40 AM EDT) Hepatitis C Antibody Nonreactive Nonreactive [facility] Comment:Antibodies to HCV no t detected; does not exclude early acuteHCV infection. Blood Venous blood specimen / Unknown 02/02/2025 9:40 AM EDT 02/02/2025 2:01 PM EDT us Jenn Gonzalez MD LAB BLOOD ORDERABLES Final Result Performing Organization Address [facility]/ZIP Co de Phone Number [facility] [address] [place] [phone] * Lipid Panel, Standard (02/02/2025 9:40 AM EDT) Triglycerides 78 <150 mg/dL [facility] Comment:Slight Lipemia.Daryrl able Triglyceride: less than 150 mg/dLBorderline High Triglyceride 150-199 mg/dLHigh Triglyceride: 200-499 mg/dLVery High Triglyceride: greater than or equal to 5OO mg/dL Cholesterol 131 <200 mg/dL [facility] Comment:Desirable Cholestero l: less than 200 mg/dLBorderline High Cholesterol: 200-239 mg/dLHigh Cholesterol: greater than 239 mg/dL LDL Cholesterol Calculated 70 <100 mg/dL [facility] Comment:Desirable LDL: less than 100 mg/dLNear Optimal/Above Optimal LDL: 110- 129 mg/dLBorderline High LDL: 130-159 mg/dLHigh LDL: 160-189 mg/dLVery High LDL: greater than or equal to 190 mg/dL HDL Cholesterol 46 >40 mg/dL [facility] Comment:Desirable HDL: great er than 40 mg/dL Note: This HDL assay may give artificially low results in patients with liver disease. Blood Venous blood specimen / Unknown 02/02/2025 9:40 AM EDT 02/02/2025 2:04 PM EDT us Jenn Gonzalez MD LAB BLOOD ORDERABLES Final Result [facility] [address] [place] [phone] [phone] * (ABNORMAL) Comprehensive Metabolic Panel (02/02/2025 9:40 AM EDT) Sodium 137 135 - 145 mmol/L [facility] Potassium 4.2 3.3 - 5.1 mmol/L [facility] Chloride 104 96 - 108 mmol/L [facility] Carbon Dioxide 26 22 - 29 mmol/L [facility] Anion Gap 11(L) 12 - 20 [facility] Urea Nitrogen (BUN) 10 9 - 16 mg/dL [facility] Creatinine, Serum 0.73 0.5 - 1.4 mg/dL [facility] Estimated Glomerular Filt Rate >60 [facility] Comment:Chronic Kidney Disea se: Estimated GFR < 60 mL/min/[id number] Kidney Disease: Estimated GFR < 15 mL/min/1.73m2 Glucose 106 60 - 115 mg/dL [facility] Calcium 9.4 8.4 - 10.2 mg/dL [facility] Bilirubin, Total 0.5 0.0 - 1.0 mg/dL [facility] Aspartate Amino Transferase 29 5 - 31 U/L [facility] Alanine Aminotransferase 21 0 - 31 U/L [facility] Total Protein 7.3 6.5 - 8.0 g/dL [facility] Albumin Level 4.6 3.5 - 5.0 g/dL [facility] Alkaline Phosphatase 90 39 - 117 U/L [facility] Blood Venous blood specimen / Unknown 02/02/2025 9:40 AM EDT 02/02/2025 2:04 PM EDT Jenn Gonzalez MD LAB BLOOD ORDERABLES Final Result [facility] [address] [place] [address] [phone] * (ABNORMAL) Cologuard?? colon cancer screening (11/02/2024 7:55 AM EDT) Cologuard Result Positive( A) Negative 11/06/2024 1:52 PM EDT [facility] (CLIA #:[id number]) Comment: The Cologuard (TM) test was performed [...] screened with both Cologuard and colonoscopy. (Miguel De La Garza. et al, N Engl J Med 2014;370(14):0722-5844.) Cologuard may produce a false negative or false positive result (no colorectal cancer or precancerous polyp present at colonoscopy follow up). A negative Cologuard test result does not guarantee the absence of CRC or advanced adenoma (pre-cancer). The current Cologuard screening interval is every 3 years. ([place] [employer] Society and U.S. Multi-Society Task Force). Cologuard performance data in a 10,000 patient pivotal study using colonoscopy as the reference method can be accessed at the following location: [email or web address]/results. Additional description of the Cologuard test process, warnings and precautions can be found at [email or web address]. Stool specimen (specimen) 11/02/2024 7:55 AM EDT 11/03/2024 12:47 PM EDT Jenn Gonzalez MD LAB MOLECULAR DIAGNOSTICS O RDERABLES Final Result [facility] (CLIA #:[id number]) [address] [place] [address], * 3D DIGITAL ARAVIND SCR MAMMO 1 [...] Most Recently Relevant to Health Maintenance Insurance [facility] CUSTODIAL OPTIONS (O D-SNP) [place] [id number] Care Teams Clay Grinder Relationship Specialty Start Date End Date Jenn Gonzalez MD [address] [place] [address] [place] [address] PCP - General Internal Medicine 12/29/14
--- OUTSIDE RECORDS SUMMARY | 2025-05-04 09:51 | XMS_ITS | Encounter Summary ---
Author Organization [employer] Address [address] [facility] 7t [place] [address] Care Team Providers Care Timber Appraiser Name Role Phone Jenn Gonzalez MD Primary Care Provider [phone] Encounter Details Date Type Department Care Team ([facility] Contact Info) Description 10/24/2023 Orders Only [facility] & [facility]EDS [address] [place], [place] [phone] Jenn Gonzalez MD [address] [place] [address] Social History Tobacco Use Types Packs/Day Years [...] Description 05/27/2025 9:45 AM EST Office Visit [facility] [address] [place] [address] Jenn Gonzalez MD [address] [place] [address] documented as of this encounter Procedures Procedure Name Priority Date/Time Associated Diagnosis Comments STRESS TEST WITH MYOCARDIAL PERFUSION Routine 10/30/2023 2:15 PM EDT documented in this encounter Results * Stress test with myocardial perfusion (10/30/2023 2:15 PM EDT) 10/30/2023 2:15 PM EDT Narrative [facility] - 10/30/2023 3:24 PM EDT [address] [address] Nuclear Medicine Report Signed Patient: America Brooke MR#: [id number] 52 : 1955 Acct:[id number] Age/Sex: 68 / F ADM Date: 10/24/23 Loc: HO.CARD Attending Dr: Flip Mandujano MD Ordering Physician: Flip Mandujano MD Date of Service: 10/24/23 Procedure(s): NM cardiolite stress test Accession Number(s): [id number] cc: Jenn Gonzalez MD; Flip Mandujano MD [...] lateral wall as well as the apex. NM/OR cardiolite stress test Impression: 1. Myocardial perfusion imaging study shows possible ischemia in the distal part of lateral wall and apex. 2. Gated LVEF is 53% during stress and rest. 3. Transient ischemic dilatation not present. EKG component of the test reported separately. Dictated By: Flip Mandujano MD Signed By: <Electronically signed by Flip Mandujano MD in OV> 10/30/23 1521 DD/ 1415 TD/TT: Sales Executive Insurance: Procedure Note Donotuseinterpreter, Image - 10/30/[address] [address] Nuclear Medicine Report Signed Patient: Chinyere Brooke#: [id number] 52 : 7Acct:[id number] Age/Sex: 68 / FADM Date: 10/24/23 Loc: .[facility] Attending Dr: Flip Mandujano MD Ordering Physician: Flip Mandujano MD Date of Service: 10/24/23 Procedure(s): OR cardiolite stress test Accession Number(s): [id number] cc: Jenn Gonzalez MD; Flip Mandujano MD [...] MD inOV> 10/30/23 1521 DD/ 1415 TD/TT: Sales Executive Insurance: us [facility] External Provider CV STRE SS PROCEDURES Final Result [facility] [address] [place] [phone] documented in this encounter Visit Diagnoses Not on filedocumented in this encounter Care Teams Timber Appraiser Relationship Specialty Start Date End Date Jenn Gonzalez MD [address] [place] [phone] PCP - General Internal Medicine 12/29/14 documented as of this encounter
--- OUTSIDE RECORDS SUMMARY | 2025-05-04 09:51 | XMS_ITS | Encounter Summary ---
Author Organization [employer] Address [address] [facility] 7t [place] [address] Care Team Providers Care Digital Publishing Specialist Name Role Phone Jenn Gonzalez MD Primary Care Provider [phone] Reason for Visit * Reason Onset Date Comments Appointment Request 09/28/2024 Encounter Details Date Type Department Care Team ([facility] Contact Info) Description 09/28/2024 Telephone [facility] [address] [place], [place] [phone] Jenn Gonzalez MD [address] [place], [place] [phone] Appointment Request Social History Tobacco Use Types [...] R/s Appt from 09/02/24. Contact pt at [phone] documented in this encounter Plan of Treatment Upcoming Encounters Date Type Department Care Team (Late st Contact Info) Description 05/27/2025 9:45 AM EST Office Visit [facility] MED & PEDS [address] [place] [address] Jenn Gonzalez MD [address] [place] [address] documented as of this encounter Visit Diagnoses Not on filedocumented in this encounter Additional Health Concerns Assessment Noted Time PHQ-9 Depression Total Score: 14 024 9:24 AM EDT documented as of this encounter Care Teams Digital Publishing Specialist Relationship Specialty Start Date End Date Jenn Gonzalez MD [address] [place] [address] PCP - General Internal Medicine 12/29/14 documented as of this encounter
--- OUTSIDE RECORDS SUMMARY | 2025-05-04 09:51 | XMS_ITS | Encounter Summary ---
Author Organization [employer] Address [address] [facility] 7t [place] [address] Care Team Providers Care Forest Fire Officer Name Role Phone Jenn Gonzalez MD Primary Care Provider [phone] Reason for Visit * Reason Comments Med Refill Encounter Details Date Type Department Care Team ([facility] Contact Info) Description 09/30/2023 Refill [facility] PEDS [address] [place], [place] [phone] Jenn Gonzalez MD [address] [place], [place] [phone] Social History Tobacco Use Types Packs/Day Years [...] [facility] [address] [place] [address] Jenn Gonzalez MD [address] [place] [address] documented as of this encounter Visit Diagnoses Not on filedocumented in this encounter Care Teams Forest Fire Officer Relationship Specialty Start Date End Date Jenn Gonzalez MD [address] [place] [address] PCP - General Internal Medicine 12/29/14 documented as of this encounter
--- OUTSIDE RECORDS SUMMARY | 2025-05-04 09:51 | XMS_ITS | Encounter Summary ---
Author Organization [employer] Address [address] [facility] 7t [place] [address] Care Team Providers Care Clinical Dental Technician Name Role Phone Jenn Gonzalez MD Primary Care Provider [phone] Reason for Visit * Reason Onset Date Comments Durable Medical Equipment 06/12/2024 Encounter Details Date Type Department Care Team ([facility] Contact Info) Description 06/12/2024 Telephone [facility]INE [address] [place] [address] Jenn Gonzalez MD [address] [place], [place] [phone] Durable Medical Equipment Social History Tobacco Use [...] to hold on. Contact pt Daughter at [phone] * Telephone Encounter - Uzma Manjarrez LPN - 06/15/2024 3:14 PM EST Please review pt requested below. Health Informatics Instructor did review pt however didn't notice any [...] 9:45 AM EST Office Visit [facility] MED & PEDS [address] [place] [address] Jenn Gonzalez MD [address] [place] [address] documented as of this encounter Visit Diagnoses Not on filedocumented in this encounter Additional Health Concerns Assessment Noted Time PHQ-9 Depression Total Score: 14 024 9:24 AM EDT documented as of this encounter Care Teams Clinical Dental Technician Relationship Specialty Start Date End Date Jenn Gonzalez MD [address] [place] [address] PCP - General Internal Medicine 12/29/14 documented as of this encounter
--- OUTSIDE RECORDS SUMMARY | 2025-05-04 09:52 | XMS_ITS | Encounter Summary ---
Author Organization [employer] Address [address] [facility] 7t [place] [address] Care Team Providers Care Vertical Borer Name Role Phone Jenn Gonzalez MD Primary Care Provider [phone] Encounter Details Date Type Department Care Team ([facility] Contact Info) Description 06/19/2024 Orders Only [facility] CH[facility] MED & PEDS [address] [place], [place] [phone] Jenn Gonzalez MD [address] [place] [address] Social History Tobacco Use Types Packs/Day Years [...] Description 05/27/2025 9:45 AM EST Office Visit [facility] MED & PEDS [address] [place] [address] Jenn Gonzalez MD [address] [place] [address] documented as of this encounter Visit Diagnoses Not on filedocumented in this encounter Additional Health Concerns Assessment Noted Time PHQ-9 Depression Total Score: 14 024 9:24 AM EDT documented as of this encounter Care Teams Vertical Borer Relationship Specialty Start Date End Date Jenn Gonzalez MD [address] [place] [address] PCP - General Internal Medicine 12/29/14 documented as of this encounter
--- OUTSIDE RECORDS SUMMARY | 2025-05-04 09:52 | XMS_ITS | Encounter Summary ---
Author Organization [employer] Address [address] [facility] 7t [place] [address] Care Team Providers Care High Density Finishing Operator Name Role Phone Jenn Gonzalez MD Primary Care Provider [phone] Reason for Visit * Reason Onset Date Comments Appointment Request 03/25/2024 Encounter Details Date Type Department Care Team ([facility] Contact Info) Description 03/25/2024 Telephone [facility]IC[facility] [address] [place], [place] [phone] Jenn Gonzalez MD [address] [place], [place] [phone] Appointment Request Social History Tobacco Use Types [...] Upcoming Encounters Date Type Department Care Team ([facility] st Contact Info) Description 05/27/2025 9:45 AM EST Office Visit [facility] MED & PEDS [address] [place] [address] Jenn Gonzalez MD [address] [place] [address] documented as of this encounter Visit Diagnoses Not on filedocumented in this encounter Care Teams High Density Finishing Operator Relationship Specialty Start Date End Date Jenn Gonzalez MD [address] [place] [address] PCP - General Internal Medicine 12/29/14 documented as of this encounter
--- OUTSIDE RECORDS SUMMARY | 2025-05-04 09:52 | XMS_ITS | Encounter Summary ---
Author Organization [employer] Address [address] [facility] 7t [place] [address] Care Team Providers Care Hide Mill Worker Name Role Phone Jenn Gonzalez MD Primary Care Provider [phone] Reason for Visit * Reason Comments Med Refill Encounter Details Date Type Department [facility] Description 03/25/2024 Refill [facility] CH[facility] MED & PEDS [address] [place], [place] [phone] Jenn Gonzalez MD [address] [place], [place] [phone] Generalized anxiety disorder Social History Tobacco Use [...] Description 05/27/2025 9:45 AM EST Office Visit [facility] MED & PEDS [address] [place] [address] Jenn Gonzalez MD [address] [place] [address] documented as of this encounter Visit Diagnoses Diagnosis Generalized anxiety disorder documented in this encounter Care Teams Hide Mill Worker Relationship Specialty Start Date End Date Jenn Gonzalez MD [address] [place] [address] PCP - General Internal Medicine 12/29/14 documented as of this encounter
--- OUTSIDE RECORDS SUMMARY | 2025-05-04 09:52 | XMS_ITS | Clinical Summary ---
Author Organization [employer] [facility] ity Address [address] [place] [address] Care Team Providers Care Pricer Bagger Name Role Phone Unavailable Primary Care Provider [...]
--- OUTSIDE RECORDS SUMMARY | 2025-05-04 09:52 | XMS_ITS | Encounter Summary ---
Author Organization [employer] Address [address] [facility] 7t [place] [address] Care Team Providers Care Zanjero Name Role Phone Jenn Gonzalez MD Primary Care Provider [phone] Reason for Visit * Reason Onset Date Comments Nurse Triage 04/29/2025 Encounter Details Date Type Department Care Team ([facility] st Contact Info) Description 04/29/2025 Telephone [facility] MEDICINE [address] [place] [address] Jenn Gonzalez MD [address] [place], [place] [phone] Nurse Triage Social History Tobacco Use Types [...] TC placed to patient using BLS #ID [id number]. Patient c/o Left lower ext nerve pain [...] declined. RN offered same day appt at [facility]. Patient accepted the appt. Patient verbalized [...] Trouble walking The caller accepted this outcome. BULGARIAN SPEAKER documented in this encounter Plan of Treatment Upcoming Encounters Date Type Department Care Team (Late st Contact Info) Description 05/27/2025 9:45 AM EST Office Visit [facility] MED & PEDS [address] [place] [address] Jenn Gonzalez MD [address] [place] [address] documented as of this encounter Visit Diagnoses Not on filedocumented in this encounter Additional Health Concerns Assessment Noted Time PHQ-9 Depression Total Score: 0 10/23/19 25 10:21 AM EDT documented as of this encounter Care Teams Zanjero Relationship Specialty Start Date End Date Jenn Gonzalez MD [address] [place] [address] PCP - General Internal Medicine 12/29/14 documented as of this encounter
--- OUTSIDE RECORDS SUMMARY | 2025-05-04 09:52 | XMS_ITS | Encounter Summary ---
Author Organization [employer] Address [address] [facility] 7t [place] [address] Care Team Providers Care Ditch Repairer Name Role Phone Jenn Gonzalez MD Primary Care Provider [phone] Encounter Details Date Type Department Care Team ([facility] Contact Info) Description 01/30/2024 Orders Only [facility] CHC MED & PEDS [address] [place], [place] [phone] Jenn Gonzalez MD [address] [place], [place] [phone] Right hand pain (Primary Dx) Social History [...] Description 05/27/2025 9:45 AM EST Office Visit [facility] CHC MED & PEDS [address] [place] [address] Jenn Gonzalez MD [address] [place] [address] documented as of this encounter Visit Diagnoses Diagnosis Right hand pain- Primary Pain in soft tissues of limb documented in this encounter Care Teams Ditch Repairer Relationship Specialty Start Date End Date Jenn Gonzalez MD [address] [place] [address] PCP - General Internal Medicine 12/29/14 documented as of this encounter
--- OUTSIDE RECORDS SUMMARY | 2025-05-04 09:52 | XMS_ITS | Encounter Summary ---
Author Organization [facility] Address [address] [facility] [address] [place] [address] Phone Care Team Providers Care Roughener Name Role Phone Jenn Gonzalez MD Primary Care Pr ovider Encounter Details Date Type Department Care Team (Late st Contact Info) Description 01/07/2019 Ancillary Orders [facility] [address] [place] [address] [place] [address] Troy Young DO [address] [place] [address] Bradycardia Social History Tobacco Use Types Packs/Day [...] dysrhythmias documented in this encounter Care Teams Roughener Relationship Specialty Start Date End Date Jenn Gonzalez MD PCP - General 04/23/17 documented as of this encounter Additional Source Comments The information contained in this document represents components of the legal health record. It is not the complete legal health record.[facility]
--- OUTSIDE RECORDS SUMMARY | 2025-05-04 09:52 | XMS_ITS | Encounter Summary ---
Author Organization [employer] Address [address] [facility] 7t [place] [address] Care Team Providers Care Commercial Construction Estimator Name Role Phone Jenn Gonzalez MD Primary Care Provider [phone] Encounter Details Date Type Department Care Team ([facility] Contact Info) Description 04/17/2024 Orders Only [facility] CHC MED & PEDS [address] [place], [place] [phone] Jenn Gonzalez MD [address] [place], [place] [phone] Anxiety (Primary Dx) Social History Tobacco Use [...] Upcoming Encounters Date Type Department Care Team ([facility] st Contact Info) Description 05/27/2025 9:45 AM EST Office Visit [facility] CHC MED & PEDS [address] [place] [address] Jenn Gonzalez MD [address] [place] [address] documented as of this encounter Visit Diagnoses Diagnosis Anxiety- Primary Anxiety state, unspecified documented in this encounter Care Teams Commercial Construction Estimator Relationship Specialty Start Date End Date Jenn Gonzalez MD [address] [place] [address] PCP - General Internal Medicine 12/29/14 documented as of this encounter
--- OUTSIDE RECORDS SUMMARY | 2025-05-04 09:52 | XMS_ITS | Encounter Summary ---
Author Organization [employer] Address [address] [place] [address] 7 [place] [address] Care Team Providers Care Transfer Man Name Role Phone Jenn Gonzalez MD Primary Care Provider [phone] Encounter Details Date Type Department Care Team (Late st Contact Info) Description 11/27/2022 Orders Only [facility] MED & PEDS [address] [place] [address] Evangelina Santana LPN Social History Tobacco Use [...] AM EST Office Visit [facility] MED & PEDS [address] [place] [address] Jenn Gonzalez MD [address] [place] [address] documented as of this encounter Visit Diagnoses Not on filedocumented in this encounter Care Teams Transfer Man Relationship Specialty Start Date End Date Jenn Gonzalez MD [address] [place] [address] PCP - General Internal Medicine 12/29/14 documented as of this encounter
--- OUTSIDE RECORDS SUMMARY | 2025-05-04 09:52 | XMS_ITS | Clinical Summary ---
Author Organization [facility] Address [address] [place] [address] Phone Care Team Providers Care District Court Judge Name Role Phone Jenn Gonzalez MD Primary [...] file Medical Devices Not on file Insurance [facility] C3 ACO C3 ACO C3 ACO C3 ACO C3 ACO [place] [place] [address] [place] [address] [place] [address] [place] [address] C3 ACO [facility] C3 ACO Care Teams District Court Judge Relationship Specialty Start Date End Date Jenn Gonzalez MD PCP - General 04/23/17 Additional Source Comments The information contained in this document represents components of the legal health record. It is not the complete legal health record.[facility]
--- OUTSIDE RECORDS SUMMARY | 2025-05-04 09:52 | XMS_ITS | Encounter Summary ---
Author Organization [employer] Address [address] [facility] 7t [place] [address] Care Team Providers Care Java Web Architect Name Role Phone Jenn Gonzalez MD Primary Care Provider [phone] Reason for Visit * Reason Onset Date Comments Nurse Triage 12/14/2024 Encounter Details Date Type Department Care Team ([facility] st Contact Info) Description 12/14/2024 Telephone [facility] MEDICINE [address] [place], [place] [phone] Jenn Gonzalez MD [address] [place], [place] [phone] Nurse Triage Social History Tobacco Use Types [...] 12/14/2024 12:00 PM EDT Triage call with [facility] telephone operators supervisor [place] [id number] Pt reports right foot/ankle swelling which started 3 days ago. Pt reports some discoloring of the foot as well. Pt denies injury. Pt is having difficulty walking and can only wear sandal, shoe doesn't fit. Pt is taking tylenol for discomfort without effect. Pt is offered to come to [facility] today but, will come tomorrow morning when [facility] is there. Pt is advised there is a wait time at [facility] at [facility] and declines [facility] requests apt be made in [facility]. ASK apt with [facility] [place] 12/16/24 @ 200pm. Pt agrees withdisposition and [...] Reason: No appointments available Override Notes: declines [facility] Video visit not offered Positive Triage [...] caller accepted this outcome. Duration 3 days Turkish Speaking documented in this encounter Plan of Treatment Upcoming Encounters Date Type Department Care Team ([facility] st Contact Info) Description 05/27/2025 9:45 AM EST Office Visit [facility] MED & PEDS [address] [place] [address] Jenn Gonzalez MD [address] [place] [address] documented as of this encounter Visit Diagnoses Not on filedocumented in this encounter Additional Health Concerns Assessment Noted Time PHQ-9 Depression Total Score: 0 10/23/19 25 10:21 AM EDT documented as of this encounter Care Teams Java Web Architect Relationship Specialty Start Date End Date Jenn Gonzalez MD [address] [place] [address] PCP - General Internal Medicine 12/29/14 documented as of this encounter
--- OUTSIDE RECORDS SUMMARY | 2025-05-04 09:52 | XMS_ITS | Encounter Summary ---
Author Organization [employer] Address [address] [facility] 7t [place] [address] Care Team Providers Care Travel Ticketing Reviewer Name Role Phone Jenn Gonzalez MD Primary Care Provider [phone] Reason for Visit * Reason Onset Date Comments Appointment Request 09/01/2024 Encounter Details Date Type Department Care Team ([facility] Contact Info) Description 09/01/2024 Telephone [facility] MEDICINE [address] [place], [place] [phone] Jenn Gonzalez MD [address] [place], [place] [phone] Appointment Request Social History Tobacco Use Types [...] 05/27/2025 9:45 AM EST Office Visit [facility] CHC MED & PEDS [address] [place] [address] Jenn Gonzalez MD [address] [place] [address] documented as of this encounter Visit Diagnoses Not on filedocumented in this encounter Additional Health Concerns Assessment Noted Time PHQ-9 Depression Total Score: 14 024 9:24 AM EDT documented as of this encounter Care Teams Travel Ticketing Reviewer Relationship Specialty Start Date End Date Jenn Gonzalez MD [address] [place] [address] PCP - General Internal Medicine 12/29/14 documented as of this encounter
--- OUTSIDE RECORDS SUMMARY | 2025-05-04 09:52 | XMS_ITS | Encounter Summary ---
Author Organization [email or web address] Address [address] [facility] 7t [place] [address] Care Team Providers Care Firer Diesel Locomotive Name Role Phone Jenn Gonzalez MD Primary Care Provider [phone] Encounter Details Date Type Department Care Team [...] Upcoming Encounters Date Type Department Care Team ([facility] st Contact Info) Description 05/27/2025 9:45 AM EST Office Visit [facility] MED & PEDS [address] [place] [address] Jenn Gonzalez MD [address] [place] [address] documented as of this encounter Visit Diagnoses Not on filedocumented in this encounter Additional Health Concerns Assessment Noted Time PHQ-9 Depression Total Score: 0 10/23/19 25 10:21 AM EDT documented as of this encounter Care Teams Firer Diesel Locomotive Relationship Specialty Start Date End Date Jenn Gonzalez MD [address] [place] [address] PCP - General Internal Medicine 12/29/14 documented as of this encounter
--- OUTSIDE RECORDS SUMMARY | 2025-05-04 09:52 | XMS_ITS | Encounter Summary ---
Author Organization [employer] Address [address] [place] [address] 7 [place] [address] Care Team Providers Care Customer Experience Associate Name Role Phone Jenn Gonzalez MD Primary Care Provider [phone] Reason for Visit * Reason Comments Med Refill Encounter Details Date Type Department Care Team ([facility] Contact Info) Description 06/18/2022 Refill [facility] MEDICINE [address] [place], [place] [phone] Jenn Gonzalez MD [address] [place], [place] [phone] Anxiety disorder, unspecified Social History Tobacco Use [...] Upcoming Encounters Date Type Department Care Team ([facility] Contact Info) Description 05/27/2025 9:45 AM EST Office Visit [facility] CHC MED & PEDS [address] [place] [address] Jenn Gonzalez MD [address] [place], [place] [phone] documented as of this encounter Visit Diagnoses Diagnosis Anxiety disorder, unspecified documented in this encounter Care Teams Customer Experience Associate Relationship Specialty Start Date End Date Jenn Gonzalez MD [address] [place] [address] PCP - General Internal Medicine 12/29/14 documented as of this encounter
== END 2025-05-04 08:57 | disposition home or self-care (01) ==
LOC: HO.XRAY 08:56
PROVIDERS: PCP Internal Medicine; Visit Provider Family Medicine
DX: M54.16 Radiculopathy, lumbar region (principal); M25.552 Pain in left hip
CPT/HCPCS: 72110; 73502

== ENCOUNTER → 2025-05-04 09:00 | Outpatient (BNV) | payer OTHER, SELFPAY | PROVIDERS: PCP Internal Medicine; Visit Provider Radiology Diagnostic Radiology | DX: R52 Pain, unspecified (principal) | CPT/HCPCS: 72110; 73502 ==

== ENCOUNTER 2025-05-28 09:46 | Outpatient (REF) | payer OTHER, SELFPAY ==
--- NOTE | ~2025-05-28 | MM_ITS ---
EXAMINATION: MM SCREENING DIGITAL BREAST TOMOSYNTHESIS, BILATERAL CLINICAL INFORMATION: Screening. Asymptomatic. History of stereotactic needle core biopsy in 2002. COMPARISON: Comparison made to multiple prior, most recent May 25, 2019, and most remote January 30, 2011. TECHNIQUE: Digital breast tomosynthesis is performed in mediolateral oblique and craniocaudal views along with computer-aided detection (CAD). Synthesized 2D images are generated from the tomosynthesis. FINDINGS: BREAST COMPOSITION: There are scattered areas of fibroglandular density. RIGHT BREAST: Tissue marker from previous needle core biopsy. No significant masses, suspicious calcifications or other abnormalities are seen. LEFT BREAST: No significant masses, suspicious calcifications or other abnormalities are seen. MM/MM tomosynthesis screening BI IMPRESSION: BILATERAL BREASTS: Benign, no mammographic evidence of malignancy. Normal interval follow-up is recommended in 12 months. ASSESSMENT: BI-RADS: Category 2: Benign RECOMMENDATION: Routine annual mammography screening. FOLLOW-UP: 1 year F/U This examination should not preclude the clinical evaluation of a suspicious palpable abnormality. This patient's information was entered into a reminder system with a target due date for their next mammogram. Electronically signed by: Flower Wynne MD 05/31/2025 12:24 PM [facility]
--- NOTE | ~2025-05-28 | MM_ITS ---
EXAMINATION: DXA BONE DENSITY AXIAL HISTORY: MENOPAUSAL STATE TECHNIQUE: [employer] Dual energy absorptiometry (DEXA) of the lumbar spine, total left hip, and femoral neck was performed. COMPARISON: Comparison is made with the prior examination dated February 2017. FINDINGS: The bone mineral density of the lumbar spine (L1-L3) is 1.155 g/cm2, corresponding to a T-score of -0.1, and a Z-score of 0.9. This is indicative of normal bone mineral density. This represents a BMD change of 1.6% compared to the prior exam. This is not statistically significant. The bone mineral density of the left total hip is 0.968 g/cm2, corresponding to a T-score of -0.3, and a Z-score of 0.6. This is indicative of normal bone mineral density. This represents a BMD change of -2.5% compared to the prior exam. This is not statistically significant. The bone mineral density of the left femoral neck is 0.862 g/cm2, corresponding to a T-score of -1.3, and a Z-score of -0.1. This is indicative of osteopenia. This represents a BMD change of -8.1% compared to the prior exam. This is statistically significant. FRACTURE RISK: The FRAX index suggests a ten year probability of major osteoporotic fracture of 4.7 %, and of hip fracture 0.5%. MM/XR DEXA axial skeleton IMPRESSION: Based on bone mineral density, and according to World Health Organization (WHO) criteria, the diagnosis is consistent with osteopenia based on the lowest T score of -1.3 in the left femoral neck. Treatment Recommendations: NOF guidelines recommend consideration for treatment in postmenopausal women and men age 50 and older presenting with the following: -A hip or vertebral (clinical or morphometric) fracture. -T-score less than or equal to -2.5 at the femoral neck or spine after appropriate evaluation to exclude secondary causes. -Low bone mass at the hip or spine and a 10-year fracture probability by FRAX of greater than or equal to 3% for hip fracture or greater than or equal to 20% for major osteoporotic fracture based on the [place] adapted WHO algorithm. Other Recommendations: All treatment decisions require clinical judgment and consideration of individual patient factors, including patient preferences, comorbidities, previous drug use, risk factors not captured in the FRAX model (e.g. frailty, falls, vitamin D deficiency, increased bone turnover, interval significant decline in bone density) and possible under or overestimation of fracture risk by FRAX. Additional medical evaluation for secondary cause of low bone mineral density may be appropriate. FUTURE SCAN RECOMMENDATION: People with diagnosed cases of osteoporosis or at high risk for fracture should have regular bone mineral density tests. For patients eligible for Medicare, routine testing is allowed once every 2 years. The testing frequency can be increased to one year for patients who have rapidly progressing disease, those who are receiving or discontinuing medical therapy to restore bone mass, or have additional risk factors. Statistically, 68% of repeat scans fall within 1 SD (+/- 0.010 g/cm2 for AP spine L1-L4) and 1 SD (+/- 0.012 g/cm2 for femur total) FRAX is a trademark of the [employer] [place] [employer] Metabolic Bone Disease, a World Health Organization (WHO) Collaborating Center. Electronically signed by: Carole Aviles MD 05/28/2025 10:20 AM [facility]
--- OUTSIDE RECORDS SUMMARY | 2025-05-28 10:29 | XMS_ITS | Clinical Summary ---
Author Organization [facility] ity Address [address] [place] [address] Care Team Providers Care Diamond Setter Apprentice Name Role Phone Unavailable Primary Care [...] Depression Screening 07/08/2024 COVID-19 Vaccine (1 - 2024-2 6 season) 2025 Influenza Vaccine (#1) 2025 RSV [...]
== END 2025-05-28 09:47 | disposition home or self-care (01) ==
LOC: HO.MAMMO 09:46
PROVIDERS: PCP Family Medicine; Visit Provider Internal Medicine
DX: Z12.31 Encounter for screening mammogram for malignant neoplasm of breast (principal); Z13.820 Encounter for screening for osteoporosis; Z78.0 Asymptomatic menopausal state
CPT/HCPCS: 77063; 77067; 77080

== ENCOUNTER → 2025-05-28 10:00 | Outpatient (BNV) | payer OTHER, SELFPAY | PROVIDERS: PCP Family Medicine; Visit Provider Radiology Diagnostic Radiology | DX: Z12.31 Encounter for screening mammogram for malignant neoplasm of breast (principal) | CPT/HCPCS: 77063; 77067; 77080 ==

== ENCOUNTER 2025-06-15 08:32 | Outpatient (AMB) | payer OTHER, SELFPAY ==
--- NOTE | 2025-06-15 08:35 | MHC.OFFVIS ---
Vital Signs 06/15/25 08:42 Height 5 ft Weight 184 lb BMI 35.9 BP 134/78 Blood Pressure Location Rt brachial Position Sitting Pulse 66 Pulse Source Pulse Oximeter Pulse Oximetry (%) 97 Oxygen Delivery Method Room Air Intake Visit Reasons: 6 mos FUV. Office r/s x1 Intake Note: ESTABLISHED PATIENT for mgmt of GERD + IBS. Discuss colo/egd Chief Complaint; Pt denies any current GI sx or concerns. She confirms she takes her PPI daily as instructed, her other meds PRN. She reports that she is doing fine with this current regimen. Environmental Educator Required: Yes Environmental Educator Services: Environmental Educator Present Environmental Educator Name: Maeve [phone] + [facility] Information Interpreted: clinical only Accompanied by: Self / Same As Patient Allergies tetanus immune globulin (TETANUS IMMUNE GLOBULIN) Adverse Reaction (Intermediate, Verified 03/23/25 09:41) LOCALIZED SWELLING HPI HPI 6 mos FUV. Office r/s x1: Details: LAST VISIT Acid reflux Postprandial abdominal bloating Postprandial epigastric pain Constipation Plan Patient will start taking fiber again. Increase fluid intake and activity to promote better bowel motility. Patient will continue taking Dulcolax as needed to help with bowel movement. Proctosol is needed for hemorrhoids. Patient was encouraged to avoid straining. May do Sitz baths with Epsom salts. Patient will continue taking Nexium daily. Avoid dietary triggers in late night snacking. Staying upright for minimal 3 hours after meals discussed with patient. Patient will follow-up in 2 3-4 months to discuss going for colonoscopy. Patient will need to be cleared by Cardiology. Has appointment with immigration case manager in March, we will ask for risk stratification before sending her for procedure. Patient is agreeable to current plan and verbalizes understanding of instructions. She was given the opportunity to ask questions and all questions answered. ? Thank you for allowing me to participate in her care New hydrocortisone 2.5% (Proctosol HC) 1 appl [place] BID-QID PRN 30 grams 2RF hemorrhoids K64.9 polyethylene glycol 3350 (Miralax) As directed by gastroenterology department at [facility] 238 grams PO ONCE 238 grams 0RF Z12.11 Refilled bisacodyl (Dulcolax (bisacodyl)) 10 mg (2 x 5 mg) PO BEDTIME 180 tabs 4RF esomeprazole magnesium (Nexium) 40 mg PO DAILY 90 caps 3RF K21.9 methylcellulose (laxative) (Citrucel) take it with full glass of water 500 mg PO DAILY 90 tabs 2RF K59.00 TODAY'S VISIT: Patient is here today for follow-up and to discuss going for colonoscopy. She has colonoscopy and upper endoscopy scheduled for the of this month. Patient was cleared by Cardiology with low to intermediate risk. She is to stop Brilinta on the 17 as recommended by Cardiology. Patient denies any cardiac or respiratory symptoms. Patient is taking Nexium daily and reports that her symptoms of acid reflux have been suppressed. Patient denies dyspepsia, dysphagia or odynophagia. Patient denies any issues with anesthesia in the past. Patient is taking Dulcolax as needed. Denies melena, hematochezia, unintentional weight loss or ribbon like stools. Patient denies any issues with anesthesia in the past. No history of sleep apnea [facility] Medical History Sleep apnea in adult Chronic back pain Dyslipidemia HTN (hypertension) Surgical History History of cardiac cath History of bunionectomy H/O colonoscopy Family History Brother Heart problem Social History Household Members Other:: alone Alcohol intake: current Alcohol intake frequency: holidays/special occasions only Patient Tobacco Use Status: Former Tobacco user Substance Use Type: Marijuana Current occupational status: unemployed Review of Systems Const Denies weight gain and Denies weight loss ENT Reports no additional complaints, Denies dysphagia and Denies odynophagia Card Reports no additional complaints Resp Reports no additional complaints GI Denies abdominal pain, Denies belching, Denies melena, Denies bloating, Denies change in bowel habits, Denies dysphagia, Denies excessive flatus, Denies dyspepsia, Denies heartburn, Denies diarrhea, Denies loose stools, Denies nausea, Denies odynophagia and Denies vomiting Musc Reports no additional complaints Neuro Reports no additional complaints Psych Reports no additional complaints Endo Reports no additional complaints Physical Exam Const General: healthy appearing and no acute distress Nutritional Appearance: obese Orientation/consciousness: patient oriented x3 Resp Effort & Inspection: normal respiratory effort, able to speak in complete sentences, no tracheal deviation and symmetric chest movement Auscultation: clear to auscultation bilaterally Cardio Rate: regular rate GI Inspection: Yes normal to inspection, No distended and Yes obesity Palpation (GI): Soft to palpation, not firm, nontender and No hepatosplenomegaly present Auscultation: normal bowel sounds General: Yes no CVA tenderness Back/Spine/Pelvis Back: no CVA tenderness Skin General skin exam: elasticity normal, turgor normal and dry skin Neuro General: patient oriented x3 Psych Appearance: grossly normal Mental Status: mental status grossly normal Assessment & Plan Assessment & Plan (1) Acid reflux: Code(s): K21.9 - Gastro-esophageal reflux disease without esophagitis Category: Medical Qualifiers: Esophagitis presence: esophagitis presence not specified Qualified Code(s): K21.9 - Gastro-esophageal reflux disease without esophagitis (2) Postprandial abdominal bloating: Code(s): R14.0 - Abdominal distension (gaseous) (3) Postprandial epigastric pain: Code(s): R10.13 - Epigastric pain (4) Constipation: Code(s): K59.00 - Constipation, unspecified Qualifiers: Constipation type: slow transit constipation Qualified Code(s): K59.01 - Slow transit constipation (5) Screen for colon cancer: Code(s): Z12.11 - Encounter for screening for malignant neoplasm of colon Plan Patient will continue taking Nexium. Avoid dietary triggers in late night snacking. Patient will be sent for upper endoscopy. Procedure is scheduled for the of this month. She will also go her colonoscopy. Patient denies any issues with anesthesia in the past. She will stop Brilinta on the of this month. What to expect before during and after procedure discussed with patient. Stressed the importance of good bowel prep and clear liquid diet day before procedure. Patient was encouraged to take Dulcolax the week of the procedure to make sure she has a good prep. Patient denies any cardiac or respiratory symptoms. I will see patient after the procedure. Patient was encouraged to call us if she will have any GI concerning problems. Patient is agreeable to current plan of care and verbalizes understanding of instructions. She was given the opportunity to ask questions and all questions answered. Thank you for allowing me to participate in her care Medications: New polyethylene glycol 3350 (Miralax) As directed by gastroenterology department at [facility] 238 grams PO ONCE 238 grams 0RF Z12.11 - Encounter for screening for malignant neoplasm of colon Refilled bisacodyl (Dulcolax (bisacodyl)) 10 mg (2 x 5 mg) PO BEDTIME 180 tabs 4RF Coding Level of Care Code Est Pt Level 3 (44096) Diagnoses Gastroesophageal reflux disease, unspecified whether esophagitis present K21.9 Esophagitis presence: esophagitis presence not specified Postprandial abdominal bloating R14.0 Postprandial epigastric pain R10.13 Slow transit constipation K59.01 Constipation type: slow transit constipation Screen for colon cancer Z12.11 Time Spent (min) 30 Comment 20 minutes spent with patient and additional 10 minutes spent reviewing her records
[2025-06-15 08:42] VITALS: BP 134/78; PULSE 66; O2SAT 97; BMI 35.9
== END 2025-06-15 09:36 | disposition home or self-care (01) ==
LOC: HO.HGI 08:33
PROVIDERS: PCP Internal Medicine; Visit Provider Nurse Practitioner Family
DX: K21.9 Gastro-esophageal reflux disease without esophagitis (principal); R14.0 Abdominal distension (gaseous); R10.13 Epigastric pain; K59.01 Slow transit constipation
CPT/HCPCS: 99213

== ENCOUNTER → 2025-06-15 08:32 | Outpatient (BNVA) | payer OTHER, SELFPAY | PROVIDERS: PCP Internal Medicine; Visit Provider Nurse Practitioner Family | DX: K21.9 Gastro-esophageal reflux disease without esophagitis (principal); K59.01 Slow transit constipation; R14.0 Abdominal distension (gaseous); R10.13 Epigastric pain; Z12.11 Encounter for screening for malignant neoplasm of colon; Z79.899 Other long term (current) drug therapy; Z71.3 Dietary counseling and surveillance; Z68.35 Body mass index [BMI] 35.0-35.9, adult | CPT/HCPCS: 99212 ==

== ENCOUNTER 2025-06-17 08:55 | Outpatient (RCR) | payer OTHER, SELFPAY | END 2025-06-17 09:26 | disposition home or self-care (01) | LOC: HO.PTCHIC 08:55 | PROVIDERS: PCP Internal Medicine; Visit Provider Internal Medicine | DX: M54.16 Radiculopathy, lumbar region (principal) ==

== ENCOUNTER 2025-06-28 07:44 | Day surgery (SDC) | payer OTHER, SELFPAY ==
--- OUTSIDE RECORDS SUMMARY | 2025-05-27 08:36 | XMS_ITS | Encounter Summary ---
Author Organization [employer] Address [address] [facility] 7t [place] [address] Care Team Providers Care Rotary Filter Operator Name Role Phone Jenn Gonzalez MD Primary Care Provider [phone] Reason for Visit * Reason Comments Med Refill Encounter Details Date Type Department Care Team ([facility] Contact Info) Description 09/30/2023 Refill [facility] CHC MED & PEDS [address] [place], [place] [phone] Jenn Gonzalez MD [address] [place], [place] [phone] Social History Tobacco Use Types Packs/Day Years [...] 9:45 AM EST Office Visit [facility] CHC MED & PEDS [address] [place] [address] Jenn Gonzalez MD [address] [place] [address] documented as of this encounter Visit Diagnoses Not on filedocumented in this encounter Care Teams Rotary Filter Operator Relationship Specialty Start Date End Date Jenn Gonzalez MD [address] [place] [address] PCP - General Internal Medicine 12/29/14 documented as of this encounter
--- OUTSIDE RECORDS SUMMARY | 2025-05-27 08:36 | XMS_ITS | Encounter Summary ---
Author Organization [employer] Address [address] [facility] 7t [place] [address] Care Team Providers Care Pre Owned Sales Manager Name Role Phone Jenn Gonzalez MD Primary Care Provider [phone] Reason for Visit * Reason Onset Date Comments Appointment Request 09/28/2024 Encounter Details Date Type Department Care Team ([facility] Contact Info) Description 09/28/2024 Telephone [facility] MEDICINE [address] [place], [place] [phone] Jenn Gonzalez MD [address] [place], [place] [phone] Appointment Request Social History Tobacco Use Types [...] R/s Appt from 09/02/24. Contact pt at [phone] documented in this encounter Plan of Treatment Upcoming Encounters Date Type Department Care Team (Late st Contact Info) Description 05/27/2025 9:45 AM EST Office Visit [facility] CHC MED & PEDS [address] [place] [address] Jenn Gonzalez MD [address] [place] [address] documented as of this encounter Visit Diagnoses Not on filedocumented in this encounter Additional Health Concerns Assessment Noted Time PHQ-9 Depression Total Score: 14 024 9:24 AM EDT documented as of this encounter Care Teams Pre Owned Sales Manager Relationship Specialty Start Date End Date Jenn Gonzalez MD [address] [place] [address] PCP - General Internal Medicine 12/29/14 documented as of this encounter
--- OUTSIDE RECORDS SUMMARY | 2025-05-27 08:37 | XMS_ITS | Encounter Summary ---
Author Organization [employer] Address [address] [facility] 7t [place] [address] Care Team Providers Care Principal Web Developer Name Role Phone Jenn Gonzalez MD Primary Care Provider [phone] Reason for Visit * Reason Onset Date Comments Appointment Request 03/25/2024 Encounter Details Date Type Department Care Team ([facility] Contact Info) Description 03/25/[address] [facility] MEDICINE [address] [place], [place] [phone] Jenn Gonzalez MD [address] [place], [place] [phone] Appointment Request Social History Tobacco Use Types [...] Upcoming Encounters Date Type Department Care Team ([facility] st Contact Info) Description 05/27/2025 9:45 AM EST Office Visit [facility] CHC MED & PEDS [address] [place] [address] Jenn Gonzalez MD [address] [place] [address] documented as of this encounter Visit Diagnoses Not on filedocumented in this encounter Care Teams Principal Web Developer Relationship Specialty Start Date End Date Jenn Gonzalez MD [address] [place] [address] PCP - General Internal Medicine 12/29/14 documented as of this encounter
--- OUTSIDE RECORDS SUMMARY | 2025-05-27 08:37 | XMS_ITS | Encounter Summary ---
Author Organization [employer] Address [address] [place] [address] 7 [place] [address] Care Team Providers Care Byproduct Engineer Name Role Phone Jenn Gonzalez MD Primary Care Provider [phone] Reason for Referral * Imaging (Routine) - Authorized Specialty Diagnoses / Procedures Referred By Deshawn jones Referred To Contact Cardiology Diagnoses Abdominal aortic aneurysm (AAA) without rupture, unspecified part (CMS/HCC) Procedures Vascular US abdominal aorta anuerysm AAA screening Jenn Gonzalez MD [address] [place] [address] Phone: tel: fax: [address] Phone: tel: fax: Referral ID Status Reason Start Date Expiration Date Visits Requested Visits Authorized [id number] Authorized Perform Procedure 05/04/2026 1 1 Encounter Details Date Type Department Care Team (Late st Contact Info) Description 05/04/2025 Orders Only [facility] CHC MED & PEDS [address] [place], [place] [phone] Jenn Gonzalez MD [address] [place], [place] [phone] Abdominal aortic aneurysm (AAA) without rupture, unspecified part (CMS/HCC) (Primary Dx) Social History Tobacco Use Types [...] Description 05/27/2025 9:45 AM EST Office Visit [facility] CHC MED & PEDS [address] [place] [address] Jenn Gonzalez MD [address] [place] [address] documented as of this encounter Visit Diagnoses Diagnosis Abdominal aortic aneurysm (AAA) without rupture, unspecified part (CMS/HCC)- Primary documented in this encounter Additional Health Concerns Assessment Noted Time PHQ-9 Depression Total Score: 0 10/23/19 25 10:21 AM EDT documented as of this encounter Care Teams Byproduct Engineer Relationship Specialty Start Date End Date Jenn Gonzalez MD [address] [place] [address] PCP - General Internal Medicine 12/29/14 documented as of this encounter
--- OUTSIDE RECORDS SUMMARY | 2025-05-27 08:37 | XMS_ITS | Clinical Summary ---
Author Organization [facility] Address [address] [place] [address] Phone Care Team Providers Care Ingot Weigher Name Role Phone Jenn Gonzalez MD Primary [...] file Medical Devices Not on file Insurance [facility] C3 ACO C3 ACO C3 ACO C3 ACO C3 ACO C[address] [place] [address] [place] [address] [place] [place] [address] C3 ACO [facility] C3 ACO Care Teams Ingot Weigher Relationship Specialty Start Date End Date Jenn Gonzalez MD PCP - General 04/23/17 Additional Source Comments The information contained in this document represents components of the legal health record. It is not the complete legal health record.[facility]
--- OUTSIDE RECORDS SUMMARY | 2025-05-27 08:37 | XMS_ITS | Encounter Summary ---
Author Organization [employer] Address [address] [facility] 7t [place] [address] Care Team Providers Care Sample Worker Name Role Phone Jenn Gonzalez MD Primary Care Provider [phone] Encounter Details Date Type Department Care Team ([facility] Contact Info) Description 10/04/2023 Orders Only [facility] CHC MED & PEDS [address] [place], [place] [phone] Jenn Gonzalez MD [address] [place], [place] [phone] Multiple joint pain (Primary Dx) Social History [...] Upcoming Encounters Date Type Department Care Team ([facility] st Contact Info) Description 05/27/2025 9:45 AM EST Office Visit [facility] CHC MED & PEDS [address] [place] [address] Jenn Gonzalez MD [address] [place] [address] documented as of this encounter Visit Diagnoses Diagnosis Multiple joint pain- Primary Pain in joint, multiple sites documented in this encounter Care Teams Sample Worker Relationship Specialty Start Date End Date Jenn Gonzalez MD [address] [place] [address] PCP - General Internal Medicine 12/29/14 documented as of this encounter
--- OUTSIDE RECORDS SUMMARY | 2025-05-27 08:37 | XMS_ITS | Clinical Summary ---
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 30 tablet 5 026 Active cyclobenzaprine (Flexeril) 10 MG [...] artery disease of n ative artery of minto heart with stable angina pectoris 10/22/2024 Smoking addiction 10/22/2024 SARATH (generalized anxiety disorder) 04/28/2024 Impaired fasting glucose 10/20/2021 Backache 10/26/2011 Depressive disorder 10/26/2011 Essential hypertension 10/26/2011 Pure hypercholesterolemia 10/26/2011 Vitamin D deficiency 10/26/2011 Encounters Date Type Department Care Team Description 05/11/2025 Telephone [facility] [address] [place] [address] Jenn Gonzalez MD 05/04/2025 Orders Only [facility] [address] [place] [address] Jenn Gonzalez MD Abdominal aortic aneurysm (AAA) without rupture, unspecified part (CMS/HCC) (Primary Dx) 05/04/2025 Telephone [facility] [address] [place] [address] Jenn Gonzalez MD [facility] canceled 05/04/2025 Results Follow-Up [facility] [address] [place] [address] Amna King MD XR Hip 2 or 3 Views Left, XR Lumbar Spine Complete 4+ Views 04/30/2025 2:00 PM EDT Office Visit [facility] [address] [place] [address] Amna King MD Lumbar back pain with radiculopathy affecting left lower extremity (Primary Dx); Chronic pain syndrome; Dysuria 04/30/2025 Travel 04/29/[address] [facility] [address] [place] [address] Jenn Gonzalez MD Nurse Triage 03/25/2025 9:30 AM EDT Office Visit [facility] [address] [place] [address] Jenn Gonzalez MD Essential hypertension (Primary Dx); Encounter for screening mammogram for malignant neoplasm of breast 03/25/2025 Travel 03/24/2025 Telephone [facility] [address] [place] [address] Jenn Gonzalez MD Chart Prep from Last 3 Months Immunizations Immunization Administration [...] 05/27/2025 9:45 AM EST Office Visit [facility] [address] [place], [place] [phone] Jenn Gonzalez MD [address] [place] [address] Health Maintenance Due Date Last Done Comments CT Colonography 1955 Colonoscopy 1955 FIT 1955 Sigmoidoscopy 1955 RSV Patients and Patients Aged 60 years or older (1 - Risk 50-74 years 1-dose series) 2007 Zoster Vaccines (2 of 3) 06/14/2017 04/19/2017 [...] 9:40 AM EDT Essential hypertension Pure hypercholesterolemia LIPID [...] AM EDT Narrative 05/04/2025 9:18 AM EDT [address] [address] XRay Report Signed Patient: America Brooke MR#: [id number] 52 : 1955 Acct:[id number] Age/Sex: 70 / F ADM Date: 05/04/25 Loc: HO.ELVA Attending Dr: Amna King MD Ordering Physician: Amna King MD Date of Service: 05/04/25 Procedure(s): XR hip LT min 2V Accession Number(s): [id number] cc: Jenn Gonzalez MD; Amna King MD [...] signed by Earl Lewis MD in OV> 05/04/2515 DD/ 4 TD/TT: 05/04/25909 Subway Train Driver: Procedure Note Donotuseinterpreter, Image - 05/04/[address] [address] XRay Report Signed Patient: Gwen BrookeR#: [id number] 52 : 1955cct:[id number] Age/Sex: 70 / FADM Date: 05/04/25 Loc: [facility] Attending Dr: Amna King MD Ordering Physician: Amna King MD Date of Service: 05/04/25 Procedure(s): XR hip LT min 2V Accession Number(s): [id number] cc: Jenn Gonzalez MD; Amna King MD [...] signed by Earl Lewis MD in OV> 05/04/2515 DD/ 0905 TD/TT: 05/04/25 0910 Subway Train Driver: us Amna King MD IMG XR PROCEDURES Final Resul t * XR Lumbar Spine Complete 4+ Views (05/04/2025 9:05 AM EDT) Anatomical Region Laterality Modality Spine, L-spine Radiographic Bijal ging 05/04/2025 9:05 AM EDT Narrative 05/04/2025 9:26 AM EDT [address] [address] XRay Report Signed Patient: America Brooke MR#: [id number] 52 : 1955 Acct:[id number] Age/Sex: 70 / F ADM Date: 05/04/25 Loc: [facility] Attending Dr: Amna King MD Ordering Physician: Amna King MD Date of Service: 05/04/25 Procedure(s): XR lumbar spine 4V min Accession Number(s): [id number] cc: Jenn Gonzalez MD; Amna King MD [...] Carole Aviles MD in OV> 05/04/25922 DD/ 09 TD/TT: 05/04/25909 Subway Train Driver: ABHIJIT Procedure Note Donotuseinterpreter, Image - 05/04/[address] [address] XRay Report Signed Patient: Chinyere Brooke#: [id number] [birth year] : [birth year]Acct:[id number] Age/Sex: 70 / FADM Date: 05/04/25 Loc: [facility] Attending Dr: Amna King MD Ordering Physician: Amna King MD Date of Service: 05/04/25 Procedure(s): XR lumbar spine 4V min Accession Number(s): [id number] cc: Jenn Gonzalez MD; Amna King MD [...] Carole Aviles MD in OV> 05/04/2523 DD/ 09 TD/TT: 05/04/25 0910 Subway Train Driver: ABHIJIT us Amna King MD IMG XR PROCEDURES Final Resul t * Hepatitis C Antibody with Reflex to HCV, RNA, Quantitative, Real-Time PCR (02/02/2025 9:40 AM EDT) Hepatitis C Antibody Nonreactive Nonreactive [facility] Comment:Antibodies to HCV no t detected; does not exclude early acuteHCV infection. Blood Venous blood specimen / Unknown 02/02/2025 9:40 AM EDT 02/02/2025 2:01 PM EDT Jenn Gonzalez MD LAB BLOOD ORDERABLES Final Result Performing Organization Address [facility] de Phone Number [facility] [address] [place] [phone] * Lipid Panel, Standard (02/02/2025 9:40 AM EDT) Triglycerides 78 <150 mg/dL [facility] Comment:Slight Lipemia.Darryl able Triglyceride: less than 150 mg/dLBorderline High Triglyceride 150-199 mg/dLHigh Triglyceride: 200-499 mg/dLVery High Triglyceride: greater than or equal to 5OO mg/dL Cholesterol 131 <200 mg/dL [facility] Comment:Desirable Cholestero l: less than 200 mg/dLBorderline High Cholesterol: 200-239 mg/dLHigh Cholesterol: greater than 239 mg/dL LDL Cholesterol Calculated 70 <100 mg/dL [facility] Comment:Desirable LDL: less than 100 mg/dLNear Optimal/Above Optimal LDL: 110- 129 mg/dLBorderline High LDL: 130-159 mg/dLHigh LDL: 160-189 mg/dLVery High LDL: greater than or equal to 190 mg/dL HDL Cholesterol 46 >40 mg/dL [facility] Comment:Desirable HDL: great er than 40 mg/dL Note: This HDL assay may give artificially low results in patients with liver disease. Blood Venous blood specimen / Unknown 02/02/2025 9:40 AM EDT 02/02/2025 2:04 PM EDT us Jenn Gonzalez MD LAB BLOOD ORDERABLES Final Result Performing Organization Address [facility] Co de Phone Number [facility] [address] [place] [phone] * (ABNORMAL) Cologuard?? colon cancer screening (11/02/2024 7:55 AM EDT) Cologuard Result Positive( A) Negative 11/06/2024 1:52 PM EDT The Society (CLIA #:[id number]) Comment: The Cologuard (TM) test was performed [...] (Miguel Arora al, N Engl J Med 2014;370(14):8097-4823.) Cologuard may produce a false negative or false positive result (no colorectal cancer or precancerous polyp present at colonoscopy follow up). A negative Cologuard test result does not guarantee the absence of CRC or advanced adenoma (pre-cancer). The current Cologuard screening interval is every 3 years. ([place] Cancer Society and U.S. Multi-Society Task Force). Cologuard performance data in a 10,000 patient pivotal study using colonoscopy as the reference method can be accessed at the following location: www.RIDERS/results. Additional description of the Cologuard test process, warnings and precautions can be found at www.cologuard.com. Stool specimen (specimen) 11/02/2024 7:55 AM EDT 11/03/2024 12:47 PM EDT us Jenn Gonzalez MD LAB MOLECULAR DIAGNOSTICS O RDERABLES Final Result The Society (CLIA #:[id number]) [address] [place] [address], * 3D DIGITAL ARAVIND SCR MAMMO 1 [...] to Health Maintenance Insurance [facility] CUSTODIAL OPTIONS (HMO D-SNP) [place] [id number] Care Teams Contribution Solicitor Relationship Specialty Start Date End Date Jenn Gonzalez MD [address] [place], [place] [address] [address] PCP - General Internal Medicine 12/29/14
--- OUTSIDE RECORDS SUMMARY | 2025-05-27 08:37 | XMS_ITS | Encounter Summary ---
Author Organization [employer] Address [address] [place] [address] 7 [place] [address] Care Team Providers Care Clarifier Name Role Phone Jenn Gonzalez MD Primary Care Provider [phone] Encounter Details Date Type Department Care Team (Late st Contact Info) Description 11/27/2022 Orders Only [facility] [address] [place] [address] Evangelina Santana LPN Social History Tobacco Use [...] Description 05/27/2025 9:45 AM EST Office Visit [facility] [address] [place] [address] Jenn Gonzalez MD [address] [place] [address] documented as of this encounter Visit Diagnoses Not on filedocumented in this encounter Care Teams Clarifier Relationship Specialty Start Date End Date Jenn Gonzalez MD [address] [place] [address] PCP - General Internal Medicine 12/29/14 documented as of this encounter
--- OUTSIDE RECORDS SUMMARY | 2025-05-27 08:37 | XMS_ITS | Encounter Summary ---
Author Organization [employer] Address [address] [facility] 7t [place] [address] Care Team Providers Care Manager Procurement Name Role Phone Jenn Gonzalez MD Primary Care Provider [phone] Encounter Details Date Type Department Care Team ([facility] Contact Info) Description 10/24/2023 Orders Only [facility] & PEDS [address] [place], [place] [phone] Jenn Gonzalez MD [address] [place] [address] Social History Tobacco Use Types Packs/Day Years [...] [facility] [address] [place] [address] Jenn Gonzalez MD [address] [place] [address] documented as of this encounter Procedures Procedure Name Priority Date/Time Associated Diagnosis Comments STRESS TEST WITH MYOCARDIAL PERFUSION Routine 10/30/2023 2:15 PM EDT documented in this encounter Results * Stress test with myocardial perfusion (10/30/2023 2:15 PM EDT) 10/30/2023 2:15 PM EDT Narrative [facility] - 10/30/2023 3:24 PM EDT [address] [address] Nuclear Medicine Report Signed Patient: America Brooke MR#: [id number] 52 : 1955 Acct:[id number] Age/Sex: 68 / F ADM Date: 10/24/23 Loc: HO.CARD Attending Dr: Flip Mandujano MD Ordering Physician: Flip Mandujano MD Date of Service: 10/24/23 Procedure(s): NM cardiolite stress test Accession Number(s): [id number] cc: Jenn Gonzalez MD; Flip Mandujano MD [...] lateral wall as well as the apex. NM/FL cardiolite stress test Impression: 1. Myocardial perfusion imaging study shows possible ischemia in the distal part of lateral wall and apex. 2. Gated LVEF is 53% during stress and rest. 3. Transient ischemic dilatation not present. EKG component of the test reported separately. Dictated By: Flip Mandujano MD Signed By: <Electronically signed by Flip Mandujano MD in OV> 10/30/23 1521 DD/ 1415 TD/TT: Social Media Community Manager: Procedure Note Donotuseinterpreter, Image - 10/30/[address] [address] Nuclear Medicine Report Signed Patient: Chinyere Brooke#: [id number] 52 : 7Acct:[id number] Age/Sex: 68 / FADM Date: 10/24/23 [facility]: [facility] Attending Dr: Flip Mandujano MD Ordering Physician: Flip Mandujano MD Date of Service: 10/24/23 Procedure(s): FL cardiolite stress test Accession Number(s): [id number] cc: Jenn Gonzalez MD; Flpi Mandujano MD [employer] Myocardial perfusion study Indication: [...] MD inOV> 10/30/23 1521 DD/ 1415 TD/TT: Social Media Community Manager: us [facility] External Provider CV STRE SS PROCEDURES Final Result [facility] [address] [place] [address] documented in this encounter Visit Diagnoses Not on filedocumented in this encounter Care Teams Manager Procurement Relationship Specialty Start Date End Date Jenn Gonzalez MD [address] [place] [phone] PCP - General Internal Medicine 12/29/14 documented as of this encounter
--- OUTSIDE RECORDS SUMMARY | 2025-05-27 08:37 | XMS_ITS | Encounter Summary ---
Author Organization [employer] Address [address] [facility] 7t [place] [address] Care Team Providers Care Blood Bank Worker Name Role Phone Jenn Gonzalez MD Primary Care Provider [phone] Encounter Details Date Type Department Care Team ([facility] Contact Info) Description 06/19/2024 Orders Only [facility] PEDS [address] [place], [place] [phone] Jenn Gonzalez MD [address] [place] [address] Social History Tobacco Use Types Packs/Day Years [...] Description 05/27/2025 9:45 AM EST Office Visit [facility] [address] [place] [address] Jenn Gonzalez MD [address] [place] [address] documented as of this encounter Visit Diagnoses Not on filedocumented in this encounter Additional Health Concerns Assessment Noted Time PHQ-9 Depression Total Score: 14 024 9:24 AM EDT documented as of this encounter Care Teams Blood Bank Worker Relationship Specialty Start Date End Date Jenn Gonzalez MD [address] [place] [address] PCP - General Internal Medicine 12/29/14 documented as of this encounter
--- OUTSIDE RECORDS SUMMARY | 2025-05-27 08:37 | XMS_ITS | Encounter Summary ---
Author Organization [employer] Address [address] [facility] 7t [place] [address] Care Team Providers Care Core Rescuer Name Role Phone Jenn Gonzalez MD Primary Care Provider [phone] Reason for Visit * Reason Onset Date Comments Appointment Request 09/01/2024 Encounter Details Date Type Department Care Team ([facility] Contact Info) Description 09/01/2024 Telephone [facility] [address] [place], [place] [phone] Jenn Gonzalez MD [address] [place], [place] [phone] Appointment Request Social History Tobacco Use Types [...] [facility] [address] [place] [address] Jenn Gonzalez MD [address] [place] [address] documented as of this encounter Visit Diagnoses Not on filedocumented in this encounter Additional Health Concerns Assessment Noted Time PHQ-9 Depression Total Score: 14 024 9:24 AM EDT documented as of this encounter Care Teams Core Rescuer Relationship Specialty Start Date End Date Jenn Gonzalez MD [address] [place] [address] PCP - General Internal Medicine 12/29/14 documented as of this encounter
--- OUTSIDE RECORDS SUMMARY | 2025-05-27 08:37 | XMS_ITS | Encounter Summary ---
Author Organization [employer] Address [address] [place] [address] 7 [place] [address] Care Team Providers Care Lens Mold Setter Name Role Phone Jenn Gonzalez MD Primary Care Provider [phone] Reason for Visit * Reason Comments Med Refill Encounter Details Date Type Department Care Team ([facility] Contact Info) Description 06/18/2022 Refill [facility] MEDICINE [address] [place], [place] [phone] Jenn Gonzalez MD [address] [place], [place] [phone] Anxiety disorder, unspecified Social History Tobacco Use [...] Upcoming Encounters Date Type Department Care Team ([facility] Contact Info) Description 05/27/2025 9:45 AM EST Office Visit [facility] & PEDS [address] [place] [address] Jenn Gonzalez MD [address] [place], [place] [phone] documented as of this encounter Visit Diagnoses Diagnosis Anxiety disorder, unspecified documented in this encounter Care Teams Lens Mold Setter Relationship Specialty Start Date End Date Jenn Gonzalez MD [address] [place] [address] PCP - General Internal Medicine 12/29/14 documented as of this encounter
--- OUTSIDE RECORDS SUMMARY | 2025-05-27 08:37 | XMS_ITS | Encounter Summary ---
Author Organization [employer] Address [address] [facility] 7t [place] [address] Care Team Providers Care Drawer Waxer Name Role Phone Jenn Gonzalez MD Primary Care Provider [phone] Reason for Visit * Reason Comments Med Refill Encounter Details Date Type Department Care Team ([facility] Contact Info) Description 03/25/2024 Refill [facility] MED & PEDS [address] [place], [place] [phone] Jenn Gonzalez MD [address] [place], [place] [phone] Generalized anxiety disorder Social History Tobacco Use [...] Description 05/27/2025 9:45 AM EST Office Visit [facility] [address] [place] [address] Jenn Gonzalez MD [address] [place] [address] documented as of this encounter Visit Diagnoses Diagnosis Generalized anxiety disorder documented in this encounter Care Teams Drawer Waxer Relationship Specialty Start Date End Date Jenn Gonzalez MD [address] [place] [address] PCP - General Internal Medicine 12/29/14 documented as of this encounter
--- OUTSIDE RECORDS SUMMARY | 2025-05-27 08:37 | XMS_ITS | Encounter Summary ---
Author Organization [employer] Address [address] [facility] 7t [place] [address] Care Team Providers Care Wildlife Biology Internship Name Role Phone Jenn Gonzalez MD Primary Care Provider [phone] Reason for Visit * Reason Onset Date Comments Nurse Triage 12/14/2024 Encounter Details Date Type Department Care Team ([facility] st Contact Info) Description 12/14/2024 Telephone [facility] MEDICINE [address] [place], [place] [phone] Jenn Gonzalez MD [address] [place], [place] [phone] Nurse Triage Social History Tobacco Use Types [...] Miscellaneous Notes * Telephone Encounter - Alta eRbolledo RN - 12/14/2024 12:00 PM EDT Triage call with [facility] [place] [id number] Pt reports right foot/ankle swelling which started 3 days ago. Pt reports some discoloring of the foot as well. Pt denies injury. Pt is having difficulty walking and can only wear sandal, shoe doesn't fit. Pt is taking tylenol for discomfort without effect. Pt is offered to come to [facility] today but, will come tomorrow morning when INVESTOR RELATIONS MANAGER is there. Pt is advised there is a wait time at [facility] at [facility] and declines [facility] requests apt be made in [facility]. ASK apt with NOVELTY WORKER Navarro 12/16/24 @ 200pm. Pt agrees withdisposition and [...] Reason: No appointments available Override Notes: declines [facility] Video visit not offered Positive Triage [...] caller accepted this outcome. Duration 3 days Icelandic Speaking documented in this encounter Plan of Treatment Upcoming Encounters Date Type Department Care Team ([facility] st Contact Info) Description 05/27/2025 9:45 AM EST Office Visit [facility] MED & PEDS [address] [place] [address] Jenn Gonzalez MD [address] [place] [address] documented as of this encounter Visit Diagnoses Not on filedocumented in this encounter Additional Health Concerns Assessment Noted Time PHQ-9 Depression Total Score: 0 10/23/19 25 10:21 AM EDT documented as of this encounter Care Teams Wildlife Biology Internship Relationship Specialty Start Date End Date Jenn Gonzalez MD [address] [place] [address] PCP - General Internal Medicine 12/29/14 documented as of this encounter
--- OUTSIDE RECORDS SUMMARY | 2025-05-27 08:37 | XMS_ITS | Encounter Summary ---
Author Organization [employer] Address [address] [facility] 7t [place] [address] Care Team Providers Care Rollout Manager Name Role Phone Jenn Gonzalez MD Primary Care Provider [phone] Encounter Details Date Type Department Care Team ([facility] Contact Info) Description 04/17/2024 Orders Only [facility] [address] [place], [place] [phone] Jenn Gonzalez MD [address] [place], [place] [phone] Anxiety (Primary Dx) Social History Tobacco Use [...] Upcoming Encounters Date Type Department Care Team ([facility] st Contact Info) Description 05/27/2025 9:45 AM EST Office [facility] [address] [place] [address] Jenn Gonzalez MD [address] [place] [address] documented as of this encounter Visit Diagnoses Diagnosis Anxiety- Primary Anxiety state, unspecified documented in this encounter Care Teams Rollout Manager Relationship Specialty Start Date End Date Jenn Gonzalez MD [address] [place] [address] PCP - General Internal Medicine 12/29/14 documented as of this encounter
--- OUTSIDE RECORDS SUMMARY | 2025-05-27 08:37 | XMS_ITS | Encounter Summary ---
Author Organization [employer] Address 75 [facility] 7t [place] [address] Care Team Providers Care Managing Consultant Clinical Professor Name Role Phone Jenn Gonzalez MD Primary Care Provider [phone] Reason for Visit * Reason Onset Date Comments Durable Medical Equipment 06/12/2024 Encounter Details Date Type Department Care Team ([facility] Contact Info) Description 06/12/2024 Telephone [facility] MEDICINE [address] [place] [address] Jenn Gonzalez MD [address] [place], [place] [phone] Durable Medical Equipment Social History Tobacco Use [...] to hold on. Contact pt Daughter at [phone] * Telephone Encounter - Uzma Manjarrez LPN - 06/15/2024 3:14 PM EST Please review pt requested below. Stone And Concrete Washer did review pt however didn't notice any [...] 9:45 AM EST Office Visit [facility] MED & PEDS [address] [place] [address] Jenn Gonzalez MD [address] [place] [address] documented as of this encounter Visit Diagnoses Not on filedocumented in this encounter Additional Health Concerns Assessment Noted Time PHQ-9 Depression Total Score: 14 024 9:24 AM EDT documented as of this encounter Care Teams Managing Consultant Clinical Professor Relationship Specialty Start Date End Date Jenn Gonzalez MD [address] [place] [address] PCP - General Internal Medicine 12/29/14 documented as of this encounter
--- OUTSIDE RECORDS SUMMARY | 2025-05-27 08:37 | XMS_ITS | Encounter Summary ---
Author Organization [facility] Address [address] [facility] [address] [place] [address] Phone Care Team Providers Care Air Intelligence Specialist Name Role Phone Jenn Gonzalez MD Primary Care Pr ovider Encounter Details Date Type Department Care Team (Late st Contact Info) Description 01/07/2019 Ancillary Orders [facility] [address] [place] [address] [place] [address] Troy Young DO [address] [place] [address] Bradycardia Social History Tobacco Use Types Packs/Day [...] dysrhythmias documented in this encounter Care Teams Air Intelligence Specialist Relationship Specialty Start Date End Date Jenn Gonzalez MD PCP - General 04/23/17 documented as of this encounter Additional Source Comments The information contained in this document represents components of the legal health record. It is not the complete legal health record.[facility]
--- OUTSIDE RECORDS SUMMARY | 2025-05-27 08:38 | XMS_ITS | Encounter Summary ---
Author Organization [employer] Address [address] [place] [address] Care Team Providers Care Endodontist Name Role Phone Jenn Gonzalez MD Primary Care Provider [phone] Encounter Details Date Type Department Care Team ([facility] Contact Info) Description 01/30/2024 Orders Only [facility] [address] [place], [place] [phone] Jenn Gonzalez MD [address] [place], [place] [phone] Right hand pain (Primary Dx) Social History [...] 05/27/2025 9:45 AM EST Office Visit [facility] [address] [place] [address] Jenn Gonzalez MD [address] [place] [address] documented as of this encounter Visit Diagnoses Diagnosis Right hand pain- Primary Pain in soft tissues of limb documented in this encounter Care Teams Endodontist Relationship Specialty Start Date End Date Jenn Gonzalez MD [address] [place] [address] PCP - General Internal Medicine 12/29/14 documented as of this encounter
--- NOTE | 2025-06-23 14:11 | HO.ANESPROP2 ---
Documented by User: Serena Duran NP 06/23/25 14:22 HPI - Anesthesia Eval Consult details Narrative: 70 yr old female for upper endoscopy, colonoscopy CAD: -s/p cardiac catheterization on 06/23/2024 which showed mid LAD 70% stenosis and SURJIT was placed, mid left circumflex 50% stenosis, RCA moderate diffuse disease. She did have shortness of breath which resolved following LAD stenting. -Follows [facility] cardiology, last visit 03/23/25, she reported lightheadedness, dizziness, fatigue. Will check Holter monitor to assess for any significant bradycardia or pauses. Holter showed sinus marvel with rate 59. -She is was on Brilinta and aspirin uninterrupted for at least 1 year following coronary stent. *After 06/23/2025 her Brilinta may be stopped and aspirin can be held for colonoscopy. She will be low to intermediate cardiac risk for the procedure. [facility] Active Problems Active Problems: All Active Problems (Updated 03/23/25 @ 09:50 by Milena Collier NP-C) Preop cardiovascular exam (Acute) Right arm pain (Acute) Stented coronary artery (Acute) History of cardiac cath (Acute) CAD (coronary artery disease) (Acute) Atherosclerotic cardiovascular disease (Acute) Shortness of breath (Acute) Abnormal EKG (Acute) Bradycardia (Acute) Bloating (Acute) Acid reflux (Acute) Diverticulosis of colon (Acute) History of adenomatous polyp of colon (Acute) Occult blood positive stool (Acute) Sleep apnea in adult (Acute) Chronic back pain (Acute) Dyslipidemia (Acute) HTN (hypertension) (Acute) Past Medical History Medical History Sleep apnea in adult Chronic back pain Dyslipidemia HTN (hypertension) Family History Family History Brother Heart problem Surgical History Surgical History History of cardiac cath History of bunionectomy H/O colonoscopy Social History Social History Household Members Other:: alone Alcohol intake: current Alcohol intake frequency: holidays/special occasions only Patient Tobacco Use Status: Former Tobacco user Use of substances other than those prescribed or required for medical reasons: Yes Substance Use Type: Marijuana Substance Use Frequency: Weekly Advance Directives: No Advance Directives Information Provided: Yes Current occupational status: unemployed Meds Allergies Allergy/AdvReac Type Severity Reaction Status Date / Time tetanus immune globulin AdvReac Intermediate LOCALIZED Verified 03/23/25 09:41 (TETANUS IMMUNE GLOBULIN) SWELLING Home Medications ?Medication ?Instructions ?Recorded ?Confirmed ?Last Taken ?Type clonazepam 1 mg tablet 1 mg PO DAILY 06/06/20 06/24/25 Unknown History cholecalciferol (vitamin D3) 50 50 mcg PO DAILY 09/11/23 06/24/25 Unknown History mcg (2,000 unit) capsule blood pressure test kit-large #1 ea 03/31/24 03/23/25 Unknown History lisinopril 20 1 tab PO DAILY 03/23/25 06/24/25 Unknown History mg-hydrochlorothiazide 12.5 mg tablet cyclobenzaprine 10 mg tablet 10 mg PO TID 06/15/25 06/24/25 Unknown History diclofenac potassium 50 mg tablet 50 mg PO TID 06/15/25 06/24/25 Unknown History escitalopram oxalate 10 mg tablet 10 mg PO DAILY 06/15/25 06/24/25 Unknown History Exam Pertinent Lab Results Pertinent Lab Results: Laboratory Tests 02/02/25 09:40 WBC 6.7 RBC 4.09 L Hgb 12.5 Hct 38.7 Plt Count 279 Sodium 137 Potassium 4.2 BUN 10 Creatinine 0.73 Narrative Narrative: 3 day Holter 03/26/25 Total monitoring time 3 days. Underlying rhythm is sinus with an average rate of 59/Min. About 41% of the time, rate < 60/Min. Rare supraventricular ectopy. Rare ventricular ectopy. Some strips have a lot of artifact and cannot assess the underlying rhythm. No significant pauses or high-grade AV blocks. No patient markers or diary events. EKG 03/2025 Sinus marvel, rate 49 ECHO 10/2023 Conclusions: - The left ventricular systolic function is hyperdynamic. The visually estimated ejection fraction is >70%. - No obvious valvular pathology seen on this study. Documented by User: Hilda Mcgee MD 06/28/25 08:31 [facility] Past Medical History Medical History Sleep apnea in adult Chronic back pain Dyslipidemia HTN (hypertension) Family History Family History Brother Heart problem Family history of problems with anesthesia: No Surgical History Surgical History History of cardiac cath History of bunionectomy H/O colonoscopy History of Problems with Anesthesia: No Social History Social History Household Members Other:: alone Alcohol intake: current Alcohol intake frequency: holidays/special occasions only Patient Tobacco Use Status: Former Tobacco user Use of substances other than those prescribed or required for medical reasons: Yes Substance Use Type: Marijuana Substance Use Frequency: Weekly Advance Directives: No Advance Directives Information Provided: Yes Current occupational status: unemployed Meds Allergies Allergy/AdvReac Type Severity Reaction Status Date / Time tetanus immune globulin AdvReac Intermediate LOCALIZED Verified 03/23/25 09:41 (TETANUS IMMUNE GLOBULIN) SWELLING Home Medications ?Medication ?Instructions ?Recorded ?Confirmed ?Last Taken ?Type clonazepam 1 mg tablet 1 mg PO DAILY 06/06/20 06/24/25 Unknown History cholecalciferol (vitamin D3) 50 50 mcg PO DAILY 09/11/23 06/24/25 Unknown History mcg (2,000 unit) capsule blood pressure test kit-large #1 ea 03/31/24 03/23/25 Unknown History lisinopril 20 1 tab PO DAILY 03/23/25 06/24/25 Unknown History mg-hydrochlorothiazide 12.5 mg tablet cyclobenzaprine 10 mg tablet 10 mg PO TID 06/15/25 06/24/25 Unknown History diclofenac potassium 50 mg tablet 50 mg PO TID 06/15/25 06/24/25 Unknown History escitalopram oxalate 10 mg tablet 10 mg PO DAILY 06/15/25 06/24/25 Unknown History Exam Airway Mallampati Class: II TM Dist: >3cm Neck ROM: Full Heart: rrr Lungs: cta Assessment and Plan Assessment Anesthesia Assessment: Anesthesia Plan Discussed and Chart Reviewed Final Anesthetic Review Family History of Problems with Anesthesia: No History of Problems with Anesthesia: No NPO: Yes ASA Class: III Final Preanesthetic Review: No Changes in Pt Med Stat, Meds/Allgs Chart Reviewed, Consent Obtained/Reviewed and Anes Risks/Benef Reviewed Patient Risk: Intermediate Procedure Risk: Low Anesthetic Plan Anesthetic Plan: MAC: and Agree w/ Assess. and Plan Disposition: Standard PACU
[2025-06-24 14:26] VITALS: BMI 35.9
--- NOTE | 2025-06-28 07:25 | MHC.SHP ---
Pre-Procedural Eval Section A - 24 Hr Update-Section A only Date of Service: 06/28/25 The patient is an INPATIENT: No The patient has been examined within 24 hours of the surgical procedure. The History & Physical has been completed within 30 days and I have reviewed it.: Yes Section B - Complete if H&P > 30 days Chief Complaint: Surveillance for colon polyps, GERD Relevant Family History (Specify if Yes): No Relevant Social History: Tobacco Use (Former smoker) Present Medications: see Short Stay Collaborative assessment Medical History: Significant History (Sleep apnea in adult Chronic back pain Dyslipidemia HTN (hypertension)) History of Previous Operations: Relevant previous surgery/procedure and date(s) (History of cardiac cath History of bunionectomy H/O colonoscopy) Allergies: Allergies Allergy/AdvReac Type Severity Reaction Status Date / Time tetanus immune globulin AdvReac Intermediate LOCALIZED Verified 03/23/25 09:41 (TETANUS IMMUNE GLOBULIN) SWELLING Review of Systems Sugical H&P ROS: Negative: Constitution, Cardiovascular and Respiratory and Yes, Specify: Gastrointestinal (GERD) Exam Surgical H&P Exam: Normal: Heart, Normal: Lungs, Normal: Extremities and Normal: Abdomen Plan Diagnosis/Plan: Unchanged I have reviewed the history and physical and performed a pertinent physical examination on my patient. No changes have occurred unless specified. Time Spent With Patient Time: Total time managing care of this patient today ____ minutes.
[2025-06-28 07:49] VITALS: BMI 37.8
[2025-06-28 08:02] VITALS: BP 105/56; PULSE 51; RESP 16; TEMP 36.5; O2SAT 99
[2025-06-28] MEDS: Lactated Ringers 1,000 ML 100 ML IVCONT (08:04)
--- NOTE | 2025-06-28 09:21 | P.OPN-COLO_ITS ---
Colonoscopy Operative Note Operative Note Date of Service: 06/28/25 Narrative: FLEXIBLE TRANSORAL UPPER GASTROINTESTINAL ENDOSCOPY WITH BIOPSIES AND COLONOSCOPY TILL CECUM WITH [] Pre-op diagnosis: Colon cancer screening, GERD Post-op diagnosis: GERD, Gastritis, Colon Polyps, Diverticulosis, hemorrhoids Specimens and Sources: : a- small bowel bxs r/o celiac disease ?b- gastric antrum bxs r/o h pylori ?c- gastric body bxs ?d- ascending colon ulcer bxs ?e- sigmoid colon polyp Pre-operative diagnosis: : Surveillance for colon polyps, GERD Post-operative Diagnosis: : gerd, gastritis, colon polyp, colon ulcer, diverticulosis, Endoscopist:? Travis Werner MD Anesthesia:?[facility] [place] UPPER ENDOSCOPY Consent: Indications for the procedure and potential complications of bleeding, perforation, reaction to medications and missed diagnosis were discussed with the patient and informed consent was obtained. Instrument: Olympus GIF H 190 mid size upper endoscope Monitoring: Vital signs and clinical assessment, continuous EKG monitoring, Pulse oximetry, Carbon Dioxide monitoring and blood pressure monitoring were done throughout the procedure. Procedure: The patient was placed in the left lateral decubitis position and pre-procedure medications were administered and a bite block was placed. The endoscope was inserted into the mouth and advanced under direct vision to the third part of duodenum. A careful inspection was made as the upper endoscope was withdrawn including a retroflexed examination of the proximal stomach; Findings and interventions are described below. Findings: Larynx: Normal Esophagus: GE junction at 37 cms. No esophagitis or Andre's. Stomach: Moderate diffuse gastric erythema with a few antral erosions - biopsies were obtained from the gastric body and antrum. Grade 2 flap valve on retroflexed examination of the cardia. Duodenum: Normal bulb and descending duodenum Biopsies were obtained from descending duodenum to check for celiac sprue Intervention: Biopsies as noted above COLONOSCOPY PROCEDURE NOTE Instrument: Olympus PCF H 190 L variable stiffness pediatric colonoscope Monitoring: Vital signs and clinical assessment, intermittent blood pressure monitoring, continuous EKG monitoring, Pulse oximetry and Carbon Dioxide monitoring were done throughout the procedure. Please see anesthesia flowsheet. Colon withdrawl time was 18 minutes. Procedure: The patient was placed in the left lateral decubitis position and pre-procedure medications were administered. After a digital rectal examination of the ano-rectum, the video colonoscope was inserted into the rectum and advanced through the colon to the cecum. The colonoscope was slowly withdrawn in a retrograde panoramic fashion and the colon mucosa was carefully examined including a retroflexed view of the rectum. Findings and interventions are described below. Procedure Difficulty: without difficulty Findings: Terminal Ileum: Not evaluated Cecum: A 6-7 mm nonbleeding AVM. Ascending Colon: A 10 mm non-bleeding chronic appearing ulcer in the mid ascending colon - biopsy Transverse Colon: Normal Descending Colon: Moderate diverticulosis Sigmoid Colon: A 4-5 mm sessile polyp - removed with a cold biopsy. Moderate diverticulosis Rectum: Normal Ano-rectum: Moderate internal hemorrhoids Colon preparation: Excellent, after copious irrigation. [place] Bowel Preparation Scale Right colon; 3 Transverse colon: 3 Left colon; 3 (0 = Unprepared colon segment with mucosa not seen due to solid stool that cannot be cleared. 1 = Portion of mucosa of the colon segment seen, but other areas of the colon segment not well seen due to staining, residual stool and/or opaque liquid. 2 = Minor amount of residual staining, small fragments of stool and/or opaque liquid, but mucosa of colon segment seen well. 3 = Entire mucosa of colon segment seen well with no residual staining, small fragments of stool or opaque liquid) Impression and Post Procedure Diagnosis: Endoscopy Findings: ESOPHAGUS: [] STOMACH: [] DUODENUM: [] Colonoscopy Findings: [ ] polyp[s] were [detected] [removed] Moderate diverticulosis seen in the [sigmoid] [left] [entire] colon [Moderate] [small] [large] hemorrhoids on retroflexed exam. Plan: I will send a letter with biopsy results Repeat Colonoscopy in 3-5 years if polyps are adenomatous and 10 year if polyps are hyperplastic. A summary of above findings and relevant handouts were given to the patient.
[2025-06-28 09:52] VITALS: BP 110/62; PULSE 80; RESP 14; TEMP 36.6; O2SAT 95
[2025-06-28 10:07] VITALS: BP 116/62; PULSE 58; RESP 18; TEMP 36.1; O2SAT 98
== END 2025-06-28 10:38 | disposition home or self-care (01) ==
PROVIDERS: PCP Internal Medicine; Visit Provider Internal Medicine Gastroenterology
PROC: (CPT 45380; principal; 2025-06-28 08:30)
DX: Z12.11 Encounter for screening for malignant neoplasm of colon (principal); R14.0 Abdominal distension (gaseous); K21.9 Gastro-esophageal reflux disease without esophagitis; R10.13 Epigastric pain; K59.01 Slow transit constipation; K57.30 Diverticulosis of large intestine without perforation or abscess without bleeding; K64.8 Other hemorrhoids; K63.3 Ulcer of intestine; K63.5 Polyp of colon; K29.70 Gastritis, unspecified, without bleeding
CPT/HCPCS: 45380; 43239; 88305; 88342; J2003; J2704